=== PATIENT | female | born 1960 | race Caucasian/White ===

== ENCOUNTER → 2017-07-15 08:49 | Outpatient (CLI) | payer OTHER, SELFPAY ==
--- NOTE | 2017-07-15 09:04 | CA_ITS ---
PROCEDURE: 2-D M-mode and color Doppler study INDICATIONS FOR THE TEST: Chest pain COPD Heart Murmur Tobacco Smoking Palpitations Fatigue Syncope Edema Hypertension Diabetes Mellitus Rheumatic Fever SOB SEARS ObesityXHyperlipidemiaX Family History HD Additional History AF RECENT CARDIOVERSION,LIFEVEST,CM PATIENT INFORMATION HEIGHT: 63 WEIGHT:260 GENDER: Female B/P:120/80 2-D/M-MODE INTERPRETATION: 2-D MEASUREMENTS OBSERVED VALUES IN CMS Right Ventricular Dimension (RVDd) 2.6 Interventricular Septum (Thickness)(IVsd) 1.0 Left Ventricular Internal Dimensions(LVIDd 5.0 Left Ventricular Posterior Wall (Thickness)(LVPWd) 1.2 Aortic Root 2.6 Aortic Cusp Separation 1.7 Left Atrial Dimensions (LAD) 3.7 2D 1. Left atrium is qualitatively mildly enlarged, left ventricle is normal size, left ventricle wall thickness is upper limit of normal, there is preserved left ventricular systolic function, visually estimated ejection fraction 55% with no obvious regional wall motion abnormality. 2. The right atrium and right ventricle are mildly enlarged with normal contractility. 3. The aortic valve is minimally thickened and fibrosed. 4. The mitral and tricuspid valve leaflets are minimally thickened. 5. The pulmonic valve is poorly visualized. 6. No significant pericardial effusion noted. DOPPLER INTERROGATION: Doppler interrogation of the aortic, mitral and tricuspid valvular presence of mild mitral and tricuspid regurgitation, calculated right ventricular systolic pressure is 47 mmHg consistent with moderate pulmonary hypertension, diastolic parameters are inconclusive. CONCLUSION: 1. Left atrium is mildly enlarged, left ventricle is normal size, left ventricle wall thickness is upper limit of normal, there is preserved left ventricular systolic function, visually estimated ejection fraction 55% with no obvious regional wall motion abnormality. Diastolic parameters are inconclusive. 2. Mildly enlarged right ventricle with normal contractility. 3. Mild mitral and tricuspid regurgitation, calculated right ventricular systolic pressure is 47 mmHg consistent with moderate pulmonary hypertension. 4. No significant pericardial effusion noted.
== END ==
PROVIDERS: PCP Internal Medicine Adolescent Medicine; Visit Provider Internal Medicine
DX: I48.91 Unspecified atrial fibrillation (principal)
CPT/HCPCS: 93306

== ENCOUNTER → 2018-04-22 15:24 | Outpatient (CLI) | payer OTHER, SELFPAY ==
[2018-04-22 19:22] LABS: Alanine Aminotransferase 43 U/L (12-78); Albumin Level 3.8 gm/dL (3.4-5.0); Alkaline Phosphatase 104 U/L (46-116); Aspartate Amino Transferase 26 U/L (15-37); Bilirubin,Direct 0.1 mg/dL (0.0-0.2); Bilirubin,Indirect 0.4 mg/dL (0.0-0.9); Bilirubin,Total 0.5 mg/dL (0.2-1.0); T4 (Thyroxine) 6.2 ug/dl (4.7-13.3); Thyroid Stimulating Hormone 4.54 uIU/ml (0.358-3.740); Total Protein,Serum 7.3 gm/dL (6.4-8.2); Triiodothryronine (T3) Uptake 33 % (31-39)
== END ==
PROVIDERS: Visit Provider Internal Medicine Cardiovascular Disease
DX: E11.9 Type 2 diabetes mellitus without complications (principal); E66.9 Obesity, unspecified; G47.33 Obstructive sleep apnea (adult) (pediatric); I10 Essential (primary) hypertension; I25.10 Atherosclerotic heart disease of native coronary artery without angina pectoris; I42.0 Dilated cardiomyopathy; I48.91 Unspecified atrial fibrillation; I50.9 Heart failure, unspecified; R94.31 Abnormal electrocardiogram [ECG] [EKG]; Z79.01 Long term (current) use of anticoagulants
CPT/HCPCS: 36415; 80076; 84436; 84443; 84479

== ENCOUNTER → 2018-09-01 14:19 | Outpatient (CLI) | payer OTHER, SELFPAY ==
[2018-09-01 14:40] LABS: Basophils % 0.4 % (0.1-2.0); Eosinophils # 0.1 K/mm3 (0.0-0.4); Eosinophils % 1.5 % (0.1-12.0); Hematocrit 42.7 % (37.0-47.0); Hemoglobin 14.3 g/dL (12.2-16.2); Lymphocytes # 1.8 K/mm3 (0.7-4.5); Lymphocytes % 18.7 % (10-50); Mean Corpuscular HGB Conc 33.6 g/dL (31.8-35.4); Mean Corpuscular Hemoglobin 31.6 pg (27.0-31.2); Mean Platelet Volume 7.9 fl (7.4-10.4); Monocytes # 0.5 K/mm3 (0.1-1.0); Monocytes % 5.7 % (1.7-9.3); Neutrophils # 6.9 K/mm3 (1.8-7.8); Neutrophils % 73.8 % (37.0-80.0); Platelet Count 260 K/mm3 (142-424); Red Blood Count 4.54 M/mm3 (4.20-5.40); Red Cell Distribution Width 13.7 % (11.5-17.5); White Blood Count 9.3 K/mm3 (4.8-10.8)
[2018-09-01 15:58] LABS: Alanine Aminotransferase 70 U/L (12-78); Albumin Level 3.7 gm/dL (3.4-5.0); Alkaline Phosphatase 121 U/L (46-116); Anion Gap 15.6 mEq/L (5-15); Aspartate Amino Transferase 48 U/L (15-37); Bilirubin,Total 0.6 mg/dL (0.2-1.0); Blood Urea Nitrogen 18 mg/dL (7-18); Calcium 9.4 mg/dL (8.5-10.1); Carbon Dioxide 25 mmol/L (21.0-32.0); Chloride 100 mmol/L (98-107); Estimated Glomerular Filt Rate 42 ml/min (>60); GFR (African American) 51 ML/MIN (>60); Globulin 3.7 gm/dl (1.3-3.2); Glucose 351 mg/dL (74-106); Potassium 4.6 mmoL/L (3.5-5.1); Sodium 136 mmol/L (136-145); Total Protein,Serum 7.4 gm/dL (6.4-8.2)
== END ==
PROVIDERS: Visit Provider Nurse Practitioner Family
DX: Z79.899 Other long term (current) drug therapy (principal)
CPT/HCPCS: 36415; 80053; 85025

== ENCOUNTER → 2018-10-22 15:13 | Outpatient (CLI) | payer SELFPAY ==
--- NOTE | 2018-10-22 15:24 | XR_ITS ---
XR chest 2V HISTORY: ITS.REASON: a ORDERING PHYSICIAN: Indiana Schaffer APRN PATIENT AGE: 58 years COMPARISON: 04/22/2017 FINDINGS: The cardiomediastinal silhouette and pulmonary vascularity are within normal limits. The lungs are clear without infiltrates, suspicious nodules, or pleural effusions. There are mild degenerative changes in the thoracic spine. IMPRESSION: No acute finding
[2018-10-22 16:09] LABS: Basophils % 0.2 % (0.1-2.0); Eosinophils # 0.1 K/mm3 (0.0-0.4); Eosinophils % 0.8 % (0.1-12.0); Hemoglobin 14.8 g/dL (12.2-16.2); Lymphocytes # 1.4 K/mm3 (0.7-4.5); Lymphocytes % 16.6 % (10-50); Mean Corpuscular HGB Conc 33.7 g/dL (31.8-35.4); Mean Corpuscular Hemoglobin 30.8 pg (27.0-31.2); Mean Corpuscular Volume 91.4 fl (81-99); Mean Platelet Volume 8.2 fl (7.4-10.4); Monocytes # 0.5 K/mm3 (0.1-1.0); Monocytes % 6.4 % (1.7-9.3); Neutrophils # 6.2 K/mm3 (1.8-7.8); Neutrophils % 76.1 % (37.0-80.0); Platelet Count 244 K/mm3 (142-424); Red Blood Count 4.81 M/mm3 (4.20-5.40); Red Cell Distribution Width 14.1 % (11.5-17.5); White Blood Count 8.1 K/mm3 (4.8-10.8)
[2018-10-22 19:25] LABS: Alanine Aminotransferase 79 U/L (12-78); Albumin/Globulin Ratio 1.1 (1.1-1.8); Alkaline Phosphatase 114 U/L (46-116); Anion Gap 17.3 mEq/L (5-15); Aspartate Amino Transferase 57 U/L (15-37); Bilirubin,Total 0.9 mg/dL (0.2-1.0); Blood Urea Nitrogen 19 mg/dL (7-18); Calcium 9.8 mg/dL (8.5-10.1); Carbon Dioxide 25 mmol/L (21.0-32.0); Chloride 97 mmol/L (98-107); Creatinine,Serum 0.97 mg/dL (0.55-1.02); Estimated Glomerular Filt Rate 59 ml/min (>60); GFR (African American) 71 ML/MIN (>60); Globulin 3.7 gm/dl (1.3-3.2); Potassium 4.3 mmoL/L (3.5-5.1); Sodium 135 mmol/L (136-145); Total Protein,Serum 7.7 gm/dL (6.4-8.2)
[2018-10-22 19:29] LABS: Bilirubin,Direct 0.1 mg/dL (0.0-0.2)
[2018-10-22 19:34] LABS: Free T4 (Free Thyroxine) 0.95 ng/dl (0.76-1.46); Thyroid Stimulating Hormone 3.91 uIU/ml (0.358-3.740)
[2018-10-22 19:55] LABS: Glucose 437 mg/dL (74-106)
[2018-10-24 15:18] LABS: Hemoglobin A1C 10.8 % (0.0-7.0)
== END ==
PROVIDERS: Nurse Practitioner Family; Visit Provider Nurse Practitioner Family
DX: I48.91 Unspecified atrial fibrillation (principal); I25.10 Atherosclerotic heart disease of native coronary artery without angina pectoris; Z79.899 Other long term (current) drug therapy; R73.9 Hyperglycemia, unspecified
CPT/HCPCS: 36415; 71046; 80053; 82248; 83036; 84439; 84443; 85025

== ENCOUNTER 2020-03-18 21:23 | Inpatient (IN) | payer MEDICAID, SELFPAY ==
[2020-03-18] VITALS (7 sets, daily range): BP systolic 120–157; BP diastolic 74–116; PULSE 101–174; RESP 16–26; TEMP 36.6–36.7; O2SAT 93–98; BMI 42.1; BMI 50.8
--- NOTE | 2020-03-18 21:38 | XR_ITS ---
PROCEDURE: XR CHEST 2V CLINICAL HISTORY: SOA COMPARISON: CR CXR1 CHEST-PORTABLE from 10/09/2015 CR CXR1 CHEST-PORTABLE from 11/15/2016 CR CXR CHEST(2 VIEWS-NOT PORTABLE) from 04/22/2017 FINDINGS: There is cardiomegaly with mild pulmonary venous congestion and suggestion of trace bilateral effusions. No pulmonary edema The lungs are clear without infiltrates, suspicious nodules, or pleural effusions. Osteophytosis of the thoracic spine IMPRESSION: Mild CHF with trace effusions Dictated by: Ajit Carballo MD 03/19/2020 04:13 Ajit Carballo MD in [place] 03/19/2020 04:13
--- NOTE | 2020-03-18 21:41 | ECG_ITS ---
APPROVED REPORT Exam: Resting ECG HR:0 bpm ECG Measurements Heart Rate 0 AXES QRSd QRS 0 QT T 0 <Conclusion> No QRS complexes found, no ECG analysis possible Electronically signed by : Km Hollis, 03/20/2020 15:39:25
--- NOTE | 2020-03-18 21:43 | HMH.EDSOB ---
ED Disposition Clinical Impression: Atrial flutter with rapid ventricular response Obesity Qualifiers: Obesity type: due to excess calories Obesity classification: adult class 3 (BMI >= 40) Serious obesity comorbidity presence: with serious comorbidity Body mass index: BMI 40.0-44.9 Qualified Code(s): E66.01 - Morbid (severe) obesity due to excess calories; Z68.41 - Body mass index (BMI) 40.0-44.9, adult Congestive heart failure Qualifiers: Heart failure type: unspecified Heart failure chronicity: acute on chronic Qualified Code(s): I50.9 - Heart failure, unspecified Disposition: Admitted as Observation Condition on Discharge: Good Referrals: Km Hollis MD [Primary Care Provider] - - Critical Care Critical Care Time: No Attestation: On 03/18/20, the high probability of a clinically significant, sudden or life threatening deterioration of the following system(s) required my full and direct attention, intervention and personal management. The time I documented below is in addition to time spent performing reported procedures but includes the following listed in this critical care notation. Medical Decision Making - Medical Records Medical records reviewed: Yes: I reviewed the patient's medical records. - [place] Inquiry Pt receiving controlled substance: No Vital Signs: 03/18/20 21:31 03/18/20 21:48 03/18/20 22:50 Temperature 97.8 F Temperature Source Oral Pulse Rate [Right Brachial] 101 H 174 H 152 H Respiratory Rate 26 H 22 23 Blood Pressure [Right Arm] 157/99 H 131/116 H 154/91 H Blood Pressure Mean [Right Arm] 118 121 112 Blood Pressure Source [Right Arm] Automatic Cuff Blood Pressure Position [Right Arm] Sitting 02 Sat by Pulse Oximetry 96 94 L 93 L Oxygen Delivery Method Room Air Room Air Room Air - Lab Data Lab results reviewed: Yes: I reviewed the patient's lab results. Lab Results 03/18/20 21:55: WBC 10.7, RBC 4.39, Hgb 13.5, Hct 39.6, MCV 90.2, MCH 30.7, MCHC 34.0, RDW 15.1, Plt Count 258, MPV 8.6, Neut % (Auto) 75.2, Lymph % (Auto) 15.8, Drew % (Auto) 7.5, Eos % (Auto) 1.1, Baso % (Auto) 0.4, Neut # (Auto) 8.1 H, Lymph # (Auto) 1.7, Drew # (Auto) 0.8, Eos # (Auto) 0.1, Baso # (Auto) 0.0 03/18/20 21:55: Sodium 140, Potassium 4.5, Chloride 108 H, Carbon Dioxide 20 L, Anion Gap 16.5 H, BUN 30 H, Creatinine 1.00, Estimated Creat Clear 49, Estimated GFR 57 L, Est GFR ( Amer) 68, Glucose 171 H, Calcium 9.5, Total Bilirubin 1.2, Direct Bilirubin 0.3, Conjugated Bilirubin 0.0, Indirect Bilirubin 0.9, Unconjugated Bilirubin 0.8, AST 54 H, ALT 55, Alkaline Phosphatase 104, Troponin I 0.02, NT-Pro-B Natriuret Pep 7330 H, Total Protein 7.5, Albumin 4.3 03/18/20 21:55: SARS-CoV-2 IgG Ab (Rapid) Negative, SARS-CoV-2 IgM Ab (Rapid) Negative Result diagrams: 03/18/20 21:55 03/18/20 21:55 Orders (Tests/Meds): ORDERS Category Date Time Status XR chest 2V Stat Exams 03/18/20 21:38 Taken Thyroid Panel Stat Lab 03/18/20 21:55 Received Troponin I Q3H Lab 03/19/20 00:45 Ordered Troponin I Q3H Lab 03/19/20 03:45 Ordered - Radiology Data #1 Image(s): Chest Image Reviewed: Yes I reviewed the patient's radiology image Preliminary Findings: Abnormal (chf ) - ECG Data Tracing #1 Arrhythmias present: aflutter Ischemic changes: non-specific ST-T wave changes - Physician Consults Physician Consulted: santos Reason -: Admission - JOSÉ MIGUEL Score for Non-Stemi Age of Patient: 60-69 years old Heart Rate: 150-199 bpm Systolic Blood Pressure: 140-159 mmHg Serum Creatinine: 0.80-1.19 mg/dl CHF [place] Class: II-Pulmonary Rales or Jug Other Risk Factors: None Non-Stemi Risk Score: 147 Resp/SOB HPI - General Chief Complaint: Shortness of Breath/Dyspnea Stated Complaint: retaining fluid Time Seen by Provider: 03/18/20 21:40 Mode of Arrival: Family Vehicle Source of Information: Patient, Medical Record Limitations: No Limitations Description of Symptoms (Recalled from
--- NOTE | 2020-03-18 21:45 | PC.NURSE ---
QUESTIONED MD WHETHER HE WANTED ANY MEDS GIVEN FOR THE IRREG HR AND SOA, AND HE DEFERRED AT THIS TIME.
[2020-03-18 22:10] LABS: Basophils % 0.4 % (0.1-2.0); Eosinophils # 0.1 K/mm3 (0.0-0.4); Eosinophils % 1.1 % (0.1-12.0); Hematocrit 39.6 % (37.0-47.0); Hemoglobin 13.5 g/dL (12.2-16.2); Lymphocytes # 1.7 K/mm3 (0.7-4.5); Lymphocytes % 15.8 % (10-50); Mean Corpuscular Hemoglobin 30.7 pg (27.0-31.2); Mean Corpuscular Volume 90.2 fl (81-99); Mean Platelet Volume 8.6 fl (7.4-10.4); Monocytes # 0.8 K/mm3 (0.1-1.0); Monocytes % 7.5 % (1.7-9.3); Neutrophils # 8.1 K/mm3 (1.8-7.8); Neutrophils % 75.2 % (37.0-80.0); Platelet Count 258 K/mm3 (142-424); Red Blood Count 4.39 M/mm3 (4.20-5.40); Red Cell Distribution Width 15.1 % (11.5-17.5); White Blood Count 10.7 K/mm3 (4.8-10.8)
[2020-03-18 22:19] LABS: Alanine Aminotransferase 55 U/L (12-78); Albumin Level 4.3 g/dl (3.5-5.0); Alkaline Phosphatase 104 U/L (38-126); Anion Gap 16.5 mEq/L (5-15); Aspartate Amino Transferase 54 U/L (14-36); Bilirubin,Direct 0.3 mg/dl (0.0-0.4); Bilirubin,Indirect 0.9 mg/dL (0.0-0.9); Bilirubin,Total 1.2 mg/dl (0.2-1.3); Bilirubin,Unconjugated 0.8 mg/dL (0.0-1.1); Blood Urea Nitrogen 30 mg/dl (7-17); Calcium 9.5 mg/dl (8.4-10.2); Carbon Dioxide 20 mmol/L (22.0-30.0); Chloride 108 mmol/L (98-107); Creatinine Clearance Estimated 49 mL/min (50-200); Estimated Glomerular Filt Rate 57 ml/min (>60); GFR (African American) 68 ML/MIN (>60); Glucose 171 mg/dl (74-100); Potassium 4.5 mmoL/L (3.5-5.1); Sodium 140 mmol/L (136-145); Total Protein,Serum 7.5 g/dl (6.3-8.2)
[2020-03-18 22:31] LABS: Coronavirus 19 IgG Antibody Negative (Negative); Coronavirus 19 IgM Antibody Negative (Negative); NT Pro Brain Natriuretic Pep. 7330 pg/mL (0-125); Troponin I 0.02 ng/ml (0.00-0.034)
[2020-03-18 22:37] LABS: Free Thyroxine Index 3.2 ug/dL (5.93-13.13); Triiodothryronine (T3) Uptake 36 % (23.5-40.5)
[2020-03-18 22:51] LABS: Thyroid Stimulating Hormone 4.15 uIU/mL (0.465-4.68)
--- NOTE | 2020-03-18 22:51 | PC.NURSE ---
speaking with Dr. Hollis
--- NOTE | 2020-03-18 22:52 | PC.NURSE ---
Notified House of Admission
--- NOTE | 2020-03-18 23:25 | PC.NURSE ---
PT ARRIVED TO THE FLOOR VIA STRETCHER W/STAFF FROM ED AT [id number]
--- NOTE | 2020-03-18 23:26 | PC.NURSE ---
THIS RN INCREASED CARDIZEM GTT TO 15ML/HR ON ADMISSION R/T HR IN 150'S ON ADMISSION, WILL CONTINUE TO MONITOR PT'S TOLERANCE.
[2020-03-19] VITALS (27 sets, daily range): BP systolic 101–162; BP diastolic 56–101; PULSE 80–150; RESP 16–20; TEMP 36.7; O2SAT 90–97; BMI 50.1
[2020-03-19 01:00] LABS: Troponin I 0.02 ng/ml (0.00-0.034)
--- NOTE | 2020-03-19 03:00 | PC.NURSE ---
TITRATED CARDIZEM GTT TO 10 MG AT THIS TIME.
--- NOTE | 2020-03-19 03:30 | PC.NURSE ---
TITRATE CARDIZEM GTT TO 5 MG AT THIS TIME.
--- NOTE | 2020-03-19 03:34 | PC.NURSE ---
A&OX3. PROPOSAL ANALYST EQUAL BILAT. LUNGS CLEAR T/O AUSCULTATION. TOELRATED RA WELL. NO COMPLAINTS STATED THIS SHIFT. PULSES +2, +1 PITTING EDEMA NOTED PER BLE. AFIB NOTED PER PLANT SUPERVISOR. ON ADMISSION REDNESS, FLUSHING NOTED TO FACE. ON REASSESSMENT FREE FROM FLUSHING. INDEPENDENT WITH ADL'S, USES CANE FROM HOME TO ASSIST WITH AMBULATION TO AND FROM BATHROOM, PT TOLERATES THIS WELL. TOLERATED CARDIZEM GTT WELL THIS SHIFT. CARDIZEM CURRENTLY INFUSING AT 5 ML/HR. VSS. WILL CONTINUE TO MONITOR.
--- NOTE | 2020-03-19 04:30 | PC.NURSE ---
TITRATED CARDIZEM GTT TO 10 ML/HR AT THIS TIME.
[2020-03-19 04:32] LABS: Basophils % 0.4 % (0.1-2.0); Eosinophils # 0.1 K/mm3 (0.0-0.4); Eosinophils % 1.2 % (0.1-12.0); Hematocrit 36.1 % (37.0-47.0); Hemoglobin 12.4 g/dL (12.2-16.2); Lymphocytes # 1.7 K/mm3 (0.7-4.5); Lymphocytes % 19.6 % (10-50); Mean Corpuscular HGB Conc 34.4 g/dL (31.8-35.4); Mean Corpuscular Hemoglobin 31.4 pg (27.0-31.2); Mean Corpuscular Volume 91.3 fl (81-99); Mean Platelet Volume 8.2 fl (7.4-10.4); Monocytes # 0.7 K/mm3 (0.1-1.0); Monocytes % 8.1 % (1.7-9.3); Neutrophils % 70.7 % (37.0-80.0); Platelet Count 213 K/mm3 (142-424); Red Blood Count 3.95 M/mm3 (4.20-5.40); Red Cell Distribution Width 15.2 % (11.5-17.5); White Blood Count 8.5 K/mm3 (4.8-10.8)
[2020-03-19 04:48] LABS: Anion Gap 13.4 mEq/L (5-15); Blood Urea Nitrogen 25 mg/dl (7-17); Calcium 8.9 mg/dl (8.4-10.2); Carbon Dioxide 24 mmol/L (22.0-30.0); Chloride 106 mmol/L (98-107); Chol/HDL Ratio 4.5 (1-3.5); Cholesterol 153 mg/dl (140-200); Creatinine Clearance Estimated 59 mL/min (50-200); Estimated Glomerular Filt Rate 73 ml/min (>60); GFR (African American) 89 ML/MIN (>60); HDL Cholesterol 34 mg/dl (40-60); Magnesium 1.9 mg/dl (1.6-2.3); Potassium 3.4 mmoL/L (3.5-5.1); Sodium 140 mmol/L (136-145); Triglycerides 118 mg/dl (30-150); VLDL Cholesterol 24 mg/dL (0-40)
[2020-03-19 04:59] LABS: Direct LDL Cholesterol 106.25 mg/dL (100-129); Troponin I 0.02 ng/ml (0.00-0.034)
[2020-03-19 05:09] LABS: Glucose 116 mg/dl (74-100)
--- NOTE | 2020-03-19 07:30 | PC.NURSE ---
TITRATED CARDIZEM GTT TO 15 ML/HR.
--- NOTE | 2020-03-19 07:55 | PC.NURSE ---
per dr. graham the goal is to keep pt HR lower than 100bpm rather than converting to NSR. will cont. to monitor.
--- NOTE | 2020-03-19 07:58 | HMH.HP ---
*Admission Date: 03/19/20 *Chief complaint: Shortness of air/swelling *History of present illness: 59-year-old white female with long history of recurrent and difficult to control atrial fibrillation who has been seen by a variety of cardiology services over the past several years. Unfortunately, about a year ago she was unable to procure medical insurance and as a result stopped taking all of her medications and stopped attending doctors appointments. She is been doing fairly well but over the past couple of weeks has noted increasing shortness of air, swelling, irregular heart rate with palpitations and came to the emergency department last night with atrial fibrillation with rapid response and evidence of CHF. Admitted to hospital for IV Lasix, Cardizem drip and further diagnostic testing. [facility] History Medical History: Reports:: Atrial Fibrillation (History of evaluation for ablation, longstanding disease with recurrence), Congestive Heart Failure, Coronary Artery Disease, Diabetes Mellitus Type 2, Hyperlipidemia, Hypertension *Have you ever received a pneumonia vaccine?: No *Have you received a flu vaccine this season?: No Other Medical History: Reports: Hypothyroidism Other Surgeries: Yes: Cardiac Catheterization, Other - *Social History Last grade of school completed: Some college Smoking Status: Never smoker Alcohol Intake: former Alcohol Intake Frequency:: other Substance Use Type: former substance user *Occupational Status:: employed Household Members: spouse *Travel in the last 8 weeks: None Family Hx:: Anemia, Cancer, Coronary Artery Disease, Diabetes, Hyperlipidemia, Hypertension, Mental illness Review of Systems - Review of Systems Review of systems:: pertinent systems reviewed and negative unless documented below Patient reports dyspnea and palpitations which have improved nicely. Denies chest pain. Denies GI complaints or rash. Reports a minimal cough this morning without sputum production - *Neurologic Denies localized weakness, Denies seizure-like activity Meds Home Medications Medication Instructions Recorded Confirmed Type aspirin 81 mg tablet,delayed 81 mg PO QDAY 07/09/17 03/19/20 History release sacubitril 24 mg-valsartan 26 mg 1 tab PO QDAY tab 07/17/17 03/18/20 History tablet folic acid 1 mg tablet 1 mg PO DAILY 04/23/18 03/18/20 History methotrexate sodium 2.5 mg tablet 15 mg PO QWEEK tab 04/23/18 03/18/20 History Amiodarone HCl [Amiodarone 200mg 200 mg PO QDAY 03/18/20 03/18/20 History Tab] Apixaban [Eliquis] 5 mg PO BID 03/18/20 03/18/20 History Atorvastatin Calcium [Lipitor 40mg 40 mg PO QDAY 03/18/20 03/18/20 History Tablet*] Digoxin 125 mcg PO QDAY 03/18/20 03/18/20 History Furosemide [Furosemide 40MG tAB*] 40 mg PO QDAY 03/18/20 03/18/20 History Spironolactone [Spironolactone 25 mg PO DAILY 03/18/20 03/18/20 History 25mg Tab] bisoproloL fumarate [Zebeta 5mg 5 mg PO QDAY 03/18/20 03/18/20 History tablet] Allergies Allergy/AdvReac Type Severity Reaction Status Date / Time No Known Allergies Allergy Verified 10/22/18 14:20 Exam Vital signs and Labs for Last 24 Hours: Temp Pulse Resp BP Pulse Ox 98.1 F 131 H 17 162/94 H 91 L 03/19/20 07:40 03/19/20 07:30 03/19/20 04:00 03/19/20 06:45 03/19/20 06:45 Laboratory Results - last 24 hr 03/18/20 21:55: WBC 10.7, RBC 4.39, Hgb 13.5, Hct 39.6, MCV 90.2, MCH 30.7, MCHC 34.0, RDW 15.1, Plt Count 258, MPV 8.6, Neut % (Auto) 75.2, Lymph % (Auto) 15.8, Wayne % (Auto) 7.5, Eos % (Auto) 1.1, Baso % (Auto) 0.4, Neut # (Auto) 8.1 H, Lymph # (Auto) 1.7, Wayne # (Auto) 0.8, Eos # (Auto) 0.1, Baso # (Auto) 0.0 03/18/20 21:55: Sodium 140, Potassium 4.5, Chloride 108 H, Carbon Dioxide 20 L, Anion Gap 16.5 H, BUN 30 H, Creatinine 1.00, Estimated Creat Clear 49, Estimated GFR 57 L, Est GFR ( Amer) 68, Glucose 171 H, Calcium 9.5, Total Bilirubin 1.2, Direct Bilirubin 0.3, Conjugated Bilirubin 0.0, Indirec
--- NOTE | 2020-03-19 09:39 | PC.NURSE ---
Paged Dr. Chang for consult on this pt at this time.
--- NOTE | 2020-03-19 11:18 | PC.NURSE ---
CARDIZEM GTT INCREASED TO 15ML/HR FOR HR MAININTING IN 120'S.
--- NOTE | 2020-03-19 11:41 | P.CONPHA_ITS ---
[facility] Pharmacy VTE Monitoring - Patient Demographics Admission date: 03/18/20 Report Date: 03/19/20 Time: 11:41 Allergies/Adverse Reactions: Patient Allergies No Known Allergies Allergy (Verified 10/22/18 14:20) Height: 1.6 m Weight: 128.168 kg Patient Problems: Current Active Problems Atrial flutter with rapid ventricular response (Acute) Obesity (Chronic) Congestive heart failure (Acute) - VTE Risk Labs: VTE Related Lab Results Hgb 12.4 g/dL (12.2-16.2) 03/19/20 04:00 Hct 36.1 % (37.0-47.0) L 03/19/20 04:00 Plt Count 213 K/mm3 (142-424) 03/19/20 04:00 BUN 25 mg/dl (7-17) H 03/19/20 04:00 Creatinine 0.80 mg/dl (0.52-1.04) 03/19/20 04:00 Estimated Creat Clear 59 mL/min (50-200) 03/19/20 04:00 Was VTE Risk Assessment Performed: Yes VTE Score: 6 VTE Risk Level: Moderate Risk - Prophylaxis VTE Prophylaxis Ordered?: Yes Types of VTE Prophylaxis: TEDS Knee High Location of Applied Device: Bilateral Lower Extremeties
--- NOTE | 2020-03-19 13:38 | PC.NURSE ---
AT 1328 CARDIZEM DRIP DECREASED TO 10ML/HR. HEART RATE BETWEEN HIGH 90'S-110
--- NOTE | 2020-03-19 15:53 | PC.NURSE ---
PT HAS BEEN UP TO CHAIR FOR MOST OF SHIFT, A0*4, ANSWERS QUESTIONS AND FOLLOW COMMANDS, PT HAS NOT C/O N/V/D OR PAIN THIS SHIFT, PT STILL IRREGULAR ON TELE WITH UNCONTROLLED AFIB WITH HR >100 BPM, CARDIZEM DRIP HAS BEEN TITRATED TO MAINTAIN PARAMETERS OF HR<100 BPM, PT HAS NO C/O CHEST PAIN, NO INDICATIONS OF COMPLICATIONS R/T AFIB NOTED, NO NEEDS AT THIS TIME, WILL CONTINUE TO MONITOR,
--- NOTE | 2020-03-19 16:43 | PC.NURSE ---
when pt ambulates hr increases to 135-140bpm then quickly decreases when pt sits back in chair. pt states no soa. drip titrated per protocol by this RN.
[2020-03-19 17:08] LABS: POC Glucose,Bedside 108 (70-110)
[2020-03-19 17:08] LABS: POC Glucose,Bedside 119 (70-110)
[2020-03-20] VITALS (25 sets, daily range): BP systolic 90–166; BP diastolic 53–91; PULSE 71–130; RESP 15–22; TEMP 36.5–36.9; O2SAT 90–97; BMI 49.6
[2020-03-20 01:08] LABS: POC Glucose,Bedside 139 (70-110)
--- NOTE | 2020-03-20 01:55 | PC.NURSE ---
A&OX3. ADJUNCT INSTRUCTOR IN ECONOMICS EQUAL BILAT. LUNGS NOTED CLEAR T/O AUSCULTATION. TOLERATED RA WELL. PULSES +2. CAP REFILL < 3 SEC. AFIB NOTED PER NUT ROASTER. CARDIZEM GTT HAS REMAINED AT A RATE OF 10 ML/HR, TOLERATED WELL. ABDOMEN NOTED WITH ACTIVE BOWEL SOUNDS, SOFT AND NONTENDER PER PALPATION. INDPENDENT WITH ADL'S. NO COMPLAINTS STATED. VSS. WILL CONTINUE TO MONITOR.
[2020-03-20 05:17] LABS: POC Glucose,Bedside 119 (70-110)
--- NOTE | 2020-03-20 06:13 | PC.NURSE ---
TITRATED CARDIZEM GTT TO 15 ML/HR R/T HR 120'S-130'S, WILL CONTINUE TO MONITOR AND TITRATE PRN.
[2020-03-20 06:16] LABS: Chloride 103 mmol/L (98-107)
[2020-03-20 06:17] LABS: Potassium 3.7 mmoL/L (3.5-5.1); Sodium 140 mmol/L (136-145)
[2020-03-20 06:18] LABS: Basophils % 0.4 % (0.1-2.0); Eosinophils # 0.1 K/mm3 (0.0-0.4); Eosinophils % 1.2 % (0.1-12.0); Hematocrit 40.1 % (37.0-47.0); Lymphocytes % 9.5 % (10-50); Mean Corpuscular HGB Conc 32.3 g/dL (31.8-35.4); Mean Corpuscular Hemoglobin 29.9 pg (27.0-31.2); Mean Corpuscular Volume 92.5 fl (81-99); Mean Platelet Volume 8.9 fl (7.4-10.4); Monocytes # 0.8 K/mm3 (0.1-1.0); Monocytes % 7.4 % (1.7-9.3); Neutrophils # 8.4 K/mm3 (1.8-7.8); Neutrophils % 81.6 % (37.0-80.0); Platelet Count 236 K/mm3 (142-424); Red Blood Count 4.34 M/mm3 (4.20-5.40); Red Cell Distribution Width 15.2 % (11.5-17.5); White Blood Count 10.3 K/mm3 (4.8-10.8)
[2020-03-20 06:19] LABS: Blood Urea Nitrogen 19 mg/dl (7-17); Creatinine Clearance Estimated 59 mL/min (50-200); Estimated Glomerular Filt Rate 73 ml/min (>60); GFR (African American) 89 ML/MIN (>60)
[2020-03-20 06:20] LABS: Anion Gap 13.7 mEq/L (5-15); Calcium 8.8 mg/dl (8.4-10.2); Carbon Dioxide 27 mmol/L (22.0-30.0); Glucose 138 mg/dl (74-100)
--- NOTE | 2020-03-20 07:44 | HMH.PHAINT ---
HOME MEDICATIONS RECONCILED FROM PATIENT INTERVIEW. MEDICATIONS LISTED ARE THE MEDS SHE SHOULD BE TAKING, HOWEVER, SHE IS ONLY CURRENTLY TAKING ASPIRIN. MD AWARE.
--- NOTE | 2020-03-20 07:57 | CA_ITS ---
APPROVED REPORT EXAM: Comprehensive 2D, Doppler, and color-flow Echocardiogram Purchasing Buyer: Krystina Stack RDCS Ht: 5 ft 2 in Wt: 282lbs BSA: 2.21 BP: 160/94 mmHg Indications: AF,CHF 2D Dimensions LVOT 1.62 cm (M/F) 1.5-2.5 M-Mode Dimensions RVDd 4.10 cm (0.9-2.6) LVDd 5.31 cm (3.5-5.7) LVDs 3.30 cm (3.5-5.7) IVSd 1.29 cm (0.6-1.1) PWd 0.94 cm (0.6-1.1) EF (Teich) 67.50% FS 37.90% EDV (Teich) 135.90 mL ESV (Teich) 44.10 mL Aortic Valve LVOT Max 102.00 (70-110 cm/s) LVOT VTI 16.28 cm Left Ventricle Left atrium is mildly enlarged, left ventricle is normal size, mild concentric left ventricular hypertrophy, reduced ventricular systolic function, visually estimated ejection fraction 30%, endocardial sounds are poorly visualized, there appears to be marked hypokinesis involving mid to distal septum, anterior apical wall. A repeat study with Definity contrast is recommended. Diastolic parameters are inconclusive. Right Ventricle Right atrium and right ventricle are mildly enlarged with normal contractility. Aortic Valve Aortic valve is thickened and calcified however Doppler is not indicated above aortic stenosis or aortic insufficiency. Mitral Valve Mitral valve leaflets are minimally thickened, there is mild mitral regurgitation. Tricuspid Valve Tricuspid valve is grossly normal, there is mild tricuspid regurgitation, calculated right ventricular systolic pressure is 43 mmHg. Pulmonic Valve Pulmonic valve is poorly visualized. Great Vessels Aortic root is normal size. Pericardium Small pericardial effusion noted. Conclusion 1. Biatrial enlargement, normal left ventricular size, mild concentric left ventricular hypertrophy, visually estimated ejection fraction 30% with multiple segmental wall motion abnormality described above, diastolic parameters are inconclusive, a repeat study with Definity contrast is recommended. Endocardial surfaces are poorly visualized. 2. Thickened and calcified aortic valve without Doppler evidence of aortic stenosis or aortic insufficiency. 3. Mild mitral and tricuspid regurgitation, calculated right ventricular systolic pressure is 43 mmHg. 4. Small pericardial effusion noted. Inferior vena cava is dilated without significant inspiratory collapse. Electronically signed by : Satish Mancini, 03/20/2020 18:08:17
--- NOTE | 2020-03-20 08:20 | HMH.ACPN2 ---
Internal Medicine - PN: Subj *Date: 03/20/20 *Time: 08:20 Interval history: Overnight patient seems much better. Has diuresed about 6 L. Heart rate still remains in the low 100s on a Cardizem drip. Exam Vital signs and Labs for Last 24 Hours: Temp Pulse Resp BP Pulse Ox 97.7 F 110 H 21 130/72 93 L 03/20/20 03:56 03/20/20 08:00 03/20/20 08:00 03/20/20 08:00 03/20/20 08:00 Laboratory Results - last 24 hr 03/19/20 11:47: POC Glucose 108 03/19/20 16:18: POC Glucose 119 H 03/19/20 20:48: POC Glucose 139 H 03/20/20 04:52: POC Glucose 119 H 03/20/20 05:37: WBC 10.3, RBC 4.34, Hgb 13.0, Hct 40.1, MCV 92.5, MCH 29.9, MCHC 32.3, RDW 15.2, Plt Count 236, MPV 8.9, Neut % (Auto) 81.6 H, Lymph % (Auto) 9.5 L, [place] % (Auto) 7.4, Eos % (Auto) 1.2, Baso % (Auto) 0.4, Neut # (Auto) 8.4 H, Lymph # (Auto) 1.0, [place]on # (Auto) 0.8, Eos # (Auto) 0.1, Baso # (Auto) 0.0 03/20/20 05:37: Sodium 140, Potassium 3.7, Chloride 103, Carbon Dioxide 27, Anion Gap 13.7, BUN 19 H, Creatinine 0.80, Estimated Creat Clear 59, Estimated GFR 73, Est GFR ( Amer) 89, Glucose 138 H, Calcium 8.8 I & O for Last 24 hours: Intake & Output 03/17/20 03/18/20 03/19/20 03/20/20 11:59 11:59 11:59 11:59 Intake Total 646 / 646 2160 / 2160 Output Total 2600 / 3500 3350 / 3350 Balance -1954 / -2854 -1190 / -1190 Weight 282 lb 9 oz 280 lb 3 oz Narrative: Overall patient is alert, pleasant, talkative. Lungs have good air movement. Minimal bibasilar rhonchi. Abdomen soft, nontender. Heart rate irregular, rate in the 100s No peripheral edema noted. Neurologically intact. Assessment and Plan (1) Atrial flutter with rapid ventricular response Current visit: Yes Status: Acute Category: Medical Code(s): I48.92 - Unspecified atrial flutter (2) Congestive heart failure Current visit: Yes Status: Acute Qualifiers: Heart failure type: unspecified Heart failure chronicity: acute on chronic Qualified Code(s): I50.9 - Heart failure, unspecified Category: Medical Code(s): I50.9 - Heart failure, unspecified (3) Obesity Current visit: Yes Status: Chronic Qualifiers: Obesity type: due to excess calories Obesity classification: adult class 3 (BMI >= 40) Serious obesity comorbidity presence: with serious comorbidity Body mass index: BMI 40.0-44.9 Qualified Code(s): E66.01 - Morbid (severe) obesity due to excess calories; Z68.41 - Body mass index (BMI) 40.0-44.9, adult Category: Medical Code(s): E66.9 - Obesity, unspecified (4) Diabetes mellitus Current visit: No Status: Acute Qualifiers: Diabetes mellitus type: type 2 Diabetes mellitus middle or intermediate school principal insulin use: without middle or intermediate school principal use Diabetes mellitus complication status: without complication Qualified Code(s): E11.9 - Type 2 diabetes mellitus without complications Category: Medical Code(s): E11.9 - Type 2 diabetes mellitus without complications - Assessment and plan all Dx Assessment and Plan for all problems:: Overall improving. Bump up digoxin dose. Start low-dose beta-guillermo given her improvement in CHF symptoms. Cardiology evaluation today. Echocardiogram report pending
--- NOTE | 2020-03-20 09:04 | HMH.CNCARD ---
History of Present Illness Consult date: 03/20/20 Requesting physician: Km Hollis Consult reason: atrial fibrillation Chief complaint: racing of the heart Additional Medical History:: 1. CAD, mild, non-occlusive dz in 2017 2. HX of CM with EF 30% in 2017. Most recent EF was 55% in 2018. 3. HTN 4. HLD 5. DM 6. 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 atrial fibrillation with cardioversion x 2. History of present illness: This is a 5-year-old white female who was admitted to the hospital with atrial fibrillation with RVR as well as an acute exacerbation of systolic congestive heart failure. The patient does have a history of dilated cardiomyopathy with an ejection fraction of 30% back in 2017 which did improve to 55% in 2018. She did undergo left cardiac catheterization in 2017 as well which showed mild nonocclusive coronary artery disease. The patient reports that she was having racing of the heart and at home she noticed her heart rate was elevated and that is why she came into the emergency department. She was also having shortness of breath that was progressively worsening. She states that this did get severe. It was associated with bilateral lower extremity edema. She had some orthopnea associated with the shortness of breath as well. She denies any chest pain or pressure. She denies any fever, chills, nausea, vomiting, diarrhea. The patient states that she feels much better now. She has diuresed 6 L and states her shortness of breath is almost completely resolved. She states the racing of her heart has also stopped. However her heart rate remains a little bit elevated today with a heart rate between 106 and 110 while I was in the room. She remains in atrial fibrillation. Of note the patient does report that she stopped taking all of her medications because of insurance issues. She states that she has not been on any medications for quite some time and she notes that this is the reason why she is symptomatic like this. We have had long discussions with the patient about being compliant with her medications. She has verbalized understanding. [facility] History I have reviewed the patient's past medical history: Yes Medical History: Reports:: Atrial Fibrillation (History of evaluation for ablation, longstanding disease with recurrence), Congestive Heart Failure, Coronary Artery Disease, Diabetes Mellitus Type 2, Hyperlipidemia, Hypertension *Have you ever received a pneumonia vaccine?: No *Have you received a flu vaccine this season?: No Other Medical History: Reports: Hypothyroidism Other Surgeries: Yes: Cardiac Catheterization, Other - *Social History Last grade of school completed: Some college Smoking Status: Never smoker Alcohol Intake: former Alcohol Intake Frequency:: other Substance Use Type: former substance user *Occupational Status:: employed Household Members: spouse *Travel in the last 8 weeks: None Family Hx:: Anemia, Cancer, Coronary Artery Disease, Diabetes, Hyperlipidemia, Hypertension, Mental illness Meds Home Medications Medication Instructions Recorded Confirmed Type aspirin 81 mg tablet,delayed 81 mg PO DAILY 07/09/17 03/19/20 History release sacubitril 24 mg-valsartan 26 mg 1 tab PO DAILY tab 07/17/17 03/19/20 History tablet folic acid 1 mg tablet 1 mg PO DAILY 04/23/18 03/18/20 History methotrexate sodium 2.5 mg tablet 15 mg PO TU tab 04/23/18 03/19/20 History Apixaban [Eliquis] 5 mg PO BID 03/18/20 03/18/20 History Atorvastatin Calcium [Lipitor 40mg 40 mg PO DAILY 03/18/20 03/19/20 History Tablet*] Digoxin 125 mcg PO DAILY 03/18/20 03/19/20 History Furosemide [Furosemide 40MG tAB*] 40 mg PO DAILY 03/18/20 03/19/20 History bisoproloL fumarate [Zebeta 5mg 5 mg PO DAILY 03/18/20 03/19/20 History tablet] Amiodarone HCl [Cordarone 200mg 200 mg PO DAILY 03/19/20 03/19/20 History tablet] Spironolactone [Aldactone 25mg 25 mg PO DAILY 03/19/20 03/19/20 History Tab] Allergies Allergy/Ad
--- NOTE | 2020-03-20 10:02 | PC.NURSE ---
Addendum entered by Norma Rutherford RN 03/20/20 10:36: 1035 - CARDIZEM GTT DECREASED TO 5 MLS/HR Original Note: 1000 - CARDIZEM GTT DECREASED TO 10 MLS/HR
[2020-03-20 17:53] LABS: POC Glucose,Bedside 134 (70-110)
[2020-03-20 17:53] LABS: POC Glucose,Bedside 112 (70-110)
--- NOTE | 2020-03-20 19:14 | PC.NURSE ---
report given to mary lou
--- NOTE | 2020-03-20 20:13 | PC.NURSE ---
Pt up to chair entire shift. Tolerating activity well. Remains on cardizem gtt. Gtt was increased to 10 mls/hr @ 1730. Pt has diuresed well this shift. No complaints voiced. Remains on room air. Report given to Sarika Craig RN.
--- NOTE | 2020-03-20 23:30 | PC.NURSE ---
TITRATED CARDIZEM GTT TO 5ML/HR AT THIS TIME.
[2020-03-21] VITALS (30 sets, daily range): BP systolic 97–140; BP diastolic 50–94; PULSE 57–128; RESP 16–20; TEMP 36.4–37.4; O2SAT 92–97; BMI 48.9
--- NOTE | 2020-03-21 | IR_ITS ---
APPROVED REPORT Patient Location: Inpatient PROCEDURES Left heart catheterization Left ventriculogram Selective coronary angiogram INDICATION New onset systolic congestive heart failure ejection fraction 30% Informed consent was obtained prior to the procedure. COMPLICATIONS none Estimated Blood Loss: less than 10mls TECHNIQUE One percent lidocaine was used to anesthetize the right anterior aspect of the right wrist. The right radial artery was accessed via the Seldinger technique and a 6 [place] hydrophilic sheath was placed in the right radial artery. Following this one percent lidocaine was used to anesthetize the right anterior aspect of the right neck. The right internal jugular vein was accessed via the Seldinger technique and a 7 [place] sheath was placed in the right internal jugular vein. Following this an arterial cocktail was administered using 5000U heparin, 2.5 mg verapamil, 1mg Lidocaine and 800mcg nitroglycerin into the right radial sheath. A trap catheter was used to perform left heart catheterization left ventriculogram and selective coronary angiography while a Craig-Brandi catheter was used to perform right heart catheterization. Saturations were obtained in the pulmonary artery and right atrium. At the end of the procedure the arterial sheath was removed good hemostasis was achieved using Traclet band. Patient was transferred to the postop holding area in stable condition for venous sheath removal. ANGIOGRAPHIC RESULTS The left main artery Normal The left anterior descending artery Mild atheromatous plaque nothing greater than 20% The circumflex artery Mild atheromatous plaque nothing greater than 20% The right coronary artery Dominant with mild diffuse 20% stenoses The NUNEZ ventriculogram reveals Dilated ventricle ejection fraction 30-35% The left ventricular end-diastolic pressure 30 mmHg IMPRESSION [id number] coronary artery disease Severely reduced ejection fraction with elevated LVEDP PLAN 1. Standard therapy for systolic heart failure 2. Consideration of LifeVest prior to discharge home Electronically signed by : Ashkan Chang, 03/21/2020 12:19:26
--- NOTE | 2020-03-21 01:05 | PC.NURSE ---
CARDIZEM TITRATED TO TO 1ML/HR
[2020-03-21 01:22] LABS: POC Glucose,Bedside 125 (70-110)
--- NOTE | 2020-03-21 03:09 | PC.NURSE ---
A&OX3. CONTAINER FINISHER EQUAL BILAT. LUNGS NOTED CLEAR T/O AUSCULTATION. TOLERATED RA WELL THIS SHIFT. PULSES +2, CAP REFILL < 3 SEC. +2 PITTING EDEMA NOTED TO BLE. AFIB WITH PVC'S NOTED PER FORENSIC ARTIST. HR NOTED IN 50'S AT TIMES WITH THE CARDIZEM GTT AT 5MG, MD PRINT COLOR OPERATOR MADE AWARE. NO NEW ORDERS GIVEN. CARDIZEM GTT TITRATED TO 1MG, 1ML/HR. HR NOTED 60'S-80'S. NO COMPLAINTS STATED. PT REPORTS I FEEL GOOD. INDEPENDENT WITH ADL'S. CANE FROM HOME IS USED AT TIMES WITH AMBULATION. VSS. WILL CONTINUE TO MONITOR.
--- NOTE | 2020-03-21 06:15 | PC.NURSE ---
CARDIZEM GTT TITRATED TO 5 MG AT THIS TIME.
[2020-03-21 06:21] LABS: Basophils % 0.3 % (0.1-2.0); Eosinophils # 0.1 K/mm3 (0.0-0.4); Hematocrit 39.4 % (37.0-47.0); Hemoglobin 12.3 g/dL (12.2-16.2); Lymphocytes # 1.3 K/mm3 (0.7-4.5); Lymphocytes % 15.2 % (10-50); Mean Corpuscular HGB Conc 31.3 g/dL (31.8-35.4); Mean Corpuscular Hemoglobin 28.7 pg (27.0-31.2); Mean Corpuscular Volume 91.9 fl (81-99); Mean Platelet Volume 7.9 fl (7.4-10.4); Monocytes # 0.8 K/mm3 (0.1-1.0); Monocytes % 9.3 % (1.7-9.3); Neutrophils # 6.2 K/mm3 (1.8-7.8); Neutrophils % 74.1 % (37.0-80.0); Platelet Count 193 K/mm3 (142-424); Red Blood Count 4.29 M/mm3 (4.20-5.40); Red Cell Distribution Width 14.6 % (11.5-17.5); White Blood Count 8.3 K/mm3 (4.8-10.8)
[2020-03-21 06:29] LABS: Chloride 104 mmol/L (98-107)
[2020-03-21 06:30] LABS: Potassium 3.6 mmoL/L (3.5-5.1); Sodium 139 mmol/L (136-145)
[2020-03-21 06:32] LABS: Blood Urea Nitrogen 16 mg/dl (7-17); Creatinine Clearance Estimated 68 mL/min (50-200); Estimated Glomerular Filt Rate 85 ml/min (>60); GFR (African American) 103 ML/MIN (>60)
[2020-03-21 06:33] LABS: Anion Gap 11.6 mEq/L (5-15); Calcium 8.4 mg/dl (8.4-10.2); Carbon Dioxide 27 mmol/L (22.0-30.0); Glucose 111 mg/dl (74-100)
--- NOTE | 2020-03-21 06:56 | PC.NURSE ---
24 BEAT RUN OF VTACH NOTED PER TANK CAR REPAIRER AT THIS TIME. ON ASSESSMENT PT WAS ASYMPTOMATIC. WILL NOTIFY ONCOMING RN AND MD ON AM ROUNDS.
--- NOTE | 2020-03-21 07:22 | HMH.ACPN2 ---
Internal Medicine - PN: Subj *Date: 03/21/20 *Time: 08:37 Interval history: Rate overnight improved temporarily however remained in abnormal rhythm. Continuing on drip this morning. Volume status is neutral, diuresed well but unfortunately is only negative approximately 200 cc in 24 hours. Denies any shortness of breath, chest pain, palpitations. In bedside chair on interview this morning. Exam Vital signs and Labs for Last 24 Hours: Temp Pulse Resp BP Pulse Ox 98.1 F 124 H 16 140/94 H 94 L 03/21/20 04:16 03/21/20 06:00 03/21/20 06:00 03/21/20 06:00 03/21/20 06:00 Laboratory Results - last 24 hr 03/20/20 12:18: POC Glucose 134 H 03/20/20 16:52: POC Glucose 112 H 03/20/20 20:53: POC Glucose 125 H 03/21/20 05:43: WBC 8.3, RBC 4.29, Hgb 12.3, Hct 39.4, MCV 91.9, MCH 28.7, MCHC 31.3 L, RDW 14.6, Plt Count 193, MPV 7.9, Neut % (Auto) 74.1, Lymph % (Auto) 15.2, [place] % (Auto) 9.3, Eos % (Auto) 1.0, Baso % (Auto) 0.3, Neut # (Auto) 6.2, Lymph # (Auto) 1.3, [place] # (Auto) 0.8, Eos # (Auto) 0.1, Baso # (Auto) 0.0 03/21/20 05:43: Sodium 139, Potassium 3.6, Chloride 104, Carbon Dioxide 27, Anion Gap 11.6, BUN 16, Creatinine 0.70, Estimated Creat Clear 68, Estimated GFR 85, Est GFR ( Amer) 103, Glucose 111 H, Calcium 8.4 I & O for Last 24 hours: Intake & Output 03/18/20 03/19/20 03/20/20 03/21/20 23:59 23:59 23:59 23:59 Intake Total 2075 / 2075 2633 / 2633 636 / 636 Output Total 5950 / 5950 2800 / 2800 700 / 700 Balance -3875 / -3875 -167 / -167 -64 / -64 Weight 130.238 kg 128.168 kg 127 kg 125.39 kg Narrative: In bed such on exam, no acute distress on room air. Alert and oriented x3, pleasant, talkative. Lungs have good air movement. Minimal bibasilar rhonchi. Abdomen soft, nontender. Heart rate irregular, rate in the 100s 1+ peripheral edema noted. Neurologically intact. Assessment and Plan (1) Atrial flutter with rapid ventricular response Current visit: Yes Status: Acute Category: Medical Code(s): I48.92 - Unspecified atrial flutter (2) Congestive heart failure Current visit: Yes Status: Acute Qualifiers: Heart failure type: unspecified Heart failure chronicity: acute on chronic Qualified Code(s): I50.9 - Heart failure, unspecified Category: Medical Code(s): I50.9 - Heart failure, unspecified (3) Obesity Current visit: Yes Status: Chronic Qualifiers: Obesity type: due to excess calories Obesity classification: adult class 3 (BMI >= 40) Serious obesity comorbidity presence: with serious comorbidity Body mass index: BMI 40.0-44.9 Qualified Code(s): E66.01 - Morbid (severe) obesity due to excess calories; Z68.41 - Body mass index (BMI) 40.0-44.9, adult Category: Medical Code(s): E66.9 - Obesity, unspecified (4) Diabetes mellitus Current visit: No Status: Acute Qualifiers: Diabetes mellitus type: type 2 Diabetes mellitus intermediate card tender insulin use: without intermediate card tender use Diabetes mellitus complication status: without complication Qualified Code(s): E11.9 - Type 2 diabetes mellitus without complications Category: Medical Code(s): E11.9 - Type 2 diabetes mellitus without complications (5) Coronary arteriosclerosis Current visit: No Status: Chronic Category: Medical Code(s): I25.10 - Atherosclerotic heart disease of [place] coronary artery without angina pectoris (6) Current use of fpc anticoagulation Current visit: No Status: Chronic Category: Medical Code(s): Z79.01 - rodent exterminator (current) use of anticoagulants (7) Dilated cardiomyopathy Current visit: No Status: Chronic Category: Medical Code(s): I42.0 - Dilated cardiomyopathy (8) HLD (hyperlipidemia) Current visit: No Status: Chronic Qualifiers: Hyperlipidemia type: mixed hyperlipidemia Qualified Code(s): E78.2 - Mixed hyperlipidemia Category: Medical Code(s): E78.5 - Hyperlipidemia, unspecified (9) Hypertensiv
[2020-03-21 08:00] LABS: POC Glucose,Bedside 101 (70-110)
--- NOTE | 2020-03-21 09:33 | HMH.PNCARD ---
Subjective Date: 03/21/20 Time: 09:25 Principal diagnosis: chf, afib Interval history: This is a 59-year-old white female who was admitted to the hospital with atrial fibrillation with RVR. She also had an acute exacerbation of her congestive heart failure. The patient did have a history of dilated cardiomyopathy with an ejection fraction of 30% back in 2017 which did improve to 55% in 2018. Her echocardiogram from this visit does show an ejection fraction of 30% with multiple segmental wall motion abnormalities. The patient presented initially with shortness of breath that has been progressively worsening over the last few weeks. She states that this did get severe and was associated with lower extremity edema orthopnea. She states that since being in the hospital and getting diuresed her shortness of breath and lower extremity edema have improved. She has denied any chest pain or pressure. She denies any fever, chills, nausea, vomiting or diarrhea. She has diuresed well since being in the hospital. She remains in atrial fibrillation this morning with RVR. Her heart rate is in the 120s. She denies palpitations or racing of the heart. Exam Vital signs and Labs for Last 24 Hours: Temp Pulse Resp BP Pulse Ox 98.1 F 110 H 20 132/88 97 03/21/20 04:16 03/21/20 08:42 03/21/20 07:43 03/21/20 07:43 03/21/20 07:43 Laboratory Results - last 24 hr 03/20/20 12:18: POC Glucose 134 H 03/20/20 16:52: POC Glucose 112 H 03/20/20 20:53: POC Glucose 125 H 03/21/20 05:41: POC Glucose 101 03/21/20 05:43: WBC 8.3, RBC 4.29, Hgb 12.3, Hct 39.4, MCV 91.9, MCH 28.7, MCHC 31.3 L, RDW 14.6, Plt Count 193, MPV 7.9, Neut % (Auto) 74.1, Lymph % (Auto) 15.2, [place] % (Auto) 9.3, Eos % (Auto) 1.0, Baso % (Auto) 0.3, Neut # (Auto) 6.2, Lymph # (Auto) 1.3, [place] # (Auto) 0.8, Eos # (Auto) 0.1, Baso # (Auto) 0.0 03/21/20 05:43: Sodium 139, Potassium 3.6, Chloride 104, Carbon Dioxide 27, Anion Gap 11.6, BUN 16, Creatinine 0.70, Estimated Creat Clear 68, Estimated GFR 85, Est GFR ( Amer) 103, Glucose 111 H, Calcium 8.4 I & O for Last 24 hours: Intake & Output 03/18/20 03/19/20 03/20/20 03/21/20 23:59 23:59 23:59 23:59 Intake Total 2075 / 2075 2633 / 2633 1116 / 1116 Output Total 5950 / 5950 2800 / 2800 700 / 700 Balance -3875 / -3875 -167 / -167 416 / 416 Weight 287 lb 2 oz 282 lb 9 oz 279 lb 15.793 oz 276 lb 7 oz Narrative: Telemetry strip shows atrial fibrillation with a rate of 121. Her echocardiogram shows: 1. Biatrial enlargement, normal left ventricular size, mild concentric left ventricular hypertrophy, visually estimated ejection fraction 30% with multiple segmental wall motion abnormality described above, diastolic parameters are inconclusive, a repeat study with Definity contrast is recommended. Endocardial surfaces are poorly visualized. 2. Thickened and calcified aortic valve without Doppler evidence of aortic stenosis or aortic insufficiency. 3. Mild mitral and tricuspid regurgitation, calculated right ventricular systolic pressure is 43 mmHg. 4. Small pericardial effusion noted. Inferior vena cava is dilated without significant inspiratory collapse. - Constitutional no acute distress, morbidly obese - *Routine HEENT Exam Head: Present: normocephalic, atraumatic Eye: Present: EOMI, PERRL ENT: Present: mucous membranes moist - *Routine Neck Exam Present: supple, full ROM, normal carotid upstroke. Absent: JVD, carotid bruit, lymphadenopathy - *Routine Respiratory Exam Present: CTA bilaterally - *Routine Cardiovascular Exam Present: Normal S1, Normal S2, tachycardia, irregularly irregular. Absent: murmur - *Routine Abdominal Exam Present: soft, normoactive bowel sounds. Absent: tenderness, distended - *Routine Extremities Exam Present: edema, full ROM, pulses intact, normal capillary refill. Absent: cyanosis, clubbing - *Routine Skin Exam Present: intact, warm. Absent: erythema, rash
--- NOTE | 2020-03-21 10:57 | PC.NURSE ---
Received order to D/C Diltiazem drip per Indiana Schaffer APRN. Diltiazem was titrated from 10 MG/HR to 5 MG/HR at 0930. Then 5 MG/HR to 0 at 1000, after administration of PO Digoxin and Metoprolol.
--- NOTE | 2020-03-21 12:41 | PC.NURSE ---
Pt back on the floor at this time.
[2020-03-21 13:03] LABS: POC Glucose,Bedside 112 (70-110)
--- NOTE | 2020-03-21 14:35 | PC.NURSE ---
Spoke with atiya in admissions, she is changing status of pt from stepdown to acute
[2020-03-21 17:45] LABS: POC Glucose,Bedside 154 (70-110)
[2020-03-21 21:44] LABS: POC Glucose,Bedside 152 (70-110)
[2020-03-22] VITALS (9 sets, daily range): BP systolic 103–126; BP diastolic 43–79; PULSE 48–135; RESP 16–22; TEMP 36–36.9; O2SAT 92–96; BMI 48.4
--- NOTE | 2020-03-22 04:52 | PC.NURSE ---
Pt is A&Ox4 and has ambulated to the BR several times this shift and tolerated well independently. Lungs CTA, room air sat 92-94%. Pt denies any SOB or dyspnea. HR continues to be irregular and afib with freq PVC noted on tele with rate 77-124 thus far. Rate has been up to 140's with ambulation and it quickly returns to < 120 at rest. Pt remains asymptomatic. ABD is soft, non-tender with active BS. Pt reports BM on prev shift. Pt denies any N/V/D. Peripheral pulses 2+, no pitting edema present. Call light within reach, will continue to monitor.
[2020-03-22 05:29] LABS: POC Glucose,Bedside 121 (70-110)
--- NOTE | 2020-03-22 06:47 | PC.NURSE ---
Pt is minus(-) 2.5 lbs from yesterday AM and minus(-) 14lbs from admission.
[2020-03-22 06:55] LABS: Chloride 102 mmol/L (98-107)
[2020-03-22 06:56] LABS: Potassium 3.5 mmoL/L (3.5-5.1); Sodium 138 mmol/L (136-145)
[2020-03-22 06:59] LABS: Anion Gap 11.5 mEq/L (5-15); Blood Urea Nitrogen 17 mg/dl (7-17); Calcium 8.7 mg/dl (8.4-10.2); Carbon Dioxide 28 mmol/L (22.0-30.0); Creatinine Clearance Estimated 59 mL/min (50-200); Estimated Glomerular Filt Rate 73 ml/min (>60); GFR (African American) 89 ML/MIN (>60); Glucose 134 mg/dl (74-100)
--- NOTE | 2020-03-22 08:17 | PC.NURSE ---
redness and heat noted distal outer forearm IV. Peripheral IV removed @ 0640
--- NOTE | 2020-03-22 08:45 | HMH.ACPN2 ---
Internal Medicine - PN: Subj *Date: 03/22/20 *Time: 08:45 Interval history: Patient is pleasant, comfortable, up in a chair, breathing much better. Exam Vital signs and Labs for Last 24 Hours: Temp Pulse Resp BP Pulse Ox 96.8 F L 114 H 22 114/79 92 L 03/22/20 04:00 03/22/20 04:00 03/22/20 04:00 03/22/20 04:00 03/22/20 04:00 Laboratory Results - last 24 hr 03/21/20 12:47: POC Glucose 112 H 03/21/20 17:27: POC Glucose 154 H 03/21/20 21:33: POC Glucose 152 H 03/22/20 05:20: POC Glucose 121 H 03/22/20 05:52: Sodium 138, Potassium 3.5, Chloride 102, Carbon Dioxide 28, Anion Gap 11.5, BUN 17, Creatinine 0.80, Estimated Creat Clear 59, Estimated GFR 73, Est GFR ( Amer) 89, Glucose 134 H, Calcium 8.7 I & O for Last 24 hours: Intake & Output 03/19/20 03/20/20 03/21/20 03/22/20 11:59 11:59 11:59 11:59 Intake Total 646 / 646 2520 / 2520 2658 / 2658 120 / 120 Output Total 2600 / 3500 3350 / 3350 4500 / 4500 3650 / 3650 Balance -1954 / -2854 -830 / -830 -1842 / -1842 -3530 / -3530 Weight 282 lb 9 oz 280 lb 3 oz 276 lb 7 oz 273 lb 1.004 oz - Constitutional no acute distress - *Routine HEENT Exam Head: Present: normocephalic Eye: Present: EOMI, PERRL ENT: Present: mucous membranes moist - *Routine Neck Exam Present: supple. Absent: lymphadenopathy - *Routine Respiratory Exam Present: CTA bilaterally - *Routine Cardiovascular Exam Present: RRR, tachycardia - *Routine Abdominal Exam Present: soft, normoactive bowel sounds. Absent: tenderness - *Routine Extremities Exam Absent: cyanosis, clubbing, edema - *Routine Skin Exam Present: warm. Absent: rash - *Routine Neurological Exam Present: alert, oriented X3 Assessment and Plan (1) Acute systolic (congestive) heart failure Current visit: Yes Status: Acute Category: Medical Code(s): I50.21 - Acute systolic (congestive) heart failure (2) Shortness of breath Current visit: Yes Status: Acute Category: Medical Code(s): R06.02 - Shortness of breath (3) Ventricular hypokinesis Current visit: Yes Status: Acute Category: Medical Code(s): I51.89 - Other ill-defined heart diseases (4) Atrial flutter with rapid ventricular response Current visit: Yes Status: Acute Category: Medical Code(s): I48.92 - Unspecified atrial flutter (5) Obesity Current visit: Yes Status: Chronic Qualifiers: Obesity type: due to excess calories Obesity classification: adult class 3 (BMI >= 40) Serious obesity comorbidity presence: with serious comorbidity Body mass index: BMI 40.0-44.9 Qualified Code(s): E66.01 - Morbid (severe) obesity due to excess calories; Z68.41 - Body mass index (BMI) 40.0-44.9, adult Category: Medical Code(s): E66.9 - Obesity, unspecified (6) Diabetes mellitus Current visit: No Status: Acute Qualifiers: Diabetes mellitus type: type 2 Diabetes mellitus terminal block assembler insulin use: without terminal block assembler use Diabetes mellitus complication status: without complication Qualified Code(s): E11.9 - Type 2 diabetes mellitus without complications Category: Medical Code(s): E11.9 - Type 2 diabetes mellitus without complications (7) Coronary arteriosclerosis Current visit: No Status: Chronic Category: Medical Code(s): I25.10 - Atherosclerotic heart disease of [place] coronary artery without angina pectoris (8) Current use of terminal block assembler anticoagulation Current visit: No Status: Chronic Category: Medical Code(s): Z79.01 - prison (current) use of anticoagulants (9) Dilated cardiomyopathy Current visit: No Status: Chronic Category: Medical Code(s): I42.0 - Dilated cardiomyopathy (10) HLD (hyperlipidemia) Current visit: No Status: Chronic Qualifiers: Hyperlipidemia type: mixed hyperlipidemia Qualified Code(s): E78.2 - Mixed hyperlipidemia Category: Medical Code(s): E78.5 - Hyperlipidemia, unspecified (11) Hypertensive disorder Current
--- NOTE | 2020-03-22 09:41 | HMH.PNCARD ---
Subjective Date: 03/22/20 Time: :30 Principal diagnosis: chf, afib Interval history: This is a 5-year-old white female who was admitted to the hospital with atrial fibrillation with RVR. She was also found to have an acute exacerbation of systolic congestive heart failure. The patient underwent left cardiac catheterization yesterday and was found to have mild ixx-efxm-eakskgsd coronary artery disease with an ejection fraction of 30 to 35% and an LVEDP of 30 mmHg. The right cardiac catheterization was not completed because her LVEDP was so high and it already answered the question about her intracardial pressures. The patient needs standard therapy for systolic congestive heart failure. She was started on Entresto yesterday in addition to metoprolol and Lasix. We will get her started today on Spironolactone which is also standard therapy for systolic congestive heart failure. The patient will need to have a LifeVest placed prior to discharge home. Given her severe LV dysfunction the patient is at increased risk for sudden cardiac . She will wear the LifeVest for 90 days and then have her ejection fraction reevaluated at that time. The patient should be fitted for her LifeVest today as approval has been granted. The patient states her shortness of breath has improved significantly. She denies any chest pain or pressure. She denies any edema, fever, chills, nausea, vomiting or diarrhea. She states that she is feeling really good at this time. She remains in atrial fibrillation with RVR. Her heart rate is still in the 120s today. Exam Vital signs and Labs for Last 24 Hours: Temp Pulse Resp BP Pulse Ox 98.3 F 123 H 20 118/58 L 94 L 03/22/20 08:00 03/22/20 08:50 03/22/20 08:00 03/22/20 08:00 03/22/20 08:00 Laboratory Results - last 24 hr 03/21/20 12:47: POC Glucose 112 H 03/21/20 17:27: POC Glucose 154 H 03/21/20 21:33: POC Glucose 152 H 03/22/20 05:20: POC Glucose 121 H 03/22/20 05:52: Sodium 138, Potassium 3.5, Chloride 102, Carbon Dioxide 28, Anion Gap 11.5, BUN 17, Creatinine 0.80, Estimated Creat Clear 59, Estimated GFR 73, Est GFR ( Amer) 89, Glucose 134 H, Calcium 8.7 I & O for Last 24 hours: Intake & Output 03/19/20 03/20/20 03/21/20 03/22/20 23:59 23:59 23:59 23:59 Intake Total 2075 / 2075 2633 / 2633 1236 / 1236 360 / 360 Output Total 5950 / 5950 2800 / 2800 5350 / 5350 Balance -3875 / -3875 -167 / -167 -4114 / -4114 360 / 360 Weight 282 lb 9 oz 279 lb 15.793 oz 276 lb 7 oz 273 lb 1.004 oz Narrative: Telemetry strip shows atrial fibrillation with a rate of 122. - Constitutional no acute distress, morbidly obese - *Routine HEENT Exam Head: Present: normocephalic, atraumatic Eye: Present: EOMI, PERRL ENT: Present: mucous membranes moist - *Routine Neck Exam Present: supple, full ROM, normal carotid upstroke. Absent: JVD, carotid bruit, lymphadenopathy - *Routine Respiratory Exam Present: CTA bilaterally - *Routine Cardiovascular Exam Present: Normal S1, Normal S2, irregularly irregular. Absent: murmur - *Routine Abdominal Exam Present: soft, normoactive bowel sounds. Absent: tenderness - *Routine Extremities Exam Present: full ROM, pulses intact, normal capillary refill. Absent: cyanosis, clubbing, edema - *Routine Skin Exam Present: intact, warm. Absent: erythema, rash - *Routine Neurological Exam Present: alert, oriented X3, CN II-XII intact. 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
[2020-03-22 11:27] LABS: POC Glucose,Bedside 105 (70-110)
--- NOTE | 2020-03-22 16:13 | PC.NURSE ---
per md graham pt does not need tele anymore d/t being on life vest now.
--- NOTE | 2020-03-22 16:52 | PC.NURSE ---
Addendum entered by Varsha Altamirano RN 03/22/20 17:01: dressing to right wrist, post heart cath, is cdi. Original Note: pt has done well today. 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 pt reports a bm today. no complaints voiced. ambulates to bathroom independently. still is in uncontrolled afibmd aware of rate. other vss. will cont. to monitor.
[2020-03-22 16:57] LABS: POC Glucose,Bedside 145 (70-110)
--- NOTE | 2020-03-22 17:52 | PC.NURSE ---
NO GTT DECREASED 52.5ML/HR; 70MCG/MIN. CURRENT BP IS 114/87
--- NOTE | 2020-03-22 17:52 | PC.NURSE ---
NO GTT DECREASED 52.5ML/HR; 70MCG/MIN. CURRENT BP IS 114/87
--- NOTE | 2020-03-22 19:11 | PC.NURSE ---
report given to ellyn
[2020-03-22 21:13] LABS: POC Glucose,Bedside 153 (70-110)
[2020-03-23] VITALS: BP 127/72; PULSE 58; RESP 20; TEMP 36.6; O2SAT 97
--- NOTE | 2020-03-23 02:59 | PC.NURSE ---
Pt is A&Ox4 and has ambulated to the BR independently several times this shift and tolerates well. Pt denies any pain, N/V/D, SOB, dizziness, or headache. Lungs CTA, room air sats >96%. ABD is soft, non-tender and pt reports BM on prev shift. Peripheral pulse WNL and no edema present. Right radial cath site covered with telfa/tegaderm and is CDI. Pt continues with life-vest. VSS, call light within reach, will continue to monitor.
[2020-03-23 03:31] VITALS: BP 101/54; PULSE 64; RESP 18; TEMP 36.9; O2SAT 97
[2020-03-23 05:00] VITALS: BMI 47.6
[2020-03-23 08:00] VITALS: BP 115/64; PULSE 61; RESP 18; TEMP 37; O2SAT 94; O2SAT 96
[2020-03-23 08:08] LABS: Anion Gap 12.8 mEq/L (5-15); Blood Urea Nitrogen 21 mg/dl (7-17); Calcium 8.8 mg/dl (8.4-10.2); Carbon Dioxide 26 mmol/L (22.0-30.0); Chloride 103 mmol/L (98-107); Creatinine Clearance Estimated 53 mL/min (50-200); Estimated Glomerular Filt Rate 64 ml/min (>60); GFR (African American) 77 ML/MIN (>60); Glucose 155 mg/dl (74-100); Potassium 3.8 mmoL/L (3.5-5.1); Sodium 138 mmol/L (136-145)
--- NOTE | 2020-03-23 08:33 | HMH.DCSUM ---
General - General Admission date:: 03/18/20 Discharge date: 03/23/20 HPI HPI: 59-year-old white female with long history of recurrent and difficult to control atrial fibrillation who has been seen by a variety of cardiology services over the past several years. Unfortunately, about a year ago she was unable to procure medical insurance and as a result stopped taking all of her medications and stopped attending doctors appointments. She is been doing fairly well but over the past couple of weeks has noted increasing shortness of air, swelling, irregular heart rate with palpitations and came to the emergency department last night with atrial fibrillation with rapid response and evidence of CHF. Admitted to hospital for IV Lasix, Cardizem drip and further diagnostic testing. Hospital Course Hospital Course: Patient was admitted, elevated troponins, elevated BNP and CHF findings were noted in the setting of atrial fibrillation with RVR. Cardizem drip was started but was somewhat unhelpful, she responded more appropriately to beta-blockers and diuresis. Cardiology was consulted, took her to the [facility] which revealed small vessel disease but EF of less than 30%. As noted LifeVest was recommended along with aggressive CHF therapy. Patient was started on anticoagulation, diuresis, Entresto and appropriate diuretics along with beta-blockers and she responded very nicely. Pulse rate improved over the next 2 days and this morning she is in the mid 80s in chronic atrial fibrillation. She feels much better with less shortness of breath. She will be discharged home with LifeVest, medications as noted and close follow-up with cardiology and in my office as scheduled. Objective Vital signs: Temp Pulse Resp BP Pulse Ox 98.6 F 61 18 115/64 94 L 03/23/20 08:00 03/23/20 08:00 03/23/20 08:00 03/23/20 08:00 03/23/20 08:00 no acute distress - *Routine HEENT Exam Head: Present: normocephalic Eye: Present: EOMI, PERRL ENT: Present: mucous membranes moist - *Routine Neck Exam Present: supple - *Routine Respiratory Exam Present: CTA bilaterally - *Routine Cardiovascular Exam Present: irregular rhythm - *Routine Abdominal Exam Present: soft, normoactive bowel sounds. Absent: tenderness - *Routine Extremities Exam Absent: cyanosis, clubbing, edema - *Routine Skin Exam Present: warm. Absent: rash - Detailed Eye Exam Eyelids: Bilateral normal inspection Results Labs on day of discharge: Labs from last 24 hours 03/23/20 03/22/20 03/22/20 06:08 20:14 16:45 Sodium 138 Potassium 3.8 Chloride 103 Carbon Dioxide 26 Anion Gap 12.8 BUN 21 H Creatinine 0.90 Estimated Creat Clear 53 Estimated GFR 64 Est GFR ( Amer) 77 Glucose 155 H POC Glucose 153 H 145 H Calcium 8.8 03/22/20 11:19 Sodium Potassium Chloride Carbon Dioxide Anion Gap BUN Creatinine Estimated Creat Clear Estimated GFR Est GFR ( Amer) Glucose POC Glucose 105 Calcium DS: Diagnosis - Discharge Diagnosis (1) Acute systolic (congestive) heart failure Status: Acute (2) Shortness of breath Status: Acute (3) Ventricular hypokinesis Status: Acute (4) Obesity Status: Chronic (5) Diabetes mellitus Status: Acute (6) Coronary arteriosclerosis Status: Chronic (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
[2020-03-23 08:53] VITALS: PULSE 62
--- NOTE | 2020-03-23 09:29 | HMH.PNCARD ---
Subjective Date: 03/23/20 Time: 09:00 Principal diagnosis: chf, afib Interval history: This is a 59-year-old white female who was admitted to the hospital with atrial fibrillation with RVR. She was also found to be in acute exacerbation of systolic congestive heart failure. The patient underwent left cardiac catheterization was found to have mild gas-qxnu-pevkarie disease with an ejection fraction of 30 to 35% and an LVEDP of 30 mmHg. The patient is being treated for her systolic congestive heart failure with Entresto, metoprolol, Lasix and spironolactone as well as digoxin. This morning she states that she is feeling very well. She denies any chest pain or pressure. She states her shortness of breath has resolved. She denies any edema. She denies any fever, chills, nausea, vomiting or diarrhea. The patient remains in atrial fibrillation and her heart rate is now controlled. She does have a LifeVest in place for 90-day secondary to her severe LV dysfunction and her increased risk of sudden cardiac . The patient has been educated on her LifeVest and she knows that she is supposed to wear this for 24 hours a day. Exam Vital signs and Labs for Last 24 Hours: Temp Pulse Resp BP Pulse Ox 98.6 F 62 18 115/64 96 03/23/20 08:00 03/23/20 08:53 03/23/20 08:00 03/23/20 08:00 03/23/20 08:00 Laboratory Results - last 24 hr 03/22/20 11:19: POC Glucose 105 03/22/20 16:45: POC Glucose 145 H 03/22/20 20:14: POC Glucose 153 H 03/23/20 06:08: Sodium 138, Potassium 3.8, Chloride 103, Carbon Dioxide 26, Anion Gap 12.8, BUN 21 H, Creatinine 0.90, Estimated Creat Clear 53, Estimated GFR 64, Est GFR ( Amer) 77, Glucose 155 H, Calcium 8.8 I & O for Last 24 hours: Intake & Output 03/20/20 03/21/20 03/22/20 03/23/20 23:59 23:59 23:59 23:59 Intake Total 2633 / 2633 1236 / 1236 1440 / 1440 360 / 360 Output Total 2800 / 2800 5350 / 5350 1825 / 2225 400 / 400 Balance -167 / -167 -4114 / -4114 -385 / -785 -40 / -40 Weight 279 lb 15.793 oz 276 lb 7 oz 273 lb 1.004 oz 268 lb 14.4 oz Narrative: Telemetry strip shows atrial fibrillation with a rate in the 70s. - Constitutional no acute distress, morbidly obese - *Routine HEENT Exam Head: Present: normocephalic, atraumatic Eye: Present: EOMI, PERRL ENT: Present: mucous membranes moist - *Routine Neck Exam Present: supple, full ROM, normal carotid upstroke. Absent: JVD, carotid bruit, lymphadenopathy - *Routine Respiratory Exam Present: CTA bilaterally - *Routine Cardiovascular Exam Present: Normal S1, Normal S2, irregularly irregular. Absent: murmur - *Routine Abdominal Exam Present: soft, normoactive bowel sounds. Absent: tenderness, distended - *Routine Extremities Exam Present: full ROM, pulses intact, normal capillary refill. Absent: cyanosis, clubbing, edema - *Routine Skin Exam Present: intact, warm. Absent: erythema, rash - *Routine Neurological Exam Present: alert, oriented X3, CN II-XII intact. 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 The patient was admitted to the hospital with atrial fibrillation with RVR. The patient is now rate controlled on metoprolol and digoxin. We do recommend that she go home on metopro
[2020-03-23 11:25] LABS: POC Glucose,Bedside 134 (70-110)
== END 2020-03-23 11:04 | disposition home or self-care (01) | DRG 286 ==
LOC: ER 22:58 → 2ND 23:25
PROVIDERS: Internal Medicine; Nurse Practitioner Family; Admitting Provider Internal Medicine Adolescent Medicine; Emergency Provider Emergency Medicine; PCP Internal Medicine Adolescent Medicine; Visit Provider Internal Medicine Adolescent Medicine
PROC: 4A023N7 Measurement of Cardiac Sampling and Pressure, Left Heart, Percutaneous Approach (ICD-10-PCS; principal; 2020-03-21 10:45)
DX: I50.21 Acute systolic (congestive) heart failure (principal); I48.20 Chronic atrial fibrillation, unspecified; I11.0 Hypertensive heart disease with heart failure; Z68.42 Body mass index [BMI] 45.0-49.9, adult; E11.9 Type 2 diabetes mellitus without complications; I25.10 Atherosclerotic heart disease of native coronary artery without angina pectoris; I42.0 Dilated cardiomyopathy; E66.01 Morbid (severe) obesity due to excess calories; E03.9 Hypothyroidism, unspecified; Z91.120 Patient's intentional underdosing of medication regimen due to financial hardship; I25.83 Coronary atherosclerosis due to lipid rich plaque
CPT/HCPCS: 36415; 71046; 80048; 80061; 80076; 82962; 83735; 83880; 84436; 84443; 84479; 84484; 85025; 86328; 93005; 93306; 93458; 96365; 96372; 96375; 99152; 99284; C1725; C1769; J1644; Q9967

== ENCOUNTER → 2020-03-27 12:37 | Outpatient (CLI) | payer MEDICAID, SELFPAY ==
[2020-03-27 14:41] LABS: Anion Gap 15.6 mEq/L (5-15); Blood Urea Nitrogen 22 mg/dl (7-17); Calcium 9.9 mg/dl (8.4-10.2); Carbon Dioxide 29 mmol/L (22.0-30.0); Chloride 102 mmol/L (98-107); Estimated Glomerular Filt Rate 57 ml/min (>60); GFR (African American) 68 ML/MIN (>60); Glucose 116 mg/dl (74-100); Potassium 4.6 mmoL/L (3.5-5.1); Sodium 142 mmol/L (136-145)
== END ==
PROVIDERS: Visit Provider Nurse Practitioner Family
DX: I48.0 Paroxysmal atrial fibrillation (principal); I50.22 Chronic systolic (congestive) heart failure
CPT/HCPCS: 36415; 80048; 80162

== ENCOUNTER → 2020-03-30 15:00 | Outpatient (CLI) | payer MEDICAID, SELFPAY ==
[2020-03-30 17:40] LABS: Alanine Aminotransferase 30 U/L (12-78); Albumin Level 4.5 g/dl (3.5-5.0); Alkaline Phosphatase 88 U/L (38-126); Aspartate Amino Transferase 31 U/L (14-36); Bilirubin,Direct 0.1 mg/dl (0.0-0.4); Bilirubin,Indirect 0.6 mg/dL (0.0-0.9); Bilirubin,Total 0.7 mg/dl (0.2-1.3); Bilirubin,Unconjugated 0.7 mg/dL (0.0-1.1); Total Protein,Serum 7.6 g/dl (6.3-8.2)
[2020-03-30 17:55] LABS: Free T4 (Free Thyroxine) 1.05 ng/dl (0.78-2.19)
[2020-03-30 18:09] LABS: Thyroid Stimulating Hormone 5.44 uIU/mL (0.465-4.68)
== END ==
PROVIDERS: Visit Provider Internal Medicine Cardiovascular Disease
DX: I48.91 Unspecified atrial fibrillation (principal); I48.92 Unspecified atrial flutter; I25.10 Atherosclerotic heart disease of native coronary artery without angina pectoris; I42.0 Dilated cardiomyopathy; I50.22 Chronic systolic (congestive) heart failure; I11.0 Hypertensive heart disease with heart failure; E11.9 Type 2 diabetes mellitus without complications; E78.5 Hyperlipidemia, unspecified; Z79.01 Long term (current) use of anticoagulants; Z95.810 Presence of automatic (implantable) cardiac defibrillator
CPT/HCPCS: 36415; 80076; 84439; 84443

== ENCOUNTER → 2020-04-05 16:53 | Outpatient (CLI) | payer MEDICAID, SELFPAY ==
[2020-04-05 19:04] LABS: Hemoglobin A1C 6.4 % (4.0-6.0)
[2020-04-05 19:50] LABS: Coronavirus 19 IgG Antibody Negative (Negative); Coronavirus 19 IgM Antibody Negative (Negative)
== END ==
PROVIDERS: PCP Nurse Practitioner Family; Visit Provider Internal Medicine
DX: Z01.818 Encounter for other preprocedural examination (principal); I48.91 Unspecified atrial fibrillation; R73.9 Hyperglycemia, unspecified
CPT/HCPCS: 36415; 83036; 86328

== ENCOUNTER → 2020-04-06 11:29 | Day surgery (SDC) | payer MEDICAID, SELFPAY ==
[2020-04-06 11:37] VITALS: BMI 46.9
[2020-04-06 11:39] VITALS: PULSE 80
--- NOTE | 2020-04-06 11:51 | CA_ITS ---
APPROVED REPORT EXAM: Comprehensive 2D, Doppler, and color-flow Echocardiogram Filter Operator: Krystina Stack RDCS Ht: 5 ft 2 in Wt: 282lbs BSA: 2.21 BP: 160/94 mmHg Indications: AF LOBITO Procedure After obtaining informed consent, patient underwent transesophageal echo in the [facility]. Type of Sedation : Conscious Sedation Sedation was administered by Km WashburnNYue Transesophageal probe was inserted and advanced into esophagus without difficulty by Dr. Bright Marroquin. The LOBITO was performed without complications. Synchronized Cardioversion attempted: Successful Synchronized Cardioversion acheived with 200 Joules after 1 attempt(s). Rhythm following Synchronized Cardioversion: Normal Sinus Rhythm Throughout the procedure, the blood pressure, pulse oximetry, cardiac rhythm, and rate were monitored. The patient tolerated the procedure without adverse effects. Recovery from conscious sedation was uneventful and vital signs were stable. Left Ventricle Left ventricle is normal size, visually estimated ejection fraction 45% in the obtained views with no regional wall motion abnormality, mild concentric left ventricular hypertrophy seen. Right Ventricle Right ventricle is normal size and contractility. Atria Left atrium is mildly enlarged, left atrial appendage is free of thrombus. There is adequate range of flow by spectral Doppler. Right atrium is normal size. Interatrial septum is intact, there is no flow across the interatrial septum, agitated saline contrast reveals 25 intracardiac shunt. Aortic Valve Aortic valve minimally thickened and fibrosed, there is no aortic stenosis or aortic insufficiency. Mitral Valve Mitral valve is grossly normal, there is mild mitral regurgitation. Tricuspid Valve Tricuspid valve is grossly normal, there is mild tricuspid regurgitation. Pulmonic Valve Pulmonic valve is grossly normal. Great Vessels Aortic root is normal size. Ascending, arch and descending thoracic aorta is grossly normal. Pericardium No significant pericardial effusion noted. Conclusion 1. Mild enlarged left atrium, normal left ventricular size, visually estimated ejection fraction 45%, there is no thrombus seen in left atrium or left atrial appendage. 2. Mild mitral and tricuspid regurgitation. 3. Agitated saline contrast reveals 25 intracardiac shunting 4. Successful electrical cardioversion to sinus rhythm. Electronically signed by : Satish Mancini, 04/06/2020 13:17:00
[2020-04-06 12:00] VITALS: BP 110/49; PULSE 69; RESP 16; TEMP 36.8; O2SAT 99
[2020-04-06 12:41] VITALS: BP 114/46; PULSE 46; RESP 17; O2SAT 97
--- NOTE | 2020-04-06 12:41 | HMH.ANESCL ---
[facility] Anesthesia Checklist - Patient Identification Patient Identification: Arm Band, Verbal (Name & ) - Structural Data Admitted From: Home Planned Operative Procedure/s: mikel Consent for Planned Operative Procedure(s) Verified: Yes Verified Documents: History and Physical - NPO Status Verified Time NPO: 00:00 - Chart Verification Results Verified: CBC, BMP - Additional verifications Patient : No Anesthesia Reactions: No Hx Blood Transfusions: No Blood Transfusion Reaction: No - Cardiovascular Assessment Heart Sounds: S3 Pulse Strength: Baseline Pulse Rhythm: Irregular Peripheral Edema: No - Airway Assessment C-Spine Mobility Assessed: Yes TMJ Mobility Assessed: Yes Dentition: Good Dentition - Neurological Assessment Level of Consciousness: Awake, Alert, Appropriate Hx Seizures: No Numbness or tingling in extremities: No - Anesthesia Plan Anesthesia Risk discussed: Yes Anesthesia Plan: Verified ASA Class: III Anesthesia Type: MAC [facility] History I have reviewed the patient's past medical history: Yes Medical History: Reports:: Atrial Fibrillation, Congestive Heart Failure, Coronary Artery Disease, Hyperlipidemia, Hypertension Denies:: Diabetes Mellitus Type 2, Seizures *Have you ever received a pneumonia vaccine?: No *Have you received a flu vaccine this season?: No Other Medical History: Reports: Hypothyroidism Anesthesia experience/problems:: none Other Surgeries: Yes: Cardiac Catheterization, Other - *Social History Last grade of school completed: Some college Smoking Status: Never smoker Alcohol Intake: never Alcohol Intake Frequency:: other Substance Use Type: former substance user *Occupational Status:: employed Housing: house Household Members: none *Travel in the last 8 weeks: None Family Hx:: Anemia, Cancer, Coronary Artery Disease, Diabetes, Hyperlipidemia, Hypertension, Mental illness
[2020-04-06 13:11] VITALS: BP 111/72; PULSE 50; RESP 16; O2SAT 96
== END ==
PROVIDERS: PCP Internal Medicine Adolescent Medicine; Visit Provider Internal Medicine Cardiovascular Disease
DX: I48.91 Unspecified atrial fibrillation (principal); E11.9 Type 2 diabetes mellitus without complications; E78.5 Hyperlipidemia, unspecified; I25.10 Atherosclerotic heart disease of native coronary artery without angina pectoris; I42.0 Dilated cardiomyopathy; I48.92 Unspecified atrial flutter; I50.22 Chronic systolic (congestive) heart failure; Z79.01 Long term (current) use of anticoagulants; Z95.810 Presence of automatic (implantable) cardiac defibrillator
CPT/HCPCS: 92960; 93312

== ENCOUNTER → 2020-05-11 13:58 | Outpatient (CLI) | payer MEDICAID, SELFPAY ==
[2020-05-11 16:04] LABS: Anion Gap 15.3 mEq/L (5-15); Blood Urea Nitrogen 21 mg/dl (7-17); Calcium 9.6 mg/dl (8.4-10.2); Carbon Dioxide 27 mmol/L (22.0-30.0); Chloride 97 mmol/L (98-107); Estimated Glomerular Filt Rate 56 ml/min (>60); GFR (African American) 68 ML/MIN (>60); Glucose 261 mg/dl (74-100); Potassium 4.3 mmoL/L (3.5-5.1); Sodium 135 mmol/L (136-145)
== END ==
PROVIDERS: Visit Provider Internal Medicine Cardiovascular Disease
DX: E11.9 Type 2 diabetes mellitus without complications (principal); E66.9 Obesity, unspecified; I10 Essential (primary) hypertension; I25.10 Atherosclerotic heart disease of native coronary artery without angina pectoris; I42.0 Dilated cardiomyopathy; I48.91 Unspecified atrial fibrillation; I50.22 Chronic systolic (congestive) heart failure; I50.9 Heart failure, unspecified; R94.31 Abnormal electrocardiogram [ECG] [EKG]; Z79.01 Long term (current) use of anticoagulants; Z95.810 Presence of automatic (implantable) cardiac defibrillator; G47.33 Obstructive sleep apnea (adult) (pediatric)
CPT/HCPCS: 36415; 80048

== ENCOUNTER 2021-10-09 10:26 | Inpatient (IN) | payer MEDICAID, SELFPAY ==
[2021-10-09] VITALS (15 sets, daily range): BP systolic 85–155; BP diastolic 63–110; PULSE 65–150; RESP 15–32; TEMP 36.7–37; O2SAT 91–95; BMI 44.2; BMI 49.6
--- NOTE | 2021-10-09 10:30 | XR_ITS ---
FINAL REPORT CLINICAL HISTORY: SOA COMPARISON: 03/18/2020 FINDINGS: Two views of the chest were obtained. The heart is enlarged. The mediastinum is normal. There is new right base atelectasis or pneumonia. There is no pneumothorax. The bony thorax is intact. IMPRESSION: Base atelectasis or pneumonia. Reviewed, Interpreted and Dictated by Bharat Jones III, MD Transcribed by Karmen Jorge Authenticated by Bharat Jones III, MD on 10/09/2021 11:41:44 AM [facility]
--- NOTE | 2021-10-09 11:33 | HMH.EDUTC ---
[facility] [place] Clinical Impression: Tachycardia CHF (congestive heart failure) Qualifiers: Heart failure type: unspecified Heart failure chronicity: acute Qualified Code(s): I50.9 - Heart failure, unspecified Disposition: Still a Patient Condition on Discharge: Fair Referrals: Km Hollis MD [Primary Care Provider] - Time of Disposition: 11:35 Medical Decision Making - Medical Records Medical records reviewed: No: I reviewed the patient's medical records. - [place] Inquiry Pt receiving controlled substance: No Vital Signs: 10/09/21 11:19 Temperature 98.6 F Temperature Source Oral Pulse Rate [Left] 146 H Respiratory Rate 16 Blood Pressure [Right Arm] 129/100 H Blood Pressure Mean [Right Arm] 109 02 Sat by Pulse Oximetry 93 L Orders (Tests/Meds): ORDERS Category Date Time Status Chest XR 2 view (NOT portable) [XR chest 2V] Stat Exams 10/09/21 10:30 Taken - Radiology Data #1 Image(s): Chest Image Reviewed: Yes I reviewed the patient's radiology image Preliminary Findings: Abnormal chf Medical Decision Narrative: She was transferred to the ER due to her shortness of breath, chest x-ray showing chf, and her history atrial fib. [facility] [place] - General Stated complaint: soa Time Seen by Provider: 10/09/21 11:30 Mode of Arrival: Ambulatory Source of Information: Patient Description of Symptoms (Recalled from Triage Doc. by RN): pt states that she is not able to breathe. pt states that she feels it may be atrial fibrillation. pt states she is unable to swallow. she has been coughing alot. symptoms started on 09/24/21. last couple of months smells make her not able to eat alot. feels like something is blocking her inside from the check down to belly button. unable to walk far without getting out of breath. HEENT Symptoms (Recalled from RN notes): Yes Resp Symptoms (Recalled from RN notes): No Skin Symptoms (Recalled from RN notes): No MS Symptoms (Recalled from RN notes): No Functional Status (Recalled from RN notes): wnl - History of Present Illness Provider Complaint: She states that for the past 2 weeks she has progressively worsening shortness of breath. She has a history of chf. She is also having a nonproductive cough. She denies any chest pain. She denies fever and chills. - Related Data Home Medications Medication Instructions Recorded Confirmed aspirin 81 mg tablet,delayed 81 mg PO DAILY 07/09/17 05/11/20 release folic acid 1 mg tablet 1 mg PO DAILY 04/23/18 05/11/20 metoprolol succinate 100 mg 50 mg PO DAILY tab 04/13/20 05/11/20 tablet,extended release 24 hr amiodarone 400 mg tablet 200 mg PO DAILY tab 05/11/20 05/11/20 Previous Rx's Medication Instructions Recorded Apixaban [Eliquis 5mg Tablet] 5 mg PO BID #60 tab 03/23/20 Atorvastatin Calcium [Lipitor 40mg 40 mg PO HS #30 tab 03/23/20 Tablet*] Furosemide [Furosemide 40MG tAB*] 40 mg PO BID #60 tab 03/23/20 Spironolactone [Aldactone 25mg 25 mg PO DAILY #30 tab 03/23/20 Tab] sacubitril 24 mg-valsartan 26 mg 1 tab PO BID #60 tab 03/27/20 tablet Allergies Allergy/AdvReac Type Severity Reaction Status Date / Time No Known Allergies Allergy Verified 10/09/21 11:26 - Worker's Comp Is this a Worker's Comp case?: No Is this an [facility] Worker's Comp?: No Is this a [place] Worker's Comp?: No [facility] History - Hepatitis A Screen Drug use history?: No High risk sexual behaviors?: No History of sexually transmitted infection?: No Currently employed?: No Childcare worker?: No Do you have indoor plumbing?: No Do you have electricity?: No Attestation statement:: This patient has been screened for Hepatitis A risk factors. I have reviewed the patient's past medical history: Yes Medical History: Reports:: Atrial Fibrillation, Congestive Heart Failure, Coronary Artery Disease, Hyperlipidemia, Hypertension Denies:: Diabetes Mellitus Type 2, Seizures Other Medical History: Reports: Hypothyroidi
--- NOTE | 2021-10-09 11:41 | PC.NURSE ---
MD at bedside upon pt arrival to ED.
--- NOTE | 2021-10-09 11:46 | ECG_ITS ---
APPROVED REPORT Exam: Resting ECG HR:145 bpm ECG Measurements Heart Rate 145 AXES QRSd 92 QRS 208 QT 292 T 85 QTc 376 Conclusion ATRIAL FIBRILLATION WITH RAPID VENTRICULAR RESPONSE PATTERN CONSISTENT WITH PULMONARY DISEASE RIGHT VENTRICULAR HYPERTROPHY [SOME/ALL OF: PROMINENT R IN V1, LATE TRANSITION, RAD, YULIA, SSS] SEPTAL MYOCARDIAL INFARCTION , PROBABLY OLD [40+ ms Q WAVE IN V1/V2] ABNORMAL ECG UNCONFIRMED REPORT Electronically signed by : Km Hollis MD 10/10/2021 10:11:30
--- NOTE | 2021-10-09 11:57 | HMH.EDGENADL ---
ED Disposition Clinical Impression: Atrial fibrillation with RVR CHF (congestive heart failure) Qualifiers: Heart failure type: unspecified Heart failure chronicity: acute Qualified Code(s): I50.9 - Heart failure, unspecified Disposition: Admitted As Inpatient Condition on Discharge: Fair Referrals: Km Hollis MD [Primary Care Provider] - Time of Disposition: 14:22 - Critical Care Critical Care Time: No Attestation: On 10/09/21, the high probability of a clinically significant, sudden or life threatening deterioration of the following system(s) required my full and direct attention, intervention and personal management. The time I documented below is in addition to time spent performing reported procedures but includes the following listed in this critical care notation. Medical Decision Making - Medical Records Medical records reviewed: Yes: I reviewed the patient's medical records. - [place] Inquiry Pt receiving controlled substance: No Vital Signs: 10/09/21 11:19 10/09/21 11:44 10/09/21 11:48 Temperature 98.6 F 98.4 F Temperature Source Oral Oral Pulse Rate 139 H Pulse Rate [Left] 146 H 148 H Respiratory Rate 16 18 15 Blood Pressure 109/84 L Blood Pressure [Right Arm] 129/100 H 109/84 L Blood Pressure Mean Blood Pressure Mean [Right Arm] 109 92 Blood Pressure Source [Right Arm] Automatic Cuff Blood Pressure Position [Right Arm] Sitting 02 Sat by Pulse Oximetry 93 L 95 Oxygen Delivery Method Room Air 10/09/21 12:02 10/09/21 12:25 10/09/21 12:31 Temperature Temperature Source Pulse Rate 139 H 83 65 Pulse Rate [Left] Respiratory Rate 22 16 21 Blood Pressure 91/68 L 95/63 L 106/64 L Blood Pressure [Right Arm] Blood Pressure Mean Blood Pressure Mean [Right Arm] Blood Pressure Source [Right Arm] Blood Pressure Position [Right Arm] 02 Sat by Pulse Oximetry 93 L 91 L 93 L Oxygen Delivery Method 10/09/21 13:02 10/09/21 13:31 10/09/21 14:00 Temperature Temperature Source Pulse Rate 70 86 105 H Pulse Rate [Left] Respiratory Rate 16 22 18 Blood Pressure 96/71 L 85/63 L 100/67 L Blood Pressure [Right Arm] Blood Pressure Mean 74 Blood Pressure Mean [Right Arm] Blood Pressure Source [Right Arm] Blood Pressure Position [Right Arm] 02 Sat by Pulse Oximetry 92 L 92 L 93 L Oxygen Delivery Method Room Air - Lab Data Lab Results 10/09/21 12:00: WBC 9.0, RBC 4.74, Hgb 13.7, Hct 43.8, MCV 92.4, MCH 29.0, MCHC 31.4 L, RDW 15.2, Plt Count 163, MPV 9.9, Neut % (Auto) 81.0 H, Lymph % (Auto) 10.5, Keith % (Auto) 7.4, Eos % (Auto) 1.2, Baso % (Auto) 1.9, Neut # (Auto) 7.3, Lymph # (Auto) 0.9, Keith # (Auto) 0.7, Eos # (Auto) 0.1, Baso # (Auto) 0.2 10/09/21 12:00: Sodium 135 L, Potassium 4.6, Chloride 108 H, Carbon Dioxide 20 L, Anion Gap 11.6, BUN 19 H, Creatinine 1.00, Estimated Creat Clear 48, Estimated GFR 56 L, Est GFR ( Amer) 68, Glucose 181 H, Calcium 8.1 L, Total Bilirubin 1.6 H, AST 40 H, ALT 25, Alkaline Phosphatase 73, Troponin I < 0.01, Total Protein 6.6, Albumin 3.7, Globulin 2.9, Albumin/Globulin Ratio 1.3 10/09/21 12:00: NT-Pro-B Natriuret Pep 70074 H 10/09/21 12:00: Phosphorus 3.9, Magnesium 1.8, TSH 10.60 H Result diagrams: 10/09/21 12:00 10/09/21 12:00 Orders (Tests/Meds): ED MEDICATIONS Generic Name Dose Route Start Last Admin Trade Name Freq PRN Reason Stop Dose Admin Diltiazem HCl 100 mg/ Sodium 100 mls @ 5 mls/hr 10/09/21 12:00 10/09/21 12:15 Chloride IV 11/08/21 11:59 5 mls/hr .Q20H ELVIA Administration Protocol Discontinued Medications Generic Name Dose Route Start Last Admin Trade Name Freq PRN Reason Stop Dose Admin Diltiazem HCl 28 mg 10/09/21 11:54 10/09/21 12:15 Diltiazem 25mg/5ml Vial IV 10/09/21 11:55 28 mg ONCE ONE Administration Furosemide 40 mg 10/09/21 14:10 Furosemide 40mg/4ml Vial IV 10/09/21 14:11 ONCE ONE ORDERS Category Da
[2021-10-09 12:13] LABS: Basophils # 0.2 K/mm3 (0-0.2); Basophils % 1.9 % (0.1-2.0); Eosinophils # 0.1 K/mm3 (0.0-0.4); Eosinophils % 1.2 % (0.1-12.0); Hematocrit 43.8 % (37.0-47.0); Hemoglobin 13.7 g/dL (12.2-16.2); Lymphocytes # 0.9 K/mm3 (0.7-4.5); Lymphocytes % 10.5 % (10-50); Mean Corpuscular HGB Conc 31.4 g/dL (31.8-35.4); Mean Corpuscular Volume 92.4 fl (81-99); Mean Platelet Volume 9.9 fl (7.4-10.4); Monocytes # 0.7 K/mm3 (0.1-1.0); Monocytes % 7.4 % (1.7-9.3); Neutrophils # 7.3 K/mm3 (1.8-7.8); Platelet Count 163 K/mm3 (142-424); Red Blood Count 4.74 M/mm3 (4.20-5.40); Red Cell Distribution Width 15.2 % (11.5-17.5)
[2021-10-09 12:18] LABS: Chloride 108 mmol/L (98-107)
[2021-10-09 12:19] LABS: Potassium 4.6 mmoL/L (3.5-5.1); Sodium 135 mmol/L (136-145)
[2021-10-09 12:21] LABS: Alanine Aminotransferase 25 U/L (12-78); Aspartate Amino Transferase 40 U/L (14-36); Blood Urea Nitrogen 19 mg/dl (7-17); Creatinine Clearance Estimated 48 mL/min (50-200); Estimated Glomerular Filt Rate 56 ml/min (>60); GFR (African American) 68 ML/MIN (>60)
[2021-10-09 12:22] LABS: Albumin Level 3.7 g/dl (3.5-5.0); Albumin/Globulin Ratio 1.3 (1.1-1.8); Alkaline Phosphatase 73 U/L (38-126); Anion Gap 11.6 mEq/L (5-15); Bilirubin,Total 1.6 mg/dl (0.2-1.3); Calcium 8.1 mg/dl (8.4-10.2); Carbon Dioxide 20 mmol/L (22.0-30.0); Globulin 2.9 g/dL (1.3-3.2); Glucose 181 mg/dl (74-100); Total Protein,Serum 6.6 g/dl (6.3-8.2)
[2021-10-09 12:38] LABS: Troponin I < 0.01 ng/ml (0.00-0.034)
[2021-10-09 13:07] LABS: Magnesium 1.8 mg/dl (1.6-2.3); Phosphorous 3.9 mg/dl (2.5-4.5)
[2021-10-09 13:54] LABS: NT Pro Brain Natriuretic Pep. 10200 pg/mL (0-125)
--- NOTE | 2021-10-09 14:10 | PC.NURSE ---
pt up to restroom, ambulated independently with use of her cane, tolerated well.
--- NOTE | 2021-10-09 14:20 | PC.NURSE ---
notified cardiology office of consult on pt and that pt is going to be admitted, spoke with tessy
--- NOTE | 2021-10-09 14:24 | PC.NURSE ---
spoke with sherine singleton notifying her of consult
--- NOTE | 2021-10-09 14:25 | CA_ITS ---
APPROVED REPORT EXAM: Comprehensive 2D, Doppler, and color-flow Echocardiogram Construction Accountant: Luda Muhammad CRT Ht: 5 ft 3 in Wt: 250lbs BSA: 2.13 BP: 100/67 mmHg Indications: Shortness of Breath, Atrial Fibrillation, Hyperlipidemia, Cardiomyopathy, Hypertension/HDD 2D Dimensions LVOT 1.85 cm (M/F) 1.5-2.5 LA Volume 43.00 mL LA Volume Index 20.20 mL/m2 (M/F) 16-34 M-Mode Dimensions RVDd 3.36 cm (0.9-2.6) LA Diam 4.51 cm (1.9-4.0) LVDd 5.60 cm (3.5-5.7) Ao Diam 3.39 cm (2.0-3.7) LVDs 4.72 cm (3.5-5.7) IVSd 1.61 cm (0.6-1.1) PWd 0.65 cm (0.6-1.1) EF (Teich) 32.70% FS 15.70% EDV (Teich) 153.70 mL TAPSE 0.73 (<1.7) ESV (Teich) 103.40 mL Aortic Valve AO Peak GR. 3.70 mmHg Pulmonary Valve PV Peak Velocity 221.00 (50-150 cm/s) Tricuspid Valve TR P. Velocity 293.00 cm/s RAP Estimate 10.00 mmHg RVSP 44.30 mmHg Left Ventricle Left atrium is moderately enlarged, left ventricle is mildly dilated, severe reduced left ventricular systolic function, visually estimated ejection fraction 20% left ventricle is globally hypokinetic, Doppler evidence of raise left ventricular end-diastolic pressure. Right Ventricle Right atrium is moderately enlarged, right ventricle is mildly dilated with normal contractility. Aortic Valve Aortic valve is minimally thickened and fibrosed there is no aortic stenosis or aortic insufficiency. Mitral Valve Mitral valve has mitral annular calcification, leaflets are minimally thickened, there is mild mitral regurgitation. Tricuspid Valve Tricuspid valve is grossly normal, there is moderate tricuspid regurgitation, calculated right ventricular systolic pressure is 44 mmHg Pulmonic Valve Pulmonic valve is poorly visualized. Great Vessels Aortic root is normal size. Inferior vena cava is not well visualized. Pericardium No significant pericardial effusion noted. Conclusion 1. Moderate biatrial enlargement, dilated left ventricle, severely reduced left ventricular systolic function, estimated ejection fraction 20% left ventricle is globally hypokinetic, Doppler evidence of raise left ventricular end-diastolic pressure. 2. Mildly enlarged right ventricle with normal contractility. 3. Mild mitral and moderate tricuspid regurgitation, calculated right ventricular systolic pressure is 44 mmHg. 4. No significant pericardial effusion noted. 5. Inferior vena cava is poorly visualized. Electronically signed by : Satish Mancini MD 10/10/2021 05:39:10
[2021-10-09 14:31] LABS: Coronavirus 19, PCR Not Detected (NotDetected); Influenza A, PCR Not Detected (NotDetected); Influenza B, PCR Not Detected (NotDetected)
--- NOTE | 2021-10-09 14:39 | PC.NURSE ---
Indiana Schaffer at bedside
--- NOTE | 2021-10-09 14:40 | PC.NURSE ---
Indiana Schaffer at bedside
--- NOTE | 2021-10-09 14:57 | HMH.CNCARD ---
<Indiana Schaffer - Last Filed: 10/09/21 14:57> History of Present Illness Consult date: 10/09/21 Requesting physician: Piedad Churchill Consult reason: atrial fibrillation, congestive heart failure, shortness of breath Chief complaint: SOB History of present illness: This is a 61-year-old white female who presented to the emergency department complaints of shortness of breath. The patient states that her shortness of breath started approximately around September 24, 2021 and has been progressively worsening since that time. The patient states that she is now short of breath with very minimal exertion. She states that walking in the house causes her significant shortness of breath. It is associated with edema in her bilateral lower extremities. She states that she just does not feel like she is able to get enough air. It is associated with a dry cough. She denies any chest pain or pressure. She also has been having racing of the heart and fast heart rates. The patient states that she knew that she was in atrial fibrillation with RVR and congestive heart failure because these were symptoms that she felt in the past when she was in atrial fibrillation and congestive heart failure. The patient's BNP is elevated over 10,000. Upon arrival she was found to be in atrial fibrillation with RVR, heart rate was in the 140s. She was started on a diltiazem drip and her heart rate has improved to the 110s to 120s. However, the patient does have a history of cardiomyopathy and diltiazem is not indicated to use when the patient has cardiomyopathy so we will need to reevaluate her ejection fraction as soon as possible. She denies any fever, chills, nausea, vomiting, diarrhea, PND. The patient reports that she is taking her metoprolol, Entresto, amiodarone, Lasix and spironolactone. She states that she has been out of her Eliquis because she does not think her insurance is covering this any longer. [facility] History I have reviewed the patient's past medical history: Yes Medical History: Reports:: Atrial Fibrillation, Congestive Heart Failure, Coronary Artery Disease, Hyperlipidemia, Hypertension Denies:: Diabetes Mellitus Type 2, Seizures *Have you ever received a pneumonia vaccine?: No *Have you received a flu vaccine this season?: No Other Medical History: Reports: Hypothyroidism. Denies: Blood Transfusion Reaction Other Surgeries: Yes: Cardiac Catheterization, Cardiac Surgery, Other - *Social History Smoking Status: Never smoker Alcohol Intake: never Alcohol Intake Frequency:: other Substance Use Type: former substance user *Occupational Status:: employed Housing: house Household Members: none *Travel in the last 8 weeks: None Family Hx:: Anemia, Cancer, Coronary Artery Disease, Diabetes, Hyperlipidemia, Hypertension, Mental illness Meds Home Medications Medication Instructions Recorded Confirmed Type aspirin 81 mg tablet,delayed 81 mg PO DAILY 07/09/17 10/09/21 History release Spironolactone [Aldactone 25mg 25 mg PO DAILY #30 tab 03/23/20 10/09/21 Rx Tab] metoprolol succinate 100 mg 50 mg PO DAILY tab 04/13/20 10/09/21 History tablet,extended release 24 hr Apixaban [Eliquis 5mg Tablet] 5 mg PO BID 10/09/21 10/09/21 History Allergies Allergy/AdvReac Type Severity Reaction Status Date / Time No Known Allergies Allergy Verified 10/09/21 11:26 Exam Vital signs and Labs for Last 24 Hours: Temp Pulse Resp BP Pulse Ox 98.4 F 105 H 18 100/67 L 93 L 10/09/21 11:44 10/09/21 14:00 10/09/21 14:00 10/09/21 14:00 10/09/21 14:00 Laboratory Results - last 24 hr 10/09/21 12:00: WBC 9.0, RBC 4.74, Hgb 13.7, Hct 43.8, MCV 92.4, MCH 29.0, MCHC 31.4 L, RDW 15.2, Plt Count 163, MPV 9.9, Neut % (Auto) 81.0 H, Lymph % (Auto) 10.5, [place] % (Auto) 7.4, Eos % (Auto) 1.2, Baso % (Auto) 1.9, Neut # (Auto) 7.3, Lymph # (Auto) 0.9, [place] # (Auto) 0.7, Eos # (Auto) 0.1, Baso # (Auto) 0.2 10/09/21 12:00: Sodium 135 L, Potassium 4.6, Chloride 108 H
--- NOTE | 2021-10-09 15:15 | PC.NURSE ---
Pt urinated 500ml
--- NOTE | 2021-10-09 15:25 | PC.NURSE ---
Called report to Taryn
[2021-10-09 15:32] LABS: Troponin I < 0.01 ng/ml (0.00-0.034)
--- NOTE | 2021-10-09 15:52 | PC.NURSE ---
pt up to restroom at this time.
--- NOTE | 2021-10-09 15:53 | PC.NURSE ---
melodie singletonn at BS again, stated to stop pt diltiazem drip r/t pt EF of 20% drip stopped at this time will continue to monitor.
--- NOTE | 2021-10-09 15:57 | PC.NURSE ---
notified house superintendent pt diltiazem drip was stopped per cardiology, ER states pt will only need telemetry now not stepdown
--- NOTE | 2021-10-09 16:10 | PC.NURSE ---
PT ARRIVED TO THE FLOOR AT THIS TIME
--- NOTE | 2021-10-09 17:01 | HMH.HP ---
*Admission Date: 10/09/21 *Chief complaint: tachycardia, SOA, edema, fast heart rate. *History of present illness: Ms. Pham is a pleasant 61-year-old female who presented to the emergency room with worsening shortness of breath. Shortness of breath has been progressive over the past several weeks. Having difficulty walking around the house, taking breaks frequently due to shortness of air with minimal exertion. Has noted significant swelling in her legs. From a cough when she came into the ER that she reports is somewhat better now that she has been urinating after diuresis. Interestingly, she denies any chest pain or pressure. Does complain of feeling like her heart is racing, though she knows she has a history of A. fib. Has not been seen by primary care or cardiology since April 2020. Still had refills of some of her medications and was taking per her report some Entresto, metoprolol fairly regularly for the past 18+ months. Ran out of anticoagulant in May. Has not been on amiodarone in some time per her report. Had been on it previously however. On arrival to the ER, found to be in florid heart failure, A. fib with RVR, and had concern for significant volume overload. Cardiology consulted. Admitted to medicine for further management and observation Visited with patient after arrival to the floor. Very pleasant, sitting at bedside eating dinner. In A. fib with RVR on telemetry. States she is feeling somewhat better since responding to diuretic. Has been urinated numerous times. Denies significant shortness of breath, stable on room air. Afebrile. No vomiting or diarrhea. States she has had significant loss and social/emotional stress over the past year and a half. This is led to her neglecting herself which she admits. Of note, has not been seen in our office since March 2020 [facility] History I have reviewed the patient's past medical history: Yes Medical History: Reports:: Atrial Fibrillation, Congestive Heart Failure, Coronary Artery Disease, Hyperlipidemia, Hypertension Denies:: Diabetes Mellitus Type 2, Seizures *Have you ever received a pneumonia vaccine?: No *Have you received a flu vaccine this season?: No Other Medical History: Reports: Hypothyroidism. Denies: Blood Transfusion Reaction Other Surgeries: Yes: Cardiac Catheterization, Cardiac Surgery, Other - *Social History Smoking Status: Never smoker Alcohol Intake: never Alcohol Intake Frequency:: other Substance Use Type: former substance user *Occupational Status:: employed Housing: house Household Members: none *Travel in the last 8 weeks: None Family Hx:: Anemia, Cancer, Coronary Artery Disease, Diabetes, Hyperlipidemia, Hypertension, Mental illness Review of Systems - Review of Systems Review of systems:: pertinent systems reviewed and negative unless documented below (14 point review of systems performed, pertinent positives and negatives as per HPI) - *Neurologic Denies dizziness, Denies headache(s) Meds Home Medications Medication Instructions Recorded Confirmed Type aspirin 81 mg tablet,delayed 81 mg PO DAILY 07/09/17 10/09/21 History release Spironolactone [Aldactone 25mg 25 mg PO DAILY #30 tab 03/23/20 10/09/21 Rx Tab] metoprolol succinate 100 mg 50 mg PO DAILY tab 04/13/20 10/09/21 History tablet,extended release 24 hr Apixaban [Eliquis 5mg Tablet] 5 mg PO BID 10/09/21 10/09/21 History Allergies Allergy/AdvReac Type Severity Reaction Status Date / Time No Known Allergies Allergy Verified 10/09/21 11:26 Exam Vital signs and Labs for Last 24 Hours: Temp Pulse Resp BP Pulse Ox 98.1 F 68 18 135/106 H 93 L 10/09/21 16:13 10/09/21 16:13 10/09/21 16:13 10/09/21 16:13 10/09/21 16:13 Laboratory Results - last 24 hr 10/09/21 12:00: WBC 9.0, RBC 4.74, Hgb 13.7, Hct 43.8, MCV 92.4, MCH 29.0, MCHC 31.4 L, RDW 15.2, Plt Count 163, MPV 9.9, Neut % (Auto) 81.0 H, Lymph % (Auto) 10.5, [place] % (A
[2021-10-09 18:35] LABS: Troponin I < 0.01 ng/ml (0.00-0.034)
[2021-10-09 19:07] LABS: Hemoglobin A1C 7.3 % (4.0-6.0)
[2021-10-09 20:09] LABS: Microscopic, Urine URINE MICROSCOPIC (MICROSCOPIC)
[2021-10-09 20:23] LABS: Appearance,Urine CLEAR (Clear); Bilirubin,Urine Negative (Negative); Blood, Urine TRACE-I (Negative); Color,Urine YELLOW (Yellow); Glucose,Urine (UA) Negative (Negative); Ketones,Urine Negative (Negative); Leukocyte Esterase,Urine Negative (Negative); Nitrate,Urine Negative (Negative); Protein,Urine Negative (Negative); Urobilinogen,Urine 0.2 EU/dl (0.2)
[2021-10-09 20:39] LABS: Bacteria,Urine Trace /lpf; Squamous Epithelial Cell,Urine Occasional #/hpf (0-5); WBC,Urine Occasional #/hpf (0-3)
[2021-10-10] VITALS (15 sets, daily range): BP systolic 89–167; BP diastolic 35–97; PULSE 73–160; RESP 18–30; TEMP 36.5–37.1; O2SAT 92–96; BMI 49.3
--- NOTE | 2021-10-10 | IR_ITS ---
APPROVED REPORT Patient Location: Inpatient Sanitation Manager: TIMA Solano RT (R) PROCEDURES 1. Pocket formation for biventricular pacemaker generator with cardiac resynchronization therapy with defibrillator 2. Placement of atrial sensing and pacing lead into the right atrial appendage. 3. Placement of a right ventricular sensing, pacing and shocking lead in the right ventricular apex. 4. Placement of left ventricular sensing pacing lead via the coronary sinus. 5. Permanent cardiac resynchronization therapy with ICD implantation/biventricular pacemaker. Additional procedures Right radial arterial line placement Cardiopulmonary resuscitation Critical care management for 30 minutes INDICATION Systolic Congestive Heart Failure, ejection <35%, [place] Heart Assoication Class 3 Congestive Heart Failure, Recalcitrant tachycardia with anticipated AV bravo ablation pending, Anticipated RV pacing greater than 40%, Cardiogenic shock, Atrial fibrillation rapid ventricular response accompanied by cardiogenic shock Informed consent was obtained prior to the procedure. COMPLICATIONS NONE Estimated Blood Loss: LESS THAN 10 ML TECHNIQUE 1% Lidocaine with epinephrine used to anesthetized the left anterior aspect of the chest. Scalpel was used to make the initial cutaneous incision while electrocautery was used to dissect down tinto the fascia. The fascia was lifted off the pectoralis muscle and digitally manipulated creating a pocket for the defibrillator. The patient was then placed in Trendelenburg position and the subclavian vein was accessed 3 times via the Selinger technique. A 8 Dominican sheath was placed under fluoroscopic guidance into the subclavian vein. The dilator was removed from the sheath. Using fluoroscopic guidance, the ventricular lead was placed into the right ventricular apex, screwed and secured into place. Electronic interrogation proved acceptable thresholds and voltage within the lead. Using 3-0 silk, the ventricular lead was then secured into place and sheath peeled away. Following this, a 9.5 Dominican sheath and dilator was then placed over one of the wires while keeping the other wire in place within the subclavian vein. The dilator was removed from the sheath. Using fluoroscopic guidance, contrast was used to visualize the coronary sinus, the left ventricular lead was placed into the coronary sinus. Electronic interrogation proved acceptable thresholds and voltage within the lead. Using 3-0 silk, the left ventricular lead was then secured into place and sheath peeled away.An additional 6 Dominican fresh sheath and dilator was placed over the existing wire. Using fluoroscopic guidance, the atrial lead was then placed into the right atrial appendage and screwed and secured in place. Electrical interrogation demonstrated acceptable thresholds and voltage number. The atrial lead was then secured into place using 3-0 silk and sheath peeled away. 1 gram of Ancef was used to flush the pocket. All 3 leads were connected to generator and tested via computer. The defibrillator then secured to the fascia. Monocryl was used to close the subcutaneous layers while tess were used to close the cutaneous layer. During the procedure patient experienced recalcitrant tachycardia. She is on metoprolol tartrate 100 mg every 6 orally and was also started on an esmolol drip to help control the ventricular rate. She remained tachycardic in atrial fibrillation. Amiodarone bolus and drip were also started to help ventricular control. It was anticipated patient would be referred for AV bravo ablation therefore there was anticipation of placing biventricular pacemaker placement at the beginning of the procedure. In the event pa
[2021-10-10 07:22] LABS: Basophils # 0.1 K/mm3 (0-0.2); Basophils % 1.2 % (0.1-2.0); Eosinophils % 0.4 % (0.1-12.0); Hematocrit 48.1 % (37.0-47.0); Hemoglobin 14.9 g/dL (12.2-16.2); Lymphocytes # 1.5 K/mm3 (0.7-4.5); Lymphocytes % 14.9 % (10-50); Mean Corpuscular Hemoglobin 28.4 pg (27.0-31.2); Mean Corpuscular Volume 91.8 fl (81-99); Mean Platelet Volume 10.3 fl (7.4-10.4); Monocytes # 0.9 K/mm3 (0.1-1.0); Monocytes % 9.2 % (1.7-9.3); Neutrophils # 7.4 K/mm3 (1.8-7.8); Neutrophils % 74.4 % (37.0-80.0); Platelet Count 269 K/mm3 (142-424); Red Blood Count 5.24 M/mm3 (4.20-5.40); Red Cell Distribution Width 15.2 % (11.5-17.5); White Blood Count 9.9 K/mm3 (4.8-10.8)
--- NOTE | 2021-10-10 07:23 | HMH.PHAVTE ---
[facility] VTE Monitoring - Patient Demographics Admission date: 10/09/21 Report Date: 10/10/21 Time: 07:23 Allergies/Adverse Reactions: Patient Allergies No Known Allergies Allergy (Verified 10/09/21 11:26) Height: 1.57 m Weight: 121.608 kg Patient Problems: Current Active Problems Shortness of breath (Acute) Atrial fibrillation with RVR (Acute) Acute on chronic congestive heart failure (Acute) Hypothyroidism (Acute) Hyperglycemia (Acute) Class 3 obesity (Chronic) CAD (coronary atherosclerotic disease) (Chronic) Presence of external cardiac defibrillator (Chronic) HLD (hyperlipidemia) (Chronic) Hypertensive disorder (Chronic) Diabetes mellitus (Chronic) Dilated cardiomyopathy (Chronic) Congestive heart failure (Acute) - VTE Risk Labs: VTE Related Lab Results Hgb 13.7 g/dL (12.2-16.2) 10/09/21 12:00 Hct 43.8 % (37.0-47.0) 10/09/21 12:00 Plt Count 163 K/mm3 (142-424) 10/09/21 12:00 BUN 19 mg/dl (7-17) H 10/09/21 12:00 Creatinine 1.00 mg/dl (0.52-1.04) 10/09/21 12:00 Estimated Creat Clear 48 mL/min (50-200) 10/09/21 12:00 VTE Score: 5 VTE Risk Level: Low Risk - Prophylaxis VTE Prophylaxis Ordered?: Yes Types of VTE Prophylaxis: TEDS Knee High Location of Applied Device: Bilateral Lower Extremeties
[2021-10-10 07:45] LABS: Chloride 103 mmol/L (98-107); Potassium 3.8 mmoL/L (3.5-5.1); Sodium 136 mmol/L (136-145)
[2021-10-10 07:48] LABS: Alanine Aminotransferase 22 U/L (12-78); Albumin Level 3.4 g/dl (3.5-5.0); Albumin/Globulin Ratio 1.3 (1.1-1.8); Alkaline Phosphatase 86 U/L (38-126); Anion Gap 13.8 mEq/L (5-15); Aspartate Amino Transferase 33 U/L (14-36); Bilirubin,Total 1.9 mg/dl (0.2-1.3); Blood Urea Nitrogen 17 mg/dl (7-17); Calcium 8.1 mg/dl (8.4-10.2); Carbon Dioxide 23 mmol/L (22.0-30.0); Creatinine Clearance Estimated 44 mL/min (50-200); Estimated Glomerular Filt Rate 63 ml/min (>60); GFR (African American) 77 ML/MIN (>60); Globulin 2.7 g/dL (1.3-3.2); Glucose 135 mg/dl (74-100); Total Protein,Serum 6.1 g/dl (6.3-8.2)
[2021-10-10 07:49] LABS: Magnesium 1.5 mg/dl (1.6-2.3)
--- NOTE | 2021-10-10 08:38 | HMH.ACPN2 ---
Internal Medicine - PN: Subj *Date: 10/10/21 *Time: 08:38 Interval history: Patient is feeling a little better, has diuresed quite a bit of fluid. Is able to sit up in a chair. He is not breathless at rest. Resting heart rate still in the 140s. Exam Vital signs and Labs for Last 24 Hours: Temp Pulse Resp BP Pulse Ox 98.7 F 153 H 25 H 167/67 H 92 L 10/10/21 04:00 10/10/21 06:00 10/10/21 06:00 10/10/21 06:00 10/10/21 06:00 Laboratory Results - last 24 hr 10/09/21 12:00: WBC 9.0, RBC 4.74, Hgb 13.7, Hct 43.8, MCV 92.4, MCH 29.0, MCHC 31.4 L, RDW 15.2, Plt Count 163, MPV 9.9, Neut % (Auto) 81.0 H, Lymph % (Auto) 10.5, [place] % (Auto) 7.4, Eos % (Auto) 1.2, Baso % (Auto) 1.9, Neut # (Auto) 7.3, Lymph # (Auto) 0.9, [place] # (Auto) 0.7, Eos # (Auto) 0.1, Baso # (Auto) 0.2 10/09/21 12:00: Sodium 135 L, Potassium 4.6, Chloride 108 H, Carbon Dioxide 20 L, Anion Gap 11.6, BUN 19 H, Creatinine 1.00, Estimated Creat Clear 48, Estimated GFR 56 L, Est GFR ( Amer) 68, Glucose 181 H, Calcium 8.1 L, Total Bilirubin 1.6 H, AST 40 H, ALT 25, Alkaline Phosphatase 73, Troponin I < 0.01, Total Protein 6.6, Albumin 3.7, Globulin 2.9, Albumin/Globulin Ratio 1.3 10/09/21 12:00: NT-Pro-B Natriuret Pep 57262 H 10/09/21 12:00: Phosphorus 3.9, Magnesium 1.8, TSH 10.60 H 10/09/21 12:00: Hemoglobin A1c 7.3 H 10/09/21 14:22: SARS-CoV-2 (PCR) Not detected, Influenza A Untype (PCR) Not detected, Influenza Type B (PCR) Not detected 10/09/21 14:51: Troponin I < 0.01 10/09/21 17:58: Troponin I < 0.01 10/09/21 20:01: Urine Color Yellow, Urine Appearance Clear, Urine pH 6.0, Ur Specific [place] 1.010, Urine Protein Negative, Urine Glucose (UA) Negative, Urine Ketones Negative, Urine Blood Trace-i, Urine Nitrate Negative, Urine Bilirubin Negative, Urine Urobilinogen 0.2, Ur Leukocyte Esterase Negative, Urine RBC None, Urine WBC Occasional, Ur Squamous Epith Cells Occasional, Urine Bacteria Trace 10/10/21 06:11: WBC 9.9, RBC 5.24, Hgb 14.9, Hct 48.1 H, MCV 91.8, MCH 28.4, MCHC 31.0 L, RDW 15.2, Plt Count 269 D, MPV 10.3, Neut % (Auto) 74.4, Lymph % (Auto) 14.9, [place] % (Auto) 9.2, Eos % (Auto) 0.4, Baso % (Auto) 1.2, Neut # (Auto) 7.4, Lymph # (Auto) 1.5, [place] # (Auto) 0.9, Eos # (Auto) 0.0, Baso # (Auto) 0.1 10/10/21 06:11: Sodium 136, Potassium 3.8, Chloride 103, Carbon Dioxide 23, Anion Gap 13.8, BUN 17, Creatinine 0.90, Estimated Creat Clear 44, Estimated GFR 63, Est GFR ( Amer) 77, Glucose 135 H D, Calcium 8.1 L, Magnesium 1.5 L D, Total Bilirubin 1.9 H, AST 33, ALT 22, Alkaline Phosphatase 86, Total Protein 6.1 L, Albumin 3.4 L, Globulin 2.7, Albumin/Globulin Ratio 1.3 I & O for Last 24 hours: Intake & Output 10/07/21 10/08/21 10/09/21 10/10/21 11:59 11:59 11:59 11:59 Intake Total 360 / 360 Output Total 3400 / 3400 Balance -3040 / -3040 Weight 250 lb 268 lb 1.6 oz Narrative: Alert, pleasant. Tachycardic. Good air movement. Clear in both bases. Much improved over yesterday's exam. No ankle edema. Earful, very stressed Assessment and Plan (1) Shortness of breath Status: Acute Category: Medical Code(s): R06.02 - Shortness of breath (2) Acute on chronic congestive heart failure Status: Acute Qualifiers: Heart failure type: systolic Qualified Code(s): I50.23 - Acute on chronic systolic (congestive) heart failure Category: Medical Code(s): I50.9 - Heart failure, unspecified (3) Atrial fibrillation with RVR Status: Acute Category: Medical Code(s): I48.91 - Unspecified atrial fibrillation (4) CAD (coronary atherosclerotic disease) Status: Chronic Qualifiers: Coronary Disease-Associated Artery/Lesion type: [place] artery [place] vs. transplanted heart: [place] heart Associated angina: without angina Qualified Code(s): I25.10 - Atherosclerotic heart disease of [place] coronary artery without angina pectoris Category: Medical Code(s): I25.10 - Atherosclerotic heart disease of [place] co
--- NOTE | 2021-10-10 09:26 | HMH.PHAINT ---
Home medication list was verified using the [facility] claim history and information provided by the patient. Patient has only been taking metoprolol consistently.
--- NOTE | 2021-10-10 10:37 | HMH.PNCARD ---
Subjective Date: 10/10/21 Time: 08:30 Principal diagnosis: CHF, afib with rvr Interval history: This is a 61-year-old white female who presented to the emergency department complaints of shortness of breath. The patient was found to be in acute exacerbation of her chronic systolic congestive heart failure and atrial fibrillation with RVR. The patient was initially placed on a diltiazem drip but her preliminary echocardiogram came back with an ejection fraction of 20% so the diltiazem drip was stopped and she was placed on oral amiodarone and oral metoprolol. The patient remains tachycardic this morning with a heart rate in the 150s. She states that her shortness of breath has significantly improved with diuresis overnight. She does have a fluid balance of -1840. She still short of breath with exertion but she states that this is much better. Her edema has improved as well. She denies any chest pain or pressure. She denies any fever, chills, nausea, vomiting, diarrhea or PND. Exam Vital signs and Labs for Last 24 Hours: Temp Pulse Resp BP Pulse Ox 98.5 F 153 H 25 H 167/67 H 92 L 10/10/21 08:00 10/10/21 06:00 10/10/21 06:00 10/10/21 06:00 10/10/21 06:00 Laboratory Results - last 24 hr 10/09/21 12:00: WBC 9.0, RBC 4.74, Hgb 13.7, Hct 43.8, MCV 92.4, MCH 29.0, MCHC 31.4 L, RDW 15.2, Plt Count 163, MPV 9.9, Neut % (Auto) 81.0 H, Lymph % (Auto) 10.5, [place] % (Auto) 7.4, Eos % (Auto) 1.2, Baso % (Auto) 1.9, Neut # (Auto) 7.3, Lymph # (Auto) 0.9, [place] # (Auto) 0.7, Eos # (Auto) 0.1, Baso # (Auto) 0.2 10/09/21 12:00: Sodium 135 L, Potassium 4.6, Chloride 108 H, Carbon Dioxide 20 L, Anion Gap 11.6, BUN 19 H, Creatinine 1.00, Estimated Creat Clear 48, Estimated GFR 56 L, Est GFR ( Amer) 68, Glucose 181 H, Calcium 8.1 L, Total Bilirubin 1.6 H, AST 40 H, ALT 25, Alkaline Phosphatase 73, Troponin I < 0.01, Total Protein 6.6, Albumin 3.7, Globulin 2.9, Albumin/Globulin Ratio 1.3 10/09/21 12:00: NT-Pro-B Natriuret Pep 43985 H 10/09/21 12:00: Phosphorus 3.9, Magnesium 1.8, TSH 10.60 H 10/09/21 12:00: Hemoglobin A1c 7.3 H 10/09/21 14:22: SARS-CoV-2 (PCR) Not detected, Influenza A Untype (PCR) Not detected, Influenza Type B (PCR) Not detected 10/09/21 14:51: Troponin I < 0.01 10/09/21 17:58: Troponin I < 0.01 10/09/21 20:01: Urine Color Yellow, Urine Appearance Clear, Urine pH 6.0, Ur Specific [place] 1.010, Urine Protein Negative, Urine Glucose (UA) Negative, Urine Ketones Negative, Urine Blood Trace-i, Urine Nitrate Negative, Urine Bilirubin Negative, Urine Urobilinogen 0.2, Ur Leukocyte Esterase Negative, Urine RBC None, Urine WBC Occasional, Ur Squamous Epith Cells Occasional, Urine Bacteria Trace 10/10/21 06:11: WBC 9.9, RBC 5.24, Hgb 14.9, Hct 48.1 H, MCV 91.8, MCH 28.4, MCHC 31.0 L, RDW 15.2, Plt Count 269 D, MPV 10.3, Neut % (Auto) 74.4, Lymph % (Auto) 14.9, [place] % (Auto) 9.2, Eos % (Auto) 0.4, Baso % (Auto) 1.2, Neut # (Auto) 7.4, Lymph # (Auto) 1.5, [place] # (Auto) 0.9, Eos # (Auto) 0.0, Baso # (Auto) 0.1 10/10/21 06:11: Sodium 136, Potassium 3.8, Chloride 103, Carbon Dioxide 23, Anion Gap 13.8, BUN 17, Creatinine 0.90, Estimated Creat Clear 44, Estimated GFR 63, Est GFR ( Amer) 77, Glucose 135 H D, Calcium 8.1 L, Magnesium 1.5 L D, Total Bilirubin 1.9 H, AST 33, ALT 22, Alkaline Phosphatase 86, Total Protein 6.1 L, Albumin 3.4 L, Globulin 2.7, Albumin/Globulin Ratio 1.3 I & O for Last 24 hours: Intake & Output 10/07/21 10/08/21 10/09/21 10/10/21 23:59 23:59 23:59 23:59 Intake Total 360 / 360 Output Total 2200 / 2200 1200 / 1200 Balance -1840 / -1840 -1200 / -1200 Weight 271 lb 1 oz 268 lb 1.6 oz Narrative: Telemetry strip shows atrial fibrillation with a rate of 153 bpm. Echo shows: 1. Moderate biatrial enlargement, dilated left ventricle, severely reduced left ventricular systolic function, estimated ejection fraction 20% left ventricle is globally hypokinetic, Doppler evidence of raise left ventricular e
--- NOTE | 2021-10-10 11:49 | HMH.ANESCL ---
[facility] Anesthesia Checklist - Patient Identification Patient Identification: Arm Band - Structural Data Admitted From: Inpatient Planned Operative Procedure/s: AICD Placement Consent for Planned Operative Procedure(s) Verified: Yes Verified Documents: Surgical Consent, History and Physical - NPO Status Verified Time NPO: 00:00 - Additional verifications Anesthesia Reactions: No Hx Blood Transfusions: No Blood Transfusion Reaction: No - Airway Assessment C-Spine Mobility Assessed: Yes (mp2) TMJ Mobility Assessed: Yes Dentition: Good Dentition - Neurological Assessment Level of Consciousness: Awake, Alert - Anesthesia Plan Anesthesia Risk discussed: Yes Anesthesia Plan: Verified ASA Class: IV Anesthesia Type: MAC [facility] History I have reviewed the patient's past medical history: Yes Medical History: Reports:: Arrhythmia, Atrial Fibrillation, Congestive Heart Failure, Coronary Artery Disease, Hyperlipidemia, Hypertension Denies:: Diabetes Mellitus Type 2, Seizures *Have you ever received a pneumonia vaccine?: No *Have you received a flu vaccine this season?: No Other Medical History: Reports: Hypothyroidism. Denies: Blood Transfusion Reaction Anesthesia experience/problems:: nac Other Surgeries: Yes: Cardiac Catheterization, Cardiac Surgery, Other - *Social History Last grade of school completed: Some college Smoking Status: Never smoker Alcohol Intake: never Alcohol Intake Frequency:: other Substance Use Type: former substance user *Occupational Status:: employed Housing: apartment Household Members: none *Travel in the last 8 weeks: None Family Hx:: Anemia, Cancer, Coronary Artery Disease, Diabetes, Hyperlipidemia, Hypertension, Mental illness
--- NOTE | 2021-10-10 16:10 | PC.NURSE ---
pt arrived back to room [facility]. Primary RN received report @ BS from Akosua Parks and Tonja Perez. Pt is on the vent and now has a right radial arterial line. Per Dr. Chang, MAP is to stay @ 65. Levo gtt started secondary hypotension. Propofol gtt started @ 50mcg/kg/min. Katz catheter inserted. OG tubed inserted. Pt is V paced on tele. Dr. Hollis updated. All orders per Dr. Hollis and Dr. Reyna entered.
--- NOTE | 2021-10-10 18:48 | SUR.OPER ---
patient lost bp at 1725, compressions started, intuated size 7 et tube per anesthesia, esmolol gtt stopped, 2 amp epi given, 1732 patient regained pressure and hr, respiratory and echo at bedside see merge report for further details
--- NOTE | 2021-10-10 18:51 | SUR.PHASEII ---
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
[2021-10-10 19:13] LABS: ABG Base Excess -9.6 mmol/L (-2.4-2.3); ABG HCO3 16.7 mmhg (22.0-26.0); ABG Oxygen Saturation 97 % (90-100); ABG PCO2 33.8 mmhg (35.0-45.0); ABG PH 7.31 mmol/L (7.35-7.45); ABG PO2 98.1 mmhg (80-100); ABG TCO2 17.7 mmhg (23-27); Oxygen 60 %; PEEP 5; Tidal Volume 440; Vent Rate 18
[2021-10-10 19:15] LABS: Basophils # 0.1 K/mm3 (0-0.2); Eosinophils % 0.3 % (0.1-12.0); Hematocrit 47.4 % (37.0-47.0); Hemoglobin 14.7 g/dL (12.2-16.2); Lymphocytes # 0.9 K/mm3 (0.7-4.5); Lymphocytes % 8.5 % (10-50); Mean Corpuscular HGB Conc 30.9 g/dL (31.8-35.4); Mean Corpuscular Hemoglobin 28.9 pg (27.0-31.2); Mean Corpuscular Volume 93.6 fl (81-99); Mean Platelet Volume 9.1 fl (7.4-10.4); Monocytes # 0.5 K/mm3 (0.1-1.0); Monocytes % 4.7 % (1.7-9.3); Neutrophils # 9.1 K/mm3 (1.8-7.8); Neutrophils % 85.5 % (37.0-80.0); Platelet Count 248 K/mm3 (142-424); Red Blood Count 5.07 M/mm3 (4.20-5.40); Red Cell Distribution Width 15.4 % (11.5-17.5); White Blood Count 10.6 K/mm3 (4.8-10.8)
[2021-10-10 19:25] LABS: Alanine Aminotransferase 297 U/L (12-78); Albumin Level 3.3 g/dl (3.5-5.0); Albumin/Globulin Ratio 1.2 (1.1-1.8); Alkaline Phosphatase 54 U/L (38-126); Anion Gap 16.2 mEq/L (5-15); Aspartate Amino Transferase 595 U/L (14-36); Bilirubin,Total 2.4 mg/dl (0.2-1.3); Blood Urea Nitrogen 21 mg/dl (7-17); Calcium 7.6 mg/dl (8.4-10.2); Carbon Dioxide 20 mmol/L (22.0-30.0); Chloride 103 mmol/L (98-107); Creatinine Clearance Estimated 31 mL/min (50-200); Estimated Glomerular Filt Rate 38 ml/min (>60); GFR (African American) 46 ML/MIN (>60); Globulin 2.8 g/dL (1.3-3.2); Glucose 161 mg/dl (74-100); Phosphorous 7.2 mg/dl (2.5-4.5); Potassium 3.2 mmoL/L (3.5-5.1); Sodium 136 mmol/L (136-145); Total Protein,Serum 6.1 g/dl (6.3-8.2)
[2021-10-10 19:33] LABS: MANUAL DIFFERENTIAL MANUAL DIFFERENTIAL (MANUAL DIFF)
[2021-10-10 19:33] LABS: ABG Base Excess -17.5 mmol/L (-2.4-2.3); ABG HCO3 10.6 mmhg (22.0-26.0); ABG Oxygen Saturation 98 % (90-100); ABG PCO2 27.7 mmhg (35.0-45.0); ABG TCO2 11.4 mmhg (23-27); Oxygen 100 %; PEEP 8; Source A LINE; Tidal Volume 440; Vent Rate 24
[2021-10-10 20:00] LABS: Burr Cells 1+; Lymphocytes % 6 % (10-50); Monocytes % 9 % (2-9); Neutrophils % 85 % (42-76); Nucleated Red Blood Cells 2; Platelet Estimate Normal; Tear Drop Cells 1+; Total Cells Counted 100
--- NOTE | 2021-10-10 20:07 | PC.NURSE ---
family updated and will be @ BS soon.
[2021-10-11] VITALS (41 sets, daily range): BP systolic 81–135; BP diastolic 54–89; PULSE 70–877; RESP 16–29; TEMP 36.2–38.4; O2SAT 90–96; BMI 49.3
[2021-10-11 03:17] LABS: Basophils # 0.2 K/mm3 (0-0.2); Basophils % 1.2 % (0.1-2.0); Eosinophils # 0.1 K/mm3 (0.0-0.4); Eosinophils % 1.1 % (0.1-12.0); Hematocrit 47.2 % (37.0-47.0); Hemoglobin 14.8 g/dL (12.2-16.2); Lymphocytes # 0.9 K/mm3 (0.7-4.5); Lymphocytes % 6.6 % (10-50); Mean Corpuscular HGB Conc 31.4 g/dL (31.8-35.4); Mean Corpuscular Hemoglobin 28.7 pg (27.0-31.2); Mean Corpuscular Volume 91.4 fl (81-99); Mean Platelet Volume 9.2 fl (7.4-10.4); Monocytes # 0.6 K/mm3 (0.1-1.0); Monocytes % 4.6 % (1.7-9.3); Neutrophils # 11.2 K/mm3 (1.8-7.8); Neutrophils % 86.5 % (37.0-80.0); Platelet Count 188 K/mm3 (142-424); Red Blood Count 5.17 M/mm3 (4.20-5.40); Red Cell Distribution Width 15.5 % (11.5-17.5); White Blood Count 12.9 K/mm3 (4.8-10.8)
[2021-10-11 03:26] LABS: Alanine Aminotransferase 676 U/L (12-78); Albumin Level 3.3 g/dl (3.5-5.0); Albumin/Globulin Ratio 1.2 (1.1-1.8); Alkaline Phosphatase 71 U/L (38-126); Anion Gap 10.1 mEq/L (5-15); Bilirubin,Total 2.3 mg/dl (0.2-1.3); Blood Urea Nitrogen 23 mg/dl (7-17); Calcium 7.7 mg/dl (8.4-10.2); Carbon Dioxide 26 mmol/L (22.0-30.0); Chloride 102 mmol/L (98-107); Chol/HDL Ratio 4.6 (1-3.5); Cholesterol 130 mg/dl (140-200); Creatinine Clearance Estimated 37 mL/min (50-200); Estimated Glomerular Filt Rate 46 ml/min (>60); GFR (African American) 55 ML/MIN (>60); Globulin 2.8 g/dL (1.3-3.2); Glucose 180 mg/dl (74-100); HDL Cholesterol 28 mg/dl (40-60); Potassium 3.1 mmoL/L (3.5-5.1); Sodium 135 mmol/L (136-145); Total Protein,Serum 6.1 g/dl (6.3-8.2); Triglycerides 199 mg/dl (30-150); VLDL Cholesterol 40 mg/dL (0-40)
[2021-10-11 03:37] LABS: Direct LDL Cholesterol 71.08 mg/dL (100-129)
[2021-10-11 04:23] LABS: Aspartate Amino Transferase 1630 U/L (14-36)
[2021-10-11 05:05] LABS: POC Glucose,Bedside 158 (70-110)
--- NOTE | 2021-10-11 05:50 | PC.NURSE ---
Pt remains intubated and sedated. Propofol is @ 60 mcg/kg/min. Fentanyl @ 25 mcg/hr. Amiodarone @ 33.3 ml/hr. Levophed @ 2 mcg/min. 1/2 NS @ 75 ml/hr. Vent settings are as follows: AC, FiO2 50, TV 440, R 20, PEEP 8. Pt has 3 IVs #20 (R) wrist, #20 LFA, #22 LFA. Arterial line to (R) radial.Noted weeping t/o shift. Waveform poor. Incision to (L) chest with AICD. DSG in place. Drainage unchanged from prior assessment. Swelling remains, but has improved. Sand bag in place. VS currently stable. Will continue to monitor.
--- NOTE | 2021-10-11 06:00 | XR_ITS ---
PROCEDURE INFORMATION: Exam: XR Chest Exam date and time: 10/11/2021 5:23 AM Age: 61 years old Clinical indication: Device placement; Ett placement (vent status); Additional info: Daily while intubated TECHNIQUE: Imaging protocol: XR of the chest. Views: 1 view. COMPARISON: CR XR CHEST 2V 10/09/2021 10:33 AM FINDINGS: Tubes, catheters and devices: Endotracheal tube terminates approximately 2.6 cm above the candace. The tip of the enteric tube is difficult to visualize but appears to pass into the stomach. Cardiac rhythm maintenance device is in place. Lungs: Bibasilar airspace opacities. Pleural spaces: Small bilateral pleural effusions. No pneumothorax. Heart/Mediastinum: Cardiomegaly. Bones/joints: Unremarkable. IMPRESSION: 1. Endotracheal tube terminates approximately 2.6 cm above the candace. 2. Small bilateral pleural effusions with patchy bibasilar airspace opacities, which may reflect atelectasis versus pneumonia.
--- NOTE | 2021-10-11 07:40 | CA_ITS ---
APPROVED REPORT EXAM: Comprehensive 2D, Doppler, and color-flow Echocardiogram [employer]: Luda Muhammad CRT Ht: 5 ft 1 in Wt: 268lbs BSA: 2.14 BP: 81/57 mmHg Indications: Post-code 10/10/21, AICD placement 10/10/21, ef on echo 20% 10/09/21, HTN, HLD, CM, intubated 2D Dimensions LVOT 1.79 cm (M/F) 1.5-2.5 M-Mode Dimensions RVDd 3.02 cm (0.9-2.6) LA Diam 3.51 cm (1.9-4.0) LVDd 4.12 cm (3.5-5.7) Ao Diam 3.24 cm (2.0-3.7) LVDs 4.29 cm (3.5-5.7) IVSd 1.61 cm (0.6-1.1) PWd 0.84 cm (0.6-1.1) EF (Teich) 10.00% FS 4.10% EDV (Teich) 75.10 mL ESV (Teich) 82.60 mL Left Ventricle Limited echocardiogram was performed. There is no color or spectral Doppler done. Left atrium is mildly enlarged, left ventricle is mildly dilated, severely reduced left ventricular systolic function, visually estimated ejection fraction 20% left ventricle is globally hypokinetic. Right Ventricle Right atrium is mildly enlarged, right ventricle is mildly enlarged with normal contractility, there is an AICD lead seen in the right ventricle. Aortic Valve Aortic valve is minimally thickened and calcified without aortic stenosis. Mitral Valve Mitral valve has mitral annular calcification, leaflets are minimally thickened. There is no mitral stenosis. Tricuspid Valve Tricuspid valve appears to be grossly normal. Pulmonic Valve Pulmonic valve is poorly visualized. Great Vessels Aortic root is normal size. Inferior vena cava is mildly dilated without significant inspiratory collapse. Pericardium Small pericardial effusion noted. Conclusion 1. Limited study was performed as described above. 2. Biatrial enlargement, dilated left ventricle severe left ventricular systolic dysfunction ejection fraction 20% left ventricle is globally hypokinetic. 3. Mildly enlarged right ventricle with normal contractility, AICD lead seen in right ventricle. 4. Small pericardial effusion noted. 5. Inferior vena cava is dilated without significant inspiratory collapse. Electronically signed by : Satish Mancini MD 10/12/2021 10:54:43
[2021-10-11 07:55] LABS: Lactate Arterial 2.2 mmol/L (0.4-2.0)
[2021-10-11 07:56] LABS: Allen's Test ACCEPTABLE; Oxygen 50 %; PEEP 8; Source Left Radial; Tidal Volume 440; Vent Rate 20
[2021-10-11 07:57] LABS: ABG Base Excess -1.9 mmol/L (-2.4-2.3); ABG HCO3 21.7 mmhg (22.0-26.0); ABG Oxygen Saturation 97 % (90-100); ABG PCO2 30.2 mmhg (35.0-45.0); ABG PH 7.47 mmol/L (7.35-7.45); ABG PO2 83.2 mmhg (80-100); ABG TCO2 22.6 mmhg (23-27)
--- NOTE | 2021-10-11 08:37 | PC.NURSE ---
0748 pt bp noted to be 81/57: levophed drip increased to 4mcg 0800 pt bp 95/71 0815 pt bp 102/79: propofol drip decreased to 50mcg 0830 pt bp 102/77
--- NOTE | 2021-10-11 08:37 | HMH.ACPN2 ---
Internal Medicine - PN: Subj *Date: 10/11/21 *Time: 08:37 Interval history: Events of yesterday noted. Discussed case with floor nurse yesterday when patient arrived back to floor from pacemaker placement complicated by code 500, intubation, etc. Discussed case with nurses this morning and with patient's sister who is in the room with her. Exam Vital signs and Labs for Last 24 Hours: Temp Pulse Resp BP Pulse Ox 97.2 F L 83 20 93/62 L 96 10/11/21 04:00 10/11/21 06:45 10/11/21 08:28 10/11/21 06:45 10/11/21 08:28 Laboratory Results - last 24 hr 10/10/21 18:07: Specimen Source A line, O2 % 100, ABG pH 7.20 L*, ABG pCO2 27.7 L, ABG HCO3 10.6 L, ABG Total CO2 11.4 L, ABG O2 Saturation 98, ABG Base Excess -17.5 L, Vent Rate 24, Tidal Volume 440, PEEP 8 10/10/21 18:37: ABG Lactate 6.0 H 10/10/21 18:37: Specimen Source a line, O2 % 60, ABG pH 7.31 L, ABG pCO2 33.8 L, ABG pO2 98.1, ABG HCO3 16.7 L, ABG Total CO2 17.7 L, ABG O2 Saturation 97, ABG Base Excess -9.6 L, Vent Rate 18, Tidal Volume 440, PEEP 5 10/10/21 19:06: WBC 10.6, RBC 5.07, Hgb 14.7, Hct 47.4 H, MCV 93.6, MCH 28.9, MCHC 30.9 L, RDW 15.4, Plt Count 248, MPV 9.1, Neut % (Auto) 85.5 H, Lymph % (Auto) 8.5 L, [place] % (Auto) 4.7, Eos % (Auto) 0.3, Baso % (Auto) 1.0, Neut # (Auto) 9.1 H, Lymph # (Auto) 0.9, [place] # (Auto) 0.5, Eos # (Auto) 0.0, Baso # (Auto) 0.1, Total Counted 100, Neutrophils % (Manual) 85 H, Lymphocytes % (Manual) 6 L, Monocytes % (Manual) 9, Nucleated RBCs 2, Platelet Estimate Normal, Tear Drop Cells 1+, [place] Cells 1+ 10/10/21 19:06: Sodium 136, Potassium 3.2 L, Chloride 103, Carbon Dioxide 20 L, Anion Gap 16.2 H, BUN 21 H, Creatinine 1.40 H D, Estimated Creat Clear 31, Estimated GFR 38 L, Est GFR ( Amer) 46 L D, Glucose 161 H, Calcium 7.6 L, Phosphorus 7.2 H D, Magnesium 2.0 D, Total Bilirubin 2.4 H, AST 595 H* D, ALT 297 H D, Alkaline Phosphatase 54, Total Protein 6.1 L, Albumin 3.3 L, Globulin 2.8, Albumin/Globulin Ratio 1.2 10/11/21 03:00: WBC 12.9 H, RBC 5.17, Hgb 14.8, Hct 47.2 H, MCV 91.4, MCH 28.7, MCHC 31.4 L, RDW 15.5, Plt Count 188, MPV 9.2, Neut % (Auto) 86.5 H, Lymph % (Auto) 6.6 L, [place] % (Auto) 4.6, Eos % (Auto) 1.1, Baso % (Auto) 1.2, Neut # (Auto) 11.2 H, Lymph # (Auto) 0.9, [place] # (Auto) 0.6, Eos # (Auto) 0.1, Baso # (Auto) 0.2 10/11/21 03:00: Sodium 135 L, Potassium 3.1 L, Chloride 102, Carbon Dioxide 26, Anion Gap 10.1, BUN 23 H, Creatinine 1.20 H, Estimated Creat Clear 37, Estimated GFR 46 L, Est GFR ( Amer) 55 L, Glucose 180 H, Calcium 7.7 L, Total Bilirubin 2.3 H, AST 1630 H* D, ALT 676 H*, Alkaline Phosphatase 71, Total Protein 6.1 L, Albumin 3.3 L, Globulin 2.8, Albumin/Globulin Ratio 1.2, Triglycerides 199 H, Cholesterol 130 L, LDL Cholesterol Direct 71.08 L, VLDL Cholesterol 40, HDL Cholesterol 28 L, Cholesterol/HDL Ratio 4.6 H 10/11/21 04:58: POC Glucose 158 H 10/11/21 06:00: ABG Lactate 2.2 H 10/11/21 06:00: Specimen Source Left radial, O2 % 50, ABG pH 7.47 H, ABG pCO2 30.2 L, ABG pO2 83.2, ABG HCO3 21.7 L, ABG Total CO2 22.6 L, ABG O2 Saturation 97, ABG Base Excess -1.9, Ajit Test Acceptable, Vent Rate 20, Tidal Volume 440, PEEP 8 I & O for Last 24 hours: Intake & Output 10/08/21 10/09/21 10/10/21 10/11/21 11:59 11:59 11:59 11:59 Intake Total 360 / 360 1881.176 / 1881.176 Output Total 3400 / 3900 3350 / 3350 Balance -3040 / -3540 -1468.824 / -1468.824 Weight 250 lb 268 lb 1.6 oz 267 lb 13.786 oz Microbiology Reports for the Last 24 Hours: Microbiology 10/10/21 18:35 Sputum - Endotracheal Tube Aspirate Gram Stain - Final Narrative: Patient is intubated, sedated on propofol and fentanyl. Currently on Levophed drip with 4 mics rate. Pressures currently in the 105 systolic rate. Patient is paced with a rate of 80-90 on monitor. Ventilator settings reviewed. Patient is not overbreathing the vent at the rate of 20. Anterior lung cervantes have good air movement with ventilator sounds.
--- NOTE | 2021-10-11 09:00 | PC.NURSE ---
received order from Dr Hollis to remove pt art line, notified him that line was no reading and was oozing. art line dc at 0850, traclet applied r/t bleeding at this time
--- NOTE | 2021-10-11 09:03 | PC.NURSE ---
pt sedated with fentanyl and propofol
--- NOTE | 2021-10-11 09:39 | PC.NURSE ---
RESP CARE NOTE: PEEP decreased to 6 cmH2O from 8 cmH2O. Will continue to monitor patient.
--- NOTE | 2021-10-11 09:59 | PC.NURSE ---
Addendum entered by Nasrin Walters RN 10/11/21 11:16: fentanyl drip stopped at 1040. Original Note: per Dr Reyna, turn off sedation to prepare for SBT. Propofol stopped at this time (0950) and fentanyl decreased to 10mcg.
--- NOTE | 2021-10-11 11:15 | DIET.NUTRFU ---
Addendum entered by Tiffany Pelaez RD, LD 10/11/21 14:48: Spoke to nursing and propofol is being held to help and trial extubating. If propofol is on hold, glucerna rate would be 70ml to provide 1610, 67gm protein and 1373ml free water with 100nl TID to provide 1673ml total fluids. Using her adjusted BW for needs, her BMI is 49 and not currently mobile Original Note: RD consulted, patient is intubated. If unable to extubate will start TF in 24 hours. Patient was given Propofol 43min/hr, currently on hold. If continues on propofol it is providing 1135kcal. Will only need minimal TF until propofol slowed down or discontinued. Will start Glucerna 20ml/hr ATC providing 460ml/460kcal and 19gm protein. Unable to meet need if propofol continues. If extubated and oral diet ios appropriate start cardiac, diabetic 1999.
--- NOTE | 2021-10-11 11:34 | HMH.PNCARD ---
Subjective Date: 10/11/21 Time: 10:30 Principal diagnosis: CHF, afib with rvr Interval history: This is a 61-year-old white female who presented to the emergency department with complaints of shortness of breath. The patient was found to have an acute exacerbation of her chronic systolic congestive heart failure and she was also in atrial fibrillation with RVR. The patient was initially placed on a diltiazem drip but had to be stopped due to recurrence of her cardiomyopathy with an ejection fraction of 20%. The patient was on oral amiodarone and metoprolol with a heart rate still in the 150s so she was started on esmolol drip yesterday. The patient was taken down to undergo AICD placement due to her recurrence of her acute on chronic systolic congestive heart failure despite being on goal-directed medical therapy. The patient was not cardioverted for her atrial fibrillation with RVR because she had been off of her Eliquis for an unknown amount of time. The patient states that she had had trouble getting the medication due to her insurance and she never called our office. The patient was down to have her AICD placed and Dr. Chang implanted a biventricular AICD due to to the fact that she would most likely end up RV pacing and requiring a biventricular upgrade or she would have to go get her AV node ablated due to her atrial fibrillation and require biventricular pacing. During her procedure at the end while she was being closed up the patient got hypotensive which was most likely secondary to all the medications that she was getting for rate control and she went into respiratory failure. The patient had cardiogenic shock with low cardiac output secondary to her rapid atrial fibrillation. She was given epinephrine and compressions. The patient's blood pressure responded to the epinephrine and compressions but she had to be shocked to avoid her going back into atrial fibrillation with RVR. The patient was successfully converted to sinus rhythm and maintains an amiodarone drip at this time for atrial fibrillation suppression. She was intubated and put on the ventilator. She is on a spontaneous breathing trial with her sedation turned off this morning. She is doing well and we do anticipate her being extubated today. She appears to be in no distress. We will continue with IV diuresis. Exam Vital signs and Labs for Last 24 Hours: Temp Pulse Resp BP Pulse Ox 98.0 F 87 20 83/58 L 95 10/11/21 08:00 10/11/21 10:00 10/11/21 10:00 10/11/21 10:00 10/11/21 10:00 Laboratory Results - last 24 hr 10/10/21 18:07: Specimen Source A line, O2 % 100, ABG pH 7.20 L*, ABG pCO2 27.7 L, ABG HCO3 10.6 L, ABG Total CO2 11.4 L, ABG O2 Saturation 98, ABG Base Excess -17.5 L, Vent Rate 24, Tidal Volume 440, PEEP 8 10/10/21 18:37: ABG Lactate 6.0 H 10/10/21 18:37: Specimen Source a line, O2 % 60, ABG pH 7.31 L, ABG pCO2 33.8 L, ABG pO2 98.1, ABG HCO3 16.7 L, ABG Total CO2 17.7 L, ABG O2 Saturation 97, ABG Base Excess -9.6 L, Vent Rate 18, Tidal Volume 440, PEEP 5 10/10/21 19:06: WBC 10.6, RBC 5.07, Hgb 14.7, Hct 47.4 H, MCV 93.6, MCH 28.9, MCHC 30.9 L, RDW 15.4, Plt Count 248, MPV 9.1, Neut % (Auto) 85.5 H, Lymph % (Auto) 8.5 L, [place] % (Auto) 4.7, Eos % (Auto) 0.3, Baso % (Auto) 1.0, Neut # (Auto) 9.1 H, Lymph # (Auto) 0.9, [place] # (Auto) 0.5, Eos # (Auto) 0.0, Baso # (Auto) 0.1, Total Counted 100, Neutrophils % (Manual) 85 H, Lymphocytes % (Manual) 6 L, Monocytes % (Manual) 9, Nucleated RBCs 2, Platelet Estimate Normal, Tear Drop Cells 1+, Buhl Cells 1+ 10/10/21 19:06: Sodium 136, Potassium 3.2 L, Chloride 103, Carbon Dioxide 20 L, Anion Gap 16.2 H, BUN 21 H, Creatinine 1.40 H D, Estimated Creat Clear 31, Estimated GFR 38 L, Est GFR ( Amer) 46 L D, Glucose 161 H, Calcium 7.6 L, Phosphorus 7.2 H D, Magnesium 2.0 D, Total Bilirubin 2.4 H, AST 595 H* D, ALT 297 H D, Alkaline Phosphatase 54, Total Protein 6.1 L, Albumin 3.3 L, Globulin 2.8, Albumin/Globulin Ratio 1
--- NOTE | 2021-10-11 11:52 | XR_ITS ---
FINAL REPORT CLINICAL HISTORY: post ng tube placement COMPARISON: 10/11/2021 FINDINGS: A single view of the chest was obtained. The heart is enlarged. An NG tube is present with the tip in the region of the fundus of the stomach. A left subclavian pacemaker is present. The mediastinum is unremarkable. There is partially improved aeration of the lung bases. There is no pleural effusion. There is no pneumothorax. There is no acute osseous abnormality. IMPRESSION: NG tube tip in the region of the fundus of the stomach. Partially improved aeration of the lung bases. Reviewed, Interpreted and Dictated by Bharat Jones III, MD Transcribed by Karmen Jorge Authenticated by Bharat Jones III, MD on 10/11/2021 01:01:01 PM [facility]
--- NOTE | 2021-10-11 12:10 | PC.NURSE ---
Addendum entered by Nasrin Walters RN 10/11/21 18:40: 1730 bp 126/68: levophed decreased to 2mcg 1800 bp 92/33 1815 bp 83/67: levophed increased to 3mcg 1830 bp 94/67 Addendum entered by Nasrin Walters RN 10/11/21 12:32: 1200 bp 83/55 1215 bp 81/54: levophed drip restarted at 2mcg 1230 bp 84/59: levophed increased to 4mcg Original Note: levophed drip dc at 1135
--- NOTE | 2021-10-11 12:30 | PC.NURSE ---
pt OG tube was dislodged during oral care, new tube inserted at 1100. clear contents aspirated via tumey syringe. chest xray pending at this time to verify placement before admin of meds.
--- NOTE | 2021-10-11 12:56 | HMH.PULMCON ---
*Admission Date: 10/09/21 *Reason for consult:: Acute hypoxic respiratory failure, hospital-acquired pneumonia *History of present illness: Patient intubated sedated, history is obtained from chart review Ms. Pham is a 61-year-old female history of CHF, presents with AP A. fib RVR experienced cardiopulmonary arrest yesterday s/p intubation mechanical ventilator support and pulmonary was called for ventilator management [facility] History Medical History: Reports:: Arrhythmia, Atrial Fibrillation, Congestive Heart Failure, Coronary Artery Disease, Hyperlipidemia, Hypertension Denies:: Diabetes Mellitus Type 2, Seizures *Have you ever received a pneumonia vaccine?: No *Have you received a flu vaccine this season?: No Other Medical History: Reports: Hypothyroidism. Denies: Blood Transfusion Reaction Anesthesia experience/problems:: nac Other Surgeries: Yes: Cardiac Catheterization, Cardiac Surgery, Other - *Social History Last grade of school completed: Some college Smoking Status: Never smoker Alcohol Intake: never Alcohol Intake Frequency:: other Substance Use Type: former substance user *Occupational Status:: employed Housing: apartment Household Members: none *Travel in the last 8 weeks: None Family Hx:: Anemia, Cancer, Coronary Artery Disease, Diabetes, Hyperlipidemia, Hypertension, Mental illness ROS - Review of Systems Review of systems:: unable to obtain Intubated and sedated Meds Home Medications Medication Instructions Recorded Confirmed Type Metoprolol Tartrate 50 mg PO TID 10/10/21 10/10/21 History Allergies Allergy/AdvReac Type Severity Reaction Status Date / Time No Known Allergies Allergy Verified 10/09/21 11:26 Exam - Constitutional Constitutional:: Present: no acute distress, comfortable - HENMT Exam HENMT: Present: normocephalic - Eye Exam Eyes:: Present: normal appearance both eyes and related structures - Neck Exam Neck:: Present: normal visual inspection - Respiratory Exam Respiratory:: Present: no respiratory distress, crackles. Absent: wheezing - Cardiovascular Exam Cardiac:: Present: S1, S2 - GI Exam GI:: Present: soft - Skin Exam Skin: Present: warm - Neurological Exam Neurological: Absent: alert, awake, normal cognition - Extremities Exam Extremities: Present: no cyanosis, no clubbing, edema Internal Medicine - CN: Reslt - Labs CBC & Chem 7: 10/11/21 03:00 10/11/21 03:00 Labs: Short CBC 10/10/21 10/11/21 Range/Units 19:06 03:00 WBC 10.6 12.9 H (4.8-10.8) K/mm3 Hgb 14.7 14.8 (12.2-16.2) g/dL Hct 47.4 H 47.2 H (37.0-47.0) % Plt Count 248 188 (142-424) K/mm3 BMP 10/10/21 10/11/21 19:06 03:00 Sodium 136 135 L Potassium 3.2 L 3.1 L Chloride 103 102 Carbon Dioxide 20 L 26 BUN 21 H 23 H Creatinine 1.40 H D 1.20 H Glucose 161 H 180 H Calcium 7.6 L 7.7 L Liver Function 10/10/21 10/11/21 Range/Units 19:06 03:00 Total Bilirubin 2.4 H 2.3 H (0.2-1.3) mg/dl AST 595 H* D 1630 H* D (14-36) U/L ALT 297 H D 676 H* (12-78) U/L Alkaline Phosphatase 54 71 (38-126) U/L Albumin 3.3 L 3.3 L (3.5-5.0) g/dl - ABG Interpretation ABG results: 10/10/21 10/10/21 10/11/21 18:07 18:37 06:00 ABG pH 7.20 L* 7.31 L 7.47 H ABG pCO2 27.7 L 33.8 L 30.2 L ABG pO2 98.1 83.2 ABG HCO3 10.6 L 16.7 L 21.7 L ABG Total CO2 11.4 L 17.7 L 22.6 L ABG O2 Saturation 98 97 97 ABG Base Excess -17.5 L -9.6 L -1.9 Assessment and Plan (1) Cardiac arrest Status: Acute Category: Medical Code(s): I46.9 - Cardiac arrest, cause unspecified (2) Shortness of breath Status: Acute Category: Medical Code(s): R06.02 - Shortness of breath (3) Acute on chronic congestive heart failure Status: Acute Qualifiers: Heart failure type: systolic Qualified Code(s): I50.23 - Acute on chronic systolic (congestive) heart failure Category: Medical Code(s): I50.9 - Hea
--- NOTE | 2021-10-11 14:04 | PC.WOUNDNOTE ---
posterior skin assessment from am
--- NOTE | 2021-10-11 14:06 | PC.WOUNDNOTE ---
skin assessment of pacemaker site from am.
--- NOTE | 2021-10-11 15:11 | PC.NURSE ---
1420 Traclet removed from r radial site following removal of art line. no further oozing/bleeding noted. cleaned with chlorhexadine swab, dressing with t/t.
--- NOTE | 2021-10-11 16:13 | PC.NURSE ---
pt turned to left side with help from sandra walker rn
--- NOTE | 2021-10-11 17:28 | PC.NURSE ---
pt has remained intubated this shift, sedation d/c at approx 1000. pt eyes are noted to open spontaneously. pt does not follow commands, does not have meaningful movements noted so far this shift. when patient was placed supine to turn, eyes were noted to open spontaneously, when elevated to sitting position eyes remained looking at same position/point of reference. when fully at 30-45 degrees eyes were noted to be in downcast position. lungs are clear, bowels active. nad noted. pt rr has been 20 while on the vent, no additional/spontaneous breaths noted.
[2021-10-12] VITALS (42 sets, daily range): BP systolic 64–224; BP diastolic 31–93; PULSE 96–170; RESP 16–32; TEMP 36.6–37.8; O2SAT 90–97; BMI 49.3
[2021-10-12 01:44] LABS: POC Glucose,Bedside 188 (70-110)
--- NOTE | 2021-10-12 03:05 | ECG_ITS ---
APPROVED REPORT Exam: Resting ECG HR:158 bpm ECG Measurements Heart Rate 158 AXES QRSd 147 QRS 207 QT 323 T 60 QTc 411 Conclusion ATRIAL FIBRILLATION WITH RAPID VENTRICULAR RESPONSE Intermittent pacer spikes noted. IV conduction delay. CRITICAL TEST RESULT UNCONFIRMED REPORT Electronically signed by : Km Hollis MD 10/13/2021 12:14:41
--- NOTE | 2021-10-12 04:19 | HMH.RR ---
Acute Rapid Response Note - Subjective Date Responded: 10/12/21 Time Responded: 03:25 Provider Note: Patient was in atrial fibrillation with rapid ventricular response on the monitor profoundly hypertensive, tachypneic, appeared to be posturing, warm to touch and reportedly febrile. Patient was not currently on sedation feel that given her history of cardiac arrest and possible anoxic brain injury that the patient could be neuro storming with a catecholamine surge. Started her on propofol drip with a bolus of 50 mg. Pupillary response is absent. Free T4 ordered to evaluate for thyroid storm given the on going treatment with amiodarone. Prophylactically treated for seizure with Keppra 2 g load. Spastic activity level decreased with onset of propofol heart rate demonstrated decrease although still tachycardic. - Objective Findings: Vital Signs - Last 4 Hours Temperature 99.2 F 10/12/21 00:00 Temperature Source Axillary 10/12/21 00:00 Pulse Rate 99 H 10/12/21 01:00 Respiratory Rate 21 10/12/21 01:21 Blood Pressure 103/67 L 10/12/21 01:00 Blood Pressure Mean 79 10/12/21 01:00 Blood Pressure Source Automatic Cuff 10/12/21 01:00 Blood Pressure Position Supine 10/11/21 18:30 02 Sat by Pulse Oximetry 93 L 10/12/21 01:21 Oxygen Delivery Method 10/12/21 01:00 Lab Results for Past 12 Hours 10/11/21 20:19: POC Glucose 188 H My Orders Category Date Time Status Free T4 (Free Thyroxine) Stat Lab 10/12/21 04:00 Received levETIRAcetam [Keppra 500mg/5mL vial] 2,000 mg Med 10/12/21 04:16 Discontinued 0.9 % Sodium Chloride [Sod Chlor 0.9% 100mL Bag] 100 ml IV ONCE Rapid Response Exam - General General appearance: other (Patient intubated and unresponsive) - Head Head exam: normocephalic - Eye Eye exam: Absent: PERRL - Neck Neck exam: Present: other (ET tube in place) - Chest Chest inspection: Present: symmetric chest wall rise - Cardiovascular Cardiovascular exam: Present: tachycardia, irregular rhythm - Extremities Exam Extremities exam: Present: normal inspection. Absent: pedal edema - Neurological Exam Neurological exam: Present: other (Patient posturing movements with upper extremies, no response to pain) - Skin Skin exam: Present: warm, diaphoresis RR Procedures/Assess/Plan (1) Atrial flutter with rapid ventricular response Status: Acute - Assessment and plan all Dx Assessment and Plan for all problems:: Patient given ibuprofen as she is febrile 800 mg to OG tube. 2 g Keppra load ordered. Started on propofol drip.
[2021-10-12 04:21] LABS: Basophils # 0.2 K/mm3 (0-0.2); Basophils % 1.1 % (0.1-2.0); Eosinophils # 0.1 K/mm3 (0.0-0.4); Eosinophils % 0.5 % (0.1-12.0); Hematocrit 51.1 % (37.0-47.0); Hemoglobin 16.2 g/dL (12.2-16.2); Lymphocytes # 0.9 K/mm3 (0.7-4.5); Lymphocytes % 5.5 % (10-50); Mean Corpuscular HGB Conc 31.8 g/dL (31.8-35.4); Mean Corpuscular Hemoglobin 28.5 pg (27.0-31.2); Mean Corpuscular Volume 89.6 fl (81-99); Mean Platelet Volume 9.2 fl (7.4-10.4); Monocytes # 1.1 K/mm3 (0.1-1.0); Neutrophils # 13.3 K/mm3 (1.8-7.8); Neutrophils % 85.9 % (37.0-80.0); Platelet Count 198 K/mm3 (142-424); Red Cell Distribution Width 15.5 % (11.5-17.5); White Blood Count 15.5 K/mm3 (4.8-10.8)
[2021-10-12 04:26] LABS: MANUAL DIFFERENTIAL MANUAL DIFFERENTIAL (MANUAL DIFF)
[2021-10-12 04:30] LABS: Chloride 103 mmol/L (98-107); Potassium 3.1 mmoL/L (3.5-5.1); Sodium 137 mmol/L (136-145)
[2021-10-12 04:33] LABS: Alanine Aminotransferase 468 U/L (12-78); Albumin Level 3.1 g/dl (3.5-5.0); Albumin/Globulin Ratio 1.2 (1.1-1.8); Alkaline Phosphatase 106 U/L (38-126); Anion Gap 15.1 mEq/L (5-15); Aspartate Amino Transferase 552 U/L (14-36); Bilirubin,Total 1.9 mg/dl (0.2-1.3); Blood Urea Nitrogen 20 mg/dl (7-17); Carbon Dioxide 22 mmol/L (22.0-30.0); Creatinine Clearance Estimated 37 mL/min (50-200); Estimated Glomerular Filt Rate 46 ml/min (>60); GFR (African American) 55 ML/MIN (>60); Globulin 2.6 g/dL (1.3-3.2); Total Protein,Serum 5.7 g/dl (6.3-8.2)
[2021-10-12 04:34] LABS: Calcium 7.4 mg/dl (8.4-10.2); Glucose 204 mg/dl (74-100)
[2021-10-12 04:50] LABS: Free T4 (Free Thyroxine) 1.93 ng/dl (0.78-2.19)
[2021-10-12 05:12] LABS: Lymphocytes % 6 % (10-50); Monocytes % 3 % (2-9); Neutrophils % 91 % (42-76); Total Cells Counted 100
[2021-10-12 05:13] LABS: Acanthocytes 1+; Platelet Estimate Normal
--- NOTE | 2021-10-12 06:00 | XR_ITS ---
PROCEDURE INFORMATION: Exam: XR Chest Exam date and time: 10/11/2021 12:01 PM Age: 61 years old Clinical indication: Device placement; Ett placement (vent status); Additional info: Daily while intubated TECHNIQUE: Imaging protocol: XR of the chest. Views: 1 view. COMPARISON: CR XR CHEST PORTABLE 10/11/2021 5:23 AM FINDINGS: Tubes, catheters and devices: Endotracheal tube in good position above the candace. NG tube is seen with its tip in the mid stomach. Dual lead left-sided cardiac pacemaker. Lungs: Improved aeration in the lungs likely reflecting improved edema. Pleural spaces: Small bilateral pleural effusions. Heart/Mediastinum: Cardiomegaly. Bones/joints: Unremarkable. IMPRESSION: Endotracheal tube in good positioning above the candace
--- NOTE | 2021-10-12 06:58 | PC.NURSE ---
031 MD Chang notified of pt status. HR 160s-170s and maintaining. EKG was obtained resulting afib w/ RVR. Pt noted to be posturing. Pupils sluggish. Gaze diverted in opposite direction. 318 Pt HR increasing. BP elevated. MD Chang notified. RRR called at 0321. MD Paris responded to bedside. New orders received to place pt back on sedation. Propofol. Ibuprofen ordered for temp. Labs oredered and obtained. Keppra 2000 mg ordered and administered. Pt BP fluctuating this am and is unstable. She is currently on Levophed. HR 120-130s. Will continue to monitor.
[2021-10-12 07:33] LABS: ABG Base Excess -1.1 mmol/L (-2.4-2.3); ABG HCO3 22.6 mmhg (22.0-26.0); ABG Oxygen Saturation 95 % (90-100); ABG PH 7.47 mmol/L (7.35-7.45); ABG PO2 68.4 mmhg (80-100); ABG TCO2 23.6 mmhg (23-27)
[2021-10-12 07:34] LABS: Allen's Test Acceptable; Oxygen 40 %; PEEP 5; Tidal Volume 440; Vent Rate 20
[2021-10-12 07:35] LABS: Source Left Radial
[2021-10-12 07:37] LABS: Lactate Arterial 2.9 mmol/L (0.4-2.0)
--- NOTE | 2021-10-12 08:24 | HMH.PULMPN ---
Internal Medicine - PN: Subj *Date: 10/12/21 *Time: 09:34 Interval history: No acute respiratory events overnight. Patient continues to remain on minimal vent settings. Exam - Constitutional Constitutional:: Present: no acute distress, comfortable - HENMT Exam HENMT: Present: normocephalic - Eye Exam Eyes:: Present: normal appearance both eyes and related structures - Neck Exam Neck:: Present: normal visual inspection - Respiratory Exam Respiratory:: Present: no respiratory distress. Absent: wheezing - Cardiovascular Exam Cardiac:: Present: S1, S2 - GI Exam GI:: Present: soft - Skin Exam Skin: Present: warm, no rash - Neurological Exam Neurological: Absent: alert, awake, normal cognition - Extremities Exam Extremities: Present: no cyanosis, no clubbing, edema Assessment and Plan (1) Atrial flutter with rapid ventricular response Status: Acute Category: Medical Code(s): I48.92 - Unspecified atrial flutter - Assessment and plan all Dx Assessment and Plan for all problems:: #Acute hypoxic respiratory failure needing mechanical ventilatory support: #Hospital-acquired pneumonia: 61-year-old female present with A. fib RVR, experienced cardiopulmonary arrest with return of spontaneous circulation after less than 1 minute of CPR and epinephrine. Patient during the procedure was intubated for airway support and pulmonary was called for further management. Bed: No acute respiratory events overnight. Patient was called rapid response was secondary to tachycardia and hypotensive episodes. There is also questionable seizure episode patient was initiated on Keppra and restart her propofol drip. Patient sedation was off for 12 hours yesterday with no improvement in her mentation Plan: -Wean sedation to facilitate SBT. CT head without contrast. Continue Keppra. Will consider EEG based on CT head. -Continue mechanical ventilatory support, currently on PEEP of 8 FiO2 50% tidal volume 440 and e rate to 18. F/U Chest x-ray. ABG reviewed. Improved respiratory alkalosis with pH 7.46 PCO2 of 32 and PO2 of 68.4. -Continue cefepime for HAP, follow with tracheal aspirate cultures -DuoNebs every 6 hours on a scheduled basis -Cardiology following currently paced, on Lasix, follow with cardiology recommendations. EF around 15 to 25% on echocardiogram. Plan cardiovert as per cardiology. -Hemodynamically unstable on pressors. We will continue to monitor. Continue cefepime awaiting tracheal aspirate cultures. Prelim tracheal aspirate growing moderate gram-positive diplococci. No fevers, T-max of 100.8 in the last 24 hours. Check 14 leukocytosis. We will follow blood cultures -Transaminitis improving. We will continue to monitor. Continue pressor support with a map goal of greater than 65. - Adequate urine output. Closely monitor. Hypokalemia noted. Replete with 40mEq oral KCl creatinine stable. - Continue mechanical ventilatory support - Continue AnalgoSedation with Propofol and Fentanyl with CPOT gal less than or euqal to 2 and RASS goal of to 2 (No need for deep sedation) - VAP bundle Recommend elevate head of the bed at 30 to 45 degrees Recommend oral care with chlorhexidne Recommend GI ulcer prophylaxis - Famotidine 20mg IV BID Recommend chemical DVT prophylaxis- Continue mechanical ventilatory support Total critical care time spent on this patient is 35 minutes managing acute hypoxic respiratory failure needing mechanical ventilation. This time spent include reviewing test results including interpreting chest x-rays, labs and arterial blood gas, optimizing the ventilator settings,formulating plan of care, discussing the plan of care with the team and the nursing staff.
--- NOTE | 2021-10-12 09:27 | DIET.NUTRFU ---
Addendum entered by Tiffany Pelaez RD, LD 10/12/21 15:55: checked in with Nasrin after lunch, patient remains intubated. Provider to review POC with family later today. Continue to recommend TF if unable to extubate. Propofol is currently on hold. Please consult RD will feasible to start TF Original Note: RD rounded with Dr. Abraham this AM, patient is back on propofol for sedation. Respiratory hopes to extubate today. If unable to extubate, TF is recommend determine rate based on propofol dose, glucerna start at 20ml/hr. She is currently on lasix and aldactone, for diuresis. No bolus fluids in place at this time, NaCl discontinued 10/11- cardio recommendations. Labs reviewed, liver enzymes are improving and renal fxn is 21H/1.2H. One dose of dextrose was provided on 10/11 for caloric replacement. Glucose elevated at 204, no insulin ordered at this time. If extubated and oral diet medically feasible per nursing, cardiac diabetic is appropriate.
--- NOTE | 2021-10-12 09:32 | CT_ITS ---
FINAL REPORT CLINICAL HISTORY: AMS, PT INTUBATED FINDINGS: Axial images of the head were obtained without contrast. Coronal reformatted images were also obtained.This study was performed with techniques to keep radiation doses as low as reasonably achievable (ALARA). Individualized dose reduction techniques using automated exposure control or adjustment of mA and/or kV according to the patient's size were employed. The patient is intubated. There is no evidence of intracranial hemorrhage or mass. The ventricular size is within normal limits. There is no evidence of shift of the midline structures. No abnormal extra axial fluid collection is identified. No skull abnormality is seen on the bone window images. There is near total opacification of the right sphenoid sinus. IMPRESSION: No acute intracranial abnormality. Reviewed, Interpreted and Dictated by Bharat Jones III, MD Transcribed by Nic Boyd Authenticated by Bharat Jones III, MD on 10/12/2021 11:14:05 AM [facility]
--- NOTE | 2021-10-12 09:37 | HMH.ITSTN ---
SPOKE WITH NURSE MENDEZ AT THIS TIME, SHE STATED SHE WOULD CALL BACK WHEN SHE GOT EVERYTHING TOGETHER TO BRING PT DOWN.
--- NOTE | 2021-10-12 09:40 | HMH.ACPN2 ---
Internal Medicine - PN: Subj *Date: 10/12/21 *Time: 23:33 Interval history: Overnight Ms. Pham had a rapid response event. Rapid Red was called at approximately 3:20 AM due to patient going into A. fib with RVR, having severe hypertension, tachypnea, and concern for posturing. ER doc responded. Patient was evaluated and put back on sedation. Started on propofol drip, loaded with Keppra, and thyroid levels ordered. Clinically responded with calming of her vitals. Blood pressure improved significantly. Remains tachycardic and in A. fib with RVR overnight. No further concern for posturing or seizure-like activity. Labs obtained were stable for her. No further events overnight. Tolerating minimal ventilator things. Afebrile this morning. Pupils sluggish on exam. Minimal spontaneous movement. Tolerating spontaneous breathing trial. Remains in A. fib with RVR this morning. Family bedside. -Had discussion this afternoon and this morning in regard to clinical status, goals of care, and patient's CODE STATUS. Patient elected when she came in to be DNR completing appropriate paperwork. Discussed as well the patient had been telling family for the past year and a half that she was going regularly to doctors appointments. They were under the impression she was continuing to care for self. Review of charts show that she has not seen primary care nor cardiology in almost 18 months. This appeared hard for family to understand. Exam Vital signs and Labs for Last 24 Hours: Temp Pulse Resp BP Pulse Ox 97.8 F 152 H 28 H 96/65 L 93 L 10/12/21 14:00 10/12/21 19:00 10/12/21 19:00 10/12/21 19:00 10/12/21 19:00 Laboratory Results - last 24 hr 10/11/21 20:19: POC Glucose 188 H 10/12/21 04:00: Sodium 137, Potassium 3.1 L, Chloride 103, Carbon Dioxide 22, Anion Gap 15.1 H, BUN 20 H, Creatinine 1.20 H, Estimated Creat Clear 37, Estimated GFR 46 L, Est GFR ( Amer) 55 L, Glucose 204 H, Calcium 7.4 L, Total Bilirubin 1.9 H, AST 552 H* D, ALT 468 H*, Alkaline Phosphatase 106, Total Protein 5.7 L, Albumin 3.1 L, Globulin 2.6, Albumin/Globulin Ratio 1.2 10/12/21 04:00: WBC 15.5 H, RBC 5.70 H, Hgb 16.2, Hct 51.1 H, MCV 89.6, MCH 28.5, MCHC 31.8, RDW 15.5, Plt Count 198, MPV 9.2, Neut % (Auto) 85.9 H, Lymph % (Auto) 5.5 L, [place] % (Auto) 7.0, Eos % (Auto) 0.5, Baso % (Auto) 1.1, Neut # (Auto) 13.3 H, Lymph # (Auto) 0.9, [place] # (Auto) 1.1 H, Eos # (Auto) 0.1, Baso # (Auto) 0.2, Total Counted 100, Neutrophils % (Manual) 91 H, Lymphocytes % (Manual) 6 L, Monocytes % (Manual) 3, Platelet Estimate Normal, Acanthocytes (Spur) 1+ 10/12/21 04:00: Free T4 1.93 10/12/21 06:00: ABG Lactate 2.9 H 10/12/21 06:00: Specimen Source Left radial, O2 % 40, ABG pH 7.47 H, ABG pCO2 32.0 L, ABG pO2 68.4 L, ABG HCO3 22.6, ABG Total CO2 23.6, ABG O2 Saturation 95, ABG Base Excess -1.1, Ajit Test Acceptable, Vent Rate 20, Tidal Volume 440, PEEP 5 I & O for Last 24 hours: Intake & Output 10/09/21 10/10/21 10/11/21 10/12/21 23:59 23:59 23:59 23:59 Intake Total 360 / 360 796.176 / 469.325 2526 / 2291 740 / 740 Output Total 2200 / 2200 1700 / 2700 6205 / 6330 1920 / 1920 Balance -1840 / -1840 -903.824 / -1789.824 -3934 / -4039 -1180 / -1180 Weight 122.952 kg 121.608 kg 121.5 kg 121.608 kg Microbiology Reports for the Last 24 Hours: Microbiology 10/10/21 18:35 Sputum - Endotracheal Tube Aspirate Gram Stain - Final 10/10/21 18:35 Sputum - Endotracheal Tube Aspirate Sputum Culture - Preliminary - Constitutional mild distress, morbidly obese Comments: sedated - *Routine HEENT Exam Head: Present: normocephalic Eye: Present: PERRL (sluggish) ENT: Present: mucous membranes moist - *Routine Neck Exam Present: supple. Absent: lymphadenopathy - Routine Chest/Breast/Axilla Exam Chest wall: Present: pacemaker (incision with mild bruising, dressing CDI.) - *Routine Respiratory Exam Present: patient mechanically ventilated, CTA bilateral
--- NOTE | 2021-10-12 11:17 | HMH.PNCARD ---
Subjective Date: 10/12/21 Time: 10:00 Principal diagnosis: CHF, afib with rvr Interval history: This is a 61-year-old white female presented to the emergency department complaints of shortness of breath. She has been to be in acute exacerbation of chronic systolic congestive heart failure and she was also in atrial fibrillation with RVR. The patient underwent biventricular AICD placement and had a successful implant but at the end of the procedure the patient got hypotensive which is likely secondary to all the medicine she was getting for rate control of her atrial fibrillation and went into respiratory failure as well as cardiogenic shock with low cardiac output secondary to rapid atrial fibrillation. The patient was given epinephrine and compressions. She did have to be shocked during the code and wanted to avoid her going back into atrial fibrillation with RVR. She did convert to sinus rhythm. She was maintained on an amiodarone drip yesterday for her atrial fibrillation. She was also on a Levophed drip yesterday intermittently for hypotension. The patient tolerated the spontaneous breathing trial yesterday but did not wake up when she was off of sedation. Through the night last night the patient had a rapid response due to atrial fibrillation with RVR, profound hypertension, tachypnea and posturing. The emergency room doctor responded and the patient's propofol was returned started and she was also treated with Keppra for spastic activity. The patient did respond well to the propofol and her blood pressure and posturing improved. Today the patient remains in atrial fibrillation with RVR on an amiodarone drip. Her sedation has been stopped this morning. She is on a spontaneous breathing trial and breathing on her own. She is moving her leg spontaneously at times. She has no purposeful movements and she is not withdrawing to pain. Her pupils are reactive this morning but sluggish. Exam Vital signs and Labs for Last 24 Hours: Temp Pulse Resp BP Pulse Ox 100.0 F H 131 H 20 121/68 97 10/12/21 08:00 10/12/21 07:20 10/12/21 08:00 10/12/21 07:20 10/12/21 08:00 Laboratory Results - last 24 hr 10/11/21 20:19: POC Glucose 188 H 10/12/21 04:00: Sodium 137, Potassium 3.1 L, Chloride 103, Carbon Dioxide 22, Anion Gap 15.1 H, BUN 20 H, Creatinine 1.20 H, Estimated Creat Clear 37, Estimated GFR 46 L, Est GFR ( Amer) 55 L, Glucose 204 H, Calcium 7.4 L, Total Bilirubin 1.9 H, AST 552 H* D, ALT 468 H*, Alkaline Phosphatase 106, Total Protein 5.7 L, Albumin 3.1 L, Globulin 2.6, Albumin/Globulin Ratio 1.2 10/12/21 04:00: WBC 15.5 H, RBC 5.70 H, Hgb 16.2, Hct 51.1 H, MCV 89.6, MCH 28.5, MCHC 31.8, RDW 15.5, Plt Count 198, MPV 9.2, Neut % (Auto) 85.9 H, Lymph % (Auto) 5.5 L, [place] % (Auto) 7.0, Eos % (Auto) 0.5, Baso % (Auto) 1.1, Neut # (Auto) 13.3 H, Lymph # (Auto) 0.9, [place] # (Auto) 1.1 H, Eos # (Auto) 0.1, Baso # (Auto) 0.2, Total Counted 100, Neutrophils % (Manual) 91 H, Lymphocytes % (Manual) 6 L, Monocytes % (Manual) 3, Platelet Estimate Normal, Acanthocytes (Spur) 1+ 10/12/21 04:00: Free T4 1.93 10/12/21 06:00: ABG Lactate 2.9 H 10/12/21 06:00: Specimen Source Left radial, O2 % 40, ABG pH 7.47 H, ABG pCO2 32.0 L, ABG pO2 68.4 L, ABG HCO3 22.6, ABG Total CO2 23.6, ABG O2 Saturation 95, ABG Base Excess -1.1, Ajit Test Acceptable, Vent Rate 20, Tidal Volume 440, PEEP 5 I & O for Last 24 hours: Intake & Output 10/09/21 10/10/21 10/11/21 10/12/21 23:59 23:59 23:59 23:59 Intake Total 360 / 360 796.176 / 089.831 4124 / 2291 222 / 222 Output Total 2200 / 2200 1700 / 2700 6205 / 6330 1300 / 1300 Balance -1840 / -1840 -903.824 / -1789.824 -3934 / -4039 -1078 / -1078 Weight 271 lb 1 oz 268 lb 1.6 oz 267 lb 13.786 oz 268 lb 1.6 oz Narrative: Telemetry strip shows atrial fibrillation with a rate of 132 and intermittent ventricular pacing. - Constitutional no acute distress, morbidly obese - *Routine HEENT Exam Head: Present: normo
--- NOTE | 2021-10-12 16:07 | PC.NURSE ---
shift summary: - 0730 notified [facility] that Dr coleman wants pt to be cardioverted (pt has been in rapid afib since approx 0300) - pt sedation was stopped at 0830 r/t Dr Reyna wanting SBT on pt. (order CT angio of head was also ordered per elmer. pt to be transported with RT.) -pt to CT 1016 with Tio ball RN, kenya Dinh RT, Isac Moss RT. returned 1045. pt remained stable during CT NAD noted.) -1050 pt noted to be diaphoretic prior to and during CT transport. pt iv dressing/skin wet, iv dislodged in r hand. -1125 iv in r wrist infiltrated, levophed infusing at this site. contacted isac hugo for order for regitine (needs to be injected into site where extravasation occurred. order entered by pharmacy. -1130 bp: 92/56 - 1135 levophed and amiodarone not infusing at this itme r/t lack of working iv. US guided iv stated by Aruna martin RN. - pt noted to become more hypotensive and more tachycardic at this time. - notified [facility] Hugo and SHERITA Mancini MD face to face that pt has been more tachy and hypo. -levo (6mcg) and amio (16.7ml) were able to be restarted at approx 1150 r/t new iv sites. - 1138 bp: 75/37 - 1145 bp: 70/31 levo increased to 10mcg - 1154 bp: 80/38 - 1212 bp: 102/64 - 1214 bp: 92/64 levo increased to 12mcg - 1238 bp: 88/53 - 1240 bp: 88/61 - 1244 bp: 89/63 levo increased to 14mcg - 1246 bp: 108/82 - 1300 bp: 134/69 levo decreased to 13mcg - 1320 bp: 130/81 - 1330 bp: 134/75 levo decreased to 11mcg - 1400 bp: 92/64 - 1410 bp:103/34 - 1430 bp: 101/79 - 1500 bp: 130/81 - 1530 bp: 112/76
--- NOTE | 2021-10-12 17:45 | PC.NURSE ---
Addendum entered by Nasrin Walters RN 10/12/21 20:30: notified Dr Abraham face to face of pt continued afib with rvr at 1840. no new orders at this time Original Note: notified a black via phone at 1336 that pt HR remains in the 140-160 range, new orders entered into comp by a black. notified a black via phone at 1731 that pt HR is back in the 140-160 range. HR did stay in the 120-130 range for approx an hour after the 250mcg dose of dig. No new orders from a Black at this time, states it may take a while for dig to take action.
--- NOTE | 2021-10-12 20:02 | PC.WOUNDNOTE ---
photo from am assessment
--- NOTE | 2021-10-12 20:16 | PC.NURSE ---
pt's fsbs 518, increased insulin drip from 10.5units/hr to 15units/hr, will recheck another fsbs in one hour and notify MD of glucose greater than 500
--- NOTE | 2021-10-12 21:06 | PC.NURSE ---
1999-bp 108/62, decreased levo drip to 8mcg/min 2009-bp 113/79, decreased levo drip to 7mcg/min 2019-bp 135/73, decreased levo drip to 5mcg/min 2029-bp 120/72, decreased levo drip to 3mcg/min 2039-bp 116/65, decreased levo drip to 2mcg/min 2049-bp 94/58, maintained levo drip at 2mcg/min
--- NOTE | 2021-10-12 21:10 | PC.NURSE ---
2109-bp 130/82, held levo drip
--- NOTE | 2021-10-12 22:00 | PC.NURSE ---
2200-bp 86/31, restarted levo drip at 4mcg/min
--- NOTE | 2021-10-12 22:45 | PC.NURSE ---
gave pt bath and when completed, pt had nausea with vomiting, gave 4mg zofran IV; cleaned pt up a second time and changed sheets again; after turning pt and having pt up on side for extended period of time, pt's blood pressure severely decreased, started going up on levophed drip per protocol and starting new iv's for drips; after having levophed drip maxed bp still sustained very low and labile, paging oncsebastian
--- NOTE | 2021-10-12 22:55 | PC.NURSE ---
notified MD Abraham of pt's hypotension with levo maxed at 30mcg/min, instructed to start vasopressin as second pressor, will fax to night watch and start drip
--- NOTE | 2021-10-12 23:20 | PC.NURSE ---
spoke with MD Leigh MD ordered 1 liter LR bolus over an hour and labs to be drawn, will do so and continue to monitor
[2021-10-13] VITALS (33 sets, daily range): BP systolic 87–149; BP diastolic 38–88; PULSE 108–172; RESP 20–29; TEMP 36.8–37.5; O2SAT 91–98; BMI 47.5
[2021-10-13 00:06] LABS: Lactic Acid 2.8 mmol/L (0.7-2.1)
[2021-10-13 00:17] LABS: Alanine Aminotransferase 286 U/L (12-78); Albumin Level 3.2 g/dl (3.5-5.0); Albumin/Globulin Ratio 1.1 (1.1-1.8); Alkaline Phosphatase 101 U/L (38-126); Anion Gap 10.1 mEq/L (5-15); Aspartate Amino Transferase 146 U/L (14-36); Bilirubin,Total 1.8 mg/dl (0.2-1.3); Blood Urea Nitrogen 21 mg/dl (7-17); Calcium 8.1 mg/dl (8.4-10.2); Carbon Dioxide 28 mmol/L (22.0-30.0); Chloride 101 mmol/L (98-107); Creatinine Clearance Estimated 40 mL/min (50-200); Estimated Glomerular Filt Rate 50 ml/min (>60); GFR (African American) 61 ML/MIN (>60); Glucose 188 mg/dl (74-100); Potassium 3.1 mmoL/L (3.5-5.1); Sodium 136 mmol/L (136-145); Total Protein,Serum 6.2 g/dl (6.3-8.2)
[2021-10-13 00:25] LABS: NT Pro Brain Natriuretic Pep. 15300 pg/mL (0-125)
--- NOTE | 2021-10-13 00:25 | PC.NURSE ---
1 liter LR bolus complete
--- NOTE | 2021-10-13 02:39 | PC.NURSE ---
2200-bp 86/31, restarted levo drip at 4mcg/min
--- NOTE | 2021-10-13 03:00 | PC.NURSE ---
0215-bp 133/85, decreased vasopressin drip to 0.02 0225-bp 142/99, decreased vasopressin drip to 0.01 0235-bp 140/96, held vasopressin drip 0250-bp 156/94, decreased levophed drip to 25mcg/min
[2021-10-13 03:50] LABS: Reflex Lactic Add Lactic Reflex
[2021-10-13 04:11] LABS: Basophils # 0.2 K/mm3 (0-0.2); Basophils % 0.9 % (0.1-2.0); Eosinophils # 0.2 K/mm3 (0.0-0.4); Hematocrit 51.3 % (37.0-47.0); Lymphocytes # 1.1 K/mm3 (0.7-4.5); Lymphocytes % 6.2 % (10-50); Mean Corpuscular HGB Conc 31.2 g/dL (31.8-35.4); Mean Corpuscular Hemoglobin 28.4 pg (27.0-31.2); Mean Corpuscular Volume 90.8 fl (81-99); Mean Platelet Volume 9.1 fl (7.4-10.4); Monocytes # 1.3 K/mm3 (0.1-1.0); Monocytes % 7.6 % (1.7-9.3); Neutrophils # 14.7 K/mm3 (1.8-7.8); Neutrophils % 84.4 % (37.0-80.0); Platelet Count 178 K/mm3 (142-424); Red Blood Count 5.65 M/mm3 (4.20-5.40); Red Cell Distribution Width 15.5 % (11.5-17.5); White Blood Count 17.5 K/mm3 (4.8-10.8)
[2021-10-13 04:15] LABS: Lactic Acid Follow Up (RFLX 1) 1.9 mmol/L (0.7-2.1); MANUAL DIFFERENTIAL MANUAL DIFFERENTIAL (MANUAL DIFF)
[2021-10-13 04:16] LABS: Alanine Aminotransferase 268 U/L (12-78); Albumin Level 3.3 g/dl (3.5-5.0); Albumin/Globulin Ratio 1.1 (1.1-1.8); Alkaline Phosphatase 98 U/L (38-126); Aspartate Amino Transferase 127 U/L (14-36); Blood Urea Nitrogen 22 mg/dl (7-17); Calcium 8.1 mg/dl (8.4-10.2); Carbon Dioxide 28 mmol/L (22.0-30.0); Chloride 100 mmol/L (98-107); Creatinine Clearance Estimated 40 mL/min (50-200); Estimated Glomerular Filt Rate 50 ml/min (>60); GFR (African American) 61 ML/MIN (>60); Globulin 2.9 g/dL (1.3-3.2); Glucose 214 mg/dl (74-100); Sodium 137 mmol/L (136-145); Total Protein,Serum 6.2 g/dl (6.3-8.2)
[2021-10-13 04:18] LABS: Magnesium 1.4 mg/dl (1.6-2.3)
--- NOTE | 2021-10-13 04:25 | PC.NURSE ---
0425-bp 129/107, decreased levo drip to 20mcg/min
--- NOTE | 2021-10-13 04:29 | PC.NURSE ---
0335-bp 83/60, increased levo drip to 30mcg/min 0400-bp 125/78, decreased levo drip to 25mcg/min
[2021-10-13 05:10] LABS: Eosinophils % 1 % (0-3); Hypochromasia 1+; Lymphocytes % 11 % (10-50); Monocytes % 2 % (2-9); Neutrophils % 78 % (42-76); Platelet Estimate Normal; Total Cells Counted 100
--- NOTE | 2021-10-13 05:11 | PC.NURSE ---
notified MD Abraham oncsebastian for MD Hollis, that pt's potassium critical at 3.0
--- NOTE | 2021-10-13 05:58 | PC.NURSE ---
0545-bp 134/83, decreased levo drip to 18mcg/min 0550-bp 120/65, decreased levo drip to 16mcg/min 0555-bp 81/52, increased levo drip to 18mcg/min
--- NOTE | 2021-10-13 06:00 | XR_ITS ---
PROCEDURE INFORMATION: Exam: XR Chest Exam date and time: 10/13/2021 6:21 AM Age: 61 years old Clinical indication: Device placement; Ett placement (vent status); Additional info: Daily while intubated TECHNIQUE: Imaging protocol: XR of the chest. Views: 1 view. COMPARISON: CR XR CHEST PORTABLE 10/11/2021 12:01 PM FINDINGS: Tubes, catheters and devices: Again noted is the AICD/pacemaker. Again noted is the endotracheal tube. Again noted is a gastric tube. The support tubes/lines are stable in the interval. Lungs: Unremarkable. No consolidation. Pleural spaces: Unremarkable. No pleural effusion. No pneumothorax. Heart/Mediastinum: Moderate diffuse enlargement of the cardiac silhouette again noted. Bones/joints: Unremarkable. IMPRESSION: Cardiomegaly with no pulmonary changes.
--- NOTE | 2021-10-13 06:02 | PC.NURSE ---
0600-bp 87/53, increased levo drip to 20mcg/min
--- NOTE | 2021-10-13 06:30 | PC.NURSE ---
0625-bp 80/58, increased levo drip to 22mcg/min 0630-bp 81/58, increased levo drip to 24mcg/min
--- NOTE | 2021-10-13 06:31 | PC.NURSE ---
pt unstable this shift; HR 140-170's, got slightly better with bolus and then went back to higher side after few hours; at beginning of shift pt had to have second vasopressor started but was able to wean off relatively quickly, still titrating levophed drip per protocol (see notes for specifics); pt had one episode of vomiting after bath earlier in shift; respiratory status unchanged, vent settings still 40%FIO2, tidal volume 440, respiration rate 20, and peep of 5, lungs clear and diminished with intermittent cough with minimal secretions; emv 2-3, 4, 1=7-8T, pupils unequal and sluggish, pt withdraws to pain; UOP at least 30mL/hr; will continue to monitor
--- NOTE | 2021-10-13 06:40 | PC.NURSE ---
0635-bp 83/61, increased levo drip to 26mcg/min
--- NOTE | 2021-10-13 07:35 | HMH.ACPN2 ---
Internal Medicine - PN: Subj *Date: 10/13/21 *Time: 11:57 Interval history: Overnight Ms. Pham had some hypotension necessitating adjustment in her regimen. Blood pressure dropped to systolic in 80s. She was initiated on vasopressin. Diuretics were stopped, and she was given 1 L bolus. Responded well with improvement in her blood pressure. Vasopressin was able to be discontinued after about an hour. Had no other hypotensive episodes overnight. On evaluation, urine output is less over the past 6 hours than it had been however still making urine. Labs reviewed this morning showing stable creatinine. Has some mild electrolyte disturbances needing replacement. Patient remains obtunded, some spontaneous eye opening and movement but no meaningful response to verbal or physical stimuli. Family at bedside. Sedation has been off since yesterday morning. Stable minimal vent settings. Heart rate remains irregular rhythm and tachycardic. Heart rate on exam this morning in the 1 40-1 60 range. Blood pressure with MAP in the 70-80 range. On rounds this morning, begin wean of Levophed. Patient was given single 5 mg dose of metoprolol IV. She had some response with variable heart rate dropping as low as 100s, but fluctuating between 110's - 150. Remains afebrile. Exam Vital signs and Labs for Last 24 Hours: Temp Pulse Resp BP Pulse Ox 98.7 F 167 H 20 117/78 92 L 10/13/21 03:10 10/13/21 07:00 10/13/21 07:00 10/13/21 07:00 10/13/21 07:00 Laboratory Results - last 24 hr 10/12/21 06:00: ABG Lactate 2.9 H 10/12/21 06:00: Specimen Source Left radial, O2 % 40, ABG pH 7.47 H, ABG pCO2 32.0 L, ABG pO2 68.4 L, ABG HCO3 22.6, ABG Total CO2 23.6, ABG O2 Saturation 95, ABG Base Excess -1.1, Ajit Test Acceptable, Vent Rate 20, Tidal Volume 440, PEEP 5 10/12/21 23:43: Lactate 2.8 H 10/12/21 23:58: NT-Pro-B Natriuret Pep 09786 H 10/12/21 23:58: Sodium 136, Potassium 3.1 L, Chloride 101, Carbon Dioxide 28, Anion Gap 10.1, BUN 21 H, Creatinine 1.10 H, Estimated Creat Clear 40, Estimated GFR 50 L, Est GFR ( Amer) 61, Glucose 188 H, Calcium 8.1 L, Total Bilirubin 1.8 H, AST 146 H D, ALT 286 H D, Alkaline Phosphatase 101, Total Protein 6.2 L, Albumin 3.2 L, Globulin 3.0, Albumin/Globulin Ratio 1.1 10/13/21 04:00: Sodium 137, Potassium 3.0 L, Chloride 100, Carbon Dioxide 28, Anion Gap 12.0, BUN 22 H, Creatinine 1.10 H, Estimated Creat Clear 40, Estimated GFR 50 L, Est GFR ( Amer) 61, Glucose 214 H, Calcium 8.1 L, Magnesium 1.4 L D, Total Bilirubin 2.0 H, AST 127 H, ALT 268 H, Alkaline Phosphatase 98, Total Protein 6.2 L, Albumin 3.3 L, Globulin 2.9, Albumin/Globulin Ratio 1.1 10/13/21 04:00: WBC 17.5 H, RBC 5.65 H, Hgb 16.0, Hct 51.3 H, MCV 90.8, MCH 28.4, MCHC 31.2 L, RDW 15.5, Plt Count 178, MPV 9.1, Neut % (Auto) 84.4 H, Lymph % (Auto) 6.2 L, [place] % (Auto) 7.6, Eos % (Auto) 1.0, Baso % (Auto) 0.9, Neut # (Auto) 14.7 H, Lymph # (Auto) 1.1, [place] # (Auto) 1.3 H, Eos # (Auto) 0.2, Baso # (Auto) 0.2, Total Counted 100, Neutrophils % (Manual) 78 H, Band Neutrophils % 8.0, Lymphocytes % (Manual) 11, Monocytes % (Manual) 2, Eosinophils % (Manual) 1, Platelet Estimate Normal, Hypochromasia 1+ 10/13/21 04:00: Lactate 1.9 I & O for Last 24 hours: Intake & Output 10/10/21 10/11/21 10/12/21 10/13/21 23:59 23:59 23:59 23:59 Intake Total 796.176 / 675.627 5081 / 2291 884.545 / 219.946 2918 / 1716 Output Total 1700 / 2700 6205 / 6330 2520 / 2620 615 / 615 Balance -903.824 / -1789.824 -3934 / -4039 -1635.455 / -3489.985 3147 / 1101 Weight 121.608 kg 121.5 kg 121.608 kg 117.027 kg Microbiology Reports for the Last 24 Hours: Microbiology 10/10/21 18:35 Sputum - Endotracheal Tube Aspirate Gram Stain - Final 10/10/21 18:35 Sputum - Endotracheal Tube Aspirate Sputum Culture - Preliminary Narrative: - Constitutional mild distress, morbidly obese; sedated - *Routine HEENT Exam Head: Present: normocephalic Eye: Present: PERR
[2021-10-13 07:40] LABS: ABG Base Excess 1.1 mmol/L (-2.4-2.3); ABG HCO3 25.2 mmhg (22.0-26.0); ABG Oxygen Saturation 94 % (90-100); ABG PCO2 37.5 mmhg (35.0-45.0); ABG PH 7.45 mmol/L (7.35-7.45); ABG PO2 67.6 mmhg (80-100); ABG TCO2 26.3 mmhg (23-27)
[2021-10-13 07:42] LABS: Allen's Test Acceptable; Oxygen 40% %; PEEP 5; Source Left Radial; Tidal Volume 440; Vent Rate 20
--- NOTE | 2021-10-13 10:18 | PC.NURSE ---
SBP 140x. Levo gtt turned OFF at this time. Dr. Abraham made aware.
--- NOTE | 2021-10-13 11:30 | PC.NURSE ---
Esmolol gtt started @ 50mcg/kg/min per Dr. Abraham. HR continues 140-150s.
[2021-10-14] VITALS (40 sets, daily range): BP systolic 73–129; BP diastolic 39–80; PULSE 84–125; RESP 20; TEMP 36.4–36.9; O2SAT 91–97; BMI 49.2
--- NOTE | 2021-10-14 03:44 | PC.NURSE ---
pt VSS throughout shift, occasionally pt's bp would dip down but as soon as checked another came back up for map greater than 65, pt intermittently coughing with minimal thin secretions, lungs sounds clear and diminished, vent settings unchanged throughout shift (FIO2 40%, tidal volume 440, peep 5, and RR 20), emv 3-4, 4, 1=8-9T with no sedation going, pupils sluggish but equal, HR 100-120's throughout shift with amio and esmolol drips running, irregular HR on monitor (see tele strips for specifics), OGT in place clamped, positive pedal pulses, adequate UOP but dedrick and with sediment; will continue to monitor
--- NOTE | 2021-10-14 07:20 | XR_ITS ---
PROCEDURE INFORMATION: Exam: XR Chest Exam date and time: 10/14/2021 8:02 AM Age: 61 years old Clinical indication: Other: Intubated follow up; Additional info: Daily while intubated TECHNIQUE: Imaging protocol: XR of the chest. Views: 1 view. COMPARISON: CR XR CHEST PORTABLE 10/13/2021 6:21 AM FINDINGS: Tubes, catheters and devices: Cardiac rhythm maintenance device is in place. Endotracheal tube terminates approximately 3.8 cm above the candace. Enteric tube passes into the stomach. Lungs: Unremarkable. No consolidation. Pleural spaces: Query small bilateral pleural effusions. No pneumothorax. Heart/Mediastinum: Cardiomegaly. Bones/joints: Unremarkable. IMPRESSION: 1. Endotracheal tube terminates approximately 3.8 cm above the candace. 2. Query small bilateral pleural effusions.
--- NOTE | 2021-10-14 08:15 | PC.NURSE ---
RT (Guerline) switched pt to SBT. Pt only pulling TV 100 at best. Pt put back on previous settings. Will attempt SBT again later today.
[2021-10-14 08:22] LABS: Basophils % 0.1 % (0.1-2.0); Eosinophils # 0.1 K/mm3 (0.0-0.4); Eosinophils % 0.8 % (0.1-12.0); Hematocrit 47.1 % (37.0-47.0); Lymphocytes # 1.1 K/mm3 (0.7-4.5); Lymphocytes % 7.5 % (10-50); Mean Corpuscular HGB Conc 31.8 g/dL (31.8-35.4); Mean Corpuscular Hemoglobin 28.2 pg (27.0-31.2); Mean Corpuscular Volume 88.5 fl (81-99); Mean Platelet Volume 9.5 fl (7.4-10.4); Monocytes # 1.2 K/mm3 (0.1-1.0); Monocytes % 8.1 % (1.7-9.3); Neutrophils # 12.4 K/mm3 (1.8-7.8); Neutrophils % 83.7 % (37.0-80.0); Platelet Count 126 K/mm3 (142-424); Red Blood Count 5.31 M/mm3 (4.20-5.40); White Blood Count 14.8 K/mm3 (4.8-10.8)
--- NOTE | 2021-10-14 08:26 | HMH.ACPN2 ---
Internal Medicine - PN: Subj *Date: 10/14/21 *Time: 20:49 Interval history: Ms. Pham has had no acute events overnight. Remains afebrile. Has been off sedation since yesterday morning. Urine output between 15 and 30 cc/h. Flexion to sternal rub/pain. Opens eyes to voice but no focusing on speaker. Is not following directions at this time. Does have some spontaneous movements. Hemodynamics have improved. Tolerating amiodarone drip and esmolol drip with heart rate doing better in the 90-110 range. Labs reviewed. Kidney function back to baseline. Liver function continues to improve. White cell count improving. Family at bedside, updated of plan. Of note, does not have central access at this time. Is still able to use her peripheral IVs however has lost a few over the course of the weekend and is developing edema in arms. Discussed need for central line with family, they are okay with trying for PICC line tomorrow. Exam Vital signs and Labs for Last 24 Hours: Temp Pulse Resp BP Pulse Ox 97.5 F L 88 20 93/54 L 96 10/14/21 07:57 10/14/21 08:00 10/14/21 08:00 10/14/21 08:00 10/14/21 08:00 I & O for Last 24 hours: Intake & Output 10/11/21 10/12/21 10/13/21 10/14/21 23:59 23:59 23:59 23:59 Intake Total 2271 / 2291 884.545 / 263.051 8476.259 / 3864.259 1375.133 / 1375.133 Output Total 6205 / 6330 2520 / 2620 1010 / 1040 260 / 260 Balance -3934 / -4039 -1635.455 / -2393.647 8671.259 / 2824.259 1115.133 / 1115.133 Weight 121.5 kg 121.608 kg 117.027 kg 121.336 kg Microbiology Reports for the Last 24 Hours: Microbiology 10/10/21 18:35 Sputum - Endotracheal Tube Aspirate Gram Stain - Final 10/10/21 18:35 Sputum - Endotracheal Tube Aspirate Sputum Culture - Final Normal Respiratory Shelbie Narrative: - Constitutional mild distress, morbidly obese; somnolent - *Routine HEENT Exam Head: Present: normocephalic Eye: Present: PERRL (sluggish) ENT: Present: mucous membranes moist - *Routine Neck Exam Present: supple. Absent: lymphadenopathy - Routine Chest/Breast/Axilla Exam Chest wall: Present: pacemaker (incision with mild bruising, dressing CDI.) - *Routine Respiratory Exam Present: patient mechanically ventilated, CTA bilaterally - *Routine Cardiovascular Exam Present: tachycardia, irregularly irregular - *Routine Abdominal Exam Present: soft, normoactive bowel sounds. Absent: tenderness - *Routine Extremities Exam Present: edema (trace). Absent: cyanosis, clubbing - *Routine Skin Exam Present: warm. Absent: rash - *Routine Neurological Exam Present:Flexion to pain, not following directions, normal babinski/withdrawal; E 2, V not testable, M 3 Assessment and Plan (1) Acute on chronic congestive heart failure Status: Acute Qualifiers: Heart failure type: systolic Qualified Code(s): I50.23 - Acute on chronic systolic (congestive) heart failure Category: Medical Code(s): I50.9 - Heart failure, unspecified (2) Atrial flutter with rapid ventricular response Status: Acute Category: Medical Code(s): I48.92 - Unspecified atrial flutter (3) AICD (automatic cardioverter/defibrillator) present Status: Acute Category: Surgical Code(s): Z95.810 - Presence of automatic (implantable) cardiac defibrillator (4) Cardiac arrest Status: Acute Category: Medical Code(s): I46.9 - Cardiac arrest, cause unspecified (5) Cardiogenic shock Status: Acute Category: Medical Code(s): R57.0 - Cardiogenic shock (6) CAD (coronary atherosclerotic disease) Status: Chronic Qualifiers: Coronary Disease-Associated Artery/Lesion type: [place] artery [place] vs. transplanted heart: [place] heart Associated angina: without angina Qualified Code(s): I25.10 - Atherosclerotic heart disease of [place] coronary artery without angina pectoris Category: Medical Code(s): I25.10 - Atherosclerotic heart disease of [place]
[2021-10-14 08:38] LABS: Chloride 102 mmol/L (98-107); Potassium 3.8 mmoL/L (3.5-5.1); Sodium 133 mmol/L (136-145)
[2021-10-14 08:41] LABS: Alanine Aminotransferase 153 U/L (12-78); Albumin Level 2.8 g/dl (3.5-5.0); Alkaline Phosphatase 77 U/L (38-126); Anion Gap 5.8 mEq/L (5-15); Aspartate Amino Transferase 65 U/L (14-36); Bilirubin,Total 2.1 mg/dl (0.2-1.3); Blood Urea Nitrogen 31 mg/dl (7-17); Carbon Dioxide 29 mmol/L (22.0-30.0); Creatinine Clearance Estimated 44 mL/min (50-200); Estimated Glomerular Filt Rate 63 ml/min (>60); GFR (African American) 77 ML/MIN (>60); Globulin 2.9 g/dL (1.3-3.2); Total Protein,Serum 5.7 g/dl (6.3-8.2)
[2021-10-14 08:42] LABS: Calcium 7.7 mg/dl (8.4-10.2); Glucose 215 mg/dl (74-100)
--- NOTE | 2021-10-14 12:44 | PC.NURSE ---
SBT attempted x 2 . Pt. had low tidal volumes in the 200 range as well as various periods of apnea. Pt. was returned to AC ventilation mode.
--- NOTE | 2021-10-14 13:00 | PC.NURSE ---
Glucerna started @ 10mL/hr with 50mL flush Q4hrs. Will run @ 10mL/hr until dietary makes recommendations.
--- NOTE | 2021-10-14 14:00 | PC.NURSE ---
Amio gtt stopped @ 1400. 200mg po dose given @ 1200 via OG tube. Metoprolol Tar 25mg po given via OG tube @ 1430.
--- NOTE | 2021-10-14 14:45 | DIET.NUTRFU ---
RD consulted to initiate tubefeeding. Patient failed SBT, propofol on hold. No bolus IVF, only mixed in with medications. TF goal is to meet 100% of nutritional needs until able to extubate and start oral diet. Continues on lasix, digoxin, insulin and pepcid. Reviewed labs, liver enzymes elevated. Start Glucerna 1.0 at 20ml/hr and increase to goal rate of 90ml/hr to provide 2070kcal/87gm protein and 1765ml free water. Current flush at 130ml [id number]. Will adjust flush as goal rate of TF is reached.
--- NOTE | 2021-10-14 15:00 | PC.NURSE ---
Esmolol gtt decreased to 50mcg/kg/min
--- NOTE | 2021-10-14 15:30 | PC.NURSE ---
Esmolol gtt turned OFF.
[2021-10-14 16:30] LABS: POC Glucose,Bedside 186 (70-110)
[2021-10-14 16:30] LABS: POC Glucose,Bedside 227 (70-110)
--- NOTE | 2021-10-14 17:15 | PC.NURSE ---
HR trending up and is sustaining 100-130s. Afib/Aflutter continues and is paced @ times. Pt now hypotensive with BP 78/46 (56). Pt is currently saline locked. Contacted Dr. Abraham, who ordered 250mL NS bolus over 20 min. Order faxed to [email or web address].
--- NOTE | 2021-10-14 18:00 | PC.NURSE ---
Addendum entered by Norma Hickman RN 10/14/21 18:14: NS on backorder. LR 500mL given instead. Order reflects the change. Original Note: BP improved @ 1745 to 89/39 (55) but then dropped again @ 1800 to 73/45 (54). Dr. Abraham ordered an additional 500mL NS bolus. Order faxed to [email or web address].
--- NOTE | 2021-10-14 19:23 | PC.NURSE ---
spoke with MD Abraham about pt's plan of care and current status; MD instructed to give night dose of amio as ordered, to stop metoprolol and if pt's HR consistently stays above 110 restart esmolol drip, increase tubefeed rate to 20mL/hr, order prn zofran 4mg IV q6 for possible nausea; will do so and continue to monitor
[2021-10-15] VITALS (37 sets, daily range): BP systolic 80–174; BP diastolic 52–92; PULSE 80–133; RESP 20; TEMP 36.1–36.9; O2SAT 92–97; BMI 49.6
[2021-10-15 01:25] LABS: POC Glucose,Bedside 132 (70-110)
--- NOTE | 2021-10-15 06:00 | XR_ITS ---
PROCEDURE INFORMATION: Exam: XR Chest Exam date and time: 10/15/2021 5:49 AM Age: 61 years old Clinical indication: Device placement; Ett placement (vent status); Prior surgery; Surgery date: 6+ months; Surgery type: Pacemaker; Additional info: Daily while intubated TECHNIQUE: Imaging protocol: XR of the chest. Views: 1 view. COMPARISON: CR XR CHEST PORTABLE 10/14/2021 8:02 AM FINDINGS: Tubes, catheters and devices: Endotracheal tube and nasogastric tube in appropriate position. There is a left-sided AICD in appropriate position. Lungs: Stable left sided retrocardiac consolidation. The lungs are otherwise clear. Pleural spaces: Unremarkable. No pleural effusion. No pneumothorax. Heart/Mediastinum: The heart is markedly enlarged. Bones/joints: Unremarkable. There is no acute fracture present. IMPRESSION: 1. Endotracheal tube and nasogastric tube in appropriate position. 2. Severe cardiomegaly. 3. Stable left sided retrocardiac consolidation.
[2021-10-15 06:04] LABS: POC Glucose,Bedside 167 (70-110)
--- NOTE | 2021-10-15 06:10 | PC.NURSE ---
Attempted a Spontaneous breathing trial placed ventilator on Spontaneous mode with pressure support Pt apenic. Placed ventilator back on AC mode. Will continue to monitor.
[2021-10-15 06:52] LABS: Basophils % 0.2 % (0.1-2.0); Eosinophils # 0.1 K/mm3 (0.0-0.4); Eosinophils % 0.6 % (0.1-12.0); Hematocrit 43.7 % (37.0-47.0); Hemoglobin 14.1 g/dL (12.2-16.2); Lymphocytes % 9.1 % (10-50); Mean Corpuscular HGB Conc 32.3 g/dL (31.8-35.4); Mean Corpuscular Hemoglobin 28.6 pg (27.0-31.2); Mean Corpuscular Volume 88.6 fl (81-99); Mean Platelet Volume 8.9 fl (7.4-10.4); Monocytes # 0.9 K/mm3 (0.1-1.0); Monocytes % 8.4 % (1.7-9.3); Neutrophils # 8.9 K/mm3 (1.8-7.8); Neutrophils % 81.8 % (37.0-80.0); Platelet Count 145 K/mm3 (142-424); Red Blood Count 4.94 M/mm3 (4.20-5.40); Red Cell Distribution Width 15.2 % (11.5-17.5); White Blood Count 10.9 K/mm3 (4.8-10.8)
[2021-10-15 07:01] LABS: Chloride 101 mmol/L (98-107); Sodium 133 mmol/L (136-145)
[2021-10-15 07:02] LABS: Potassium 3.1 mmoL/L (3.5-5.1)
[2021-10-15 07:04] LABS: Alanine Aminotransferase 105 U/L (12-78); Albumin Level 2.8 g/dl (3.5-5.0); Alkaline Phosphatase 99 U/L (38-126); Anion Gap 8.1 mEq/L (5-15); Aspartate Amino Transferase 63 U/L (14-36); Bilirubin,Total 1.9 mg/dl (0.2-1.3); Blood Urea Nitrogen 29 mg/dl (7-17); Calcium 8.3 mg/dl (8.4-10.2); Carbon Dioxide 27 mmol/L (22.0-30.0); Creatinine Clearance Estimated 44 mL/min (50-200); Estimated Glomerular Filt Rate 73 ml/min (>60); GFR (African American) 88 ML/MIN (>60); Globulin 2.8 g/dL (1.3-3.2); Glucose 179 mg/dl (74-100); Magnesium 2.1 mg/dl (1.6-2.3); Total Protein,Serum 5.6 g/dl (6.3-8.2)
--- NOTE | 2021-10-15 08:39 | HMH.ACPN2 ---
Internal Medicine - PN: Alexandru *Date: 10/15/21 *Time: 08:39 Interval history: Overnight patient has remained intubated, has been off sedation for over 48 hours. Nurses report that she is moving spontaneously but does not follow commands. No significant cardiac events overnight with tachycardia or hypotension. Urine output remains reasonable at 15 to 30 mL/h. Exam Vital signs and Labs for Last 24 Hours: Temp Pulse Resp BP Pulse Ox 97.7 F 100 H 20 109/68 L 93 L 10/15/21 03:49 10/15/21 06:00 10/15/21 06:00 10/15/21 06:00 10/15/21 06:00 Laboratory Results - last 24 hr 10/14/21 07:45: Potassium 3.8 D, Carbon Dioxide 29, Anion Gap 5.8, BUN 31 H D, Creatinine 0.90, Estimated Creat Clear 44, Estimated GFR 63, Est GFR ( Amer) 77 D, Glucose 215 H, Calcium 7.7 L, Total Bilirubin 2.1 H, AST 65 H D, ALT 153 H D, Alkaline Phosphatase 77, Total Protein 5.7 L, Albumin 2.8 L D, Globulin 2.9, Albumin/Globulin Ratio 1.0 L 10/14/21 11:39: POC Glucose 227 H 10/14/21 16:22: POC Glucose 186 H 10/14/21 20:10: POC Glucose 132 H 10/15/21 05:42: POC Glucose 167 H 10/15/21 06:10: WBC 10.9 H D, RBC 4.94, Hgb 14.1, Hct 43.7, MCV 88.6, MCH 28.6, MCHC 32.3, RDW 15.2, Plt Count 145, MPV 8.9, Neut % (Auto) 81.8 H, Lymph % (Auto) 9.1 L, [place] % (Auto) 8.4, Eos % (Auto) 0.6, Baso % (Auto) 0.2, Neut # (Auto) 8.9 H, Lymph # (Auto) 1.0, [place] # (Auto) 0.9, Eos # (Auto) 0.1, Baso # (Auto) 0.0 10/15/21 06:10: Sodium 133 L, Potassium 3.1 L, Chloride 101, Carbon Dioxide 27, Anion Gap 8.1, BUN 29 H, Creatinine 0.80, Estimated Creat Clear 44, Estimated GFR 73, Est GFR ( Amer) 88, Glucose 179 H, Calcium 8.3 L, Magnesium 2.1 D, Total Bilirubin 1.9 H, AST 63 H, ALT 105 H D, Alkaline Phosphatase 99, Total Protein 5.6 L, Albumin 2.8 L, Globulin 2.8, Albumin/Globulin Ratio 1.0 L I & O for Last 24 hours: Intake & Output 10/12/21 10/13/21 10/14/21 10/15/21 11:59 11:59 11:59 11:59 Intake Total 871 / 871 2525.545 / 2525.545 3376.392 / 3376.392 2042.847 / 2042.847 Output Total 4230 / 4230 1910 / 1920 1080 / 1335 970 / 970 Balance -3359 / -3359 615.545 / 958.930 1067.392 / 2041.392 1072.847 / 1072.847 Weight 268 lb 1.6 oz 258 lb 267 lb 8 oz 270 lb - Constitutional obese Comments: Intubated. - *Routine HEENT Exam Head: Present: normocephalic Eye: Present: EOMI, PERRL ENT: Present: mucous membranes moist - *Routine Neck Exam Present: supple. Absent: lymphadenopathy - Routine Chest/Breast/Axilla Exam Chest wall: Present: pacemaker Comments: Pacemaker site well apposition and with tess. No significant bleeding or drainage - *Routine Respiratory Exam Present: CTA bilaterally - *Routine Cardiovascular Exam Present: murmur, irregular rhythm - *Routine Abdominal Exam Present: soft, normoactive bowel sounds. Absent: tenderness - *Routine Extremities Exam Absent: cyanosis, clubbing, edema - *Routine Skin Exam Present: warm. Absent: rash - *Routine Neurological Exam Patient moves her arms very minimally spontaneously. Her legs withdraw to painful stimuli. With chest mid sternal rub she does open her eyes. Pupils are equally reactive to light. However when her head is moved she seems to posture away from the examiner and her eyes rolled up into her head. No response to commands. Patient does have a gag reflex. Assessment and Plan (1) Acute on chronic congestive heart failure Status: Acute Qualifiers: Heart failure type: systolic Qualified Code(s): I50.23 - Acute on chronic systolic (congestive) heart failure Category: Medical Code(s): I50.9 - Heart failure, unspecified (2) Atrial flutter with rapid ventricular response Status: Acute Category: Medical Code(s): I48.92 - Unspecified atrial flutter (3) AICD (automatic cardioverter/defibrillator) present Status: Acute Category: Surgical Code(s): Z95.810 - Presence of automatic (implantable) cardiac defibrillator (4) Cardiac arrest
--- NOTE | 2021-10-15 09:28 | DIET.NUTRFU ---
Addendum entered by Tiffany Pelaez RD, LD 10/15/21 12:51: Pateint had vomitting episode today, TF on hold. Pepcid is in place. will continue to to follow TF tolerance. Original Note: Patient tolerating tubefeeding at 20ml/hr, nursing will determine if feasible to increase. She was started on zofran for nausea, possible nausea with TF. Urine output good yesterday at 1600, continues on lasix. Propofol continue on hold, no sedatives in place. Labs reviewed: Na 133L, K 3.1L, BUN 29H, Cr 0.8 and glucose 179H, continues on insulin tx. She also is on potassium and received IV bolus fluids over weekend. Will continue to monitor TF tolerance and rate, increase when feasible
--- NOTE | 2021-10-15 10:16 | PC.WOUNDNOTE ---
R upper arm bottom Photos from AM assessment
--- NOTE | 2021-10-15 10:36 | PC.NURSE ---
During am rounds, notified Dr Hollis face to face at 0830 that pt is unable to have MRI r/t pacemaker placement, and it was also noted that on pt am chest xray that retrocardiac consolidation was present. NNO at this time. 1015 Dr Reyna notified that pt is unable to have MRI r/t pacemaker
--- NOTE | 2021-10-15 10:41 | PC.NURSE ---
Patient failed SBT at 1000
--- NOTE | 2021-10-15 11:53 | PC.NURSE ---
0907 tube feed residual checked, noted to be 30ml. meds admin tube feeds held at this time r/t pt getting eeg and pump possibly interfering with EEG 1140 pt projectile vomited a large amount of tube feed colored emesis. pt placed on wall suction via ng tube. notified. no new orders.
--- NOTE | 2021-10-15 12:01 | XR_ITS ---
PROCEDURE INFORMATION: Exam: XR Chest Exam date and time: 10/15/2021 5:30 PM Age: 61 years old Clinical indication: Screening exam; Other screening; Additional info: Confirm picc line placement TECHNIQUE: Imaging protocol: XR of the chest. Views: 1 view. COMPARISON: CR XR CHEST PORTABLE 10/15/2021 5:49 AM FINDINGS: Tubes, catheters and devices: Again noted is the AICD. Again noted is the endotracheal tube. Again noted is a gastric tube. A central venous catheter in the right subclavian distribution is new since the previous study. The tip of the line is in the superior vena cava. Lungs: Unremarkable. No consolidation. Pleural spaces: Unremarkable. No pleural effusion. No pneumothorax. Heart/Mediastinum: Mild enlargement of the heart again noted. Bones/joints: Unremarkable. IMPRESSION: No acute cardiopulmonary disease.
--- NOTE | 2021-10-15 12:02 | PC.NURSE ---
received in report that pt was to have PICC placed, no order at this time. concated Dr Hollis at 1158, clarified if picc was needed. gave telephone order for PICC line placement to be entered at this time.
[2021-10-15 12:20] LABS: POC Glucose,Bedside 159 (70-110)
--- NOTE | 2021-10-15 12:27 | HMH.PNCARD ---
Subjective Date: 10/15/21 Time: 12:30 Principal diagnosis: CHF, afib with rvr Interval history: This is a 61-year-old white female who presented to the emergency department initially with shortness of breath. She was found to have an acute exacerbation of her chronic systolic congestive heart failure and was also in atrial fibrillation with RVR. The patient underwent biventricular AICD placement and had a successful implant but at the end of the procedure she went into acute respiratory failure and cardiogenic shock with low cardiac output secondary to rapid atrial fibrillation. The patient was given epinephrine and compressions and had to be shocked during the code. The patient remains in atrial fibrillation at this time but has never rate control with amiodarone and digoxin. The patient remains intubated and on the ventilator. She has been off of sedation since Friday and she has been off of the Levophed drip since Friday. The patient has still not awakened. She does have some spontaneous movements at times but no real purposeful movement. She does withdrawal to pain her pupils are reactive. She had an EEG this morning and the results of this are still currently pending. She appears to be in no distress. Exam Vital signs and Labs for Last 24 Hours: Temp Pulse Resp BP Pulse Ox 98.5 F 110 H 20 135/86 95 10/15/21 08:00 10/15/21 12:00 10/15/21 12:00 10/15/21 12:00 10/15/21 12:00 Laboratory Results - last 24 hr 10/14/21 11:39: POC Glucose 227 H 10/14/21 16:22: POC Glucose 186 H 10/14/21 20:10: POC Glucose 132 H 10/15/21 05:42: POC Glucose 167 H 10/15/21 06:10: WBC 10.9 H D, RBC 4.94, Hgb 14.1, Hct 43.7, MCV 88.6, MCH 28.6, MCHC 32.3, RDW 15.2, Plt Count 145, MPV 8.9, Neut % (Auto) 81.8 H, Lymph % (Auto) 9.1 L, [place] % (Auto) 8.4, Eos % (Auto) 0.6, Baso % (Auto) 0.2, Neut # (Auto) 8.9 H, Lymph # (Auto) 1.0, [place] # (Auto) 0.9, Eos # (Auto) 0.1, Baso # (Auto) 0.0 10/15/21 06:10: Sodium 133 L, Potassium 3.1 L, Chloride 101, Carbon Dioxide 27, Anion Gap 8.1, BUN 29 H, Creatinine 0.80, Estimated Creat Clear 44, Estimated GFR 73, Est GFR ( Amer) 88, Glucose 179 H, Calcium 8.3 L, Magnesium 2.1 D, Total Bilirubin 1.9 H, AST 63 H, ALT 105 H D, Alkaline Phosphatase 99, Total Protein 5.6 L, Albumin 2.8 L, Globulin 2.8, Albumin/Globulin Ratio 1.0 L 10/15/21 12:10: POC Glucose 159 H I & O for Last 24 hours: Intake & Output 10/12/21 10/13/21 10/14/21 10/15/21 23:59 23:59 23:59 23:59 Intake Total 884.545 / 819.921 1603.259 / 3864.259 3092.980 / 3092.980 729 / 729 Output Total 2520 / 2620 1010 / 1040 1600 / 1620 1700 / 1700 Balance -1635.455 / -1979.950 5976.259 / 2824.259 1492.980 / 1472.980 -971 / -971 Weight 268 lb 1.6 oz 258 lb 267 lb 8 oz 270 lb Microbiology Reports for the Last 24 Hours: Microbiology 10/11/21 10:20 Nose - Nasal MRSA Culture - Final Negative Narrative: Telemetry strip shows atrial fibrillation with a rate between the 90s and 106. - Constitutional no acute distress, average body habitus - *Routine HEENT Exam Head: Present: normocephalic, atraumatic Eye: Present: PERRL ENT: Present: mucous membranes moist - *Routine Neck Exam Present: normal carotid upstroke. Absent: JVD, carotid bruit, lymphadenopathy - *Routine Respiratory Exam Present: CTA bilaterally - *Routine Cardiovascular Exam Present: Normal S1, Normal S2, tachycardia, irregularly irregular - *Routine Abdominal Exam Present: soft, normoactive bowel sounds. Absent: tenderness, distended - *Routine Extremities Exam Present: pulses intact, normal capillary refill. Absent: cyanosis, clubbing, edema - *Routine Skin Exam Present: intact, warm. Absent: rash - *Routine Neurological Exam Present: altered mental status Progress Note: A&P (1) Acute on chronic congestive heart failure Status: Acute (2) Atrial flutter with rapid ventricular response Status: Acute (3) AICD (autom
--- NOTE | 2021-10-15 12:47 | PC.NURSE ---
upon reassessment of pt it was noted that OG tube was no longer at 55cm but at 75. unable to readvance tube. og tube replaced with ng tube in r nare at 60cm. gastric contents able to be aspirated.
--- NOTE | 2021-10-15 13:07 | HMH.PULMPN ---
Internal Medicine - PN: Subj *Date: 10/15/21 *Time: 13:07 Interval history: No acute respiratory vents over the weekend. Patient failing SBT secondary to apnea Exam - Constitutional Constitutional:: Present: no acute distress, comfortable - HENMT Exam HENMT: Present: normocephalic - Eye Exam Eyes:: Present: normal appearance both eyes and related structures - Neck Exam Neck:: Present: normal visual inspection - Respiratory Exam Respiratory:: Present: crackles. Absent: no respiratory distress, wheezing - Cardiovascular Exam Cardiac:: Present: S1, S2 - GI Exam GI:: Present: soft - Skin Exam Skin: Present: warm, no rash - Neurological Exam Neurological: Absent: alert, awake, normal cognition - Extremities Exam Extremities: Present: no cyanosis, no clubbing, edema Assessment and Plan (1) Acute on chronic congestive heart failure Status: Acute Qualifiers: Heart failure type: systolic Qualified Code(s): I50.23 - Acute on chronic systolic (congestive) heart failure Category: Medical Code(s): I50.9 - Heart failure, unspecified (2) Atrial flutter with rapid ventricular response Status: Acute Category: Medical Code(s): I48.92 - Unspecified atrial flutter (3) AICD (automatic cardioverter/defibrillator) present Status: Acute Category: Surgical Code(s): Z95.810 - Presence of automatic (implantable) cardiac defibrillator (4) Cardiac arrest Status: Acute Category: Medical Code(s): I46.9 - Cardiac arrest, cause unspecified (5) Cardiogenic shock Status: Acute Category: Medical Code(s): R57.0 - Cardiogenic shock (6) CAD (coronary atherosclerotic disease) Status: Chronic Qualifiers: Coronary Disease-Associated Artery/Lesion type: [place] artery [place] vs. transplanted heart: [place] heart Associated angina: without angina Qualified Code(s): I25.10 - Atherosclerotic heart disease of [place] coronary artery without angina pectoris Category: Medical Code(s): I25.10 - Atherosclerotic heart disease of [place] coronary artery without angina pectoris (7) Diabetes mellitus Status: Chronic Qualifiers: Diabetes mellitus type: type 2 Diabetes mellitus chcf insulin use: without extermination inspector use Diabetes mellitus complication status: without complication Qualified Code(s): E11.9 - Type 2 diabetes mellitus without complications Category: Medical Code(s): E11.9 - Type 2 diabetes mellitus without complications (8) Dilated cardiomyopathy Status: Chronic Category: Medical Code(s): I42.0 - Dilated cardiomyopathy (9) HLD (hyperlipidemia) Status: Chronic Qualifiers: Hyperlipidemia type: mixed hyperlipidemia Qualified Code(s): E78.2 - Mixed hyperlipidemia Category: Medical Code(s): E78.5 - Hyperlipidemia, unspecified (10) Hypertensive disorder Status: Chronic Qualifiers: Hypertension type: primary hypertension Qualified Code(s): I10 - Essential (primary) hypertension Category: Medical Code(s): I10 - Essential (primary) hypertension (11) Obstructive sleep apnea syndrome Status: Chronic Category: Medical Code(s): G47.33 - Obstructive sleep apnea (adult) (pediatric) (12) Encephalopathy acute Status: Acute Category: Medical Code(s): G93.40 - Encephalopathy, unspecified - Assessment and plan all Dx Assessment and Plan for all problems:: #Acute hypoxic respiratory failure needing mechanical ventilatory support: #Hospital-acquired pneumonia: 61-year-old female present with Gustavo jarrett RVR, experienced cardiopulmonary arrest with return of spontaneous circulation after less than 1 minute of CPR and epinephrine. Patient during the procedure was intubated for airway support and pulmonary was called for further management. Patient has been altered since the day of intubation with no significant improvement in her mentation despite off sedation for greater than [address] head performed the day after card
[2021-10-15 14:03] LABS: Ammonia < 9 umol/L (9-30)
--- NOTE | 2021-10-15 14:32 | PC.NURSE ---
multiple attempts at PICC unsuccessful. notified Dr Hollis and asked for a General Surgery consult at this time.
--- NOTE | 2021-10-15 14:44 | PC.NURSE ---
PICC line insertion was unsuccessful at this time. Pt. has a right upper arm wound that made it difficult to find vein on the right side and a newly placed pacemaker on the left side.
--- NOTE | 2021-10-15 16:04 | PC.NURSE ---
Contacted Dr Almaguer at 1536 and informed him of consult of pt r/t poor venous access and failed PICC placement.
--- NOTE | 2021-10-15 16:36 | HMH.GSCON ---
*Admission Date: 10/09/21 *Reason for consult:: Central Line Placement *History of present illness: Asked to see patient for central line placement. Patient is a 61-year-old female with history of atrial fibrillation, congestive heart failure, coronary artery disease, hyperlipidemia, hypertension, BMI 50 who presented to the emergency department on 10/09/2021 with shortness of breath. Evaluation in the emergency department revealed the patient to be in florid heart failure and atrial fibrillation with rapid ventricular response. She was admitted for inpatient management and cardiology involvement. Echocardiogram revealed estimated ejection fraction of 20%. She was taken to [facility] on 10/10/2021 and had biventricular AICD placement. She did develop respiratory arrest and cardiogenic shock requiring CPR with chest compressions and ACLS resuscitation. Pulmonology involvement was initiated. She did have another rapid response event. She required pressors. Her sedation has been discontinued. She has remained on the ventilator. She has shown spontaneous movements but lack of significant neurologic response without following commands or purposeful movements. Attempt was made at PICC line placement this afternoon. This was unsuccessful. Surgery was consulted this evening for deep line placement. Review of Systems - Review of Systems Review of systems:: unable to obtain - *Neurologic Denies dizziness, Denies headache(s) [facility] History I have reviewed the patient's past medical history: Yes Medical History: Reports:: Arrhythmia, Atrial Fibrillation, Congestive Heart Failure, Coronary Artery Disease, Hyperlipidemia, Hypertension Denies:: Diabetes Mellitus Type 2, Seizures *Have you ever received a pneumonia vaccine?: No *Have you received a flu vaccine this season?: No Other Medical History: Reports: Hypothyroidism. Denies: Blood Transfusion Reaction Anesthesia experience/problems:: nac Other Surgeries: Yes: Cardiac Catheterization, Cardiac Surgery, Other - *Social History Last grade of school completed: Some college Smoking Status: Never smoker Alcohol Intake: never Alcohol Intake Frequency:: other Substance Use Type: former substance user *Occupational Status:: employed Housing: apartment Household Members: none *Travel in the last 8 weeks: None Family Hx:: Anemia, Cancer, Coronary Artery Disease, Diabetes, Hyperlipidemia, Hypertension, Mental illness Meds Home Medications Medication Instructions Recorded Confirmed Type Metoprolol Tartrate 50 mg PO TID 10/10/21 10/10/21 History Allergies Allergy/AdvReac Type Severity Reaction Status Date / Time No Known Allergies Allergy Verified 10/09/21 11:26 Exam Vital signs and Labs for Last 24 Hours: Temp Pulse Resp BP Pulse Ox 98.3 F 110 H 20 119/61 96 10/15/21 16:00 10/15/21 15:00 10/15/21 15:00 10/15/21 15:00 10/15/21 15:00 Laboratory Results - last 24 hr 10/14/21 20:10: POC Glucose 132 H 10/15/21 05:42: POC Glucose 167 H 10/15/21 06:10: WBC 10.9 H D, RBC 4.94, Hgb 14.1, Hct 43.7, MCV 88.6, MCH 28.6, MCHC 32.3, RDW 15.2, Plt Count 145, MPV 8.9, Neut % (Auto) 81.8 H, Lymph % (Auto) 9.1 L, [place] % (Auto) 8.4, Eos % (Auto) 0.6, Baso % (Auto) 0.2, Neut # (Auto) 8.9 H, Lymph # (Auto) 1.0, [place] # (Auto) 0.9, Eos # (Auto) 0.1, Baso # (Auto) 0.0 10/15/21 06:10: Sodium 133 L, Potassium 3.1 L, Chloride 101, Carbon Dioxide 27, Anion Gap 8.1, BUN 29 H, Creatinine 0.80, Estimated Creat Clear 44, Estimated GFR 73, Est GFR ( Amer) 88, Glucose 179 H, Calcium 8.3 L, Magnesium 2.1 D, Total Bilirubin 1.9 H, AST 63 H, ALT 105 H D, Alkaline Phosphatase 99, Total Protein 5.6 L, Albumin 2.8 L, Globulin 2.8, Albumin/Globulin Ratio 1.0 L 10/15/21 12:10: POC Glucose 159 H 10/15/21 13:35: Ammonia < 9 L I & O for Last 24 hours: Intake & Output 10/13/21 10/14/21 10/15/21 10/16/21 11:59 11:59 11:59 11:59 Intake Total 2525.545 / 2525.545 3376.392 / 3376.392 2361.847 / 24
--- NOTE | 2021-10-15 17:33 | HMH.OPNOTE ---
Date of procedure: 10/15/21 Pre-op Diagnosis:: Need for venous access Post-op Diagnosis:: Same Procedure performed:: Placement of 7 [place] nontunneled triple-lumen catheter right subclavian vein Surgeon:: Bharat Almaguer MD Anesthesia: local Estimated blood loss (mL): 10 Clinical Note:: Asked to see patient for central line placement. Patient is a 61-year-old female with history of atrial fibrillation, congestive heart failure, coronary artery disease, hyperlipidemia, hypertension, BMI 50 who presented to the emergency department on 10/09/2021 with shortness of breath. Evaluation in the emergency department revealed the patient to be in florid heart failure and atrial fibrillation with rapid ventricular response. She was admitted for inpatient management and cardiology involvement. Echocardiogram revealed estimated ejection fraction of 20%. She was taken to [facility] on 10/10/2021 and had biventricular AICD placement. She did develop respiratory arrest and cardiogenic shock requiring CPR with chest compressions and ACLS resuscitation at the completion of her AICD placement. Pulmonology involvement was initiated. She did have another rapid response event. She required pressors. Her sedation has been discontinued. She has remained on the ventilator. She has shown spontaneous movements but lack of significant neurologic response without following commands or purposeful movements. Attempt was made at PICC line placement this afternoon. This was unsuccessful. Surgery was consulted this evening for deep line placement. Operative findings:: Seemingly normal anatomy Operative note:: Consent had been obtained. Patient was positioned in Trendelenburg position. Right neck and chest were prepped and draped in the standard surgical fashion. Landmarks were difficult to identify for the internal jugular vein due to her body habitus. Local anesthetic was infiltrated inferior to the right clavicle with deeper local anesthetic placed around the clavicular periosteum. 18-gauge needle was then inserted manipulating it posterior to the clavicle. There was return of dark venous blood. Guidewire was inserted. Small incision was made at the insertion site. Subcutaneous tissues were dilated. 7 [place] triple-lumen catheter was inserted over the guidewire using Seldinger technique. It was secured to the skin at approximately the 16 cm jose l. All ports aspirated and flushed without difficulty. Clean dry sterile dressing was applied. Chest x-ray completed at the end of the procedure. Condition: stable Disposition: no change Complications:: None immediately apparent
[2021-10-15 17:35] LABS: POC Glucose,Bedside 158 (70-110)
[2021-10-15 19:10] LABS: Chloride 100 mmol/L (98-107); Sodium 134 mmol/L (136-145)
[2021-10-15 19:11] LABS: Potassium 3.2 mmoL/L (3.5-5.1)
[2021-10-15 19:13] LABS: Blood Urea Nitrogen 27 mg/dl (7-17); Creatinine Clearance Estimated 44 mL/min (50-200); Estimated Glomerular Filt Rate 85 ml/min (>60); GFR (African American) 103 ML/MIN (>60)
[2021-10-15 19:14] LABS: Anion Gap 6.2 mEq/L (5-15); Calcium 8.5 mg/dl (8.4-10.2); Carbon Dioxide 31 mmol/L (22.0-30.0); Glucose 183 mg/dl (74-100)
[2021-10-15 20:48] LABS: POC Glucose,Bedside 170 (70-110)
--- NOTE | 2021-10-15 23:10 | PC.NURSE ---
MD Mathur consulted for clarification of orders. New orders received to hold CT orders until AM after PCP rounds. Propofol gtt. Titrate per protocol. ACHS Medium intensity SS. Pt's sister at bedside.
[2021-10-16] VITALS (57 sets, daily range): BP systolic 75–175; BP diastolic 46–91; PULSE 69–135; RESP 15–24; TEMP 36.4–36.9; O2SAT 70–100; BMI 47.2
--- NOTE | 2021-10-16 05:00 | PC.WOUNDNOTE ---
Left upper arm
--- NOTE | 2021-10-16 05:33 | HMH.ITSTN ---
Patient getting a bath at this time, RN to call when ready for xray.
--- NOTE | 2021-10-16 05:51 | PC.NURSE ---
MD Chang notified this AM of change to area around AICD. Area is swollen. Orders received to monitor area. Pt remains off sedation. She opens eyes but does not make eye contact. Pt moves legs and will raise (R) arm after assisted to. Area to CRISTI continues to have open areas and blisters that have ruptured. Unchanged from beginning of shift. Picture placed on chart. Gag reflex intact. 20 residual noted this AM. Tube feedings started @ 10 ml/hr. No BM. F/C draining to bedside with decreased urine output this AM. Pt Vent settings are as follows: FiO2 40%, TV 440, R 20, PEEP 5. VSS at this time. Will continue to monitor.
--- NOTE | 2021-10-16 06:00 | XR_ITS ---
FINAL REPORT CLINICAL HISTORY: daily while intubated COMPARISON: October 15, 2021 FINDINGS: The ET tube tip is 3.5 cm superior to the candace. There is a left subclavian pacemaker. A right subclavian central venous catheter terminates in the SVC. The heart moderately enlarged. The mediastinum is within normal limits. There are chronic changes in the lung bases. There is no pleural effusion. There is no pneumothorax. The bony thorax is intact. IMPRESSION: No acute cardiopulmonary process. Reviewed, Interpreted and Dictated by Hernandez Griffin MD Transcribed by Nic Boyd Authenticated by Hernandez Griffin MD on 10/16/2021 10:19:06 AM [facility]
[2021-10-16 06:42] LABS: Basophils # 0.1 K/mm3 (0-0.2); Basophils % 0.7 % (0.1-2.0); Eosinophils % 0.5 % (0.1-12.0); Hematocrit 44.4 % (37.0-47.0); Hemoglobin 14.3 g/dL (12.2-16.2); Lymphocytes # 0.7 K/mm3 (0.7-4.5); Lymphocytes % 8.6 % (10-50); Mean Corpuscular HGB Conc 32.2 g/dL (31.8-35.4); Mean Corpuscular Hemoglobin 29.2 pg (27.0-31.2); Mean Corpuscular Volume 90.7 fl (81-99); Mean Platelet Volume 9.5 fl (7.4-10.4); Monocytes # 0.7 K/mm3 (0.1-1.0); Monocytes % 9.1 % (1.7-9.3); Neutrophils # 6.4 K/mm3 (1.8-7.8); Neutrophils % 81.1 % (37.0-80.0); Platelet Count 133 K/mm3 (142-424); Red Cell Distribution Width 15.7 % (11.5-17.5); White Blood Count 7.9 K/mm3 (4.8-10.8)
[2021-10-16 06:45] LABS: Chloride 102 mmol/L (98-107); Sodium 136 mmol/L (136-145)
[2021-10-16 06:47] LABS: Alanine Aminotransferase 85 U/L (12-78); Aspartate Amino Transferase 61 U/L (14-36); Blood Urea Nitrogen 26 mg/dl (7-17); Creatinine Clearance Estimated 44 mL/min (50-200); Estimated Glomerular Filt Rate 85 ml/min (>60); GFR (African American) 103 ML/MIN (>60)
[2021-10-16 06:48] LABS: Alkaline Phosphatase 96 U/L (38-126); Bilirubin,Total 1.9 mg/dl (0.2-1.3); Carbon Dioxide 28 mmol/L (22.0-30.0); Globulin 3.1 g/dL (1.3-3.2); Glucose 169 mg/dl (74-100); Total Protein,Serum 6.1 g/dl (6.3-8.2)
[2021-10-16 06:49] LABS: Magnesium 2.3 mg/dl (1.6-2.3)
--- NOTE | 2021-10-16 06:55 | PC.NURSE ---
notified of potassium level of 3.0.
[2021-10-16 07:01] LABS: POC Glucose,Bedside 143 (70-110)
--- NOTE | 2021-10-16 07:19 | HMH.ACPN2 ---
Internal Medicine - PN: Subj *Date: 10/16/21 *Time: 09:00 Interval history: Ms. Pham had no acute events overnight. Has tolerated transition off of esmolol drip to oral metoprolol. Heart rate well controlled on exam this morning in the 80-90 range, still and A. fib. Unfortunately has developed large hematoma in the pocket surrounding her defibrillator. Sandbag kept on defibrillator overnight to decrease risk of progression of fluid collection. Continues to have sensitive gag reflex and has had to have tube feeds stopped periodically due to emesis. No bowel movement in the past several days. Reviewed labs and imaging this morning. No family at bedside on rounds. Exam Vital signs and Labs for Last 24 Hours: Temp Pulse Resp BP Pulse Ox 97.6 F 80 20 113/68 93 L 10/16/21 04:00 10/16/21 04:00 10/16/21 05:55 10/16/21 04:00 10/16/21 05:55 Laboratory Results - last 24 hr 10/15/21 12:10: POC Glucose 159 H 10/15/21 13:35: Ammonia < 9 L 10/15/21 16:41: POC Glucose 158 H 10/15/21 17:35: Sodium 134 L, Potassium 3.2 L, Chloride 100, Carbon Dioxide 31 H, Anion Gap 6.2, BUN 27 H, Creatinine 0.70, Estimated Creat Clear 44, Estimated GFR 85, Est GFR ( Amer) 103, Glucose 183 H, Calcium 8.5 10/15/21 20:08: POC Glucose 170 H 10/16/21 05:04: POC Glucose 143 H 10/16/21 06:11: WBC 7.9 D, RBC 4.90, Hgb 14.3, Hct 44.4, MCV 90.7, MCH 29.2, MCHC 32.2, RDW 15.7, Plt Count 133 L, MPV 9.5, Neut % (Auto) 81.1 H, Lymph % (Auto) 8.6 L, [place] % (Auto) 9.1, Eos % (Auto) 0.5, Baso % (Auto) 0.7, Neut # (Auto) 6.4, Lymph # (Auto) 0.7, [place] # (Auto) 0.7, Eos # (Auto) 0.0, Baso # (Auto) 0.1 10/16/21 06:11: Sodium 136, Potassium 3.0 L, Chloride 102, Carbon Dioxide 28, Anion Gap 9.0, BUN 26 H, Creatinine 0.70, Estimated Creat Clear 44, Estimated GFR 85, Est GFR ( Amer) 103, Glucose 169 H, Calcium 9.0, Total Bilirubin 1.9 H, AST 61 H, ALT 85 H, Alkaline Phosphatase 96, Total Protein 6.1 L, Albumin 3.0 L, Globulin 3.1, Albumin/Globulin Ratio 1.0 L 10/16/21 06:11: Magnesium 2.3 I & O for Last 24 hours: Intake & Output 10/13/21 10/14/21 10/15/21 10/16/21 23:59 23:59 23:59 23:59 Intake Total 3864.259 / 3864.259 3092.980 / 3092.980 863 / 863 100 / 100 Output Total 1010 / 1040 1600 / 1620 2300 / 2340 165 / 165 Balance 2854.259 / 2824.259 1492.980 / 1472.980 -1437 / -1477 -65 / -65 Weight 117.027 kg 121.336 kg 122.47 kg 116.346 kg Microbiology Reports for the Last 24 Hours: Microbiology 10/11/21 10:20 Nose - Nasal MRSA Culture - Final Negative Narrative: - Constitutional mild distress, morbidly obese; somnolent - *Routine HEENT Exam Head: Present: normocephalic Eye: Present: PERRLA ENT: Present: mucous membranes moist - *Routine Neck Exam Present: supple. Absent: lymphadenopathy - Routine Chest/Breast/Axilla Exam Chest wall: Present: pacemaker (incision with large hematoma, dressing CDI.) - *Routine Respiratory Exam Present: patient mechanically ventilated, CTA bilaterally - *Routine Cardiovascular Exam Present: tachycardia, irregularly irregular - *Routine Abdominal Exam Present: soft, normoactive bowel sounds. Absent: tenderness - *Routine Extremities Exam Present: edema (trace). Absent: cyanosis, clubbing - *Routine Skin Exam Present: warm. Absent: rash - *Routine Neurological Exam Present:Flexion to pain, squeezed fingers with her left hand on command. Padroni on commands. Stuck her tongue out on exam this morning to command. Able to cough. Did not squeeze fingers and right hand. No clonus in lower extremities. normal babinski/withdrawal; E 4, V not testable, M 6 Assessment and Plan (1) Acute on chronic congestive heart failure Status: Acute Qualifiers: Heart failure type: systolic Qualified Code(s): I50.23 - Acute on chronic systolic (congestive) heart failure Category: Medical Code(s): I50.9 - Heart failure, unspecified (2) Atrial f
--- NOTE | 2021-10-16 10:00 | DIET.NUTRFU ---
Rounded with Dr. Abraham today. he was able to get patient to follow commands with painful stimuli. Upon visit her TF was running at 10ml/hr, was held most of yesterday after vomiting. Started at 5am at 10ml/hr with anticipation of turning up. After examination with patient started coughing and throw up. TF is now on hold again. did discontinue celexa for now, it was new to patient recently and sometimes causes GI distress. Reglan was suggested if appropriate to help tolerate TF. No BM noted x5 days, Dr aware, meds started. Also has pepcid in place. Holding lasix for now. She has a fluid or blood full pouch on her left shoulder. Potassium was low, potassium supplement ordered via central line. No sure on wishes for PEG placement. Will continue to follow and encourage TF when medically feasible.
--- NOTE | 2021-10-16 10:54 | HMH.PNCARD ---
Subjective Date: 10/16/21 Time: 10:30 Principal diagnosis: CHF, afib with rvr Interval history: This is a 61-year-old white female who was admitted to the hospital for chronic systolic congestive heart failure and atrial fibrillation with RVR. The patient is status post biventricular AICD placement. She remains in atrial fibrillation this morning with a heart rate in the 90s to 100s. She remains intubated and on the ventilator. This morning she was following some simple commands and did blink her eyes and squeeze her left hand. She also stuck her tongue out this morning with Dr. Abraham. During my examination the patient is unable to follow any commands. Her pupils are reactive. She does withdraw to pain. Her AICD site does have a hematoma this morning which is new. She appears to be in no distress. Exam Vital signs and Labs for Last 24 Hours: Temp Pulse Resp BP Pulse Ox 97.6 F 117 H 20 138/86 93 L 10/16/21 04:00 10/16/21 09:35 10/16/21 07:00 10/16/21 07:00 10/16/21 07:00 Laboratory Results - last 24 hr 10/15/21 12:10: POC Glucose 159 H 10/15/21 13:35: Ammonia < 9 L 10/15/21 16:41: POC Glucose 158 H 10/15/21 17:35: Sodium 134 L, Potassium 3.2 L, Chloride 100, Carbon Dioxide 31 H, Anion Gap 6.2, BUN 27 H, Creatinine 0.70, Estimated Creat Clear 44, Estimated GFR 85, Est GFR ( Amer) 103, Glucose 183 H, Calcium 8.5 10/15/21 20:08: POC Glucose 170 H 10/16/21 05:04: POC Glucose 143 H 10/16/21 06:11: WBC 7.9 D, RBC 4.90, Hgb 14.3, Hct 44.4, MCV 90.7, MCH 29.2, MCHC 32.2, RDW 15.7, Plt Count 133 L, MPV 9.5, Neut % (Auto) 81.1 H, Lymph % (Auto) 8.6 L, [place] % (Auto) 9.1, Eos % (Auto) 0.5, Baso % (Auto) 0.7, Neut # (Auto) 6.4, Lymph # (Auto) 0.7, [place] # (Auto) 0.7, Eos # (Auto) 0.0, Baso # (Auto) 0.1 10/16/21 06:11: Sodium 136, Potassium 3.0 L, Chloride 102, Carbon Dioxide 28, Anion Gap 9.0, BUN 26 H, Creatinine 0.70, Estimated Creat Clear 44, Estimated GFR 85, Est GFR ( Amer) 103, Glucose 169 H, Calcium 9.0, Total Bilirubin 1.9 H, AST 61 H, ALT 85 H, Alkaline Phosphatase 96, Total Protein 6.1 L, Albumin 3.0 L, Globulin 3.1, Albumin/Globulin Ratio 1.0 L 10/16/21 06:11: Magnesium 2.3 I & O for Last 24 hours: Intake & Output 10/13/21 10/14/21 10/15/21 10/16/21 23:59 23:59 23:59 23:59 Intake Total 3864.259 / 3864.259 3092.980 / 3092.980 863 / 863 100 / 100 Output Total 1010 / 1040 1600 / 1620 2300 / 2340 215 / 215 Balance 2854.259 / 2824.259 1492.980 / 1472.980 -1437 / -1477 -115 / -115 Weight 258 lb 267 lb 8 oz 270 lb 256 lb 8 oz Microbiology Reports for the Last 24 Hours: Microbiology 10/11/21 10:20 Nose - Nasal MRSA Culture - Final Negative Narrative: Telemetry strip shows atrial fibrillation with a rate of 112 and intermittent V pacing. - Constitutional no acute distress, morbidly obese - *Routine HEENT Exam Head: Present: normocephalic Eye: Present: PERRL ENT: Present: mucous membranes moist - *Routine Neck Exam Present: normal carotid upstroke. Absent: JVD, carotid bruit, lymphadenopathy - *Routine Respiratory Exam Present: patient mechanically ventilated, CTA bilaterally - *Routine Cardiovascular Exam Present: Normal S1, Normal S2, tachycardia, irregularly irregular - *Routine Abdominal Exam Present: soft, normoactive bowel sounds. Absent: tenderness - *Routine Extremities Exam Present: pulses intact, normal capillary refill. Absent: cyanosis, clubbing, edema - *Routine Skin Exam Present: intact, warm. Absent: erythema, rash - *Routine Neurological Exam Present: altered mental status Progress Note: A&P (1) Acute on chronic congestive heart failure Status: Acute (2) Atrial flutter with rapid ventricular response Status: Acute (3) AICD (automatic cardioverter/defibrillator) present Status: Acute (4) Cardiac arrest Status: Acute (5) Cardiogenic shock Status: Acute (6) CAD (coronary atherosclerotic disease) Sta
[2021-10-16 11:39] LABS: POC Glucose,Bedside 161 (70-110)
[2021-10-16 11:48] LABS: ABG Base Excess 2.2 mmol/L (-2.4-2.3); ABG HCO3 26.6 mmhg (22.0-26.0); ABG Oxygen Saturation 97 % (90-100); ABG PCO2 41.4 mmhg (35.0-45.0); ABG PH 7.43 mmol/L (7.35-7.45); ABG TCO2 27.8 mmhg (23-27)
[2021-10-16 11:50] LABS: Allen's Test ACCEPTABLE; Oxygen 40 %; PEEP 5; Pressure Support 5; Source Left Radial
[2021-10-16 11:52] LABS: Lactate Arterial 1.5 mmol/L (0.4-2.0)
--- NOTE | 2021-10-16 12:39 | PC.WOUNDNOTE ---
Side view of pacemaker site during bedside report in am. Pacemaker site during am bedside report. (Sandbag placed in pillow case and applied to pacer site)
--- NOTE | 2021-10-16 12:41 | PC.WOUNDNOTE ---
Right upper arm clive
--- NOTE | 2021-10-16 12:42 | PC.WOUNDNOTE ---
Pt bottom during am assessment
--- NOTE | 2021-10-16 12:47 | PC.NURSE ---
All care for this patient that was provided Jenise CHERRY was provided under my direct supervision.
--- NOTE | 2021-10-16 13:40 | HMH.PULMPN ---
Internal Medicine - PN: Subj *Date: 10/16/21 *Time: 13:40 Interval history: No acute respiratory events overnight Exam - Constitutional Constitutional:: Present: no acute distress, comfortable - HENMT Exam HENMT: Present: normocephalic - Eye Exam Eyes:: Present: normal appearance both eyes and related structures - Neck Exam Neck:: Present: normal visual inspection - Respiratory Exam Respiratory:: Present: no respiratory distress. Absent: able to speak in complete sentences, wheezing - Cardiovascular Exam Cardiac:: Present: S1, S2 - GI Exam GI:: Present: soft - Skin Exam Skin: Present: warm - Neurological Exam Neurological: Absent: alert, awake, normal cognition - Extremities Exam Extremities: Present: no cyanosis, no clubbing, edema Assessment and Plan (1) Acute on chronic congestive heart failure Status: Acute Qualifiers: Heart failure type: systolic Qualified Code(s): I50.23 - Acute on chronic systolic (congestive) heart failure Category: Medical Code(s): I50.9 - Heart failure, unspecified (2) Atrial flutter with rapid ventricular response Status: Acute Category: Medical Code(s): I48.92 - Unspecified atrial flutter (3) AICD (automatic cardioverter/defibrillator) present Status: Acute Category: Surgical Code(s): Z95.810 - Presence of automatic (implantable) cardiac defibrillator (4) Cardiac arrest Status: Acute Category: Medical Code(s): I46.9 - Cardiac arrest, cause unspecified (5) Cardiogenic shock Status: Acute Category: Medical Code(s): R57.0 - Cardiogenic shock (6) CAD (coronary atherosclerotic disease) Status: Chronic Qualifiers: Coronary Disease-Associated Artery/Lesion type: [place] artery [place] vs. transplanted heart: [place] heart Associated angina: without angina Qualified Code(s): I25.10 - Atherosclerotic heart disease of [place] coronary artery without angina pectoris Category: Medical Code(s): I25.10 - Atherosclerotic heart disease of [place] coronary artery without angina pectoris (7) Diabetes mellitus Status: Chronic Qualifiers: Diabetes mellitus type: type 2 Diabetes mellitus senior living insulin use: without senior living use Diabetes mellitus complication status: without complication Qualified Code(s): E11.9 - Type 2 diabetes mellitus without complications Category: Medical Code(s): E11.9 - Type 2 diabetes mellitus without complications (8) Dilated cardiomyopathy Status: Chronic Category: Medical Code(s): I42.0 - Dilated cardiomyopathy (9) HLD (hyperlipidemia) Status: Chronic Qualifiers: Hyperlipidemia type: mixed hyperlipidemia Qualified Code(s): E78.2 - Mixed hyperlipidemia Category: Medical Code(s): E78.5 - Hyperlipidemia, unspecified (10) Hypertensive disorder Status: Chronic Qualifiers: Hypertension type: primary hypertension Qualified Code(s): I10 - Essential (primary) hypertension Category: Medical Code(s): I10 - Essential (primary) hypertension (11) Obstructive sleep apnea syndrome Status: Chronic Category: Medical Code(s): G47.33 - Obstructive sleep apnea (adult) (pediatric) (12) Encephalopathy acute Status: Acute Category: Medical Code(s): G93.40 - Encephalopathy, unspecified (13) Presence of biventricular AICD Status: Acute Category: Surgical Code(s): Z95.810 - Presence of automatic (implantable) cardiac defibrillator (14) Atrial fibrillation Status: Chronic Category: Medical Code(s): I48.91 - Unspecified atrial fibrillation (15) Hematoma of implantable cardioverter-defibrillator (ICD) pocket Status: Acute Category: Medical Code(s): T82.837A - Hemorrhage due to cardiac prosthetic devices, implants and grafts, initial encounter - Assessment and plan all Dx Assessment and Plan for all problems:: #Acute hypoxic respiratory failure needing mechanical ventilatory support: #Hospital-acquired pneumonia: 61-year-ol
--- NOTE | 2021-10-16 15:16 | P.PCN_ITS ---
[facility] Cardioversion Date: 10/16/21 Provider:: Indiana Schaffer APRN Procedure Performed:: Dr. Ashkan Chang MD, [facility], [facility] Diagnosis:: Atrial fibrillation with RVR Procedure Summary:: After informed consent was obtained, the patient was anesthetized with Versed 2 mg IV x1 dose and fentanyl 150 mcg IV x1 dose. The patient's existing internal AICD was used to deliver a single 41 J synchronized shock converting her from atrial fibrillation to AV pacing with underlying sinus rhythm. Patient tolerated the procedure well with no complications. Complications:: No apparent complications immediately noted Conculsion:: Successful electrical cardioversion from atrial fibrillation to sinus rhythm/paced. Cardioversion completed by Dr. Chang.
--- NOTE | 2021-10-16 16:15 | PC.NURSE ---
Addendum entered by Nasrin Walters RN 10/16/21 16:19: medication verified with Scar Smith RN prior to administration Original Note: [id number] Dr Chang, Sarika BRUNNER and Raul Lamas MA at bedside with this RN Sarika Moss RT and Dina Russo RT for patient cardioversion. pt remained on ventilator, cardioversion completed by Dr Chang via pacemaker implanted in patients chest. order for versed 2mg and fentanyl 150mcg received from MD for sedation. pt also received 1000ml LR bolus during and after procedure for hypotension. nad noted pt remains asleep at this time ([id number])
[2021-10-16 17:42] LABS: POC Glucose,Bedside 143 (70-110)
[2021-10-16 18:48] LABS: Anion Gap 7.3 mEq/L (5-15); Blood Urea Nitrogen 24 mg/dl (7-17); Calcium 8.4 mg/dl (8.4-10.2); Carbon Dioxide 30 mmol/L (22.0-30.0); Chloride 102 mmol/L (98-107); Creatinine Clearance Estimated 44 mL/min (50-200); Estimated Glomerular Filt Rate 101 ml/min (>60); GFR (African American) 123 ML/MIN (>60); Glucose 157 mg/dl (74-100); Potassium 3.3 mmoL/L (3.5-5.1); Sodium 136 mmol/L (136-145)
--- NOTE | 2021-10-16 19:58 | PC.NURSE ---
1825 reported face to face with Dr Abraham that pt hematoma over pacemaker site has increased in size since this am. also notified that pt has decreased urine output this shift.
--- NOTE | 2021-10-16 20:02 | PC.NURSE ---
LAte entry: central line dressing changed at approx 1300. sterile technique used, soiled bio patch removed and replaced with new. end caps removed and replaced with new. dressing changed and dated, pt tolerated well, nad noted.
[2021-10-16 21:44] LABS: POC Glucose,Bedside 140 (70-110)
[2021-10-17] VITALS (32 sets, daily range): BP systolic 116–157; BP diastolic 67–104; PULSE 70–72; RESP 15–27; TEMP 36–37.2; O2SAT 92–98; BMI 47.1
--- NOTE | 2021-10-17 06:00 | XR_ITS ---
PROCEDURE INFORMATION: Exam: XR Chest Exam date and time: 10/17/2021 5:31 AM Age: 61 years old Clinical indication: Device placement; Ett placement (vent status); Patient HX: Swelling over upper left side; Additional info: Daily while intubated TECHNIQUE: Imaging protocol: XR of the chest. Views: 1 view. COMPARISON: CR XR CHEST PORTABLE 10/16/2021 8:06 AM FINDINGS: Tubes, catheters and devices: The ET tube is in good position. Central venous catheter overlies the right atrium. Lungs: Retrocardiac atelectasis versus infiltrate is noted. Pleural spaces: Unremarkable. No pleural effusion. No pneumothorax. Heart/Mediastinum: The heart is enlarged. Bones/joints: Unremarkable. IMPRESSION: Lines and tubes in good position. Cardiomegaly. The left lung base airspace disease.
[2021-10-17 06:17] LABS: POC Glucose,Bedside 142 (70-110)
[2021-10-17 06:50] LABS: Basophils % 0.1 % (0.1-2.0); Eosinophils # 0.1 K/mm3 (0.0-0.4); Eosinophils % 0.6 % (0.1-12.0); Hematocrit 40.2 % (37.0-47.0); Hemoglobin 12.5 g/dL (12.2-16.2); Lymphocytes # 0.7 K/mm3 (0.7-4.5); Lymphocytes % 8.6 % (10-50); Mean Corpuscular HGB Conc 31.2 g/dL (31.8-35.4); Mean Corpuscular Hemoglobin 27.6 pg (27.0-31.2); Mean Corpuscular Volume 88.4 fl (81-99); Mean Platelet Volume 8.4 fl (7.4-10.4); Monocytes # 0.8 K/mm3 (0.1-1.0); Monocytes % 9.6 % (1.7-9.3); Neutrophils # 6.8 K/mm3 (1.8-7.8); Platelet Count 154 K/mm3 (142-424); Red Blood Count 4.54 M/mm3 (4.20-5.40); Red Cell Distribution Width 15.1 % (11.5-17.5); White Blood Count 8.4 K/mm3 (4.8-10.8)
[2021-10-17 06:53] LABS: Chloride 104 mmol/L (98-107)
[2021-10-17 06:54] LABS: Potassium 3.2 mmoL/L (3.5-5.1); Sodium 138 mmol/L (136-145)
[2021-10-17 06:56] LABS: Alanine Aminotransferase 63 U/L (12-78); Aspartate Amino Transferase 47 U/L (14-36); Bilirubin,Total 1.8 mg/dl (0.2-1.3); Blood Urea Nitrogen 21 mg/dl (7-17); Creatinine Clearance Estimated 44 mL/min (50-200); Estimated Glomerular Filt Rate 85 ml/min (>60); GFR (African American) 103 ML/MIN (>60)
[2021-10-17 06:57] LABS: Albumin Level 2.9 g/dl (3.5-5.0); Alkaline Phosphatase 85 U/L (38-126); Anion Gap 6.2 mEq/L (5-15); Calcium 8.8 mg/dl (8.4-10.2); Carbon Dioxide 31 mmol/L (22.0-30.0); Globulin 2.8 g/dL (1.3-3.2); Glucose 169 mg/dl (74-100); Total Protein,Serum 5.7 g/dl (6.3-8.2)
[2021-10-17 07:22] LABS: Magnesium 2.2 mg/dl (1.6-2.3)
--- NOTE | 2021-10-17 08:18 | US_ITS ---
FINAL REPORT CLINICAL HISTORY: Focus on pacemaker hematoma for size and character FINDINGS: ULTRASOUND CHEST SOFT TISSUE Limited sonographic images were obtained of the soft tissue of the left upper anterior chest wall. At the area of interest there is an isoechoic focus adjacent to the pacemaker site measuring 10.7 x 4.8 cm probably representing a chest wall hematoma. IMPRESSION: 10.7 cm probable chest wall hematoma at the site of the pacemaker. Recommend chest CT with contrast to document the full extent of the hematoma. Reviewed, Interpreted and Dictated by Hernandez Griffin MD Transcribed by Nic Boyd Authenticated by Hernandez Griffin MD on 10/17/2021 03:50:32 PM [facility]
--- NOTE | 2021-10-17 08:20 | CT_ITS ---
FINAL REPORT TECHNIQUE: Thin section axial images were performed through the head in a CTA protocol. MIP reconstruction sagittal and coronal images were submitted. This study was performed with techniques to keep radiation doses as low as reasonably achievable (ALARA). Individualized dose reduction techniques using automated exposure control or adjustment of mA and/or kV according to the patient's size were employed. CLINICAL HISTORY: MS change - post code event FINDINGS: CTA head: The distal vertebral, basilar and distal internal carotid arteries have an unremarkable appearance. No aneurysm is seen. Major intracranial vessels are patent without significant stenosis. The patient is intubated. There is opacification of the left sphenoid sinus. IMPRESSION: No aneurysm or significant stenosis. Reviewed, Interpreted and Dictated by Hernandez Griffin MD Transcribed by Nic Boyd Authenticated by Hernandez Griffin MD on 10/17/2021 01:06:17 PM [facility]
--- NOTE | 2021-10-17 08:20 | CT_ITS ---
FINAL REPORT TECHNIQUE: Thin section axial CT with IV contrast supplemented with multiplanar reconstruction under CT angiogram protocol. This study was performed with techniques to keep radiation doses as low as reasonably achievable (ALARA). Individualized dose reduction techniques using automated exposure control or adjustment of mA and/or kV according to the patient''s size were employed. NASCET criteria was utilized during interpretation. CLINICAL HISTORY: MS change - post code event FINDINGS: Aortic arch: Arch shows no significant narrowing. Great vessel origins are widely patent. Right carotid: No significant stenosis is seen of the cervical common or internal carotid artery. Left carotid: No significant stenosis is seen of the cervical common or internal carotid artery. Vertebral: Left vertebral artery is the dominant posterior circulating vessel. No significant stenosis is present. There is mild plaque at the left carotid bifurcation. There is airspace opacity in the medial left upper lobe. IMPRESSION: No significant stenosis or occlusion. Reviewed, Interpreted and Dictated by Hernandez Griffin MD Transcribed by Nic Boyd Authenticated by Hernandez Griffin MD on 10/17/2021 01:06:09 PM [facility]
--- NOTE | 2021-10-17 08:20 | CT_ITS ---
FINAL REPORT TECHNIQUE: Axial CT images were performed through the head. Coronal reformatted images were submitted. This study was performed with techniques to keep radiation doses as low as reasonably achievable (ALARA). Individualized dose reduction techniques using automated exposure control or adjustment of mA and/or kV according to the patient's size were employed. CLINICAL HISTORY: MS change - post code event COMPARISON: 10/12/2021 FINDINGS: The patient is intubated. There is mild atrophy. The brain parenchyma is homogeneous. The ventricles are normal in size. There is no evidence of hemorrhage. There is no mass or edema identified. There is no abnormal extra-axial fluid seen. There is opacification of the left cells of the sphenoid sinus consistent with chronic sinusitis. Findings have progressed since previous. IMPRESSION: No acute intracranial process. Progression of chronic left sphenoid sinusitis. Reviewed, Interpreted and Dictated by Hernandez Griffin MD Transcribed by Carolin Fried Authenticated by Hernandez Griffin MD on 10/17/2021 11:36:55 AM [facility]
--- NOTE | 2021-10-17 08:22 | HMH.ACPN2 ---
Internal Medicine - PN: Subj *Date: 10/17/21 *Time: 08:22 Interval history: No major change overnight. Cardioversion yesterday was successful and patient's telemetry monitoring shows sinus rhythm with appropriate pacer spikes. Blood pressures been acceptable off pressors. Please see assessment/plan for ongoing significant issues. Exam Vital signs and Labs for Last 24 Hours: Temp Pulse Resp BP Pulse Ox 98.0 F 70 20 142/80 H 92 L 10/17/21 05:00 10/17/21 06:00 10/17/21 06:11 10/17/21 06:00 10/17/21 06:11 Laboratory Results - last 24 hr 10/16/21 06:00: ABG Lactate 1.5 10/16/21 06:00: Specimen Source Left radial, O2 % 40, ABG pH 7.43, ABG pCO2 41.4, ABG pO2 94.0, ABG HCO3 26.6 H, ABG Total CO2 27.8 H, ABG O2 Saturation 97, ABG Base Excess 2.2, Ajit Test Acceptable, PEEP 5 10/16/21 11:31: POC Glucose 161 H 10/16/21 17:35: POC Glucose 143 H 10/16/21 18:23: Sodium 136, Potassium 3.3 L, Chloride 102, Carbon Dioxide 30, Anion Gap 7.3, BUN 24 H, Creatinine 0.60, Estimated Creat Clear 44, Estimated GFR 101, Est GFR ( Amer) 123, Glucose 157 H, Calcium 8.4 10/16/21 21:37: POC Glucose 140 H 10/17/21 06:09: POC Glucose 142 H 10/17/21 06:35: WBC 8.4, RBC 4.54, Hgb 12.5, Hct 40.2, MCV 88.4, MCH 27.6, MCHC 31.2 L, RDW 15.1, Plt Count 154, MPV 8.4, Neut % (Auto) 81.0 H, Lymph % (Auto) 8.6 L, [place] % (Auto) 9.6 H, Eos % (Auto) 0.6, Baso % (Auto) 0.1, Neut # (Auto) 6.8, Lymph # (Auto) 0.7, [place] # (Auto) 0.8, Eos # (Auto) 0.1, Baso # (Auto) 0.0 10/17/21 06:35: Sodium 138, Potassium 3.2 L, Chloride 104, Carbon Dioxide 31 H, Anion Gap 6.2, BUN 21 H, Creatinine 0.70, Estimated Creat Clear 44, Estimated GFR 85, Est GFR ( Amer) 103, Glucose 169 H, Calcium 8.8, Total Bilirubin 1.8 H, AST 47 H, ALT 63 D, Alkaline Phosphatase 85, Total Protein 5.7 L, Albumin 2.9 L, Globulin 2.8, Albumin/Globulin Ratio 1.0 L 10/17/21 06:35: Magnesium 2.2 I & O for Last 24 hours: Intake & Output 10/14/21 10/15/21 10/16/21 10/17/21 11:59 11:59 11:59 11:59 Intake Total 3376.392 / 3376.392 2361.847 / 2446.847 419 / 547 1500 / 1500 Output Total 1080 / 1335 2090 / 2480 1490 / 1540 765 / 765 Balance 2296.392 / 2041.392 271.847 / -33.153 -1071 / -993 735 / 735 Weight 267 lb 8 oz 270 lb 256 lb 8 oz 256 lb 3.2 oz Narrative: Patient intubated. On absolutely no sedation for the past 4 days. She will respond to painful stimuli. Corneal reflexes are intact, gag reflexes are intact, patient withdraws to pain. Today she will not respond to commands and does not squeeze my hand or close or open eyes on command. She reflexively rolls her eyes to the opposite side of the examiner when head is turned. Upgoing Babinski's bilaterally. New onset hematoma that appeared yesterday on top of her pacemaker site is still there. It shrunk slightly. No active bleeding from the suture line. No bruising around the subclavian insertion site or tracking across the rest of the chest. The hematoma is localized over the pacemaker site exclusively. No tracking down the left arm. She does have a superficial wound on the epitrochlear area of the right arm from previous IV site. Extremities are otherwise warm and well-perfused. Heart rate regular. Abdomen is soft. Assessment and Plan (1) Acute on chronic congestive heart failure Status: Acute Qualifiers: Heart failure type: systolic Qualified Code(s): I50.23 - Acute on chronic systolic (congestive) heart failure Category: Medical Code(s): I50.9 - Heart failure, unspecified (2) Atrial flutter with rapid ventricular response Status: Acute Category: Medical Code(s): I48.92 - Unspecified atrial flutter (3) AICD (automatic cardioverter/defibrillator) present Status: Acute Category: Surgical Code(s): Z95.810 - Presence of automatic (implantable) cardiac defibrillator (4) Cardiac arrest Status: Acute Category: Medical Code(s): I46.9 - Cardiac arrest, cause unspecified (5)
--- NOTE | 2021-10-17 09:31 | DIET.NUTRFU ---
RD rounded with Dr. Hollis this morning. Patient has not started back on TF d/t vomiting yesterday. Dr Hollis started erthromycin to help with gastric mobility, pharmacy reports normally shows improvement in 24-48 hours. Will review with provider and nursing about restarting TF tomorrow. Dr. Hollis checked for gag reflux and pain response. Not as good as yesterday. Her gag reflux seemed delayed. 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 She may need for discharge purposes. Respiratory plans to try SBT today, had some improvement with that yesterday. Ultrasound ordered for lump forming at pacemaker site.
--- NOTE | 2021-10-17 10:06 | HMH.PNCARD ---
Subjective Date: 10/17/21 Time: 10:00 Principal diagnosis: CHF, afib with rvr Interval history: This is a 61-year-old white female who was admitted to the hospital with an acute exacerbation of her chronic systolic congestive heart failure and atrial fibrillation with RVR. She remains intubated and on the ventilator. She is status post biventricular AICD placement. The patient was cardioverted back to sinus rhythm yesterday. She tolerated the procedure well. She did get a little hypotensive following the procedure and got a fluid bolus. The Levophed drip did not have to be restarted and her blood pressure is well controlled today. Yesterday morning the patient did follow some simple commands of blinking her eyes and squeezing her left hand. This morning the patient has not followed any commands for anyone. She did track when I first came in the room and started talking but then stopped and has had no purposeful movements since then. Her pupils are still reactive. She does slightly withdraw to pain. Her AICD site still has a hematoma this morning but no signs of bleeding or infection. She appears to be in no acute distress. Her vital signs are stable. Exam Vital signs and Labs for Last 24 Hours: Temp Pulse Resp BP Pulse Ox 98.0 F 70 15 143/79 H 95 10/17/21 08:57 10/17/21 09:54 10/17/21 09:43 10/17/21 08:00 10/17/21 09:43 Laboratory Results - last 24 hr 10/16/21 06:00: ABG Lactate 1.5 10/16/21 06:00: Specimen Source Left radial, O2 % 40, ABG pH 7.43, ABG pCO2 41.4, ABG pO2 94.0, ABG HCO3 26.6 H, ABG Total CO2 27.8 H, ABG O2 Saturation 97, ABG Base Excess 2.2, Ajit Test Acceptable, PEEP 5 10/16/21 11:31: POC Glucose 161 H 10/16/21 17:35: POC Glucose 143 H 10/16/21 18:23: Sodium 136, Potassium 3.3 L, Chloride 102, Carbon Dioxide 30, Anion Gap 7.3, BUN 24 H, Creatinine 0.60, Estimated Creat Clear 44, Estimated GFR 101, Est GFR ( Amer) 123, Glucose 157 H, Calcium 8.4 10/16/21 21:37: POC Glucose 140 H 10/17/21 06:09: POC Glucose 142 H 10/17/21 06:35: WBC 8.4, RBC 4.54, Hgb 12.5, Hct 40.2, MCV 88.4, MCH 27.6, MCHC 31.2 L, RDW 15.1, Plt Count 154, MPV 8.4, Neut % (Auto) 81.0 H, Lymph % (Auto) 8.6 L, [place] % (Auto) 9.6 H, Eos % (Auto) 0.6, Baso % (Auto) 0.1, Neut # (Auto) 6.8, Lymph # (Auto) 0.7, [place] # (Auto) 0.8, Eos # (Auto) 0.1, Baso # (Auto) 0.0 10/17/21 06:35: Sodium 138, Potassium 3.2 L, Chloride 104, Carbon Dioxide 31 H, Anion Gap 6.2, BUN 21 H, Creatinine 0.70, Estimated Creat Clear 44, Estimated GFR 85, Est GFR ( Amer) 103, Glucose 169 H, Calcium 8.8, Total Bilirubin 1.8 H, AST 47 H, ALT 63 D, Alkaline Phosphatase 85, Total Protein 5.7 L, Albumin 2.9 L, Globulin 2.8, Albumin/Globulin Ratio 1.0 L 10/17/21 06:35: Magnesium 2.2 I & O for Last 24 hours: Intake & Output 10/14/21 10/15/21 10/16/21 10/17/21 23:59 23:59 23:59 23:59 Intake Total 3092.980 / 3092.980 863 / 863 1620 / 1620 80 / 80 Output Total 1600 / 1620 2300 / 2340 945 / 985 320 / 320 Balance 1492.980 / 1472.980 -1437 / -1477 675 / 635 -240 / -240 Weight 267 lb 8 oz 270 lb 256 lb 8 oz 256 lb 3.2 oz Narrative: EKG is AV pacing with a rate of 70. - Constitutional no acute distress, morbidly obese - *Routine HEENT Exam Head: Present: normocephalic, atraumatic Eye: Present: PERRL ENT: Present: mucous membranes moist - *Routine Neck Exam Present: supple, full ROM. Absent: JVD, normal carotid upstroke, lymphadenopathy - *Routine Respiratory Exam Present: patient mechanically ventilated, CTA bilaterally - *Routine Cardiovascular Exam Present: RRR, Normal S1, Normal S2. Absent: murmur - *Routine Abdominal Exam Present: soft, normoactive bowel sounds. Absent: tenderness, distended - *Routine Extremities Exam Present: full ROM, pulses intact, normal capillary refill. Absent: cyanosis, clubbing, edema - *Routine Skin Exam Present: intact, warm. Absent: rash - *Routine Neurological Exam Present: altered mental status Prog
--- NOTE | 2021-10-17 10:20 | PC.NURSE ---
received call from Dr. Dudley ( neurosurgeon) reporting that CTA results reveal a right MCA. Dr. Hollis notified.
--- NOTE | 2021-10-17 10:59 | PC.NURSE ---
pt's hematoma over pacemaker site is getting larger. Area from this morning was circled with a marker. Hematoma is not aprox 2-3 larger and is extending down left arm and down towards left nipple. Dr. Hollis, Gustavo Schaffer APRN, and Dr. Poe updated.
--- NOTE | 2021-10-17 11:00 | HMH.PULMPN ---
Internal Medicine - PN: Subj *Date: 10/17/21 *Time: 11:00 Interval history: No acute respiratory vents overnight. Exam - Constitutional Constitutional:: Present: no acute distress, comfortable - HENMT Exam HENMT: Present: normocephalic - Eye Exam Eyes:: Present: normal appearance both eyes and related structures - Neck Exam Neck:: Present: normal visual inspection - Respiratory Exam Respiratory:: Present: crackles. Absent: able to speak in complete sentences, no respiratory distress - Cardiovascular Exam Cardiac:: Present: S1, S2 - GI Exam GI:: Present: soft - Skin Exam Skin: Present: warm - Neurological Exam Neurological: Absent: alert, awake, normal cognition - Extremities Exam Extremities: Present: no cyanosis, no clubbing, edema Assessment and Plan (1) Acute on chronic congestive heart failure Status: Acute Qualifiers: Heart failure type: systolic Qualified Code(s): I50.23 - Acute on chronic systolic (congestive) heart failure Category: Medical Code(s): I50.9 - Heart failure, unspecified (2) Atrial flutter with rapid ventricular response Status: Resolved Category: Medical Code(s): I48.92 - Unspecified atrial flutter (3) AICD (automatic cardioverter/defibrillator) present Status: Acute Category: Surgical Code(s): Z95.810 - Presence of automatic (implantable) cardiac defibrillator (4) Cardiac arrest Status: Acute Category: Medical Code(s): I46.9 - Cardiac arrest, cause unspecified (5) Cardiogenic shock Status: Acute Category: Medical Code(s): R57.0 - Cardiogenic shock (6) CAD (coronary atherosclerotic disease) Status: Chronic Qualifiers: Coronary Disease-Associated Artery/Lesion type: [place] artery [place] vs. transplanted heart: [place] heart Associated angina: without angina Qualified Code(s): I25.10 - Atherosclerotic heart disease of [place] coronary artery without angina pectoris Category: Medical Code(s): I25.10 - Atherosclerotic heart disease of [place] coronary artery without angina pectoris (7) Diabetes mellitus Status: Chronic Qualifiers: Diabetes mellitus type: type 2 Diabetes mellitus fpc insulin use: without salvage determiner use Diabetes mellitus complication status: without complication Qualified Code(s): E11.9 - Type 2 diabetes mellitus without complications Category: Medical Code(s): E11.9 - Type 2 diabetes mellitus without complications (8) Dilated cardiomyopathy Status: Chronic Category: Medical Code(s): I42.0 - Dilated cardiomyopathy (9) HLD (hyperlipidemia) Status: Chronic Qualifiers: Hyperlipidemia type: mixed hyperlipidemia Qualified Code(s): E78.2 - Mixed hyperlipidemia Category: Medical Code(s): E78.5 - Hyperlipidemia, unspecified (10) Hypertensive disorder Status: Chronic Qualifiers: Hypertension type: primary hypertension Qualified Code(s): I10 - Essential (primary) hypertension Category: Medical Code(s): I10 - Essential (primary) hypertension (11) Obstructive sleep apnea syndrome Status: Chronic Category: Medical Code(s): G47.33 - Obstructive sleep apnea (adult) (pediatric) (12) Encephalopathy acute Status: Acute Category: Medical Code(s): G93.40 - Encephalopathy, unspecified - Assessment and plan all Dx Assessment and Plan for all problems:: #Acute hypoxic respiratory failure needing mechanical ventilatory support: #Hospital-acquired pneumonia: 61-year-old female present with A. fib RVR, experienced cardiopulmonary arrest with return of spontaneous circulation after less than 1 minute of CPR and epinephrine. Patient during the procedure was intubated for airway support and pulmonary was called for further management. Patient has been altered since the day of intubation with no significant improvement in her mentation despite off sedation for greater than [address] head performed the day after cardiopulmonary arrest did not
[2021-10-17 11:46] LABS: POC Glucose,Bedside 171 (70-110)
[2021-10-17 16:44] LABS: POC Glucose,Bedside 143 (70-110)
[2021-10-18] VITALS (36 sets, daily range): BP systolic 103–153; BP diastolic 56–81; PULSE 70–80; RESP 20; TEMP 36.2–37.5; O2SAT 40–100; BMI 47.1; BMI 48.0
--- NOTE | 2021-10-18 06:00 | XR_ITS ---
PROCEDURE INFORMATION: Exam: XR Chest Exam date and time: 10/18/2021 5:25 AM Age: 61 years old Clinical indication: Device placement; Ett placement (vent status); Additional info: Daily while intubated TECHNIQUE: Imaging protocol: XR of the chest. Views: 1 view. COMPARISON: CR XR CHEST PORTABLE 10/17/2021 5:31 AM FINDINGS: Tubes, catheters and devices: Tip of ENDOTRACHEAL tube is cranial/superior to the candace by approximately 3.1 cm. LEFT chest wall pacemaker. Tip of nasogastric tube is not well visualized. RIGHT sided CENTRAL VENOUS line with its tip at RIGHT atrium SVC junction. Lungs: Decreased lung volumes, diffuse haziness/airspace opacity in the LEFT lung. Pleural spaces: Blunting of the LEFT costophrenic angle suggestive of small pleural effusion/thickening. Heart/Mediastinum: Marked cardiomegaly with central pulmonary vascular congestion. Bones/joints: IMPRESSION: 1. Predominately LEFT-sided consolidation/pneumonia. 2. Possibility of underlying dilated cardiomyopathy, CHF/pulmonary edema cannot be excluded. Recommend followup to complete resolution.
--- NOTE | 2021-10-18 06:30 | PC.NURSE ---
RESPIRATORY CARE NOTE: TURNED PT INTO PS 5/5, 40% FOR SBT. PT DID NOT SPONT BREATH AT THIS TIME. TURNED VENT BACK TO A/C 440, 20, 5, AND 40%.
[2021-10-18 06:47] LABS: Chloride 105 mmol/L (98-107); Potassium 3.2 mmoL/L (3.5-5.1); Sodium 139 mmol/L (136-145)
[2021-10-18 06:50] LABS: Alanine Aminotransferase 52 U/L (12-78); Albumin Level 2.8 g/dl (3.5-5.0); Albumin/Globulin Ratio 1.1 (1.1-1.8); Alkaline Phosphatase 111 U/L (38-126); Anion Gap 5.2 mEq/L (5-15); Aspartate Amino Transferase 53 U/L (14-36); Blood Urea Nitrogen 15 mg/dl (7-17); Carbon Dioxide 32 mmol/L (22.0-30.0); Creatinine Clearance Estimated 44 mL/min (50-200); Estimated Glomerular Filt Rate 101 ml/min (>60); GFR (African American) 123 ML/MIN (>60); Globulin 2.6 g/dL (1.3-3.2); Total Protein,Serum 5.4 g/dl (6.3-8.2)
[2021-10-18 06:51] LABS: Calcium 8.6 mg/dl (8.4-10.2); Glucose 157 mg/dl (74-100)
--- NOTE | 2021-10-18 07:24 | PC.NURSE ---
noted ng tube had moved to 40. previous nurse stated it should be at 50. advanced ng tube down and checked placement via auscultation
--- NOTE | 2021-10-18 07:52 | HMH.ACPN2 ---
Internal Medicine - PN: Subj *Date: 10/18/21 *Time: 13:30 Interval history: Remained afebrile overnight. Continues to be in sinus rhythm. Blood pressure remained stable. Tolerating current medications. Still no bowel movement. Tube feeds currently held. Failed SBT this morning, not initiating breathing. No family at bedside today. Nursing noted that left chest wall hematoma appears to be getting bigger. Reviewed imaging from yesterday, CTs of head showing small aneurysm at right MCA bifurcation but no apparent stroke. Chest x-ray this morning with left-sided consolidation per radiology report. Discussed case today with cardiology and pulmonology. Appreciate their assistance in care Exam Vital signs and Labs for Last 24 Hours: Temp Pulse Resp BP Pulse Ox 98.0 F 70 20 126/73 40 L 10/18/21 04:00 10/18/21 06:00 10/18/21 06:30 10/18/21 06:00 10/18/21 06:30 Laboratory Results - last 24 hr 10/17/21 11:40: POC Glucose 171 H 10/17/21 16:37: POC Glucose 143 H 10/18/21 05:30: Sodium 139, Potassium 3.2 L, Chloride 105, Carbon Dioxide 32 H, Anion Gap 5.2, BUN 15 D, Creatinine 0.60, Estimated Creat Clear 44, Estimated GFR 101, Est GFR ( Amer) 123, Glucose 157 H, Calcium 8.6, Total Bilirubin 2.0 H, AST 53 H, ALT 52, Alkaline Phosphatase 111, Total Protein 5.4 L, Albumin 2.8 L, Globulin 2.6, Albumin/Globulin Ratio 1.1 I & O for Last 24 hours: Intake & Output 10/15/21 10/16/21 10/17/21 10/18/21 23:59 23:59 23:59 23:59 Intake Total 863 / 863 1620 / 1620 500 / 500 150 / 150 Output Total 2300 / 2340 945 / 985 1999 / 2029 190 / 190 Balance -1437 / -1477 675 / 635 -1500 / -1530 -40 / -40 Weight 122.47 kg 116.346 kg 116.21 kg 116.205 kg Narrative: - Constitutional mild distress, morbidly obese; somnolent - *Routine HEENT Exam Head: Present: normocephalic Eye: Present: PERRLA ENT: Present: mucous membranes moist - *Routine Neck Exam Present: supple. Absent: lymphadenopathy - Routine Chest/Breast/Axilla Exam Chest wall: Present: pacemaker (incision with large intervally expanded hematoma, dressing CDI.) - *Routine Respiratory Exam Present: patient mechanically ventilated, CTA bilaterally - *Routine Cardiovascular Exam Present: RRR, no Murmur - *Routine Abdominal Exam Present: soft, normoactive bowel sounds. Absent: tenderness - *Routine Extremities Exam Present: edema (trace). Absent: cyanosis, clubbing - *Routine Skin Exam Present: warm. Absent: rash - *Routine Neurological Exam Present:Flexion to pain, not following commands on exam. Opens eyes to voice but does not focus on examiner. Able to cough. No clonus in lower extremities. normal babinski/withdrawal; E2, V not testable, M4 Assessment and Plan (1) Acute on chronic congestive heart failure Status: Acute Qualifiers: Heart failure type: systolic Qualified Code(s): I50.23 - Acute on chronic systolic (congestive) heart failure Category: Medical Code(s): I50.9 - Heart failure, unspecified (2) Atrial flutter with rapid ventricular response Status: Resolved Category: Medical Code(s): I48.92 - Unspecified atrial flutter (3) AICD (automatic cardioverter/defibrillator) present Status: Acute Category: Surgical Code(s): Z95.810 - Presence of automatic (implantable) cardiac defibrillator (4) Cardiac arrest Status: Acute Category: Medical Code(s): I46.9 - Cardiac arrest, cause unspecified (5) Cardiogenic shock Status: Acute Category: Medical Code(s): R57.0 - Cardiogenic shock (6) CAD (coronary atherosclerotic disease) Status: Chronic Qualifiers: Coronary Disease-Associated Artery/Lesion type: [place] artery [place] vs. transplanted heart: [place] heart Associated angina: without angina Qualified Code(s): I25.10 - Atherosclerotic heart disease of [place] coronary artery without angina pectoris Category: Medical Code(s): I25.10 - Atherosclerotic heart disease of [place]
--- NOTE | 2021-10-18 08:46 | XR_ITS ---
FINAL REPORT CLINICAL HISTORY: ng tube placement and asses bowels FINDINGS: ABDOMEN SINGLE VIEW NG tube tip terminates in the stomach. Side hole is at the level of the GE junction. Left subclavian pacer is identified. Right central venous catheter tip terminates in the SVC. Endotracheal tube tip is 4 cm superior to the candace. There is bibasilar atelectasis. Gas and stool are seen throughout the colon. No definite bowel obstruction is identified. IMPRESSION: Lines and tubes as above. Reviewed, Interpreted and Dictated by Hernandez Griffin MD Transcribed by Carolin Fried Authenticated by Hernandez Griffin MD on 10/18/2021 10:56:48 AM [facility]
[2021-10-18 09:41] LABS: Hematocrit 35.3 % (37.0-47.0); Mean Corpuscular HGB Conc 31.7 g/dL (31.8-35.4); Mean Corpuscular Hemoglobin 28.4 pg (27.0-31.2); Mean Corpuscular Volume 89.4 fl (81-99); Red Blood Count 3.95 M/mm3 (4.20-5.40)
[2021-10-18 09:42] LABS: Basophils % 0.1 % (0.1-2.0); Eosinophils # 0.1 K/mm3 (0.0-0.4); Lymphocytes # 0.7 K/mm3 (0.7-4.5); Lymphocytes % 6.9 % (10-50); Mean Platelet Volume 11.5 fl (7.4-10.4); Monocytes # 1.1 K/mm3 (0.1-1.0); Monocytes % 10.8 % (1.7-9.3); Neutrophils # 7.9 K/mm3 (1.8-7.8); Platelet Count 157 K/mm3 (142-424); Red Cell Distribution Width 15.5 % (11.5-17.5)
[2021-10-18 09:44] LABS: Eosinophils % 0.1 % (0.1-12.0)
[2021-10-18 09:48] LABS: Hemoglobin 11.2 g/dL (12.2-16.2); White Blood Count 9.7 K/mm3 (4.8-10.8)
--- NOTE | 2021-10-18 10:12 | CT_ITS ---
FINAL REPORT TECHNIQUE: After the administration of intravenous contrast, axial images through the chest were performed by computed tomography.This study was performed with techniques to keep radiation doses as low as reasonably achievable, (ALARA). Individualized dose reduction techniques using automated exposure control or adjustment of mA and/or kV according to the patient''s size were employed. CLINICAL HISTORY: pneumonia on left? and chest hematoma FINDINGS: An endotracheal tube is seen in proper position. A right IJ central venous catheter terminates in the SVC. There is a left upper anterior chest wall pacemaker. There is a large, ovoid soft tissue density collection surrounding the pacemaker. Collection measures 12.1 x 7.8 cm in AP and transverse dimensions consistent with a hematoma. The presumed hematoma completely surrounds the pacemaker generator. There is no axillary adenopathy. There is no hilar or mediastinal adenopathy. The heart size is normal. There are small bilateral pleural effusions. Limited images of the upper abdomen are unremarkable. There is bibasilar consolidation with overlying atelectasis. IMPRESSION: Large chest wall hematoma surrounding the pacemaker generator. Bibasilar consolidation and small pleural effusions. Reviewed, Interpreted and Dictated by Hernandez Griffin MD Transcribed by Nic Boyd Authenticated by Hernandez Griffin MD on 10/18/2021 01:27:29 PM [facility]
--- NOTE | 2021-10-18 10:18 | HMH.PNCARD ---
Subjective Date: 10/18/21 Time: 10:15 Principal diagnosis: CHF, afib with rvr Interval history: This is a 61-year-old white female who was admitted to the hospital with an acute exacerbation of chronic systolic congestive heart failure and atrial fibrillation with RVR. She remains intubated and on the ventilator today. She does still move her extremities sporadically especially her lower extremities. She does track with her head when you are talking to her at times. She has no purposeful movements. She does not follow any commands. Her pupils are reactive today. She appears to be in no distress. She remains in sinus rhythm and AV pacing on telemetry today following cardioversion. She is status post biventricular AICD placement. She does have a 10.7 cm hematoma noted to the AICD site which does not appear to have worsened since Dr. Chang and I evaluated the hematoma late yesterday afternoon. It does not feel as hard today. Her vital signs are stable. She appears to be in no acute distress. Exam Vital signs and Labs for Last 24 Hours: Temp Pulse Resp BP Pulse Ox 98.0 F 70 20 103/63 L 97 10/18/21 04:00 10/18/21 10:10 10/18/21 07:00 10/18/21 07:00 10/18/21 07:00 Laboratory Results - last 24 hr 10/17/21 11:40: POC Glucose 171 H 10/17/21 16:37: POC Glucose 143 H 10/18/21 05:30: WBC 9.7, RBC 3.95 L, Hgb 11.2 L D, Hct 35.3 L, MCV 89.4, MCH 28.4, MCHC 31.7 L, RDW 15.5, Plt Count 157, MPV 11.5 H, Neut % (Auto) 81.0 H, Lymph % (Auto) 6.9 L, [place] % (Auto) 10.8 H, Eos % (Auto) 0.1, Baso % (Auto) 0.1, Neut # (Auto) 7.9 H, Lymph # (Auto) 0.7, [place] # (Auto) 1.1 H, Eos # (Auto) 0.1, Baso # (Auto) 0.0 10/18/21 05:30: Sodium 139, Potassium 3.2 L, Chloride 105, Carbon Dioxide 32 H, Anion Gap 5.2, BUN 15 D, Creatinine 0.60, Estimated Creat Clear 44, Estimated GFR 101, Est GFR ( Amer) 123, Glucose 157 H, Calcium 8.6, Total Bilirubin 2.0 H, AST 53 H, ALT 52, Alkaline Phosphatase 111, Total Protein 5.4 L, Albumin 2.8 L, Globulin 2.6, Albumin/Globulin Ratio 1.1 I & O for Last 24 hours: Intake & Output 10/15/21 10/16/21 10/17/21 10/18/21 23:59 23:59 23:59 23:59 Intake Total 863 / 863 1620 / 1620 500 / 500 150 / 150 Output Total 2300 / 2340 945 / 985 1999 / 2029 217 / 217 Balance -1437 / -1477 675 / 635 -1500 / -1530 -67 / -67 Weight 270 lb 256 lb 8 oz 256 lb 3.2 oz 256 lb 3 oz Narrative: Telemetry strip is AV pacing with a rate of 70, underlying sinus rhythm. CT head shows: No acute intracranial process. Progression of chronic left sphenoid sinusitis. 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 Findings well seen on image 46 of series 602 and image 105 of series 3. Please note the findings were discussed with Dr. Dudley. Authenticated by Hernandez Griffin MD on Sophia CT neck shows: No significant stenosis or occlusion. - Constitutional no acute distress, morbidly obese - *Routine HEENT Exam Head: Present: normocephalic, atraumatic Eye: Present: PERRL ENT: Present: mucous membranes moist - *Routine Neck Exam Present: normal carotid upstroke. Absent: JVD, carotid bruit, lymphadenopathy - *Routine Respiratory Exam Present: patient mechanically ventilated, CTA bilaterally - *Routine Cardiovascular Exam Present: RRR, Normal S1, Normal S2. Absent: murmur - *Routine Abdominal Exam Present: soft, normoactive bowel sounds. Absent: tenderness - *Routine Extremities Exam Present: pulses intact, normal capillary refill. Absent: cyanosis, clubbing, edema - *Routine Skin Exam Present: intact, warm. Absent: rash - *Routine Neurological Exam Present: altered mental status Progress Note: A&P (1) Acute on chronic congestive heart failure Status: Acute (2) Atrial flutter with rapid ventricular response Status: Resolved (3) AICD (automatic cardioverter/defibrillator) present Status: Acute (4) Cardiac arrest Status: Acute
--- NOTE | 2021-10-18 10:32 | HMH.ITSTN ---
SPOKE WITH NURSE ALEJANDRA TO ARRANGE CT TO BE DONE, SHE SAID 12 NOON WOULD BE THE BEST TIME TO GET EVERYONE TOGETHER TO BRING PATIENT DOWN.
--- NOTE | 2021-10-18 11:19 | HMH.PULMPN ---
Internal Medicine - PN: Subj *Date: 10/18/21 *Time: 11:19 Exam - Constitutional Constitutional:: Absent: no acute distress, comfortable - HENMT Exam HENMT: Present: normocephalic - Eye Exam Eyes:: Present: normal appearance both eyes and related structures - Neck Exam Neck:: Present: normal visual inspection - Respiratory Exam Respiratory:: Present: no respiratory distress, decreased breath sounds. Absent: wheezing - Cardiovascular Exam Cardiac:: Present: S1, S2 - GI Exam GI:: Present: soft - Skin Exam Skin: Present: warm, no rash - Neurological Exam Neurological: Absent: alert, awake, normal cognition - Extremities Exam Extremities: Present: no cyanosis, no clubbing, edema Assessment and Plan (1) Acute on chronic congestive heart failure Status: Acute Qualifiers: Heart failure type: systolic Qualified Code(s): I50.23 - Acute on chronic systolic (congestive) heart failure Category: Medical Code(s): I50.9 - Heart failure, unspecified (2) Atrial flutter with rapid ventricular response Status: Resolved Category: Medical Code(s): I48.92 - Unspecified atrial flutter (3) AICD (automatic cardioverter/defibrillator) present Status: Acute Category: Surgical Code(s): Z95.810 - Presence of automatic (implantable) cardiac defibrillator (4) Cardiac arrest Status: Acute Category: Medical Code(s): I46.9 - Cardiac arrest, cause unspecified (5) Cardiogenic shock Status: Acute Category: Medical Code(s): R57.0 - Cardiogenic shock (6) CAD (coronary atherosclerotic disease) Status: Chronic Qualifiers: Coronary Disease-Associated Artery/Lesion type: [place] artery [place] vs. transplanted heart: [place] heart Associated angina: without angina Qualified Code(s): I25.10 - Atherosclerotic heart disease of [place] coronary artery without angina pectoris Category: Medical Code(s): I25.10 - Atherosclerotic heart disease of [place] coronary artery without angina pectoris (7) Diabetes mellitus Status: Chronic Qualifiers: Diabetes mellitus type: type 2 Diabetes mellitus residential insulin use: without termite inspector use Diabetes mellitus complication status: without complication Qualified Code(s): E11.9 - Type 2 diabetes mellitus without complications Category: Medical Code(s): E11.9 - Type 2 diabetes mellitus without complications (8) Dilated cardiomyopathy Status: Chronic Category: Medical Code(s): I42.0 - Dilated cardiomyopathy (9) HLD (hyperlipidemia) Status: Chronic Qualifiers: Hyperlipidemia type: mixed hyperlipidemia Qualified Code(s): E78.2 - Mixed hyperlipidemia Category: Medical Code(s): E78.5 - Hyperlipidemia, unspecified (10) Hypertensive disorder Status: Chronic Qualifiers: Hypertension type: primary hypertension Qualified Code(s): I10 - Essential (primary) hypertension Category: Medical Code(s): I10 - Essential (primary) hypertension (11) Obstructive sleep apnea syndrome Status: Chronic Category: Medical Code(s): G47.33 - Obstructive sleep apnea (adult) (pediatric) (12) Encephalopathy acute Status: Acute Category: Medical Code(s): G93.40 - Encephalopathy, unspecified (13) Hematoma Status: Acute Category: Medical Code(s): T14.8XXA - Other injury of unspecified body region, initial encounter - Assessment and plan all Dx Assessment and Plan for all problems:: #Acute hypoxic respiratory failure needing mechanical ventilatory support: #Hospital-acquired pneumonia: 61-year-old female present with Gustavo jarrett RVR, experienced cardiopulmonary arrest with return of spontaneous circulation after less than 1 minute of CPR and epinephrine. Patient during the procedure was intubated for airway support and pulmonary was called for further management. Patient has been altered since the day of intubation with no significant improvement in her mentation despite off sedation for greater than 72 hours
--- NOTE | 2021-10-18 11:38 | DIET.NUTRFU ---
Addendum entered by Tiffany Pelaez, RD, LD 10/18/21 13:14: Reviewed TF orders with nurse: start glucerna at 10/hr and advance slowly as tolerated to reach goal rate of 90ml/hr. Flush with 50ml B8S=422zl/day, also receiving flushes with meds administrated via PEG. Will increase both flush and formula as she tolerates it. Original Note: Rounded with provider this AM, Tubefeeding still on hold. Provider ordered to restart, felt like the erthromycin should be in system. Also ordered enema d/t still no BM. Labs- hypokalemia, potassium replacement in place. Meds reviewed: lasix, pepcid,. protonix, insulin, zofran, aldactone and digoxin. Ordered dextrose and NaCl as needed for flush but no bulk NS- Na 139. Possible trach placement on Friday, to help with possible placement. Will also need PEG placed for longterm feedings. Skin remains intact, at high risk d/t lack of mobility. Will follow tubefeeding tolerance
--- NOTE | 2021-10-18 13:21 | PC.NURSE ---
started tube feeds at this time after speaking with equine intern. starting glucerna at 10ml/hr. recommended 50ml flushes qid
--- NOTE | 2021-10-18 14:35 | PC.NURSE ---
patient has done okay. opens eyes to sound and pain but no purposeful movements. withdraws to pain. will not follow commands. does not look at or focus on the sounds. different family members have visited through out the day. did speak with mother and patient sister about coming to the hospital to talk with md. family stated tomorrow late morning or afternoon would be best notified md. patient went down for ct this shift tolerated okay, but upon return did have a lot of thick secretions that she did cough up. suction orall and via et tube. with enema noted small ball of stool immediately after, and has had some success, but not a large amount. oral care [id number]. does pull away. pupils perrla. q2 turns. some drainage from wound to r arm. swelling still noted to pacemaker site and surround tissue down to arm. restarted tube feeds at 1320 at 10ml/h. remains paced on monitor at 70. bp within normal limits. earlier in shift patient would not breath on own when switched over for a breathing trial. after ct was noted to breath some on own but would stop frequently, so switched back over to ac mode.
--- NOTE | 2021-10-18 15:39 | PC.WOUNDNOTE ---
slight redness noted
[2021-10-18 18:02] LABS: POC Glucose,Bedside 130 (70-110)
[2021-10-18 18:02] LABS: POC Glucose,Bedside 107 (70-110)
[2021-10-18 18:02] LABS: POC Glucose,Bedside 135 (70-110)
[2021-10-18 18:02] LABS: POC Glucose,Bedside 132 (70-110)
--- NOTE | 2021-10-18 18:53 | PC.NURSE ---
residual checked on pt NG tube at 1720. residual noted to be less than 10ml.
[2021-10-18 20:40] LABS: POC Glucose,Bedside 132 (70-110)
[2021-10-19] VITALS (32 sets, daily range): BP systolic 98–155; BP diastolic 55–78; PULSE 70–72; RESP 20; TEMP 36.7–37.2; O2SAT 93–100; BMI 46.6
[2021-10-19 05:41] LABS: Basophils % 0.4 % (0.1-2.0); Eosinophils # 0.1 K/mm3 (0.0-0.4); Eosinophils % 1.4 % (0.1-12.0); Hematocrit 34.2 % (37.0-47.0); Hemoglobin 10.9 g/dL (12.2-16.2); Lymphocytes # 0.7 K/mm3 (0.7-4.5); Lymphocytes % 8.4 % (10-50); Mean Corpuscular Hemoglobin 28.6 pg (27.0-31.2); Mean Corpuscular Volume 89.5 fl (81-99); Mean Platelet Volume 8.8 fl (7.4-10.4); Monocytes # 0.7 K/mm3 (0.1-1.0); Monocytes % 7.5 % (1.7-9.3); Neutrophils # 7.2 K/mm3 (1.8-7.8); Neutrophils % 82.3 % (37.0-80.0); Platelet Count 189 K/mm3 (142-424); Red Blood Count 3.82 M/mm3 (4.20-5.40); White Blood Count 8.7 K/mm3 (4.8-10.8)
[2021-10-19 05:45] LABS: Chloride 105 mmol/L (98-107); Potassium 3.2 mmoL/L (3.5-5.1); Sodium 138 mmol/L (136-145)
[2021-10-19 05:48] LABS: Alanine Aminotransferase 43 U/L (12-78); Albumin Level 2.6 g/dl (3.5-5.0); Alkaline Phosphatase 87 U/L (38-126); Anion Gap 6.2 mEq/L (5-15); Aspartate Amino Transferase 42 U/L (14-36); Bilirubin,Total 1.9 mg/dl (0.2-1.3); Blood Urea Nitrogen 14 mg/dl (7-17); Calcium 8.2 mg/dl (8.4-10.2); Carbon Dioxide 30 mmol/L (22.0-30.0); Creatinine Clearance Estimated 44 mL/min (50-200); Estimated Glomerular Filt Rate 125 ml/min (>60); GFR (African American) 151 ML/MIN (>60); Globulin 2.7 g/dL (1.3-3.2); Glucose 152 mg/dl (74-100); Total Protein,Serum 5.3 g/dl (6.3-8.2)
[2021-10-19 05:49] LABS: Magnesium 1.9 mg/dl (1.6-2.3)
--- NOTE | 2021-10-19 06:00 | XR_ITS ---
PROCEDURE INFORMATION: Exam: XR Chest Exam date and time: 10/19/2021 5:32 AM Age: 61 years old Clinical indication: Device placement; Ett placement (vent status); Additional info: Daily while intubated TECHNIQUE: Imaging protocol: XR of the chest. Views: 1 view. COMPARISON: CT CHEST W CON 10/18/2021 12:29 PM FINDINGS: Tubes, catheters and devices: Visualized tubes and lines as before. Left pacemaker/ICD. Lungs: Moderate pulmonary vascular congestion. Bibasilar atelectasis/consolidation seen on CT is not clearly seen radiographically. There is mild nonspecific opacity in the right infrahilar region. The cardiac silhouette obscures visualization of the left lung base. Pleural spaces: No pneumothorax. Heart/Mediastinum: Cardiomegaly. Bones/joints: Unremarkable. IMPRESSION: Satisfactory appearance of the visualized tubes and lines. Otherwise, as noted in the body of the report.
--- NOTE | 2021-10-19 07:02 | HMH.ACPN2 ---
Internal Medicine - PN: Subj *Date: 10/19/21 *Time: 20:19 Interval history: Events overnight. Continues to spontaneous movement. Failed SBT this morning. Tolerating tube feeds at 10 cc/h. Urine output adequate. Still no bowel movement this morning. At bedside this morning. Extensive discussion about neck steps in care and decisions regarding potential for PEG tube and feeding tube if patient continues to fail breathing trials through the weekend. Discussion at bedside with sister, niece, brother, patient's mother (her medical surrogate) Exam Vital signs and Labs for Last 24 Hours: Temp Pulse Resp BP Pulse Ox 98.8 F 70 20 118/71 98 10/18/21 21:00 10/19/21 05:00 10/19/21 06:23 10/19/21 05:00 10/19/21 06:23 Laboratory Results - last 24 hr 10/17/21 21:38: POC Glucose 130 H 10/18/21 05:15: POC Glucose 132 H 10/18/21 05:30: WBC 9.7, RBC 3.95 L, Hgb 11.2 L D, Hct 35.3 L, MCV 89.4, MCH 28.4, MCHC 31.7 L, RDW 15.5, Plt Count 157, MPV 11.5 H, Neut % (Auto) 81.0 H, Lymph % (Auto) 6.9 L, [place] % (Auto) 10.8 H, Eos % (Auto) 0.1, Baso % (Auto) 0.1, Neut # (Auto) 7.9 H, Lymph # (Auto) 0.7, [place] # (Auto) 1.1 H, Eos # (Auto) 0.1, Baso # (Auto) 0.0 10/18/21 05:30: Sodium 139, Potassium 3.2 L, Chloride 105, Carbon Dioxide 32 H, Anion Gap 5.2, BUN 15 D, Creatinine 0.60, Estimated Creat Clear 44, Estimated GFR 101, Est GFR ( Amer) 123, Glucose 157 H, Calcium 8.6, Total Bilirubin 2.0 H, AST 53 H, ALT 52, Alkaline Phosphatase 111, Total Protein 5.4 L, Albumin 2.8 L, Globulin 2.6, Albumin/Globulin Ratio 1.1 10/18/21 11:24: POC Glucose 135 H 10/18/21 17:03: POC Glucose 107 10/18/21 20:30: POC Glucose 132 H 10/19/21 05:30: WBC 8.7, RBC 3.82 L, Hgb 10.9 L, Hct 34.2 L, MCV 89.5, MCH 28.6, MCHC 32.0, RDW 16.0, Plt Count 189, MPV 8.8, Neut % (Auto) 82.3 H, Lymph % (Auto) 8.4 L, [place] % (Auto) 7.5, Eos % (Auto) 1.4, Baso % (Auto) 0.4, Neut # (Auto) 7.2, Lymph # (Auto) 0.7, [place] # (Auto) 0.7, Eos # (Auto) 0.1, Baso # (Auto) 0.0 10/19/21 05:30: Sodium 138, Potassium 3.2 L, Chloride 105, Carbon Dioxide 30, Anion Gap 6.2, BUN 14, Creatinine 0.50 L, Estimated Creat Clear 44, Estimated GFR 125, Est GFR ( Amer) 151 D, Glucose 152 H, Calcium 8.2 L, Total Bilirubin 1.9 H, AST 42 H, ALT 43, Alkaline Phosphatase 87, Total Protein 5.3 L, Albumin 2.6 L, Globulin 2.7, Albumin/Globulin Ratio 1.0 L 10/19/21 05:30: Magnesium 1.9 D I & O for Last 24 hours: Intake & Output 10/16/21 10/17/21 10/18/21 10/19/21 23:59 23:59 23:59 23:59 Intake Total 1620 / 1620 500 / 500 440 / 440 204 / 204 Output Total 945 / 985 1999 / 2029 1276 / 1296 150 / 150 Balance 675 / 635 -1500 / -1530 -836 / -856 54 / 54 Weight 116.346 kg 116.21 kg 116.205 kg 114.895 kg Narrative: - Constitutional mild distress, morbidly obese; somnolent - *Routine HEENT Exam Head: Present: normocephalic Eye: Present: PERRLA ENT: Present: mucous membranes moist - *Routine Neck Exam Present: supple. Absent: lymphadenopathy - Routine Chest/Breast/Axilla Exam Chest wall: Present: pacemaker (incision with large intervally expanded hematoma, dressing CDI.) - *Routine Respiratory Exam Present: patient mechanically ventilated, CTA bilaterally - *Routine Cardiovascular Exam Present: RRR, no Murmur - *Routine Abdominal Exam Present: soft, normoactive bowel sounds. Absent: tenderness - *Routine Extremities Exam Present: edema (trace). Absent: cyanosis, clubbing - *Routine Skin Exam Present: warm. Absent: rash - *Routine Neurological Exam Present:Flexion to pain, not following commands on exam. Opens eyes to voice but does not focus on examiner. Able to cough. No clonus in lower extremities. normal babinski/withdrawal; E2, V not testable, M4 Assessment and Plan (1) Acute on chronic congestive heart failure Status: Acute Qualifiers: Heart failure type: systolic Qualified Code(s): I50.23 - Acute on chronic systolic (congestive) heart failure Category
--- NOTE | 2021-10-19 09:24 | DIET.NUTRFU ---
Addendum entered by Tiffany Pelaez RD, LD 10/19/21 15:27: TF increased to 20ml/hr at noon today, will continue to increase by 10ml Q4H if tolerates Original Note: RD rounded with provider today. Patient is tolerating TF at 10ml/hr, agreed with plan to increase by 10ml Q4H to reach goal rate of 90ml/hr to best meet her needs. She continues on lasix and spiraldactone with a negative fluid balance. No bolus IVF running at this time. She is dependent on TF. As rate increasing so is free water in formula. Will continue to evaluate the flush. Labs from today: Na 138, K 3.2L (replacement ordered), BUN 14, Cr 0.5, glucose elevated at 152. Continues on erythromycin, seems to be held the gastric emptying- no vomiting at this time. provider was going to review family wishes on PEG and trach for salvage determiner tx. Will continue to follow TF tolerance
--- NOTE | 2021-10-19 10:42 | HMH.PNCARD ---
Subjective Date: 10/19/21 Time: 09:30 Principal diagnosis: CHF, afib with rvr Interval history: This is a 61-year-old white female who was admitted to the hospital with an acute exacerbation of her chronic systolic congestive heart failure and atrial fibrillation with RVR. She remains intubated and on the ventilator. She has failed her spontaneous breathing trials yesterday and today, she did not initiate any breaths on her own. She does move her extremities, especially the lower extremities, spontaneously but has no purposeful movements. Her pupils are reactive to light. She does not follow any commands. She is not moving her head today to my voice. She appears to be in no distress. She remains in sinus rhythm/AV pacing today following her cardioversion. She is status post BiV AICD placement. The hematoma to her insertion site is improving. It is much softer and has diminished in size. Her vital signs are stable. Exam Vital signs and Labs for Last 24 Hours: Temp Pulse Resp BP Pulse Ox 98.8 F 70 20 155/78 H 98 10/19/21 08:00 10/19/21 09:20 10/19/21 07:00 10/19/21 07:00 10/19/21 07:00 Laboratory Results - last 24 hr 10/17/21 21:38: POC Glucose 130 H 10/18/21 05:15: POC Glucose 132 H 10/18/21 11:24: POC Glucose 135 H 10/18/21 17:03: POC Glucose 107 10/18/21 20:30: POC Glucose 132 H 10/19/21 05:30: WBC 8.7, RBC 3.82 L, Hgb 10.9 L, Hct 34.2 L, MCV 89.5, MCH 28.6, MCHC 32.0, RDW 16.0, Plt Count 189, MPV 8.8, Neut % (Auto) 82.3 H, Lymph % (Auto) 8.4 L, [place] % (Auto) 7.5, Eos % (Auto) 1.4, Baso % (Auto) 0.4, Neut # (Auto) 7.2, Lymph # (Auto) 0.7, [place] # (Auto) 0.7, Eos # (Auto) 0.1, Baso # (Auto) 0.0 10/19/21 05:30: Sodium 138, Potassium 3.2 L, Chloride 105, Carbon Dioxide 30, Anion Gap 6.2, BUN 14, Creatinine 0.50 L, Estimated Creat Clear 44, Estimated GFR 125, Est GFR ( Amer) 151 D, Glucose 152 H, Calcium 8.2 L, Total Bilirubin 1.9 H, AST 42 H, ALT 43, Alkaline Phosphatase 87, Total Protein 5.3 L, Albumin 2.6 L, Globulin 2.7, Albumin/Globulin Ratio 1.0 L 10/19/21 05:30: Magnesium 1.9 D I & O for Last 24 hours: Intake & Output 10/16/21 10/17/21 10/18/21 10/19/21 23:59 23:59 23:59 23:59 Intake Total 1620 / 1620 500 / 500 440 / 440 204 / 204 Output Total 945 / 985 1999 1276 / 1296 233 / 233 Balance 675 / 635 -1500 / -1530 -836 / -856 -29 / -29 Weight 256 lb 8 oz 256 lb 3.2 oz 256 lb 3 oz 253 lb 4.8 oz Narrative: Telemetry strip is AV pacing with a rate of 70. - Constitutional no acute distress, morbidly obese - *Routine HEENT Exam Head: Present: normocephalic, atraumatic Eye: Present: PERRL ENT: Present: mucous membranes moist - *Routine Neck Exam Present: normal carotid upstroke. Absent: JVD, carotid bruit, lymphadenopathy - *Routine Respiratory Exam Present: CTA bilaterally - *Routine Cardiovascular Exam Present: RRR, Normal S1, Normal S2. Absent: murmur - *Routine Abdominal Exam Present: soft, normoactive bowel sounds. Absent: tenderness, distended - *Routine Extremities Exam Present: pulses intact, normal capillary refill. Absent: cyanosis, clubbing, edema - *Routine Skin Exam Present: intact, warm. Absent: rash - *Routine Neurological Exam Present: altered mental status Progress Note: A&P (1) Acute on chronic congestive heart failure Status: Acute (2) Atrial flutter with rapid ventricular response Status: Resolved (3) AICD (automatic cardioverter/defibrillator) present Status: Acute (4) Cardiac arrest Status: Acute (5) Cardiogenic shock Status: Acute (6) CAD (coronary atherosclerotic disease) Status: Chronic (7) Diabetes mellitus Status: Chronic (8) Dilated cardiomyopathy Status: Chronic (9) HLD (hyperlipidemia) Status: Chronic (10) Hypertensive disorder Status: Chronic (11) Obstructive sleep apnea syndrome Status: Chronic (12) Encephalopathy acute Status: Acute (13) Hematoma, chest wall S
--- NOTE | 2021-10-19 12:33 | HMH.PULMPN ---
Internal Medicine - PN: Subj *Date: 10/19/21 *Time: 12:33 Interval history: No acute respiratory vents overnight. Continues to remain on minimal vent settings. Failed SBT secondary to apnea today. Exam - Constitutional Constitutional:: Absent: no acute distress, comfortable - HENMT Exam HENMT: Present: normocephalic - Eye Exam Eyes:: Present: normal appearance both eyes and related structures - Neck Exam Neck:: Present: normal visual inspection - Respiratory Exam Respiratory:: Present: no respiratory distress. Absent: rhonchi, wheezing - Cardiovascular Exam Cardiac:: Present: S1, S2. Absent: regular rhythm - GI Exam GI:: Present: soft - Skin Exam Skin: Present: warm - Neurological Exam Neurological: Absent: alert, awake, normal cognition - Extremities Exam Extremities: Present: no cyanosis, no clubbing, edema Assessment and Plan (1) Acute on chronic congestive heart failure Status: Acute Qualifiers: Heart failure type: systolic Qualified Code(s): I50.23 - Acute on chronic systolic (congestive) heart failure Category: Medical Code(s): I50.9 - Heart failure, unspecified (2) Atrial flutter with rapid ventricular response Status: Resolved Category: Medical Code(s): I48.92 - Unspecified atrial flutter (3) AICD (automatic cardioverter/defibrillator) present Status: Acute Category: Surgical Code(s): Z95.810 - Presence of automatic (implantable) cardiac defibrillator (4) Cardiac arrest Status: Acute Category: Medical Code(s): I46.9 - Cardiac arrest, cause unspecified (5) Cardiogenic shock Status: Acute Category: Medical Code(s): R57.0 - Cardiogenic shock (6) CAD (coronary atherosclerotic disease) Status: Chronic Qualifiers: Coronary Disease-Associated Artery/Lesion type: [place] artery [place] vs. transplanted heart: [place] heart Associated angina: without angina Qualified Code(s): I25.10 - Atherosclerotic heart disease of [place] coronary artery without angina pectoris Category: Medical Code(s): I25.10 - Atherosclerotic heart disease of [place] coronary artery without angina pectoris (7) Diabetes mellitus Status: Chronic Qualifiers: Diabetes mellitus type: type 2 Diabetes mellitus fci insulin use: without laborer marine terminal use Diabetes mellitus complication status: without complication Qualified Code(s): E11.9 - Type 2 diabetes mellitus without complications Category: Medical Code(s): E11.9 - Type 2 diabetes mellitus without complications (8) Dilated cardiomyopathy Status: Chronic Category: Medical Code(s): I42.0 - Dilated cardiomyopathy (9) HLD (hyperlipidemia) Status: Chronic Qualifiers: Hyperlipidemia type: mixed hyperlipidemia Qualified Code(s): E78.2 - Mixed hyperlipidemia Category: Medical Code(s): E78.5 - Hyperlipidemia, unspecified (10) Hypertensive disorder Status: Chronic Qualifiers: Hypertension type: primary hypertension Qualified Code(s): I10 - Essential (primary) hypertension Category: Medical Code(s): I10 - Essential (primary) hypertension (11) Obstructive sleep apnea syndrome Status: Chronic Category: Medical Code(s): G47.33 - Obstructive sleep apnea (adult) (pediatric) (12) Encephalopathy acute Status: Acute Category: Medical Code(s): G93.40 - Encephalopathy, unspecified (13) Hematoma, chest wall Status: Acute Category: Medical Code(s): S20.219A - Contusion of unspecified front wall of thorax, initial encounter (14) Anemia Status: Acute Category: Medical Code(s): D64.9 - Anemia, unspecified - Assessment and plan all Dx Assessment and Plan for all problems:: #Acute hypoxic respiratory failure needing mechanical ventilatory support: #Hospital-acquired pneumonia: 61-year-old female present with A. fib RVR, experienced cardiopulmonary arrest with return of spontaneous circulation after less than 1 minute of CPR and epinephrine. Zohreh
--- NOTE | 2021-10-19 18:11 | PC.NURSE ---
shift summary: Pt not following commands. GCS (9T). PERRLA. Is moving all extremities. BUE with 2+ edema. Skin tear noted to inner RUE. Mupiricon cream applied as scheduled. AV paced at rate of 70 on tele. Normotensive. Failed SBT this AM. Has not initiated any breaths over the vent rate. ETT secretions are thick, blood tinged, and yellow. O2 sat high 90s on 40% FiO2. Left chest with hematoma that is getting softer and smaller. Pacemaker site with tess BERTHA. No s/s infection noted. Katz cath with minimal UOP, except for when Lasix given. Fleet enema and Senna produced 1 small soft brown BM. NGT anchored to nose and is @ 62cm. Glucerna running @ 30mL/hr with goal rate of 90mL/hr. No residuals today. Will increase rate by 10mL/hr Q4hrs if tolerated. 50mL Free water given via pump Q4hrs. Additional free water given via NGT with AM meds. Pt has been turned Q2 as well as oral care performed Q2.
[2021-10-19 22:46] LABS: POC Glucose,Bedside 135 (70-110)
[2021-10-19 22:46] LABS: POC Glucose,Bedside 145 (70-110)
[2021-10-19 22:46] LABS: POC Glucose,Bedside 146 (70-110)
[2021-10-20] VITALS (32 sets, daily range): BP systolic 98–167; BP diastolic 49–94; PULSE 70–86; RESP 20–23; TEMP 36.8–37.3; O2SAT 93–100; BMI 47.0
--- NOTE | 2021-10-20 05:25 | PC.NURSE ---
Pacemaker incision site CREDIT REPRESENTATIVE with tess. Hematoma remains. Pt given bed bath this shift. Turned Q2 hr. Ulcerations to RUE. F/C draining to bedside with dark dedrick urine. Glucerna infusing @ 40 ml/hr. Residual 30 ml this AM. Pt gag reflex intact. Pt vomited x1 this shift. Pt will open eyes and withdraw to pain. Does not follow commands. No purposeful movements. VS have remained stable. Vents settings are as follows: FiO2 40%, TV 440, R 20, PEEP 5. Will continue to monitor.
[2021-10-20 05:42] LABS: POC Glucose,Bedside 161 (70-110)
[2021-10-20 06:08] LABS: Basophils # 0.1 K/mm3 (0-0.2); Basophils % 0.7 % (0.1-2.0); Eosinophils # 0.2 K/mm3 (0.0-0.4); Eosinophils % 1.8 % (0.1-12.0); Hematocrit 34.7 % (37.0-47.0); Hemoglobin 10.9 g/dL (12.2-16.2); Lymphocytes # 0.8 K/mm3 (0.7-4.5); Lymphocytes % 9.4 % (10-50); Mean Corpuscular HGB Conc 31.5 g/dL (31.8-35.4); Mean Corpuscular Volume 88.8 fl (81-99); Mean Platelet Volume 8.8 fl (7.4-10.4); Monocytes # 0.6 K/mm3 (0.1-1.0); Monocytes % 7.2 % (1.7-9.3); Neutrophils # 6.6 K/mm3 (1.8-7.8); Neutrophils % 80.9 % (37.0-80.0); Platelet Count 231 K/mm3 (142-424); White Blood Count 8.1 K/mm3 (4.8-10.8)
[2021-10-20 06:17] LABS: Chloride 105 mmol/L (98-107); Sodium 138 mmol/L (136-145)
[2021-10-20 06:18] LABS: Potassium 3.3 mmoL/L (3.5-5.1)
[2021-10-20 06:20] LABS: Blood Urea Nitrogen 14 mg/dl (7-17)
[2021-10-20 06:21] LABS: Anion Gap 6.3 mEq/L (5-15); Calcium 8.4 mg/dl (8.4-10.2); Carbon Dioxide 30 mmol/L (22.0-30.0); Creatinine Clearance Estimated 44 mL/min (50-200); Estimated Glomerular Filt Rate 101 ml/min (>60); GFR (African American) 123 ML/MIN (>60); Glucose 178 mg/dl (74-100)
--- NOTE | 2021-10-20 08:34 | XR_ITS ---
PROCEDURE INFORMATION: Exam: XR Chest Exam date and time: 10/20/2021 8:44 AM Age: 61 years old Clinical indication: Shortness of breath; Additional info: Intubation- daily chest xray TECHNIQUE: Imaging protocol: XR of the chest. Views: 1 view. COMPARISON: CR XR CHEST PORTABLE 10/19/2021 5:32 AM FINDINGS: Tubes, catheters and devices: Right subclavian line terminates in the superior vena cava. Stable transvenous pacemaker leads. Endotracheal tube terminates 4 cm above the candace. Enteric tube is seen within the stomach. Lungs: Opacity in the medial right base may represent atelectasis or pneumonia.. Pleural spaces: Possible small left pleural effusion Heart/Mediastinum: Cardiomegaly Bones/joints: Unremarkable. IMPRESSION: 1. Endotracheal tube terminates 4 cm above the candace. 2. Enteric tube is seen within the stomach. 3. Opacity in the medial right base may represent atelectasis or pneumonia..
--- NOTE | 2021-10-20 09:06 | HMH.ACPN2 ---
Internal Medicine - PN: Subj *Date: 10/20/21 *Time: 14:38 Interval history: Has done well overnight. Stable vent settings. Afebrile. Urine output adequate. Hemodynamically stable. Remains in AV paced rhythm. Had an episode of emesis this morning on rounds but has otherwise been tolerating tube feeds at 30 to 40 cc an hour. Labs stable this morning. Continues to have spontaneous movement. On exam this morning, follow directions when asked to stick out her tongue, blank, squeeze with her right hand and stick over her thumb with her right hand. Did not follow directions on the left side but has spontaneous movement bilaterally. Exam Vital signs and Labs for Last 24 Hours: Temp Pulse Resp BP Pulse Ox 99.2 F 70 20 99/54 L 98 10/20/21 04:00 10/20/21 07:00 10/20/21 07:00 10/20/21 07:00 10/20/21 07:00 Laboratory Results - last 24 hr 10/19/21 05:26: POC Glucose 146 H 10/19/21 12:11: POC Glucose 145 H 10/19/21 20:07: POC Glucose 135 H 10/20/21 05:34: POC Glucose 161 H 10/20/21 05:50: WBC 8.1, RBC 3.90 L, Hgb 10.9 L, Hct 34.7 L, MCV 88.8, MCH 28.0, MCHC 31.5 L, RDW 16.0, Plt Count 231, MPV 8.8, Neut % (Auto) 80.9 H, Lymph % (Auto) 9.4 L, [place] % (Auto) 7.2, Eos % (Auto) 1.8, Baso % (Auto) 0.7, Neut # (Auto) 6.6, Lymph # (Auto) 0.8, [place] # (Auto) 0.6, Eos # (Auto) 0.2, Baso # (Auto) 0.1 10/20/21 05:50: Sodium 138, Potassium 3.3 L, Chloride 105, Carbon Dioxide 30, Anion Gap 6.3, BUN 14, Creatinine 0.60, Estimated Creat Clear 44, Estimated GFR 101, Est GFR ( Amer) 123, Glucose 178 H, Calcium 8.4 I & O for Last 24 hours: Intake & Output 04/10/18/21 10/19/21 10/20/21 23:59 23:59 23:59 23:59 Intake Total 500 / 500 440 / 440 996 / 1096 459 / 459 Output Total 1999 1276 / 1296 1013 / 1038 65 / 65 Balance -1500 / -1530 -836 / -856 - 394 / 394 Weight 116.21 kg 116.205 kg 114.895 kg 116.029 kg Narrative: - Constitutional mild distress, morbidly obese; somnolent - *Routine HEENT Exam Head: Present: normocephalic Eye: Present: PERRLA ENT: Present: mucous membranes moist - *Routine Neck Exam Present: supple. Absent: lymphadenopathy - Routine Chest/Breast/Axilla Exam Chest wall: Present: pacemaker (incision with large intervally expanded hematoma, dressing CDI.) - *Routine Respiratory Exam Present: patient mechanically ventilated, CTA bilaterally - *Routine Cardiovascular Exam Present: RRR, no Murmur - *Routine Abdominal Exam Present: soft, normoactive bowel sounds. Absent: tenderness - *Routine Extremities Exam Present: edema (trace). Absent: cyanosis, clubbing - *Routine Skin Exam Warm, breakdown on right upper extremity healing, no pressure wounds on back; No rash - *Routine Neurological Exam Present: Causation to pain with sternal rub. Followed commands to blink multiple times, squeeze right hand multiple times, and thumbs up on the right side multiple times. Stuck tongue out twice on exam. Witnessed by nursing and respiratory therapy staff. able to cough. No clonus in lower extremities. normal babinski/withdrawal; E4, V not testable, M6 Assessment and Plan (1) Acute on chronic congestive heart failure Status: Acute Qualifiers: Heart failure type: systolic Qualified Code(s): I50.23 - Acute on chronic systolic (congestive) heart failure Category: Medical Code(s): I50.9 - Heart failure, unspecified (2) Atrial flutter with rapid ventricular response Status: Resolved Category: Medical Code(s): I48.92 - Unspecified atrial flutter (3) AICD (automatic cardioverter/defibrillator) present Status: Acute Category: Surgical Code(s): Z95.810 - Presence of automatic (implantable) cardiac defibrillator (4) Cardiac arrest Status: Acute Category: Medical Code(s): I46.9 - Cardiac arrest, cause unspecified (5) Cardiogenic shock Status: Acute Category: Medical Code(s): R57.0 - Cardiogenic shock (6) CAD (coronary atherosclerotic d
--- NOTE | 2021-10-20 10:44 | PC.NURSE ---
Radiology clarified with Dr Axel MD does not want pt to have ABG this shift, but he does want pt to have SBT this shift.
--- NOTE | 2021-10-20 12:26 | PC.NURSE ---
dressing on central line changed at 1215 r/t soiled with emesis.
[2021-10-20 13:17] LABS: POC Glucose,Bedside 131 (70-110)
--- NOTE | 2021-10-20 15:49 | PC.NURSE ---
1049 pt had episode of emesis this am during MD rounds. dressing on central line was saturated. Dressing changed at approx 1150 following pt hair being washed. 1500 pt had another episode of emesis. dressing again saturated. dressing changed using sterile technique. 1550
[2021-10-20 17:23] LABS: POC Glucose,Bedside 106 (70-110)
--- NOTE | 2021-10-20 17:33 | PC.NURSE ---
tube feeds restarted at this time.
[2021-10-20 21:01] LABS: POC Glucose,Bedside 115 (70-110)
[2021-10-21] VITALS (32 sets, daily range): BP systolic 130–156; BP diastolic 56–82; PULSE 70; RESP 20; TEMP 36.8–37; O2SAT 93–96; BMI 46.9
--- NOTE | 2021-10-21 05:53 | PC.NURSE ---
Pt is following some commands. She blinks her eyes when asked questions at times. She also will turn head to the side at times when asked a question as to say no. She will stick her tongue out when asked. Pt turned her head to left side when she was asked during central line DSG change. Pt's gag reflex is very much intact. She has been nauseas and has vomited this shift with movement, oral care and suctioning. Glucerna was not able to be titrated up this shift due to residuals and pt vomiting. VS have remained stable. Pt has not made any breaths on her own. Vent settings are as follows: AC, FiO2 40%, R 20, TV 440, PEEP 5. F/C draining to bedside with dark dedrick to tea colored urine. Pt bathed this shift and linens changed. Will continue to monitor.
--- NOTE | 2021-10-21 06:00 | XR_ITS ---
PROCEDURE INFORMATION: Exam: XR Chest Exam date and time: 10/21/2021 5:50 AM Age: 61 years old Clinical indication: Device placement; Ett placement (vent status); Prior surgery; Surgery date: <1 month; Surgery type: Pacemaker; Additional info: Intubated TECHNIQUE: Imaging protocol: XR of the chest. Views: 1 view. COMPARISON: CR XR CHEST PORTABLE 10/20/2021 8:44 AM FINDINGS: Tubes, catheters and devices: ET tube is in good position. Lungs: [place] airspace disease is noted. Probable effusions are present. Pleural spaces: Unremarkable. No pleural effusion. No pneumothorax. Heart/Mediastinum: The heart is enlarged. Bones/joints: Unremarkable. IMPRESSION: ET tube in good position. Bibasilar airspace disease and likely effusions.
[2021-10-21 06:55] LABS: POC Glucose,Bedside 135 (70-110)
[2021-10-21 07:16] LABS: Basophils # 0.3 K/mm3 (0-0.2); Basophils % 3.5 % (0.1-2.0); Eosinophils # 0.1 K/mm3 (0.0-0.4); Eosinophils % 1.7 % (0.1-12.0); Hematocrit 33.4 % (37.0-47.0); Lymphocytes # 0.6 K/mm3 (0.7-4.5); Lymphocytes % 8.6 % (10-50); Mean Corpuscular Hemoglobin 29.1 pg (27.0-31.2); Mean Corpuscular Volume 88.4 fl (81-99); Mean Platelet Volume 8.8 fl (7.4-10.4); Monocytes # 0.6 K/mm3 (0.1-1.0); Monocytes % 7.5 % (1.7-9.3); Neutrophils # 5.8 K/mm3 (1.8-7.8); Neutrophils % 78.6 % (37.0-80.0); Platelet Count 257 K/mm3 (142-424); Red Blood Count 3.78 M/mm3 (4.20-5.40); Red Cell Distribution Width 15.9 % (11.5-17.5); White Blood Count 7.3 K/mm3 (4.8-10.8)
[2021-10-21 07:17] LABS: Anion Gap 7.3 mEq/L (5-15); Blood Urea Nitrogen 13 mg/dl (7-17); Calcium 8.4 mg/dl (8.4-10.2); Carbon Dioxide 29 mmol/L (22.0-30.0); Chloride 106 mmol/L (98-107); Creatinine Clearance Estimated 44 mL/min (50-200); Estimated Glomerular Filt Rate 101 ml/min (>60); GFR (African American) 123 ML/MIN (>60); Glucose 136 mg/dl (74-100); Potassium 3.3 mmoL/L (3.5-5.1); Sodium 139 mmol/L (136-145)
--- NOTE | 2021-10-21 08:21 | PC.NURSE ---
cuff pressure checked and noted to be low. air added to cuff. pressure now noted to be approx 22-23
--- NOTE | 2021-10-21 08:54 | PC.NURSE ---
pt was able to follow commands and requests from Dr Hollis. when pt was asked if she was in pain, pt moved her head to indicate no
--- NOTE | 2021-10-21 09:06 | HMH.ACPN2 ---
Internal Medicine - PN: Subj *Date: 10/21/21 *Time: 09:06 Interval history: Overnight patient has been stable from a cardiovascular and respiratory standpoint. Remains intubated, no sedation on board. Patient has been slightly more responsive to commands, family reports that she was able to respond to commands and shake her head no or yes to questions yesterday. Unfortunately failed a spontaneous breathing trial once again yesterday. Cardiac status has been unchanged. Exam Vital signs and Labs for Last 24 Hours: Temp Pulse Resp BP Pulse Ox 98.2 F 70 20 156/78 H 94 L 10/21/21 04:00 10/21/21 08:00 10/21/21 08:00 10/21/21 08:00 10/21/21 08:56 Laboratory Results - last 24 hr 10/20/21 13:01: POC Glucose 131 H 10/20/21 17:15: POC Glucose 106 10/20/21 20:40: POC Glucose 115 H 10/21/21 06:44: WBC 7.3, RBC 3.78 L, Hgb 11.0 L, Hct 33.4 L, MCV 88.4, MCH 29.1, MCHC 33.0, RDW 15.9, Plt Count 257, MPV 8.8, Neut % (Auto) 78.6, Lymph % (Auto) 8.6 L, [place] % (Auto) 7.5, Eos % (Auto) 1.7, Baso % (Auto) 3.5 H, Neut # (Auto) 5.8, Lymph # (Auto) 0.6 L, [place] # (Auto) 0.6, Eos # (Auto) 0.1, Baso # (Auto) 0.3 H 10/21/21 06:44: Sodium 139, Potassium 3.3 L, Chloride 106, Carbon Dioxide 29, Anion Gap 7.3, BUN 13, Creatinine 0.60, Estimated Creat Clear 44, Estimated GFR 101, Est GFR ( Amer) 123, Glucose 136 H, Calcium 8.4, Magnesium 2.0 10/21/21 06:45: POC Glucose 135 H I & O for Last 24 hours: Intake & Output 10/18/21 10/19/21 10/20/21 10/21/21 11:59 11:59 11:59 11:59 Intake Total 720 / 770 524 / 524 1387 / 1387 510 / 510 Output Total 1676 / 1703 1308 / 1443 815 / 815 525 / 525 Balance -956 / -933 -784 / -919 572 / 572 -15 / -15 Weight 256 lb 3 oz 253 lb 4.8 oz 255 lb 12.8 oz 255 lb 2 oz Narrative: Intubated, NG tube in place. Pacemaker hematoma site is improving with less swelling and redness. Lungs have good air movement. Heart rate regular. Abdomen is soft, extremities without edema. Katz catheter draining clear yellow urine. Neurologically patient is moving spontaneously all 4 extremities quite a bit. Her eyes tend to wander around the room and less someone is directly talking to her and then when she is able to focus with her eyes she does follow commands such as sticking her tongue out and blinking. She is not squeezing my hand this morning but otherwise does repetitively follow the commands as above. She shakes her head no when I ask if she is in pain. Assessment and Plan (1) Acute on chronic congestive heart failure Status: Acute Qualifiers: Heart failure type: systolic Qualified Code(s): I50.23 - Acute on chronic systolic (congestive) heart failure Category: Medical Code(s): I50.9 - Heart failure, unspecified (2) Atrial flutter with rapid ventricular response Status: Resolved Category: Medical Code(s): I48.92 - Unspecified atrial flutter (3) AICD (automatic cardioverter/defibrillator) present Status: Acute Category: Surgical Code(s): Z95.810 - Presence of automatic (implantable) cardiac defibrillator (4) Cardiac arrest Status: Acute Category: Medical Code(s): I46.9 - Cardiac arrest, cause unspecified (5) Cardiogenic shock Status: Acute Category: Medical Code(s): R57.0 - Cardiogenic shock (6) CAD (coronary atherosclerotic disease) Status: Chronic Qualifiers: Coronary Disease-Associated Artery/Lesion type: [place] artery [place] vs. transplanted heart: [place] heart Associated angina: without angina Qualified Code(s): I25.10 - Atherosclerotic heart disease of [place] coronary artery without angina pectoris Category: Medical Code(s): I25.10 - Atherosclerotic heart disease of [place] coronary artery without angina pectoris (7) Diabetes mellitus Status: Chronic Qualifiers: Diabetes mellitus type: type 2 Diabetes mellitus usp insulin use: without usp use Diabetes mellitus complication status: without complication
--- NOTE | 2021-10-21 09:24 | PC.WOUNDNOTE ---
Addendum entered by Nasrin Walters RN 10/21/21 09:28: bruising down LEFT arm Original Note: Pacemaker site with hematoma bruising down right arm from pacemaker site
--- NOTE | 2021-10-21 09:26 | PC.WOUNDNOTE ---
skin assessment from this am
--- NOTE | 2021-10-21 09:27 | PC.WOUNDNOTE ---
wound right upper arm
[2021-10-21 11:37] LABS: POC Glucose,Bedside 121 (70-110)
--- NOTE | 2021-10-21 11:48 | PC.NURSE ---
during am assessment ETT was noted to be at 19cm (previous shift was 22). at this time (1145) tube repositioned.
--- NOTE | 2021-10-21 12:05 | PC.NURSE ---
pt has continued to be able to follow commands of staff since this am. pt did not pass breathing trial following obeying commands. will continually reassess pt ability. pt able to nod head in no response, and blink eye once for yes
[2021-10-21 17:20] LABS: POC Glucose,Bedside 116 (70-110)
--- NOTE | 2021-10-21 17:40 | PC.NURSE ---
Addendum entered by Nasrin Walters RN 10/21/21 17:43: pt has not had tube feeds infusing this shift. pt has had no episodes of vomiting. will recommend that tube feeds be restarted on nights at a lower rate, when there is less stimulation from outside sources as well to decrease agitation Original Note: pt has had what appeared to be a good day. she seems to do better and be less agitated with fewer people in the room at a time. if several people are noted to be attempting to interact with her, she bites on the ett and flails her arms frequently. pt is able to interact with staff and appears to follow simple commands and answer simple single questions. compound questions/commands get no response. pt is able to indicate if she is comfortable and not in pain.
[2021-10-21 22:20] LABS: POC Glucose,Bedside 110 (70-110)
[2021-10-22] VITALS (34 sets, daily range): BP systolic 103–161; BP diastolic 60–97; PULSE 70–76; RESP 20–23; TEMP 36.4–37.1; O2SAT 95–100; BMI 45.6
--- NOTE | 2021-10-22 04:37 | PC.NURSE ---
Pt continues to follow commands as able. She blinks eyes to answer simple questions. Can squeeze (R) hand when asked. Will move extremities with difficulty. Pt not able to squeeze with (L) hand. She has had multiple episodes of N/V. Not tolerating tube feeds. Gag reflex is very well intact. Pt has difficulty with any kind of stimulation or movement and will become nauseated. No BM this shift. Hematoma remains to pacemaker area. Increased bruising and swelling noted to LUE. F/C draining to bedside with clear, dark yellow urine. Vent settings unchanged. Will continue to monitor.
[2021-10-22 05:42] LABS: POC Glucose,Bedside 113 (70-110)
--- NOTE | 2021-10-22 06:00 | XR_ITS ---
PROCEDURE INFORMATION: Exam: XR Chest Exam date and time: 10/22/2021 5:36 AM Age: 61 years old Clinical indication: Device placement; Ett placement (vent status); Additional info: Intubated TECHNIQUE: Imaging protocol: XR of the chest. Views: 1 view. COMPARISON: CR XR CHEST PORTABLE 10/21/2021 5:50 AM FINDINGS: Tubes, catheters and devices: Stable support tubes and catheter. Left pacemaker. Lungs: Streaky right lower lung atelectasis/airspace disease. Pleural spaces: Unremarkable. No pleural effusion. No pneumothorax. Heart/Mediastinum: Mild cardiomegaly and vascular congestion. Bones/joints: Unremarkable. IMPRESSION: Essentially stable appearance compared to the previous day, with findings above.
--- NOTE | 2021-10-22 07:56 | DIET.NUTRFU ---
Addendum entered by Tiffany Pelaez RD, LD 10/22/21 09:24: Provider decided to try one dose of Reglan to help with the TF tolerance. Patient does have a good gag reflux and making it hard to tolerate TF via NG tube. Family is moving forward with trach and PEG placement which will help getting everything out of mouth and nose. Planning for skilled nursing placement. She will need to be NPO for trach procedure tomorrow. Will continue to follow tolerance to TF Original Note: RD reviewed weekend with nursing she continues to have nausea with TF and vomiting. Erythromycin continues, in place to help gastric mobility. Will switch formula to osmolite 1.2, in see if tolerates better. Start at minimal rate 10ml/hr and increase as tolerated when checking residuals. She is on insulin, BS have been fairly well controlled not needing it. Flush with 50ml J2L=[id number]/day. She is also receiving flush with her potassium and other medications. Labs: Na 139, K 3.3, BUN 13, Cr 0.60 and glucose 113H. Family is to make discussions about PEG and trach placement today, on schedule for tomorrow. She did have some response over weekend and was able to shake her had no to answer questions. Increase risk for skin breakdown d/t no independent mobility, dependent on staff for turning.
--- NOTE | 2021-10-22 09:01 | HMH.ACPN2 ---
Internal Medicine - PN: Subj *Date: 10/22/21 *Time: 09:01 Interval history: Overnight patient was stable from a cardiovascular and hemodynamic standpoint. Unfortunately tube feeds have been stopped because of vomiting. She does not have residuals but when she moves around she triggers a gag reflex which causes vomiting. Sister and [id number] are in exam room today. Long discussion with them about ongoing issues, prognosis and multiple medical challenges today. Exam Vital signs and Labs for Last 24 Hours: Temp Pulse Resp BP Pulse Ox 98.3 F 70 20 147/73 H 96 10/22/21 08:18 10/22/21 08:00 10/22/21 08:00 10/22/21 08:00 10/22/21 08:00 Laboratory Results - last 24 hr 10/21/21 11:29: POC Glucose 121 H 10/21/21 17:09: POC Glucose 116 H 10/21/21 21:53: POC Glucose 110 10/22/21 05:27: POC Glucose 113 H I & O for Last 24 hours: Intake & Output 10/19/21 10/20/21 10/21/21 10/22/21 11:59 11:59 11:59 11:59 Intake Total 524 / 524 1387 / 1387 670 / 670 152 / 152 Output Total 1308 / 1443 815 / 815 625 / 625 1255 / 1255 Balance -784 / -919 572 / 572 45 / 45 -1103 / -1103 Weight 253 lb 4.8 oz 255 lb 12.8 oz 255 lb 2 oz 247 lb 14.4 oz Narrative: Patient is intubated. Is awake, alert, does respond to commands as noted in my note from yesterday. Lots of spontaneous movement of arms and legs. Appropriate pacemaker spikes on monitoring. Sinus rhythm. Blood pressure acceptable. Heart rate regular. No murmurs. Lungs have ventilator sounds and fairly good air entry.-Patient failed another spontaneous breathing trial today. Abdomen soft, no extremity edema or clubbing. Assessment and Plan (1) Acute on chronic congestive heart failure Status: Acute Qualifiers: Heart failure type: systolic Qualified Code(s): I50.23 - Acute on chronic systolic (congestive) heart failure Category: Medical Code(s): I50.9 - Heart failure, unspecified (2) Atrial flutter with rapid ventricular response Status: Resolved Category: Medical Code(s): I48.92 - Unspecified atrial flutter (3) AICD (automatic cardioverter/defibrillator) present Status: Acute Category: Surgical Code(s): Z95.810 - Presence of automatic (implantable) cardiac defibrillator (4) Cardiac arrest Status: Acute Category: Medical Code(s): I46.9 - Cardiac arrest, cause unspecified (5) Cardiogenic shock Status: Acute Category: Medical Code(s): R57.0 - Cardiogenic shock (6) CAD (coronary atherosclerotic disease) Status: Chronic Qualifiers: Coronary Disease-Associated Artery/Lesion type: [place] artery [place] vs. transplanted heart: [place] heart Associated angina: without angina Qualified Code(s): I25.10 - Atherosclerotic heart disease of [place] coronary artery without angina pectoris Category: Medical Code(s): I25.10 - Atherosclerotic heart disease of [place] coronary artery without angina pectoris (7) Diabetes mellitus Status: Chronic Qualifiers: Diabetes mellitus type: type 2 Diabetes mellitus terminal gauger supervisor insulin use: without terminal gauger supervisor use Diabetes mellitus complication status: without complication Qualified Code(s): E11.9 - Type 2 diabetes mellitus without complications Category: Medical Code(s): E11.9 - Type 2 diabetes mellitus without complications (8) Dilated cardiomyopathy Status: Chronic Category: Medical Code(s): I42.0 - Dilated cardiomyopathy (9) HLD (hyperlipidemia) Status: Chronic Qualifiers: Hyperlipidemia type: mixed hyperlipidemia Qualified Code(s): E78.2 - Mixed hyperlipidemia Category: Medical Code(s): E78.5 - Hyperlipidemia, unspecified (10) Hypertensive disorder Status: Chronic Qualifiers: Hypertension type: primary hypertension Qualified Code(s): I10 - Essential (primary) hypertension Category: Medical Code(s): I10 - Essential (primary) hypertension (11) Obstructive sleep apnea syndrome Status: Chronic Irene
--- NOTE | 2021-10-22 09:15 | PC.NURSE ---
Notified [facility] department of consult.. Hortensia gallegos in specialty clinic stated the wouldnt be in until 10/23/21 and would tell him of consult
--- NOTE | 2021-10-22 09:34 | PC.NURSE ---
notified Dr Hollis that pt has blisters in mouth, order received for nystatin 0670
--- NOTE | 2021-10-22 10:15 | SW/DCPLANNER ---
Addendum entered by Kiersten Montez 10/24/21 11:27: I have updated Gloria interiano/ [facility] that the patient is planned to transfer to [facility] for trach placement. Addendum entered by Shoshana Gonzalez RN 10/22/21 15:56: Spoke with Gloria earlier today. She states she will contact us tomorrow and verify patient is getting trach and then she will come to see patient after she receives that. CHARANJIT Sierra Original Note: Per family request patient information has been faxed to [facility] [place] at this time. I have attempted to contact Gloria Tran: no answer VM left at this time.
--- NOTE | 2021-10-22 10:55 | PC.NURSE ---
When taking photo of pt skin on bottom, it was noted that pt catheter is leaking. balloon deflated, catheter advanced. balloon re inflated and an additional 5ml of saline added. will continue to monitor.
--- NOTE | 2021-10-22 11:22 | PC.WOUNDNOTE ---
skin assessment from am rounds
--- NOTE | 2021-10-22 11:23 | PC.WOUNDNOTE ---
wound to r upper arm
--- NOTE | 2021-10-22 11:23 | PC.WOUNDNOTE ---
bruising to left upper chest and left upper arm (below and surrounding pacemaker site) pacemaker site
--- NOTE | 2021-10-22 11:27 | PC.NURSE ---
0928: called and spoke with Talha in specialty clinic, notified of ENT consult for tracheostomy on pt. 0924: Dr Almaguer aware of consult for PEG tube
--- NOTE | 2021-10-22 12:14 | PC.NURSE ---
tube feeds started at this time
[2021-10-22 12:19] LABS: POC Glucose,Bedside 123 (70-110)
--- NOTE | 2021-10-22 12:51 | HMH.PULMPN ---
Internal Medicine - PN: Subj *Date: 10/22/21 *Time: 12:51 Interval history: No acute respiratory events over the weekend Exam - Constitutional Constitutional:: Present: no acute distress. Absent: comfortable - HENMT Exam HENMT: Present: normocephalic - Eye Exam Eyes:: Present: normal appearance both eyes and related structures - Neck Exam Neck:: Present: normal visual inspection - Respiratory Exam Respiratory:: Present: no respiratory distress, crackles. Absent: wheezing - Cardiovascular Exam Cardiac:: Present: S1, S2 - GI Exam GI:: Present: soft - Skin Exam Skin: Present: warm, no rash - Neurological Exam Neurological: Present: awake. Absent: alert, normal cognition - Extremities Exam Extremities: Present: no cyanosis, no clubbing Assessment and Plan (1) Acute on chronic congestive heart failure Status: Acute Qualifiers: Heart failure type: systolic Qualified Code(s): I50.23 - Acute on chronic systolic (congestive) heart failure Category: Medical Code(s): I50.9 - Heart failure, unspecified (2) Atrial flutter with rapid ventricular response Status: Resolved Category: Medical Code(s): I48.92 - Unspecified atrial flutter (3) AICD (automatic cardioverter/defibrillator) present Status: Acute Category: Surgical Code(s): Z95.810 - Presence of automatic (implantable) cardiac defibrillator (4) Cardiac arrest Status: Acute Category: Medical Code(s): I46.9 - Cardiac arrest, cause unspecified (5) Cardiogenic shock Status: Acute Category: Medical Code(s): R57.0 - Cardiogenic shock (6) CAD (coronary atherosclerotic disease) Status: Chronic Qualifiers: Coronary Disease-Associated Artery/Lesion type: [place] artery [place] vs. transplanted heart: [place] heart Associated angina: without angina Qualified Code(s): I25.10 - Atherosclerotic heart disease of [place] coronary artery without angina pectoris Category: Medical Code(s): I25.10 - Atherosclerotic heart disease of [place] coronary artery without angina pectoris (7) Diabetes mellitus Status: Chronic Qualifiers: Diabetes mellitus type: type 2 Diabetes mellitus intermediate insulin use: without terminal operator use Diabetes mellitus complication status: without complication Qualified Code(s): E11.9 - Type 2 diabetes mellitus without complications Category: Medical Code(s): E11.9 - Type 2 diabetes mellitus without complications (8) Dilated cardiomyopathy Status: Chronic Category: Medical Code(s): I42.0 - Dilated cardiomyopathy (9) HLD (hyperlipidemia) Status: Chronic Qualifiers: Hyperlipidemia type: mixed hyperlipidemia Qualified Code(s): E78.2 - Mixed hyperlipidemia Category: Medical Code(s): E78.5 - Hyperlipidemia, unspecified (10) Hypertensive disorder Status: Chronic Qualifiers: Hypertension type: primary hypertension Qualified Code(s): I10 - Essential (primary) hypertension Category: Medical Code(s): I10 - Essential (primary) hypertension (11) Obstructive sleep apnea syndrome Status: Chronic Category: Medical Code(s): G47.33 - Obstructive sleep apnea (adult) (pediatric) (12) Encephalopathy acute Status: Acute Category: Medical Code(s): G93.40 - Encephalopathy, unspecified (13) Hematoma, chest wall Status: Acute Category: Medical Code(s): S20.219A - Contusion of unspecified front wall of thorax, initial encounter (14) Anemia Status: Acute Category: Medical Code(s): D64.9 - Anemia, unspecified - Assessment and plan all Dx Assessment and Plan for all problems:: #Acute hypoxic respiratory failure needing mechanical ventilatory support: #Hospital-acquired pneumonia: 61-year-old female present with A. kolby RVR, experienced cardiopulmonary arrest with return of spontaneous circulation after less than 1 minute of CPR and epinephrine. Patient during the procedure was intubated for airway support and pulmonary was call
--- NOTE | 2021-10-22 13:42 | HMH.GSCON ---
*Admission Date: 10/09/21 *Reason for consult:: PEG tube placement *History of present illness: Patient is a 61-year-old female with history of atrial fibrillation, congestive heart failure, coronary artery disease, hyperlipidemia, hypertension, BMI 50 who presented to the emergency department on 10/09/2021 with shortness of breath. Evaluation in the emergency department revealed the patient to be in florid heart failure and atrial fibrillation with rapid ventricular response. She was admitted for inpatient management and cardiology involvement. Echocardiogram revealed estimated ejection fraction of 20%. She was taken to the [facility] on 10/10/2021 and had biventricular AICD placement. She did develop respiratory arrest and cardiogenic shock requiring CPR with chest compressions and ACLS resuscitation. Pulmonology involvement was initiated. She did have another rapid response event. She required pressors. Her sedation was discontinued. She has remained on the ventilator. For some time patient had shown spontaneous movements but lack of significant neurologic response without following commands or purposeful movements. Due to poor venous access she did undergo surgical placement of right subclavian triple-lumen catheter on 10/16/2021. She had an EEG obtained which showed findings consistent with global encephalopathy with slowing. She did undergo cardioversion on 10/16/2021. She has been on therapeutic dosing of Lovenox. She had developed a large hematoma at her AICD site. Anticoagulation was then discontinued. She has been dependent on nasogastric tube feeds. For quite some time she has had sensitive gag reflex and her nasogastric tube feeds have had to be periodically stopped due to emesis. She has not had appreciable residuals however. She was started on erythromycin for possible gastroparesis. Consideration was being given for possible PEG placement. She has failed spontaneous breathing trials. Discussion was initiated with the family several days ago for possible PEG tube placement and tracheostomy placement for ultimate placement in LTAC facility. Additional discussion was apparently held with the family today and they would wish to proceed with possible PEG tube and tracheostomy placement. Surgical consultation was ordered. Review of Systems - Review of Systems Review of systems:: unable to obtain - *Neurologic Denies dizziness, Denies headache(s) [facility] History I have reviewed the patient's past medical history: Yes Medical History: Reports:: Arrhythmia, Atrial Fibrillation, Congestive Heart Failure, Coronary Artery Disease, Hyperlipidemia, Hypertension Denies:: Diabetes Mellitus Type 2, Seizures *Have you ever received a pneumonia vaccine?: No *Have you received a flu vaccine this season?: No Other Medical History: Reports: Hypothyroidism. Denies: Blood Transfusion Reaction Anesthesia experience/problems:: nac Other Surgeries: Yes: Cardiac Catheterization, Cardiac Surgery, Other - *Social History Last grade of school completed: Some college Smoking Status: Never smoker Alcohol Intake: never Alcohol Intake Frequency:: other Substance Use Type: former substance user *Occupational Status:: employed Housing: apartment Household Members: none *Travel in the last 8 weeks: None Family Hx:: Anemia, Cancer, Coronary Artery Disease, Diabetes, Hyperlipidemia, Hypertension, Mental illness Meds Home Medications Medication Instructions Recorded Confirmed Type Metoprolol Tartrate 50 mg PO TID 10/10/21 10/10/21 History Allergies Allergy/AdvReac Type Severity Reaction Status Date / Time No Known Allergies Allergy Verified 10/09/21 11:26 Exam Vital signs and Labs for Last 24 Hours: Temp Pulse Resp BP Pulse Ox 98.5 F 70 20 142/72 H 98 10/22/21 11:50 10/22/21 11:00 10/22/21 11:00 10/22/21 11:00 10/22/21 11:00 Laboratory Results - last 24 hr 10/21/21 17:09: POC Glucose 116 H 10/21/21 21:53: POC Glucose
[2021-10-22 16:44] LABS: POC Glucose,Bedside 132 (70-110)
[2021-10-22 21:37] LABS: POC Glucose,Bedside 110 (70-110)
--- NOTE | 2021-10-22 23:43 | PC.NURSE ---
stopped tubefeeds at this time for possible trach and peg tomorrow
[2021-10-23] VITALS (31 sets, daily range): BP systolic 110–175; BP diastolic 59–90; PULSE 70–75; RESP 20; TEMP 36.4–37.1; O2SAT 95–100; BMI 45.9
[2021-10-23 05:34] LABS: Basophils # 0.1 K/mm3 (0-0.2); Basophils % 1.8 % (0.1-2.0); Eosinophils # 0.2 K/mm3 (0.0-0.4); Eosinophils % 2.2 % (0.1-12.0); Hematocrit 34.2 % (37.0-47.0); Hemoglobin 11.6 g/dL (12.2-16.2); Lymphocytes # 0.9 K/mm3 (0.7-4.5); Lymphocytes % 11.1 % (10-50); Mean Corpuscular Hemoglobin 29.7 pg (27.0-31.2); Mean Corpuscular Volume 87.2 fl (81-99); Mean Platelet Volume 8.3 fl (7.4-10.4); Monocytes # 0.6 K/mm3 (0.1-1.0); Neutrophils # 6.1 K/mm3 (1.8-7.8); Platelet Count 307 K/mm3 (142-424); Red Blood Count 3.92 M/mm3 (4.20-5.40); Red Cell Distribution Width 15.9 % (11.5-17.5); White Blood Count 7.9 K/mm3 (4.8-10.8)
[2021-10-23 05:37] LABS: Chloride 107 mmol/L (98-107)
[2021-10-23 05:38] LABS: Sodium 135 mmol/L (136-145)
[2021-10-23 05:40] LABS: Blood Urea Nitrogen 14 mg/dl (7-17); Creatinine Clearance Estimated 44 mL/min (50-200); Estimated Glomerular Filt Rate 101 ml/min (>60); GFR (African American) 123 ML/MIN (>60)
[2021-10-23 05:41] LABS: Calcium 8.5 mg/dl (8.4-10.2); Carbon Dioxide 25 mmol/L (22.0-30.0); Glucose 130 mg/dl (74-100)
[2021-10-23 05:44] LABS: POC Glucose,Bedside 108 (70-110)
--- NOTE | 2021-10-23 06:00 | XR_ITS ---
PROCEDURE INFORMATION: Exam: XR Chest Exam date and time: 10/23/2021 5:23 AM Age: 61 years old Clinical indication: Device placement; Ett placement (vent status); Additional info: Intubated TECHNIQUE: Imaging protocol: XR of the chest. Views: 1 view. COMPARISON: CR XR CHEST PORTABLE 10/22/2021 5:36 AM FINDINGS: Tubes, catheters and devices: Endotracheal tube terminates approximately 4.1 cm above the candace. Enteric tube passes into the stomach. Right subclavian central venous catheter terminates in the region of the superior cavoatrial junction. Cardiac rhythm maintenance device is in place. Lungs: Improving right basilar atelectasis. Pleural spaces: Unremarkable. No pleural effusion. No pneumothorax. Heart/Mediastinum: Cardiomegaly. Bones/joints: Unremarkable. IMPRESSION: 1. Improving right basilar atelectasis. 2. Stable positioning of support apparatus.
--- NOTE | 2021-10-23 06:15 | PC.NURSE ---
Placed Pt in SBT for 1 minute Pt took 4 breaths only with much encouragement from the RN and this SILO WORKER at bedside. Pt placed back in AC mode.
--- NOTE | 2021-10-23 07:10 | HMH.ACPN2 ---
Internal Medicine - PN: Subj *Date: 10/23/21 *Time: 13:44 Interval history: No acute events overnight. Continues to fail breathing trials. Following commands on exam this morning. No fever. Blood pressure little higher. With some readings in hypertensive range with systolics 150-170. No family at bedside this morning on rounds. Continues to require minimal vent settings. Tube feeds held pending evaluation for tracheostomy. Exam Vital signs and Labs for Last 24 Hours: Temp Pulse Resp BP Pulse Ox 98.3 F 70 20 175/89 H 98 10/23/21 05:00 10/23/21 06:00 10/23/21 06:10 10/23/21 06:00 10/23/21 06:10 Laboratory Results - last 24 hr 10/22/21 12:10: POC Glucose 123 H 10/22/21 16:26: POC Glucose 132 H 10/22/21 21:28: POC Glucose 110 10/23/21 05:24: POC Glucose 108 10/23/21 05:30: WBC 7.9, RBC 3.92 L, Hgb 11.6 L, Hct 34.2 L, MCV 87.2, MCH 29.7, MCHC 34.0, RDW 15.9, Plt Count 307, MPV 8.3, Neut % (Auto) 78.0, Lymph % (Auto) 11.1, [place] % (Auto) 7.0, Eos % (Auto) 2.2, Baso % (Auto) 1.8, Neut # (Auto) 6.1, Lymph # (Auto) 0.9, [place] # (Auto) 0.6, Eos # (Auto) 0.2, Baso # (Auto) 0.1 10/23/21 05:30: Sodium 135 L, Potassium 4.0 D, Chloride 107, Carbon Dioxide 25, Anion Gap 7.0, BUN 14, Creatinine 0.60, Estimated Creat Clear 44, Estimated GFR 101, Est GFR ( Amer) 123, Glucose 130 H, Calcium 8.5 I & O for Last 24 hours: Intake & Output 10/20/21 10/21/21 10/22/21 10/23/21 23:59 23:59 23:59 23:59 Intake Total 1086 / 1182 439 / 439 569 / 569 Output Total 535 / 550 1355 / 1380 1055 / 1070 160 / 160 Balance 551 / 632 -916 / -941 -486 / -501 -160 / -160 Weight 116.029 kg 115.723 kg 112.446 kg 113.262 kg Narrative: - Constitutional mild distress, morbidly obese; somnolent - *Routine HEENT Exam Head: Present: normocephalic Eye: Present: PERRLA ENT: Present: mucous membranes moist - *Routine Neck Exam Present: supple. Absent: lymphadenopathy - Routine Chest/Breast/Axilla Exam Chest wall: Present: pacemaker (incision with large intervally expanded hematoma, dressing CDI.) - *Routine Respiratory Exam Present: patient mechanically ventilated, CTA bilaterally - *Routine Cardiovascular Exam Present: RRR, no Murmur - *Routine Abdominal Exam Present: soft, normoactive bowel sounds. Absent: tenderness - *Routine Extremities Exam Present: edema (trace). Absent: cyanosis, clubbing - *Routine Skin Exam Warm, breakdown on right upper extremity healing, no pressure wounds on back; No rash - *Routine Neurological Exam Following commands, responding with head nods to comments/questions. Squeezing hands bilaterally and giving thumbs up bilaterally. Able to stick tongue out and cough. Not spontaneously initiating breaths, no clonus in lower extremities. E4, V not testable, M6 Assessment and Plan (1) Acute on chronic congestive heart failure Status: Acute Qualifiers: Heart failure type: systolic Qualified Code(s): I50.23 - Acute on chronic systolic (congestive) heart failure Category: Medical Code(s): I50.9 - Heart failure, unspecified (2) Atrial flutter with rapid ventricular response Status: Resolved Category: Medical Code(s): I48.92 - Unspecified atrial flutter (3) AICD (automatic cardioverter/defibrillator) present Status: Acute Category: Surgical Code(s): Z95.810 - Presence of automatic (implantable) cardiac defibrillator (4) Cardiac arrest Status: Acute Category: Medical Code(s): I46.9 - Cardiac arrest, cause unspecified (5) Cardiogenic shock Status: Acute Category: Medical Code(s): R57.0 - Cardiogenic shock (6) CAD (coronary atherosclerotic disease) Status: Chronic Qualifiers: Coronary Disease-Associated Artery/Lesion type: [place] artery [place] vs. transplanted heart: [place] heart Associated angina: without angina Qualified Code(s): I25.10 - Atherosclerotic heart disease of [place] coronary artery without angina pectoris Categor
--- NOTE | 2021-10-23 10:20 | DIET.NUTRFU ---
Rounded with provider today, she is currently NPO with possible trach placement today. TF ran yesterday Osmolite 1.2, still only at 10ml/hr and had 130ml residual at 1999. Per Allran PEG placement later this week waiting ENT evaluation. Continues on diuretic tx, with wt down to 113kg. As mentioned above unable to provide much nutrition since on vent, not tolerating TF. Anticipate better tolerance when PEG in place. Today when provider talking to her she was pulling at her tubing and biting it. She seems agitated d/t the tubing hanging out of her mouth. Continues to be unsuccessful at SBT. LBM noted on 10/19. Urine output on 10/22-900ml and 10/23-1180ml. No bolus fluids ordered at this time, just fluids given with meds at this time. Labs: 135L, K 4.0, BUN 14, Cr 0.60 and glucose 130H. Will continue to follow
--- NOTE | 2021-10-23 18:41 | PC.NURSE ---
shift summary: Pt follows commands (sticks out tongue, nods yes/no, wiggles toes, and squeezes hands). GCS 46 (11T). AV paced on tele with rate 70. Normotensive. No BM. Adequate UOP, improved with Lasix. O2 sat high 90s on 40% FiO2. Failed SBT this morning. Will not initiate a breath. Tubefeeds on HOLD until after PEG tomorrow. Plan is for Dr. Poe to perform a bedside PEG tomorrow morning @ 0730. Consent has been signed and is on the chart. Left chest hematoma not any larger. Has been turned Q2hr and oral care performed Q2hrs as well.
[2021-10-23 22:23] LABS: POC Glucose,Bedside 105 (70-110)
[2021-10-24] VITALS (41 sets, daily range): BP systolic 109–180; BP diastolic 59–95; PULSE 70–75; RESP 20–22; TEMP 35.8–37.1; O2SAT 96–100; BMI 45.9
[2021-10-24 05:59] LABS: Basophils # 0.1 K/mm3 (0-0.2); Basophils % 0.9 % (0.1-2.0); Eosinophils # 0.3 K/mm3 (0.0-0.4); Eosinophils % 2.5 % (0.1-12.0); Hemoglobin 12.9 g/dL (12.2-16.2); Lymphocytes # 1.2 K/mm3 (0.7-4.5); Lymphocytes % 11.7 % (10-50); Mean Corpuscular HGB Conc 33.2 g/dL (31.8-35.4); Mean Corpuscular Hemoglobin 29.5 pg (27.0-31.2); Mean Corpuscular Volume 88.9 fl (81-99); Mean Platelet Volume 8.4 fl (7.4-10.4); Monocytes # 0.8 K/mm3 (0.1-1.0); Monocytes % 7.2 % (1.7-9.3); Neutrophils # 8.1 K/mm3 (1.8-7.8); Neutrophils % 77.7 % (37.0-80.0); Platelet Count 336 K/mm3 (142-424); Red Blood Count 4.38 M/mm3 (4.20-5.40); Red Cell Distribution Width 16.3 % (11.5-17.5); White Blood Count 10.4 K/mm3 (4.8-10.8)
--- NOTE | 2021-10-24 06:00 | XR_ITS ---
PROCEDURE INFORMATION: Exam: XR Chest Exam date and time: 10/24/2021 5:10 AM Age: 61 years old Clinical indication: Device placement; Ett placement (vent status); Additional info: Intubated TECHNIQUE: Imaging protocol: XR of the chest. Views: 1 view. COMPARISON: CR XR CHEST PORTABLE 10/23/2021 5:23 AM FINDINGS: Tubes, catheters and devices: Stable appearance of the visualized tubes and lines. Lungs: Similar appearance of mild left and moderate right basilar linear atelectasis/consolidation. Pneumonia is not excluded. Pleural spaces: Possible trace bilateral pleural effusions. No pneumothorax. Heart/Mediastinum: Cardiomegaly. Left pacemaker/ICD with skin tess. Bones/joints: No evidence of an acute fracture. IMPRESSION: 1. Similar appearance of mild left and moderate right basilar linear atelectasis/consolidation. Pneumonia is not excluded. 2. Possible trace bilateral pleural effusions. 3. Other findings as detailed in the body of the report.
[2021-10-24 06:07] LABS: Alanine Aminotransferase 41 U/L (12-78); Albumin Level 3.4 g/dl (3.5-5.0); Albumin/Globulin Ratio 1.1 (1.1-1.8); Anion Gap 10.1 mEq/L (5-15); Aspartate Amino Transferase 53 U/L (14-36); Bilirubin,Total 2.5 mg/dl (0.2-1.3); Blood Urea Nitrogen 13 mg/dl (7-17); Calcium 8.7 mg/dl (8.4-10.2); Carbon Dioxide 25 mmol/L (22.0-30.0); Chloride 101 mmol/L (98-107); Creatinine Clearance Estimated 44 mL/min (50-200); Estimated Glomerular Filt Rate 125 ml/min (>60); GFR (African American) 151 ML/MIN (>60); Globulin 3.2 g/dL (1.3-3.2); Glucose 120 mg/dl (74-100); Magnesium 1.7 mg/dl (1.6-2.3); Potassium 4.1 mmoL/L (3.5-5.1); Sodium 132 mmol/L (136-145); Total Protein,Serum 6.6 g/dl (6.3-8.2)
--- NOTE | 2021-10-24 07:21 | PC.NURSE ---
Time out completed for PEG tube procedure. The following staff @ BS: Anthony Zarate, Debbie Maguire, Ronnie, and myself.
--- NOTE | 2021-10-24 07:34 | PC.NURSE ---
PEG tube procedure completed. No complications noted. VSS.
--- NOTE | 2021-10-24 08:02 | HMH.SCOPE ---
- Procedure: Date: 10/24/21 Patient Date of :: 1960 Procedure Performed:: Percutaneous endoscopic gastrostomy tube placement Indications:: Feeding difficulty Performing Provider:: Lavon Poe MD Referring Provider:: . Sedation:: Monitored anesthesia care Procedure:: After informed consent was obtained the patient was maintained in the supine position. Monitored anesthesia care ensued. The gastroscope was advanced and the stomach was insufflated. Transillumination and impulse easily noted. The left upper quadrant was prepped and draped in a sterile fashion. After infiltration local anesthetic a small transverse incision was made overlying the point of maximal impulse/transillumination. A large bore Angiocath was placed under direct visualization into the gastric lumen. The guidewire was entered through the Angiocath and retrieved with Endo snare. The gastrostomy tube was secured to the guidewire and then pulled into appropriate position. The gastrostomy tube was anchored at 5 cm. The gastroscope was readvanced into the gastric lumen. The bumper was in good position and no active bleeding noted. Rotation easily confirmed. The gastroscope was carefully removed and an abdominal binder was secured in position. Findings:: Transillumination and impulse confirmed PEG anchored at 5 cm Specimens:: None Recommendations:: Post-PEG orders written Complications:: No immediate Estimated blood obtained (mL): 5
[2021-10-24 08:14] LABS: Alkaline Phosphatase 148 U/L (38-126)
--- NOTE | 2021-10-24 08:24 | HMH.ANESCL ---
[facility] Anesthesia Checklist - Structural Data Admitted From: Inpatient Planned Operative Procedure/s: peg tube Consent for Planned Operative Procedure(s) Verified: Yes - Additional verifications Anesthesia Reactions: No Hx Blood Transfusions: No Blood Transfusion Reaction: No - Airway Assessment C-Spine Mobility Assessed: Yes TMJ Mobility Assessed: Yes Dentition: Poor Dentition - Neurological Assessment Level of Consciousness: Awake, Combative, Restless - Anesthesia Plan Anesthesia Risk discussed: Yes Anesthesia Plan: Patient unable to respond/answer ASA Class: IV Anesthesia Type: [facility] History I have reviewed the patient's past medical history: Yes Medical History: Reports:: Arrhythmia, Atrial Fibrillation, Congestive Heart Failure, Coronary Artery Disease, Hyperlipidemia, Hypertension Denies:: Diabetes Mellitus Type 2, Seizures *Have you ever received a pneumonia vaccine?: No *Have you received a flu vaccine this season?: No Other Medical History: Reports: Hypothyroidism. Denies: Blood Transfusion Reaction Anesthesia experience/problems:: nonenac Other Surgeries: Yes: Cardiac Catheterization, Cardiac Surgery, Other - *Social History Last grade of school completed: Some college Smoking Status: Never smoker Alcohol Intake: never Alcohol Intake Frequency:: other Substance Use Type: former substance user *Occupational Status:: employed Housing: apartment Household Members: none *Travel in the last 8 weeks: None Family Hx:: Anemia, Cancer, Coronary Artery Disease, Diabetes, Hyperlipidemia, Hypertension, Mental illness
--- NOTE | 2021-10-24 08:55 | HMH.ACPN2 ---
Internal Medicine - PN: Subj *Date: 10/24/21 *Time: 08:55 Interval history: Over the past 24 hours patient has had several consultations-I spoke with Dr. Perez about her case and he feels much more comfortable having her transfer to [facility] to have the tracheostomy done given multiple comorbidities, patient body habitus, etc. I certainly agree with this. As a result, we consulted surgery to have PEG placement done before this and Dr. Carreon graciously put a PEG in her this morning that was uncomplicated. I spoke with family at bedside today regarding plan and they are on board. Labs have been stable. Cardiopulmonary status has been stable. She continues to require ventilator support. Exam Vital signs and Labs for Last 24 Hours: Temp Pulse Resp BP Pulse Ox 96.5 F L 70 20 134/77 97 10/24/21 08:00 10/24/21 08:00 10/24/21 08:00 10/24/21 08:00 10/24/21 08:15 Laboratory Results - last 24 hr 10/23/21 21:54: POC Glucose 105 10/24/21 05:45: WBC 10.4 D, RBC 4.38, Hgb 12.9, Hct 39.0, MCV 88.9, MCH 29.5, MCHC 33.2, RDW 16.3, Plt Count 336, MPV 8.4, Neut % (Auto) 77.7, Lymph % (Auto) 11.7, [place] % (Auto) 7.2, Eos % (Auto) 2.5, Baso % (Auto) 0.9, Neut # (Auto) 8.1 H, Lymph # (Auto) 1.2, [place] # (Auto) 0.8, Eos # (Auto) 0.3, Baso # (Auto) 0.1 10/24/21 05:45: Sodium 132 L, Potassium 4.1, Chloride 101, Carbon Dioxide 25, Anion Gap 10.1, BUN 13, Creatinine 0.50 L, Estimated Creat Clear 44, Estimated GFR 125, Est GFR ( Amer) 151 D, Glucose 120 H, Calcium 8.7, Magnesium 1.7 D, Total Bilirubin 2.5 H, AST 53 H, ALT 41, Alkaline Phosphatase 148 H, Total Protein 6.6, Albumin 3.4 L, Globulin 3.2, Albumin/Globulin Ratio 1.1 I & O for Last 24 hours: Intake & Output 10/21/21 10/22/21 10/23/21 10/24/21 11:59 11:59 11:59 11:59 Intake Total 670 / 670 252 / 252 397 / 397 80 / 80 Output Total 625 / 625 1325 / 1325 1305 / 1480 2045 / 2045 Balance 45 / 45 -1073 / -1073 -908 / -1083 -1964 / -1964 Weight 255 lb 2 oz 247 lb 14.4 oz 249 lb 11.2 oz 249 lb 11.199 oz Narrative: Patient intubated. No sedation. Continues to have her neurologic responses as previously noted. Hematoma on chest is unchanged overlying the pacemaker site. No evidence of streaking down the left arm. Abdomen soft. Heart rate regular. Pacer spikes noted on telemetry. Good expansion of lungs, ventilator sounds noted. No edema or clubbing. Katz catheter draining clear yellow urine. Assessment and Plan (1) Acute on chronic congestive heart failure Status: Acute Qualifiers: Heart failure type: systolic Qualified Code(s): I50.23 - Acute on chronic systolic (congestive) heart failure Category: Medical Code(s): I50.9 - Heart failure, unspecified (2) Atrial flutter with rapid ventricular response Status: Resolved Category: Medical Code(s): I48.92 - Unspecified atrial flutter (3) AICD (automatic cardioverter/defibrillator) present Status: Acute Category: Surgical Code(s): Z95.810 - Presence of automatic (implantable) cardiac defibrillator (4) Cardiac arrest Status: Acute Category: Medical Code(s): I46.9 - Cardiac arrest, cause unspecified (5) Cardiogenic shock Status: Acute Category: Medical Code(s): R57.0 - Cardiogenic shock (6) CAD (coronary atherosclerotic disease) Status: Chronic Qualifiers: Coronary Disease-Associated Artery/Lesion type: [place] artery [place] vs. transplanted heart: [place] heart Associated angina: without angina Qualified Code(s): I25.10 - Atherosclerotic heart disease of [place] coronary artery without angina pectoris Category: Medical Code(s): I25.10 - Atherosclerotic heart disease of [place] coronary artery without angina pectoris (7) Diabetes mellitus Status: Chronic Qualifiers: Diabetes mellitus type: type 2 Diabetes mellitus [employer] insulin use: without [employer] use Diabetes mellitus complication status: without complication Qualified Cod
--- NOTE | 2021-10-24 09:48 | PC.NURSE ---
hernandez catheter leaking urine around insertion site. Hernandez discontinued and new 18fr 10cc hernandez inserted. UA ordered.
--- NOTE | 2021-10-24 09:53 | DIET.NUTRFU ---
Patient had PEG placed this AM and able to start TF at noon. Orders in, osmolite 1.2 at 10ml/hr and increase Q4H by 10min. Plan is to transfer to [facility] where she will have the trach placed and from there go to [facility]. Labs reviewed, Na 132L. Continues to receive fluid with meds and with TF when running. No bolus fluids at this time.Continues on lasix which may cause change in fluid status. Nystatin in place for anti-fungal tx. skin remains intake. Urine output noted poor yesterday. Will continue to follow POC
[2021-10-24 09:56] LABS: Microscopic, Urine URINE MICROSCOPIC (MICROSCOPIC)
[2021-10-24 10:00] LABS: Appearance,Urine CLOUDY (Clear); Blood, Urine 3+ (Negative); Color,Urine DK YELLOW (Yellow); Glucose,Urine (UA) Negative (Negative); Ketones,Urine 1+ (Negative); Leukocyte Esterase,Urine TRACE (Negative); Nitrate,Urine POSITIVE (Negative); PH,Urine 5.5 (5.0-8.5); Protein,Urine TRACE (Negative); Specific Gravity, Urine >= 1.030 (1.005-1.030)
[2021-10-24 10:08] LABS: Bilirubin,Urine Negative (Negative)
[2021-10-24 10:27] LABS: RBC,Urine 50-100 #/hpf (0-3)
[2021-10-24 10:28] LABS: Bacteria,Urine Trace /lpf
--- NOTE | 2021-10-24 12:00 | PC.NURSE ---
tubefeeds restarted via PEG tube: Osmolite 1.2 @ 10mL/hr. Will advance by 10mL Q4hrs if tolerated. Free water 50mL Q4hr programmed on pump.
--- NOTE | 2021-10-24 16:00 | PC.NURSE ---
tubefeed rate increased to 20mL/hr
--- NOTE | 2021-10-24 16:34 | HMH.PULMPN ---
Internal Medicine - PN: Subj *Date: 10/24/21 *Time: 16:34 Interval history: No acute respiratory vents overnight. Exam - Constitutional Constitutional:: Absent: no acute distress, comfortable - HENMT Exam HENMT: Present: normocephalic - Eye Exam Eyes:: Present: normal appearance both eyes and related structures - Neck Exam Neck:: Present: normal visual inspection - Respiratory Exam Respiratory:: Present: no respiratory distress, crackles. Absent: able to speak in complete sentences, wheezing - Cardiovascular Exam Cardiac:: Present: S1, S2 - GI Exam GI:: Present: soft - Skin Exam Skin: Present: warm - Neurological Exam Neurological: Present: awake. Absent: alert, normal cognition - Extremities Exam Extremities: Present: no cyanosis, no clubbing. Absent: no edema Assessment and Plan (1) Acute on chronic congestive heart failure Status: Acute Qualifiers: Heart failure type: systolic Qualified Code(s): I50.23 - Acute on chronic systolic (congestive) heart failure Category: Medical Code(s): I50.9 - Heart failure, unspecified (2) Atrial flutter with rapid ventricular response Status: Resolved Category: Medical Code(s): I48.92 - Unspecified atrial flutter (3) AICD (automatic cardioverter/defibrillator) present Status: Acute Category: Surgical Code(s): Z95.810 - Presence of automatic (implantable) cardiac defibrillator (4) Cardiac arrest Status: Acute Category: Medical Code(s): I46.9 - Cardiac arrest, cause unspecified (5) Cardiogenic shock Status: Acute Category: Medical Code(s): R57.0 - Cardiogenic shock (6) CAD (coronary atherosclerotic disease) Status: Chronic Qualifiers: Coronary Disease-Associated Artery/Lesion type: [place] artery [place] vs. 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 use Diabetes mellitus complication status: without complication Qualified Code(s): E11.9 - Type 2 diabetes mellitus without complications Category: Medical Code(s): E11.9 - Type 2 diabetes mellitus without complications (8) Dilated cardiomyopathy Status: Chronic Category: Medical Code(s): I42.0 - Dilated cardiomyopathy (9) HLD (hyperlipidemia) Status: Chronic Qualifiers: Hyperlipidemia type: mixed hyperlipidemia Qualified Code(s): E78.2 - Mixed hyperlipidemia Category: Medical Code(s): E78.5 - Hyperlipidemia, unspecified (10) Hypertensive disorder Status: Chronic Qualifiers: Hypertension type: primary hypertension Qualified Code(s): I10 - Essential (primary) hypertension Category: Medical Code(s): I10 - Essential (primary) hypertension (11) Obstructive sleep apnea syndrome Status: Chronic Category: Medical Code(s): G47.33 - Obstructive sleep apnea (adult) (pediatric) (12) Encephalopathy acute Status: Acute Category: Medical Code(s): G93.40 - Encephalopathy, unspecified (13) Hematoma, chest wall Status: Acute Category: Medical Code(s): S20.219A - Contusion of unspecified front wall of thorax, initial encounter (14) Anemia Status: Acute Category: Medical Code(s): D64.9 - Anemia, unspecified - Assessment and plan all Dx Assessment and Plan for all problems:: #Acute hypoxic respiratory failure needing mechanical ventilatory support: #Hospital-acquired pneumonia: 61-year-old female present with Gustavo jarrett RVR, experienced cardiopulmonary arrest with return of spontaneous circulation after less than 1 minute of CPR and epinephrine. Patient during the procedure was intubated for airway
--- NOTE | 2021-10-24 18:47 | PC.NURSE ---
shift summary: Pt follows commands (sticks out tongue, nods yes/no, wiggles toes, and squeezes hands). GCS (11T). AV paced on tele with rate 70. Normotensive. No BM. Adequate UOP. Katz catheter leaking early in shift and was changed to 18fr. No issues since. O2 sat high 90s on 40% FiO2. Failed SBT this morning. Will not initiate a breath. Pt now has PEG tube. Tubefeeds restarted and are at 20m/hr. Will advance by 10mL/hr Q4hrs if tolerated for goal rate of 90mL/hr. Left chest hematoma not any larger. Has been turned Q2hr and oral care performed Q2hrs as well. Pt is on surgery schedule @ for Thursday 10/26 to have trach procedure. Pt on waiting list for bed @ . bed control [phone][address] Dr. Hollis has been updated on all phone calls today with and Dr. Perez.
[2021-10-25] VITALS (23 sets, daily range): BP systolic 96–142; BP diastolic 52–96; PULSE 70–73; RESP 16–23; TEMP 36.4–37.1; O2SAT 94–99; BMI 45.9
[2021-10-25 01:13] LABS: POC Glucose,Bedside 114 (70-110)
--- NOTE | 2021-10-25 04:39 | PC.NURSE ---
Pt continue to respond with nods. Sticks tongue out, moves extremities. Will help staff during VS by lifting arm up. VSS. Vent settings unchanged. AC, FiO2 40%, TV 440, R 20, PEEP 5. Peg tube patent. No signs of infection. Osmolite infusing @ 40 ml/hr. Pt tolerating well. No BM this shift. F/C draining to bedside with dark dedrick urine. Output has decreased overnight. Possible leak from F/C. Urine noted to incontinent pad. Pacemaker site continues to have hematoma. Bed bath given and bed linens changed. No other concerns. Will continue to monitor.
[2021-10-25 05:50] LABS: Basophils # 0.1 K/mm3 (0-0.2); Eosinophils # 0.2 K/mm3 (0.0-0.4); Eosinophils % 1.9 % (0.1-12.0); Hematocrit 39.7 % (37.0-47.0); Hemoglobin 12.8 g/dL (12.2-16.2); Lymphocytes # 1.3 K/mm3 (0.7-4.5); Lymphocytes % 11.3 % (10-50); Mean Corpuscular HGB Conc 32.3 g/dL (31.8-35.4); Mean Corpuscular Hemoglobin 28.3 pg (27.0-31.2); Mean Corpuscular Volume 87.6 fl (81-99); Mean Platelet Volume 8.3 fl (7.4-10.4); Monocytes # 0.8 K/mm3 (0.1-1.0); Monocytes % 7.2 % (1.7-9.3); Neutrophils # 9.2 K/mm3 (1.8-7.8); Neutrophils % 78.6 % (37.0-80.0); Platelet Count 356 K/mm3 (142-424); Red Blood Count 4.53 M/mm3 (4.20-5.40); Red Cell Distribution Width 16.2 % (11.5-17.5); White Blood Count 11.6 K/mm3 (4.8-10.8)
[2021-10-25 05:58] LABS: Alanine Aminotransferase 36 U/L (12-78); Albumin Level 3.5 g/dl (3.5-5.0); Albumin/Globulin Ratio 1.1 (1.1-1.8); Alkaline Phosphatase 130 U/L (38-126); Anion Gap 8.3 mEq/L (5-15); Aspartate Amino Transferase 47 U/L (14-36); Bilirubin,Total 2.4 mg/dl (0.2-1.3); Blood Urea Nitrogen 24 mg/dl (7-17); Calcium 8.7 mg/dl (8.4-10.2); Carbon Dioxide 27 mmol/L (22.0-30.0); Chloride 100 mmol/L (98-107); Creatinine Clearance Estimated 44 mL/min (50-200); Estimated Glomerular Filt Rate 85 ml/min (>60); GFR (African American) 103 ML/MIN (>60); Globulin 3.2 g/dL (1.3-3.2); Glucose 157 mg/dl (74-100); Potassium 4.3 mmoL/L (3.5-5.1); Sodium 131 mmol/L (136-145); Total Protein,Serum 6.7 g/dl (6.3-8.2)
--- NOTE | 2021-10-25 06:00 | XR_ITS ---
PROCEDURE INFORMATION: Exam: XR Chest Exam date and time: 10/25/2021 5:25 AM Age: 61 years old Clinical indication: Device placement; Ett placement (vent status); Additional info: Intubated TECHNIQUE: Imaging protocol: XR of the chest. Views: 1 view. COMPARISON: CR XR CHEST PORTABLE 10/24/2021 5:10 AM FINDINGS: Examination: Radiograph with left marker overlying right shoulder. Patient is slightly levo rotated. Tubes, catheters and devices: Endotracheal tube tip 5 cm above the candace and in good position. Left-sided pacing device. Overlying monitoring leads. Right subclavian central line with tip at SVC right atrial junction. Lungs: Persistent right basilar and left lung field opacities concerning for pneumonia or atelectasis. Pleural spaces: No pneumothorax. Heart/Mediastinum: Cardiac silhouette stable in size. Bones/joints: No acute fracture or dislocation. IMPRESSION: Right basilar and left lung opacities are persistent and concerning for pneumonia or atelectasis.
[2021-10-25 07:57] LABS: ABG Base Excess -1.2 mmol/L (-2.4-2.3); ABG HCO3 21.3 mmhg (22.0-26.0); ABG Oxygen Saturation 98 % (90-100); ABG PCO2 25.6 mmhg (35.0-45.0); ABG PH 7.54 mmol/L (7.35-7.45); ABG PO2 99.4 mmhg (80-100); ABG TCO2 22.1 mmhg (23-27)
[2021-10-25 07:59] LABS: Allen's Test acceptable; Oxygen 40 %; PEEP 5; Tidal Volume 440; Vent Rate 20
--- NOTE | 2021-10-25 08:43 | HMH.DCSUM ---
General - General Admission date:: 10/09/21 Discharge date: 10/25/21 HPI HPI: Ms. Pham is a pleasant 61-year-old female who presented to the emergency room with worsening shortness of breath. Shortness of breath has been progressive over the past several weeks. Having difficulty walking around the house, taking breaks frequently due to shortness of air with minimal exertion. Has noted significant swelling in her legs. From a cough when she came into the ER that she reports is somewhat better now that she has been urinating after diuresis. Interestingly, she denies any chest pain or pressure. Does complain of feeling like her heart is racing, though she knows she has a history of A. fib. Has not been seen by primary care or cardiology since April 2020. Still had refills of some of her medications and was taking per her report some Entresto, metoprolol fairly regularly for the past 18+ months. Ran out of anticoagulant in May. Has not been on amiodarone in some time per her report. Had been on it previously however. On arrival to the ER, found to be in florid heart failure, A. fib with RVR, and had concern for significant volume overload. Cardiology consulted. Admitted to medicine for further management and observation Visited with patient after arrival to the floor. Very pleasant, sitting at bedside eating dinner. In A. fib with RVR on telemetry. States she is feeling somewhat better since responding to diuretic. Has been urinated numerous times. Denies significant shortness of breath, stable on room air. Afebrile. No vomiting or diarrhea. States she has had significant loss and social/emotional stress over the past year and a half. This is led to her neglecting herself which she admits. Of note, has not been seen in our office since March 2020 Hospital Course Hospital Course: Patient was admitted as noted in the HPI. She was found to have significant and severe heart failure with A. fib and a very suppressed ejection fraction. Given these parameters she was taken for placement of AICD the day after admission. Unfortunately, during the event she suffered cardiac arrest requiring intubation. Nursing notes indicate that she was pulseless for 3 to 4 minutes. Intubation was successful and she was transferred back to the intensive care unit on several drips for blood pressure, sedation, etc. Please see the daily progress notes for details, but over the next 48 to 72 hours patient was able to be weaned off pressors and drips for rate control with good functioning of the AICD/pacer device. She did develop a hematoma over the pacemaker site which necessitated cessation of chemical anticoagulation for DVT prophylaxis. This hematoma stopped increasing in size and her hemoglobin and hematocrit did not drop significantly. Over the next several days pulmonology was consulted for ventilator management and weaning. Patient was able to be weaned to lower settings but unfortunately failed multiple spontaneous breathing trials with significant apnea and decompensation of hypoxia. After the cardiac arrest her neurologic status was significantly obtunded, CT scan and CTA testing was done which revealed no evidence of cerebrovascular hemorrhage and EEG revealed no evidence of active epileptiform activity but did reveal significant metabolic slowing. She was placed on Keppra for 1 episode of posturing after the anoxic event. Interestingly over the last for 5 days she is improved her neurologic function has been able to meaningfully communicate with blinks, sticking her tongue out, squeezing hands and has been able to shake her head yes or no to questions. However, this neurologic improvement has not manifested itself in her ability to breathe on her own. After consultation with her family, decision was made to pursue PEG placement, tracheostomy placement for transition to LTAC unit for ventilatory support and ongoing aggress
--- NOTE | 2021-10-25 10:01 | DIET.NUTRFU ---
Rounded with provider today, reviewed update with nursing. Patient is planning on transfer today to [facility] for Trach and after LTC placement at [facility]. Patient continues to be responsive to commands. PEG placed yesterday, Osmolite 1.2 now at 40ml/hr- tolerating well with 10ml residuals noted at 2300. Goal rate of 80ml/hr would be providing 1840ml/2208kcal/102gm protein/1508ml free water plus flush of 50ml E7Z=020tv/day. Total fluid= 1800ml/day. Labs today: Na 131 (132), BUN 24H, Glucose 157. Patient is diabetic, if continues to tolerate TF maybe beneficial to switch to diabetic formula, insulin ordered to tx. Glucerna was tried early on with NG tube, was not tolerating but may not be d/t formula but with the tube and gag reflux. AST and alkaline phosphate also improving, still elevated. Will continue to follow
[2021-10-25 12:18] LABS: POC Glucose,Bedside 180 (70-110)
--- NOTE | 2021-10-25 14:46 | HMH.PULMPN ---
Internal Medicine - PN: Subj *Date: 10/25/21 *Time: 14:46 Interval history: No acute respiratory events overnight. Remains on minimal ventilator settings. Exam - Constitutional Constitutional:: Present: no acute distress, comfortable - HENMT Exam HENMT: Present: oral mucosa normal - Eye Exam Eyes:: Present: normal appearance both eyes and related structures - Neck Exam Neck:: Present: normal visual inspection - Respiratory Exam Respiratory:: Present: no respiratory distress. Absent: crackles, wheezing - Cardiovascular Exam Cardiac:: Present: S1, S2 - GI Exam GI:: Present: soft, no hepatosplenomegaly - Skin Exam Skin: Present: warm, no rash - Neurological Exam Neurological: Present: awake. Absent: alert, normal cognition - Extremities Exam Extremities: Present: no cyanosis, no clubbing, edema Assessment and Plan (1) Acute on chronic congestive heart failure Status: Acute Qualifiers: Heart failure type: systolic Qualified Code(s): I50.23 - Acute on chronic systolic (congestive) heart failure Category: Medical Code(s): I50.9 - Heart failure, unspecified (2) Atrial flutter with rapid ventricular response Status: Resolved Category: Medical Code(s): I48.92 - Unspecified atrial flutter (3) AICD (automatic cardioverter/defibrillator) present Status: Acute Category: Surgical Code(s): Z95.810 - Presence of automatic (implantable) cardiac defibrillator (4) Cardiac arrest Status: Acute Category: Medical Code(s): I46.9 - Cardiac arrest, cause unspecified (5) Cardiogenic shock Status: Acute Category: Medical Code(s): R57.0 - Cardiogenic shock (6) CAD (coronary atherosclerotic disease) Status: Chronic Qualifiers: Coronary Disease-Associated Artery/Lesion type: [place] artery [place] vs. 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 insulin use: without fpc use Diabetes mellitus complication status: without complication Qualified Code(s): E11.9 - Type 2 diabetes mellitus without complications Category: Medical Code(s): E11.9 - Type 2 diabetes mellitus without complications (8) Dilated cardiomyopathy Status: Chronic Category: Medical Code(s): I42.0 - Dilated cardiomyopathy (9) HLD (hyperlipidemia) Status: Chronic Qualifiers: Hyperlipidemia type: mixed hyperlipidemia Qualified Code(s): E78.2 - Mixed hyperlipidemia Category: Medical Code(s): E78.5 - Hyperlipidemia, unspecified (10) Hypertensive disorder Status: Chronic Qualifiers: Hypertension type: primary hypertension Qualified Code(s): I10 - Essential (primary) hypertension Category: Medical Code(s): I10 - Essential (primary) hypertension (11) Obstructive sleep apnea syndrome Status: Chronic Category: Medical Code(s): G47.33 - Obstructive sleep apnea (adult) (pediatric) (12) Encephalopathy acute Status: Acute Category: Medical Code(s): G93.40 - Encephalopathy, unspecified (13) Hematoma, chest wall Status: Acute Category: Medical Code(s): S20.219A - Contusion of unspecified front wall of thorax, initial encounter (14) Anemia Status: Acute Category: Medical Code(s): D64.9 - Anemia, unspecified - Assessment and plan all Dx Assessment and Plan for all problems:: #Acute hypoxic respiratory failure needing mechanical ventilatory support: #Hospital-acquired pneumonia: 61-year-old female present with Gustavo jarrett RVR, experienced cardiopulmonary arrest with return of spontaneous circulation after less than 1 minute of CPR and epinephrine. Patient during the proc
[2021-10-26 06:48] LABS: POC Glucose,Bedside 159 (70-110)
== END 2021-10-25 17:36 | disposition short-term general hospital (02) | DRG 226 ==
LOC: UTC 10:28 → ER 11:31 → 2ND 16:32
PROVIDERS: Internal Medicine; Internal Medicine Pulmonary Disease; Nurse Practitioner Family; Student in an Organized Health Care Education/Training Program; Surgery; Admitting Provider Internal Medicine Adolescent Medicine; Emergency Provider Emergency Medicine; PCP Internal Medicine Adolescent Medicine; Visit Provider Internal Medicine Adolescent Medicine
PROC: 0JH608Z Insertion of Defibrillator Generator into Chest Subcutaneous Tissue and Fascia, Open Approach (ICD-10-PCS; CPT 33249; principal; 2021-10-10 10:15)
PROC: 0DH63UZ Insertion of Feeding Device into Stomach, Percutaneous Approach (ICD-10-PCS; CPT 43246; principal; 2021-10-24 07:30)
DX: R57.0 Cardiogenic shock (principal); I46.9 Cardiac arrest, cause unspecified; I50.23 Acute on chronic systolic (congestive) heart failure; J18.9 Pneumonia, unspecified organism; J96.01 Acute respiratory failure with hypoxia; I11.0 Hypertensive heart disease with heart failure; Z68.42 Body mass index [BMI] 45.0-49.9, adult; G93.40 Encephalopathy, unspecified; I97.638 Postprocedural hematoma of a circulatory system organ or structure following other circulatory system procedure; D62 Acute posthemorrhagic anemia; Z20.822 Contact with and (suspected) exposure to COVID-19; I42.0 Dilated cardiomyopathy; I48.91 Unspecified atrial fibrillation; I25.10 Atherosclerotic heart disease of native coronary artery without angina pectoris; E03.9 Hypothyroidism, unspecified; Z95.810 Presence of automatic (implantable) cardiac defibrillator; E66.9 Obesity, unspecified; E11.65 Type 2 diabetes mellitus with hyperglycemia; F32.A Depression, unspecified; Y95 Nosocomial condition; G47.33 Obstructive sleep apnea (adult) (pediatric); E87.6 Hypokalemia; E83.51 Hypocalcemia; E83.42 Hypomagnesemia; Y83.1 Surgical operation with implant of artificial internal device as the cause of abnormal reaction of the patient, or of later complication, without mention of misadventure at the time of the procedure; E78.2 Mixed hyperlipidemia; R63.30 Feeding difficulties, unspecified
CPT/HCPCS: 31500; 94002; 33249; 43246; 92960; 36556; 92950; 36415; 70450; 70496; 70498; 71045; 71046; 71260; 74018; 76604; 80048; 80053; 80061; 81001; 82140; 82803; 82962; 83036; 83605; 83735; 83880; 84100; 84439; 84443; 84484; 85007; 85025; 87070; 87081; 87205; 93005; 93306; 93308; 94003; 94760; 94761; 95822; 96375; 99152; 99153; 99285; C1751; C1769; C1882; C1895; C1898; C1900; C9803; J0282; J1953; J2405; J2704; J2790; J3475; J7060; Q9967; U0003; U0005

== ENCOUNTER → 2022-02-14 11:01 | Outpatient (CLI) | payer MEDICAID, SELFPAY | PROVIDERS: PCP Internal Medicine Adolescent Medicine; Visit Provider Internal Medicine | DX: I50.23 Acute on chronic systolic (congestive) heart failure (principal) | CPT/HCPCS: 93308 ==

== ENCOUNTER → 2022-04-02 14:18 | Outpatient (CLI) | payer OTHER, SELFPAY | PROVIDERS: PCP Internal Medicine Adolescent Medicine; Visit Provider Internal Medicine | DX: G47.33 Obstructive sleep apnea (adult) (pediatric) (principal); R06.83 Snoring; E66.01 Morbid (severe) obesity due to excess calories; Z68.41 Body mass index [BMI] 40.0-44.9, adult | CPT/HCPCS: 95806 ==

== ENCOUNTER 2022-08-08 15:00 | Outpatient (RCR) | payer MEDICAID, OTHER, SELFPAY | END 2022-08-08 15:05 | disposition home or self-care (01) | LOC: OT 15:00 | PROVIDERS: PCP Internal Medicine Adolescent Medicine | DX: R53.1 Weakness (principal) | CPT/HCPCS: 97110; 97140; 97164; 97165; 97530 ==

== ENCOUNTER → 2022-10-16 09:42 | Outpatient (CLI) | payer OTHER, SELFPAY ==
--- NOTE | 2022-10-16 09:50 | FL_ITS ---
FINAL REPORT CLINICAL HISTORY: difficulty swallowing 1.17 fluoro time FINDINGS: MODIFIED BARIUM SWALLOW History: Dysphagia FINDINGS: Fluoroscopy was provided for the speech pathologist to evaluate the swallowing mechanism. The patient was given several different consistencies of barium while the swallow was visualized fluoroscopically. The report of the speech pathologist should be consulted prior to making dietary decisions. FLUOROSCOPY TIME: 1.17 minutes IMPRESSION: Modified barium swallow under fluoroscopic guidance. Please see the report of the speech pathologist for Dietary recommendations. Films reviewed , interpreted and dictated by Dr. Jones Transcribed by Duglas Quintanilla PA-C. Reviewed, Interpreted and Dictated by Bharat Jones III, MD Transcribed by CHRISTOPH Harris Authenticated and [facility]
--- NOTE | 2022-10-16 09:50 | FL_ITS ---
FINAL REPORT CLINICAL HISTORY: dysphagia FINDINGS: ESOPHAGRAM HISTORY: Dysphagia. PROCEDURE: The patient ingested barium. Effervescent crystals were also administered. Spot and overhead films were obtained. FINDINGS: The esophagus is normal. There is no hiatal hernia. There is no gastroesophageal reflux. Peristalsis is normal. There is a traction diverticulum in the midesophagus. IMPRESSION: Mid esophageal traction diverticulum. Otherwise, unremarkable exam. Films reviewed , interpreted and dictated by Dr. Jones Transcribed by Duglas Quintanilla PA-C. Reviewed, Interpreted and Dictated by Bharat Jones III, MD Transcribed by CHRISTOPH Harris Authenticated and [facility]
--- NOTE | 2022-10-16 13:31 | HMH.SLMBS2 ---
Speech & Language Evaluation Speech/Language Mod Barium Swallow Start: 10/16/22 13:20 Freq: once Status: Complete Protocol: Document 10/16/22 13:21 RASHID (Rec: 10/16/22 13:31 RASHID [id number]) General Information General Current Food Consistancy Regular,Thin Liquids Dentition Good Dentition Oxygen Status Room Air Facial Symmetry Symmetrical Patient Orientation Person,Place,Time,Situation Ability to Follow Directions Excellent Communication Ability No Impairment MBS Recommendations Diet Dietary Recommendations Regular,Thin Liquids Treatment/Strategies Strategy/Precaution Recommend Sitting Upright (90 deg),Small Bites and Sips,Alternate Liquids/Solids Mod Barium Swallow Impressions Summary and Impressions Oral Phase Impression No Impairment (WFL) Oral Phase Summary Functional oral phase of swallowing. Pt demonstrates adequate mastication with both mechanical soft and regular solids. Pt is able to efficiently form bolus and AP transit of bolus is timely. She did have prolonged AP transit x1 with an uncoated barium tablet, likely 2' large bolus size. Back of tongue control is WFL, therefore there is no premature spillage into the pharynx. There is no significant oral residue on the study. Pharyngeal Phase Impression No Impairment (WFL) Pharyngeal Phase Summary Functional pharyngeal phase of swallowing. No aspiration is noted on the study. Pt does demonstrate intermittent transient penetration during the swallow with large, uncontrolled drinks, however, she is able to clear all penetrated material from the laryngeal vestibule with no residue leftover upon completion of the pharyngeal swallow. Despite transient penetration, airway protection is sufficient given pt's age. Mildly decreased hyolaryngeal elevation and excursion were
== END ==
PROVIDERS: PCP Internal Medicine Adolescent Medicine; Visit Provider Internal Medicine Adolescent Medicine
DX: R13.10 Dysphagia, unspecified (principal); I47.20 Ventricular tachycardia, unspecified; G93.1 Anoxic brain damage, not elsewhere classified
CPT/HCPCS: 70371; 74220; 92611

== ENCOUNTER 2022-12-12 14:00 | Outpatient (RCR) | payer MEDICAID, OTHER, SELFPAY ==
--- NOTE | 2022-09-12 16:00 | HMH.RHREAS ---
Rehab Reassessment Rehab OP Re-assessment Start: 01/31/22 14:29 Freq: Status: Active Protocol: Document 09/12/22 15:24 GUNJAN (Rec: 09/12/22 15:31 PHORVÍCTOR [id number]) E-signed By Melchor Stover, PT Rehab Re-assessment Subjective Subjective Pt reports she has been increasing her ambulation distances without an AD steadily. SHe has no c/o and is very happy with her progress. Objective Objective Notes DGI( Dynamic Gait Index): TU sec (without AD) Gait: Difficulty with appropriate arm swing during gait, likely due to trunk rigidity. Increased stride length B with appropriate step -through gait pattern Assessment Progress Assessment Progressing as Expected Assessment Notes Pt has shown improved static and dynamic balance steadily. SHe has imporved her gait pattern without an AD, although she continues to need increased arm swing. She has improved strength overall as well. She continues to need skilled therapy services to fully reach all goals. Patient goals met ST,2,3,4,5,6 Goals Not Met LT,2,3,4,5,6,7,8 Revised Goals none Plan Plan Continue per initial POC Frequency of Therapy 1-2 x/wk Duration of therapy 4 wks Time and Billing Re-Eval Time 13 Re-Eval Billing Units 1 PHYSICIAN CERTIFICATION: I certify the specified therapy services for Lisset Pham are required, authorized, and reviewed every 30 days.
--- NOTE | 2022-10-09 16:29 | HMH.RHREAS ---
Rehab Reassessment Rehab OP Re-assessment Start: 01/31/22 14:29 Freq: Status: Active Protocol: Document 10/09/22 16:07 GUNJAN (Rec: 10/09/22 16:12 PHOSOURAV [id number]) E-signed By Melchor Stover, PT Rehab Re-assessment Subjective Subjective Pt reports she has been away from therapy for a few weeks due to her mother passing away . Otherwise she has no new c/o . Objective Objective Notes Tineeti Balance assessment: which denotes increased risk for falls (<) TU sec (without AD) Gait: Difficulty with appropriate arm swing during gait, likely due to trunk rigidity. Increased stride length B with appropriate step -through gait pattern Assessment Progress Assessment Progressing as Expected Assessment Notes Pt continues to show steadily improving strength in B LE and overall mobility. She does continue to struggle with effective gait without AD due to shorter stride length and reduced arm-swing B. She continues to need skilled intervention to improve functional mobility. Patient goals met ST,2,3,4,5,6 Goals Not Met LT,2,3,4,5,6,7,8 Revised Goals none Plan Plan Continue per initial POC Frequency of Therapy 1-2 x/wk Duration of therapy 4 wks Time and Billing Re-Eval Time 15 Re-Eval Billing Units 1 PHYSICIAN CERTIFICATION: I certify the specified therapy services for Lisset Pham are required, authorized, and reviewed every 30 days.
--- NOTE | 2022-11-05 16:14 | HMH.RHREAS ---
Rehab Reassessment Rehab OP Re-assessment Start: 01/31/22 14:29 Freq: Status: Active Protocol: Document 11/05/22 16:07 GUNJAN (Rec: 11/05/22 16:14 PHOChantalVÍCTOR [id number]) E-signed By Melchor Stover PT Rehab Re-assessment Subjective Subjective Pt reports she feels she is improving with ambulation, especially with her RW. She has no c/o pain, and her goal is to increase her ability to walk independently. Objective Objective Notes Tinetti Balance assessment: which denotes increased risk for falls (<) MMT: B LE grossly 4+/5 at hips and 5/5 throughout knee and ankle. Gait: Increased knee flexion and slightly forward stooped posture during gait. Increased arm swing and improved step- through gait pattern B. Assessment Progress Assessment Progressing as Expected Assessment Notes She contines to show steady progress with improvements in gait pattern and strength. Balance is improving as well, but somewhat slower. SHe continues to need skilled intervention to return to prior level of function with all ADLs. Patient goals met ST,2,3,4,5,6 Goals Not Met LT,2,3,4,5,6,7,8 Revised Goals none Plan Plan Continue per initial POC Frequency of Therapy 1-2 x/wk Duration of therapy 4 wks Time and Billing Re-Eval Time 16 Re-Eval Billing Units 1 PHYSICIAN CERTIFICATION: I certify the specified therapy services for Lisset Pham are required, authorized, and reviewed every 30 days.
== END 2022-12-12 14:05 | disposition home or self-care (01) ==
LOC: PT 14:00
PROVIDERS: PCP Internal Medicine Adolescent Medicine
DX: R26.89 Other abnormalities of gait and mobility (principal)
CPT/HCPCS: 97110; 97112; 97116; 97163; 97164; 97530; 97535

== ENCOUNTER → 2023-05-09 10:11 | Outpatient (CLI) | payer OTHER, SELFPAY ==
--- NOTE | 2023-05-09 10:11 | CA_ITS ---
APPROVED REPORT EXAM: Comprehensive 2D, Doppler, and color-flow Echocardiogram Light Bulb Assembler: Jennifer Avila RT(R) Ht: 5 ft 3 in Wt: 163lbs BSA: 1.77 BP: 109/80 mmHg Indications: CM, AICD, AF, hyperlipidemia 2D Dimensions LVOT 1.78 cm (M/F) 1.5-2.5 LA Volume 31.30 mL LA Volume Index 17.68 mL/m2 (M/F) 16-34 M-Mode Dimensions RVDd 3.43 cm (0.9-2.6) LA Diam 3.20 cm (1.9-4.0) LVDd 3.73 cm (3.5-5.7) Ao Diam 2.85 cm (2.0-3.7) LVDs 2.92 cm (3.5-5.7) IVSd 1.06 cm (0.6-1.1) PWd 0.76 cm (0.6-1.1) EF (Teich) 44.70% FS 21.70% EDV (Teich) 59.30 mL ESV (Teich) 32.80 mL LV Diastology E Decel Time 213.00 (160-240 msec) E/A Ratio 0.8 MED E' 9.40 (< 7 cm/sec) E'/MED E' Ratio 7.81 (>14) LAT E' 6.20 (<10 cm/sec) E/LAT E' Ratio 11.84 (>14) Mitral Valve MV E Max Raymond. 73.00 (40-130 cm/s) MV A Velocity 89.00 (40-130 cm/s) E/A Ratio 0.82 MV Decel. Time 213.00 (160-240 ms) MV PHT 62.00 ms Tricuspid Valve TR P. Velocity 219.00 cm/s RAP Estimate 10.00 mmHg RVSP 29.30 mmHg Left Ventricle The left ventricle is normal size. The left ventricular systolic function is normal. The left ventricular ejection fraction is within the normal range. There is increased LV wall thickness. There is normal LV segmental wall motion. Transmitral Doppler flow pattern suggests impaired LV relaxation. LVEF is 55%. Right Ventricle The right ventricle is normal size. The right ventricular systolic function is normal. There is a device lead in the right ventricle. Atria The left atrium size is normal. The right atrium size is normal. There is no Doppler evidence of interatrial shunt. Aortic Valve The aortic valve is normal in structure. The aortic valve is trileaflet. There is no aortic valvular stenosis. No aortic regurgitation is present. Mitral Valve The mitral valve is normal in structure. No evidence of mitral valve stenosis. Trace mitral regurgitation. Tricuspid Valve The tricuspid valve leaflets are thin and pliable. Mild tricuspid regurgitation. RVSP is 20-25 mmHg. Pulmonic Valve The pulmonary valve is normal in structure. Trace pulmonic regurgitation. Great Vessels The aortic root is normal in size. The ascending aorta is normal in size. IVC is normal in size and collapses >50% with inspiration. Pericardium There is no pericardial effusion. Other Information Study Quality: Fair Conclusion Normal biventricular systolic function. Mild TR. Electronically signed by : Ruthie Solis MD 05/20/2023 21:54:17
== END ==
PROVIDERS: PCP Internal Medicine Adolescent Medicine; Visit Provider Physician Assistant
DX: I42.0 Dilated cardiomyopathy (principal)
CPT/HCPCS: 93306

== ENCOUNTER 2023-05-27 13:00 | Outpatient (RCR) | payer MEDICAID, OTHER, SELFPAY ==
--- NOTE | 2022-01-02 14:48 | HMH.SLAPHASI ---
Speech & Language Evaluation Speech/Language Aphasia Evaluation Start: 01/02/22 14:16 Freq: once Status: Complete Protocol: Document 01/02/22 14:16 RASHID (Rec: 01/02/22 14:45 RASHID [id number]) Aphasia Assessment/Goals/Plan Assessment Date of Evaluation: 01/02/22 Evaluation Type Initial Certification Assessment/Problems Speech disturbance per MD order. Does Patient Qualify for Service Yes Qualify/Failure Comment Based on the results of the speech assessment, pt would benefit from skilled ST services 2x/wk to address motor speech and cognitive- linguistic impairments. Plan Pt will be seen # times/week 2 for # weeks 12 Anticipate reaching STG in # weeks 8 Anticipate reaching LTG in # weeks 12 Pt/Guardian verbally ack understanding Yes of dx/prognosis/goals Pt/Guardian verbally ack understanding Yes of/consent to tx prog G -code Required No STG-Attending/Orientation/Memory Orientation 100 Delayed Recall 90 Attention/Concentration 90 Memory Recall 90 STG-Comparative/Linguistic Skills Sequence Events in Correct Order 80 STG-Divergent Thinking Inductive Reasoning 80 Open-Ended Problem Solving 80 STG-Intell/Buccal/Labial Strength Intelligibility 90 #Intelligibility Drills Performed/Sesson 10 Labial Strength 10 Buccal Strength 10 Buncher Hand Goals Increase oral motor tone to improve Yes intelligibility. Increase cognitive skills to communicate Yes w/family & friends Education Instructions provided Assessment results, POC, and goals discussed with patient and sister, both of whom expressed understanding. Pt/Caregiver Able to Recall Information Able to recall/restate Reinforcement needed No Speech & Language HPI History Present Illness Description of Patient Problem Patient is a 61 y.o. female presenting to [facility] for outpatient rehabilitation following discharge from [facility] ([facility]). She presented to [facility] on 10/10 for a pacemaker placement. Pt then coded and required prolonged mechanical ventilation. She was transferred to [facility], where she underwent tracheostomy on 10/27. She was not able to be weaned from the ventilator and was then transferred to [facility]. She was eventually weaned and the trach was removed on 11/20. At [facility], she received skilled ST services 5x/wk for an hour per session. Therapy targeted cognitive skills and motor speech. PMH includes R knee osteoarthritis, morbid obesity, AFib, CAD, DM, HTN. Rehab Services Assessed Speech therapy Language Primary Language Slovenian Inupiat Lang/Spoken in Home Slovenian Therapy History Seen by other [facility] therapists Yes Who/When/Recommendations Ms. Pham received skilled speech therapy services 5x/wk at [facility]. Aphasia Evaluations Communication Speech Intelligibility 70% to an unfamiliar but trained listener in a fixed context. Auditory Comprehension Yes: Word Level Sentences Following Directions Paragraph Conversation RC Comment Not completed at pt did not have glasses and was unable to see. Verbal Expressive Language Yes: Automatic Speech Completing Sentences Repetition Abilities Word Level Naming Naming Actions/Objects Sentence Level WL Comment Not completed at pt did not have glasses and was unable to see. Attending/Orientation/Memory No: Delayed Recall W/ Interference Orientation Attention/Concentration Memory AOM Comment Lisset required moderate cues to complete delayed recall with interference. She was not oriented to time this date. She was noted to be moving around the room and had difficulty attending to task when asked open-ended questions. She had significant difficulty with all memory tasks aside from immediate memory recall. Congnitive/Linguistic Skills No: Thought Organization Categorization Sequencing Deductive Reasoning Yes: Word Deductions Inductive Reasoning Yes: Analogies Additional Evaluation(s) Additional Tests Informal dysarthria examination was completed this date. She was noted to have slow, groping speech pattern. She was also monotone throughout the assessment and had slow atriculation. 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 PHYSICIAN CERTIFICATION: I certify the specified therapy services for Lisset Pham are required, authorized, and reviewed every 30 days.
--- NOTE | 2023-05-21 13:57 | HMH.SLUPOC ---
Speech/Lang UPOC (Updated Plan of Care) Speech/Lang UPOC (Updated Plan of Care) Start: 09/17/22 13:18 Freq: Status: Active Protocol: Document 05/21/23 13:53 CHEIKH (Rec: 05/21/23 13:57 CHEIKH [id number]) E-signed By ST Maura Speech/Language UPOC Subjective Subjective Ms. Pham was seen in the speech therapy room this afternoon. She brought back completed HEP for review. Objective Objective Notes An updated POC was compelted this date. Goals targeted include: - executive function - memory recall - problem solving Assessment Progress Assessment Progressing as Expected Assessment Notes Lisset and SLITTER SERVICE AND SETTER took part in dynamic discussion regarding GINA COVID dx and Thanksgiving on way to speech therapy treatment space. She was first given an visual scanning task that she independently completed with 90% accuracy that improved to 100% accuracy when given minimal prompts and cues. Later, she was given a deductive reasoning puzzle that she completed by self with 50% accuracy that increased to 100% accuracy when given mod-max prompts. Following, she was given a written directions task that she completed with 50% accuracy indepedenetly. Later, she completed a mental manipulation involving alphabetical order task with 75% accuracy. Lastly, she completed a word list retention task with 80% accuracy that improved to 100% with assist. Sister reports decline in some cognitive linguistic skills in home environment including memory, functional tasks, and problem solving/inferencing following change in living situation. Overall, it was a good session and SLITTER SERVICE AND SETTER reviewed HEP while Lisset expressed understanding. Goals STGS: 1. Lisset will complete a delayed memory task with 90% accuracy without cues. 2. Lisset will complete a sequencing task with 80% accuracy without cues. 3. Lisset will complete an inductive reasoning task with 80% accuracy without cues. 4. Lisset will compelte an open -ended problem solving task with 80% accuracy without cues . 5. Lisset will complete labial strengthening exercises x10 in a therapy session. 6.Lisset will complete buccal strengthening exercises x10 in a therapy session. LTGs: 1. Lisset will increase overall speech intelligibility to 90% accuracy to an unfamiliar listener in a non-fixed context. 2. Lisset will increase her cognitive communication skills in order to function independently at home. Patient goals met STGs: 5. Lisset will complete labial strengthening exercises x10 in a therapy session. 6.Lisset will complete buccal strengthening exercises x10 in a therapy session. Goals Not Met 1-4 Revised Goals additional goals STGs: 1. The patient will produce phrases with 3-5 words in one breath in 80% of opportunities given frequent maximal verbal cues to utilize breathing strategies. 2. The patient will read 5 functional phrases at 80% intelligibility given frequent verbal cues to ?talk loud.? Plan Plan Continue therapy. Frequency of Therapy 1-2x/wk Duration of therapy 12 weeks Home Exercise Program Home Exercise Program Yes Query Text: HEP provided to and explained to parent/caregiver following each session; HEP is based on therapy targets during the days session. Parent compliance with HEP Yes Current Severity Rating Current Severity Level: moderate Rehab Potential: Fair PHYSICIAN CERTIFICATION: I certify the specified therapy services for Lisset Pham are required, authorized, and reviewed every 30 days.
== END 2023-05-27 14:00 | disposition home or self-care (01) ==
LOC: ST 13:00
PROVIDERS: PCP Internal Medicine Adolescent Medicine; Visit Provider Internal Medicine Geriatric Medicine
DX: R47.89 Other speech disturbances (principal)
CPT/HCPCS: 92507; 92523; 97129; 97130

== ENCOUNTER 2023-08-29 14:41 | Outpatient (CLI) | payer MEDICAID, SELFPAY ==
[2023-08-29 15:03] LABS: Basophils # 0.1 K/mm3 (0-0.2); Basophils % 0.9 % (0.1-2.0); Eosinophils # 0.1 K/mm3 (0.0-0.4); Eosinophils % 0.9 % (0.1-12.0); Hematocrit 44.8 % (37.0-47.0); Hemoglobin 14.9 g/dL (12.2-16.2); Lymphocytes % 24.4 % (10-50); Mean Corpuscular HGB Conc 33.2 g/dL (31.8-35.4); Mean Corpuscular Volume 96.5 fl (81-99); Mean Platelet Volume 7.9 fl (7.4-10.4); Monocytes # 0.8 K/mm3 (0.1-1.0); Monocytes % 9.4 % (1.7-9.3); Neutrophils # 5.2 K/mm3 (1.8-7.8); Neutrophils % 64.4 % (37.0-80.0); Platelet Count 196 K/mm3 (142-424); Red Blood Count 4.64 M/mm3 (4.20-5.40); Red Cell Distribution Width 12.8 % (11.5-17.5)
[2023-08-29 15:40] LABS: Alanine Aminotransferase 35 U/L (12-78); Albumin Level 4.2 g/dl (3.5-5.0); Alkaline Phosphatase 79 U/L (38-126); Aspartate Amino Transferase 36 U/L (14-36); Bilirubin,Direct 0.1 mg/dl (0.0-0.4); Bilirubin,Indirect 0.6 mg/dL (0.0-0.9); Bilirubin,Total 0.7 mg/dl (0.2-1.3); Bilirubin,Unconjugated 0.6 mg/dL (0.0-1.1); Blood Urea Nitrogen 19 mg/dl (7-17); Calcium 9.1 mg/dl (8.4-10.2); Carbon Dioxide 28 mmol/L (22.0-30.0); Chloride 106 mmol/L (98-107); Chol/HDL Ratio 2.6 (1-3.5); Cholesterol 180 mg/dl (140-200); Estimated Glomerular Filt Rate 72 ml/min (>60); GFR (African American) 87 ML/MIN (>60); Glucose 88 mg/dl (74-100); HDL Cholesterol 69 mg/dl (40-60); Magnesium 1.9 mg/dl (1.6-2.3); Potassium 4.1 mmoL/L (3.5-5.1); Total Protein,Serum 6.8 g/dl (6.3-8.2); Triglycerides 99 mg/dl (30-150); VLDL Cholesterol 20 mg/dL (0-40)
[2023-08-29 15:51] LABS: Anion Gap 10.1 mEq/L (5-15); Direct LDL Cholesterol 75.02 mg/dL (100-129); Sodium 140 mmol/L (136-145)
[2023-08-29 15:58] LABS: Free T4 (Free Thyroxine) 1.21 ng/dl (0.78-2.19)
[2023-08-29 16:10] LABS: Thyroid Stimulating Hormone 0.76 uIU/mL (0.465-4.68)
== END 2023-08-29 23:59 ==
LOC: LAB 14:42
PROVIDERS: PCP Internal Medicine Adolescent Medicine; Visit Provider Nurse Practitioner Family
DX: I48.92 Unspecified atrial flutter (principal); Z95.810 Presence of automatic (implantable) cardiac defibrillator
CPT/HCPCS: 80048; 80061; 80076; 83735; 84439; 84443; 85025

== ENCOUNTER 2024-01-27 11:12 | Outpatient (CLI) | payer MEDICAID, SELFPAY ==
--- NOTE | 2024-01-27 11:24 | XR_ITS ---
FINAL REPORT CLINICAL HISTORY: PAIN,JOINT KNEE, LEFT COMPARISON: None FINDINGS: Three views of the left knee reveal no evidence of fracture or dislocation. The bony alignment is normal. There is moderate degenerative change. A small joint effusion is present. No localized soft tissue abnormality is seen. IMPRESSION: Moderate degenerative change. Small joint effusion without acute bony abnormality. Reviewed, Interpreted and Dictated by Bharat Jones III, MD Transcribed by Radha Navarro Authenticated and [facility]
[2024-01-27 11:29] LABS: Basophils # 0.1 K/mm3 (0-0.2); Basophils % 0.9 % (0.1-2.0); Eosinophils # 0.1 K/mm3 (0.0-0.4); Eosinophils % 0.6 % (0.1-12.0); Hematocrit 40.6 % (37.0-47.0); Hemoglobin 13.1 g/dL (12.2-16.2); Lymphocytes # 0.9 K/mm3 (0.7-4.5); Lymphocytes % 11.7 % (10-50); Mean Corpuscular HGB Conc 32.3 g/dL (31.8-35.4); Mean Corpuscular Hemoglobin 30.9 pg (27.0-31.2); Mean Corpuscular Volume 95.7 fl (81-99); Mean Platelet Volume 8.3 fl (7.4-10.4); Monocytes # 0.6 K/mm3 (0.1-1.0); Monocytes % 7.2 % (1.7-9.3); Neutrophils # 6.4 K/mm3 (1.8-7.8); Neutrophils % 79.7 % (37.0-80.0); Platelet Count 227 K/mm3 (142-424); Red Blood Count 4.25 M/mm3 (4.20-5.40); White Blood Count 8.1 K/mm3 (4.8-10.8)
[2024-01-27 12:29] LABS: Alanine Aminotransferase 13 U/L (12-78); Albumin Level 3.3 g/dl (3.5-5.0); Albumin/Globulin Ratio 1.2 (1.1-1.8); Alkaline Phosphatase 90 U/L (38-126); Anion Gap 13.3 mEq/L (5-15); Aspartate Amino Transferase 18 U/L (14-36); Bilirubin,Total 0.5 mg/dl (0.2-1.3); Blood Urea Nitrogen 18 mg/dl (7-17); Calcium 8.8 mg/dl (8.4-10.2); Carbon Dioxide 24 mmol/L (22.0-30.0); Chloride 109 mmol/L (98-107); Estimated Glomerular Filt Rate 72 ml/min (>60); GFR (African American) 87 ML/MIN (>60); Globulin 2.8 g/dL (1.3-3.2); Glucose 130 mg/dl (74-100); Potassium 4.3 mmoL/L (3.5-5.1); Sodium 142 mmol/L (136-145); Total Protein,Serum 6.1 g/dl (6.3-8.2)
[2024-01-27 12:37] LABS: NT Pro Brain Natriuretic Pep. 5600 pg/mL (0-125)
== END 2024-01-27 23:59 | disposition home or self-care (01) ==
LOC: LAB 11:13
PROVIDERS: PCP Internal Medicine Adolescent Medicine; Visit Provider Internal Medicine Adolescent Medicine
DX: I50.22 Chronic systolic (congestive) heart failure (principal); M25.562 Pain in left knee
CPT/HCPCS: 36415; 73562; 80053; 83880; 85025

== ENCOUNTER 2024-02-17 14:39 | Outpatient (CLI) | payer MEDICAID, SELFPAY ==
[2024-02-17 15:17] LABS: Blood Urea Nitrogen 15 mg/dl (7-17); Calcium 9.2 mg/dl (8.4-10.2); Carbon Dioxide 29 mmol/L (22.0-30.0); Chloride 105 mmol/L (98-107); Estimated Glomerular Filt Rate 72 ml/min (>60); GFR (African American) 87 ML/MIN (>60); Glucose 142 mg/dl (74-100); Sodium 138 mmol/L (136-145)
[2024-02-17 15:22] LABS: D-Dimer 1.78 ug/mL (0.0-0.5)
[2024-02-17 15:29] LABS: NT Pro Brain Natriuretic Pep. 6740 pg/mL (0-125)
[2024-02-17 15:33] LABS: Troponin I < 0.01 ng/ml (0.00-0.034)
== END 2024-02-17 23:59 | disposition home or self-care (01) ==
LOC: LAB 14:40
PROVIDERS: PCP Internal Medicine Adolescent Medicine; Visit Provider Nurse Practitioner Family
DX: K21.9 Gastro-esophageal reflux disease without esophagitis (principal); E78.5 Hyperlipidemia, unspecified; Z95.810 Presence of automatic (implantable) cardiac defibrillator; G47.33 Obstructive sleep apnea (adult) (pediatric); I42.0 Dilated cardiomyopathy; G93.1 Anoxic brain damage, not elsewhere classified; I48.92 Unspecified atrial flutter; I50.9 Heart failure, unspecified; E66.01 Morbid (severe) obesity due to excess calories; Z68.41 Body mass index [BMI] 40.0-44.9, adult; I48.0 Paroxysmal atrial fibrillation; I25.10 Atherosclerotic heart disease of native coronary artery without angina pectoris; R06.00 Dyspnea, unspecified
CPT/HCPCS: 36415; 80048; 83880; 84484; 85378

== ENCOUNTER 2024-03-12 07:55 | Outpatient (CLI) | payer MEDICAID, SELFPAY ==
--- NOTE | 2024-03-12 08:06 | CT_ITS ---
FINAL REPORT TECHNIQUE: Thin section axial CT images with coronal and sagittal reformats were performed of the left knee. This study was performed with techniques to keep radiation doses as low as reasonably achievable (ALARA). Individualized dose reduction techniques using automated exposure control or adjustment of mA and/or kV according to the patient''s size were employed. CLINICAL HISTORY: .LEFT KNEE PAIN FINDINGS: There is advanced medial and lateral compartment joint space narrowing. Prominent subchondral cysts and degenerative subchondral sclerosis with osteophytes are seen at the medial and lateral joint margin. There are small osteochondral lesions at the undersurface of the patella. There is a moderate-sized joint effusion. There are no fractures. There are no masses or fluid collections. There are no soft tissue abnormalities. IMPRESSION: Advanced medial and lateral compartment joint space narrowing with subchondral sclerosis and osteophytes consistent with advanced changes of osteoarthritis. Reviewed, Interpreted and Dictated by Hernandez Griffin MD Transcribed by Katia Colon Authenticated and [facility]
--- NOTE | 2024-03-12 08:06 | CT_ITS ---
FINAL REPORT CLINICAL HISTORY: PAIN MEMORY LOSS COMPARISON: 09/27/2021 FINDINGS: CT NECK ANGIO, WITHOUT AND WITH CONTRAST TECHNIQUE: Thin section axial CT with contrast with multiplanar 3D MIP reconstruction. This study was performed with techniques to keep radiation doses as low as reasonably achievable, (ALARA). Individualized dose reduction techniques using automated exposure control or adjustment of mA and/or kV according to the patient''s size were employed. NASCET criteria and technique was utilized during interpretation. FINDINGS: Aortic arch: Arch shows no significant narrowing. Great vessel origins are widely patent. Right carotid: No significant stenosis is seen of the cervical common or internal carotid artery. Left carotid: No significant stenosis is seen of the cervical common or internal carotid artery. Vertebrals: Left vertebral artery is dominant. No significant stenosis is present. IMPRESSION: No significant stenosis of the cervical carotid arteries This study was performed using automated techniques to achieve radiation exposure as low as reasonably Reviewed, Interpreted and Dictated by Anthony Owens MD Transcribed by Katia Colon Authenticated and [facility]
[2024-03-12] MEDS: IOPAMIDOL-370 (76%);100ML BOTTLE 100 ML IV (08:50)
[2024-03-12] MEDS: SODIUM CHLORIDE 0.9% 10ML SYR (RAD ONLY) 10 ML IV (08:50)
[2024-03-12] MEDS: 0.9 % SODIUM CHLORIDE 50 ML VIAL IV (08:50)
== END 2024-03-12 23:59 | disposition home or self-care (01) ==
LOC: RAD 07:55
PROVIDERS: PCP Internal Medicine Adolescent Medicine; Visit Provider Internal Medicine Adolescent Medicine
DX: M25.562 Pain in left knee (principal); R41.3 Other amnesia; G93.1 Anoxic brain damage, not elsewhere classified
CPT/HCPCS: 70498; 73700; Q9967

== ENCOUNTER 2024-03-18 10:55 | Outpatient (CLI) | payer MEDICAID, SELFPAY ==
[2024-03-18 11:58] LABS: Chloride 105 mmol/L (98-107); Potassium 4.2 mmoL/L (3.5-5.1); Sodium 136 mmol/L (136-145)
[2024-03-18 12:01] LABS: Anion Gap 9.2 mEq/L (5-15); Blood Urea Nitrogen 22 mg/dl (7-17); Calcium 9.6 mg/dl (8.4-10.2); Carbon Dioxide 26 mmol/L (22.0-30.0); Estimated Glomerular Filt Rate 56 ml/min (>60); GFR (African American) 68 ML/MIN (>60); Glucose 168 mg/dl (74-100)
[2024-03-18 12:11] LABS: NT Pro Brain Natriuretic Pep. 4920 pg/mL (0-125)
== END 2024-03-18 23:59 | disposition home or self-care (01) ==
LOC: LAB 10:57
PROVIDERS: PCP Internal Medicine Adolescent Medicine; Visit Provider Nurse Practitioner Family
DX: I10 Essential (primary) hypertension (principal); E78.2 Mixed hyperlipidemia; I25.10 Atherosclerotic heart disease of native coronary artery without angina pectoris
CPT/HCPCS: 36415; 80048; 83880

== ENCOUNTER 2024-03-25 08:44 | Outpatient (CLI) | payer MEDICARE, MEDICAID, SELFPAY ==
[2024-03-25] VITALS (9 sets, daily range): BP systolic 95–128; BP diastolic 49–90; PULSE 68–75; RESP 18; TEMP 36.2; O2SAT 95–97; BMI 30.9
--- NOTE | 2024-03-25 08:47 | CT_ITS ---
APPROVED REPORT Biomed Tech: CLINICAL INDICATION Chest Pain TECHNIQUE Image Acquisition: A 128 slice MDCT scanner ([employer] Bokea View) was used for data acquisition. A noncontrast coronary calcium scan was performed. A CT attenuation threshold of 130 Hounsfield units (HU) was used for the detection of calcium in contiguous voxels of 1 sq mm in area to be counted as individual lesions. Bolus tracking in the ascending aorta with a threshold of 180 HU was performed. Immediately afterwards, ECG synchronized cardiac CT was then performed from the cardiac base to apex using retrospective gating with ECG tube current modulation. A total of 85 mL of Isovue 370 mg/mL contrast medium was administered at 5 mL/sec followed by a saline flush using a biphasic injection protocol. A tube voltage of 120 KVp was used. The patient received the following medications prior to the cardiac CT. 125 mg of oral metoprolol 15 mg of intravenous metoprolol 15 mg of oral ivabradine 0.8 mg of sublingual nitroglycerin The average heart rate at the time of acquisition was 69 bpm and regular. Image Reconstruction Transaxial images were reconstructed at 0.67 mm slide thickness. Data was reviewed interactively on an advanced workstation capable of 2 and 3-dimensional displays in all conventional reconstruction formats, including multiplanar reformations, maximum intensity projections, curved multiplanar reformations, and volume rendered reconstructions. When applicable, selected routine images describing the relevant coronary anatomy and pathology were saved and sent to PACS. Complications None Technical Quality Overall image quality was poor due to significant calcification and hard beam artifact due to device leads Coronary artery opacification was inadequate (early image acquisition after contrast administration, contrast in RV/PA) Total DLP (Dose-Length Product) is 1110.3 mGy-cm. The reported value represents the total of one or more individual components during the CT acquisition of this date and at this time, and as such, the same value may appear in more than one CT report depending on the interpreting/reporting physicians. COMPARISON None FINDINGS CT Coronary Calcium Scoring LMA (Left Main Artery) = 257 LAD (Left Anterior Descending) = 515 LCX (Left Coronary Circumflex) = 1194 RCA (Right Coronary Artery) = 4264 Total Calcium Score = 6230 using the AJ-130 method. The observed calcium score of 6230 is at 99th percentile for subjects of the same age, sex, and race/ethnicity. The interpretation of the calcium heart score is based on the following continuum*: 0 = no calcified plaque detected (risk of coronary artery disease is very low ??? less than 5%) 1-10 = calcium detected in extremely minimal levels (risk of coronary diseases is still low ??? less than 10%) 11-100 = mild levels of plaque detected with certainty (mild or minimal narrowing of heart arteries is likely) 101-400 = definite,at least moderate levels of plaque detected (relatively high risk of a heart attack within 3-5 years) >401-999 = extensive levels of plaque detected (high risk of heart attack, high levels of vascular disease are present, high likelihood of at least one significant coronary narrowing) *The calcium heart score quantifies the burden of coronary calcification/plaque in the coronary arteries. The calcium heart score is not able to evaluate the presence or burden of non-calcified (i.e. soft) plaque. There is also identifiable calcification in the aortic valve, mitral annulus, and ascending and descending thoracic aorta. Coronary CT Angiography The coronary arterial system is right dominant. Quantitative Stenosis Grading: Left Main (LM): The left main originates normally from the left sinus of Valsalva. There is significant calcification along the LM with indeterminate degree of luminal stenosis. Left Anterior Descending (LAD) and Diagonal Branches: There is significant calcification along the LM with indeterminate degree of luminal stenosis. Left Circumflex (LCX) and Obtuse Marginals (OM): There is significant calcification along the LM with indeterminate degree of luminal stenosis. Right Coronary Artery (RCA): There is significant calcification along the LM with indeterminate degree of luminal stenosis. Non-Coronary Cardiac Findings: Analysis of the left ventricular (LV) structure and function was performed after 3-D reconstruction of the LV from axial images, with user-corrected automatic contouring for assessment of LV volumes and user-defined reconstruction from oblique planes for measurement of 3-D cardiac structure and function. -The left ventricle systolic function is indeterminate in the setting of poor contrast opacification but grossly appears to be at least mildly reduced. -No pericardial thickening or calcification. -Central and branch pulmonary arteries in the [id number] are unremarkable. -Thoracic aorta within the visualized thoracic aortic-branches in the [id number] is unremarkable. Extracardiac Structures No significant extra-cardiac findings. Note, however, that this study is focused on the cardiac findings. IMPRESSION -Nondiagnostic study due to poor image quality and inadequate opacification of the coronary arteries, including early image acquisition after contrast administration with residual contrast in the RV and the PA. The coronary arteries are not well-opacified. -Extensive coronary calcification with an Agatston score = 6230 using the AJ-130 method. -The observed calcium score of 6230 is at 99th percentile for subjects of the same age, sex, and race/ethnicity. -Qualitatively, there is multivessel atherosclerotic coronary disease with likely significant flow-limiting luminal stenosis. -CAD-RADS is indeterminate. Management recommendations per ACC/AHA guidelines*, as clinically appropriate. In the setting of technically difficult and nondiagnostic study, further evaluation with invasive coronary angiography is suggested, if clinically feasible and if indicated. *Recommendations: CAD RADS 0: Reassurance. Consider non-atherosclerotic causes of chest pain. CAD RADS 1: Consider non-atherosclerotic causes of chest pain. Consider preventive therapy and risk factor modification. CAD RADS 2: Consider non-atherosclerotic causes of chest pain. Consider preventive therapy and risk factor modification, particularly for patients with nonobstructive plaque in multiple segments. CAD RADS 3: Consider further functional testing. Consider symptom-guided anti-ischemic and preventive pharmacotherapy as well as risk factor modification per published guideline statements. CAD RADS 4A: Consider further functional testing or invasive coronary angiography with revascularization per published guideline statements. Consider symptom-guided anti-ischemic and preventive pharmacotherapy as well as risk factor modification per published guideline statements. CAD RADS 4B: Invasive coronary angiography recommended with revascularization per published guideline statements. Consider symptom-guided anti-ischemic and preventive pharmacotherapy as well as risk factor modification per published guideline statements. CAD RADS 5: Consider invasive angiography and/or viability assessment with revascularization per published guideline statements. Consider symptom-guided anti-ischemic and preventive pharmacotherapy as well as risk factor modification per published guideline statements. CRITICAL RESULT None COMMUNICATION Per this written report The coronary and cardiac findings of this CCTA were reviewed, reported, and signed by Kj Solis MD (Business Specialist) Conclusion Electronically signed by : Ruthie Solis MD 03/29/2024 12:59:33
--- NOTE | 2024-03-25 08:48 | CT_ITS ---
FINAL REPORT TECHNIQUE: Multiple axial CT images were performed from the foramen magnum to the vertex without enhancement. This study was performed with techniques to keep radiation doses as low as reasonably achievable (ALARA). Individualized dose reduction techniques using automated exposure control or adjustment of mA and/or kV according to the patient's size were employed. CLINICAL HISTORY: ABN CARDIAC TEST, HTN ANOXIC BRAIN DAMANGE FINDINGS: There is mild cortical atrophy with proportional ventriculomegaly. There is no evidence of hemorrhage. No masses are identified. No extra-axial fluid is seen. The sinuses are normal. IMPRESSION: Atrophy without acute process. Reviewed, Interpreted and Dictated by Hernandez Griffin MD Transcribed by Carolin Fried Authenticated and [facility]
[2024-03-25 09:32] LABS: POC Glucose,Bedside 196 (70-110)
[2024-03-25] MEDS: IVABRADINE HCL 7.5MG TABLET PO (09:32)
[2024-03-25] MEDS: METOPROLOL TARTRATE 50MG TABLET PO ×2 (09:33→10:10)
[2024-03-25] MEDS: METOPROLOL TARTRATE 5MG/5ML VIAL 5 MG IV ×3 (11:37→12:27)
[2024-03-25] MEDS: NITROGLYCERIN 0.4MG SL TABLET SL (12:00)
[2024-03-25] MEDS: SODIUM CHLORIDE 0.9% 10ML SYR (RAD ONLY) 10 ML IV (13:05)
[2024-03-25] MEDS: IOPAMIDOL-370 (76%);100ML BOTTLE 75 ML IV (13:06)
== END 2024-03-25 23:59 | disposition home or self-care (01) ==
PROVIDERS: PCP Internal Medicine Adolescent Medicine; Visit Provider Nurse Practitioner Family
DX: R41.89 Other symptoms and signs involving cognitive functions and awareness (principal); R94.39 Abnormal result of other cardiovascular function study; I10 Essential (primary) hypertension
CPT/HCPCS: 70450; 75574; 82962; Q9967

== ENCOUNTER 2024-04-13 10:58 | Outpatient (CLI) | payer MEDICARE, MEDICAID, SELFPAY ==
--- NOTE | 2024-04-13 | FL_ITS ---
FINAL REPORT CLINICAL HISTORY: DYSPHAGIA 4.56 MIN DAP 456.06 FINDINGS: MODIFIED BARIUM SWALLOW History: Dysphagia. FINDINGS: Fluoroscopy was provided for the speech pathologist to evaluate the swallowing mechanism. The patient was given several different consistencies of barium while the swallow was visualized fluoroscopically. The report of the speech pathologist should be consulted prior to making dietary decisions. Fluoro time: 4 minutes 56 seconds DAP: 456.06 uGy.m2 IMPRESSION: Modified barium swallow under fluoroscopic guidance. Please see the report of the speech pathologist for more detail. Films reviewed , interpreted and dictated by Dr. Jones. Transcribed by Vega Cardona PA-C. Reviewed, Interpreted and Dictated by Bharat Jones III, MD Transcribed by CHRISTOPH Melton Authenticated and [facility]
[2024-04-13] MEDS: BARIUM SULFATE(LIQUID E-Z-PAQUE);355ML BOTTLE 355 ML PO (11:33)
--- NOTE | 2024-04-13 13:09 | HMH.SLMBS2 ---
Speech & Language Evaluation Speech/Language Mod Barium Swallow Start: 04/13/24 12:36 Freq: once Status: Complete Protocol: Document 04/13/24 12:36 [facility] (Rec: 04/13/24 13:03 [employer] Laptop) Co-signed By ST Maura General Information General Current Food Consistancy Regular,Thin Liquids Dentition Good Dentition Oxygen Status Room Air Facial Symmetry Symmetrical Patient Orientation Person,Place,Time,Situation Ability to Follow Directions Excellent Communication Ability No Impairment MBS Recommendations Diet Dietary Recommendations Regular,Thin Liquids Treatment/Strategies Treatment Recommendation Base of Tongue Exercises Strategy/Precaution Recommend Double Swallow,Small Bites and Sips,Alternate Liquids/Solids Mod Barium Swallow Impressions Summary and Impressions Oral Phase Impression Minimal Impairment Oral Phase Summary Minimal impairment of the oral phase of swallow. Labial closure WFL on all consistencies trialed. No bolus pooling or scattered loss observed on any consistency trialed. Lingual movement WFL on all consistencies trialed. Pt demonstrated mild lingual residue during pudding, mechanical soft, and regular trials, which was able to be cleared with either a subsequent swallow or puree wash. Pt demonstrated slightly prolonged mastication and manipulation of bolus on mechanical soft and regular trials. Pharyngeal Phase Impression Mild Impairment Pharyngeal Phase Summary Mild impairment of pharyngeal phase of swallow. No aspiration noted on any consistency trial. Pt demonstrated penetration on thin liquid trial via straw and cup, which was cleared with a cough and double swallow. When cued to take smaller sip during thin via straw trial, no penetration was observed. Hyolaryngeal excursion and elevation and base of tongue retraction were noted to be mildly reduced, causing mildly reduced epiglottic coverage. Minimal-mild diffuse residue scattered in the oropharynx, which was cleared with a subsequent swallow or puree wash. Pill trial was observed to be WFL. Speech/Language MBS Assessment/Goals/Plan Assessment Date of Evaluation: 04/13/24 Evaluation Type Initial Certification Assessment/Problems dysphagia per MD order Does Patient Qualify for Service No Qualify/Failure Comment Based on clinical observations made throughout instrumental assessment (MBSS) and pt interview, pt would benefit for skilled speech therapy services to address swallowing exercises. Pt is currently receiving skilled speech therapy services at [facility] for cognition . Recommendations PHYSICIAN CERTIFICATION: The specified therapy services are required, authorized, and reviewed every 30 days. Pt will be seen # times/week 2 for # weeks 12 Diet Recommendations Normal Liquid Type Recommendations Normal/Thin SL Swallow Guidelines Alt bite w/sip thru meal, Standard Aspiration Prec.,Eat at slow rate,Oral Care Education Dysphagia Swallow Precautions/Strategies Sitting Upright (90 deg), Double Swallow,Small Bites and Sips,Alternate Liquids/Solids Plan Anticipate reaching STG in # weeks 8 Anticipate reaching LTG in # weeks 12 Pt/Guardian verbally ack understanding Yes of dx/prognosis/goals G -code Required No Education Instructions provided [employer] discussed clinical observations made throughout instrumental assessment, aspiration precautions/ compensatory strategies, and diet recommendation with pt and caregiver, each of which expressed understanding. Pt/Caregiver able to recall information Able to recall/restate Reinforcement needed No Mod Barium Swallow Setup Exam Setup Radiologist Bharat Jones Level of Consciousness Awake,Alert,Appropriate, Follows Commands Mod Barium Swallow-Lat View Textures Lateral View Food Presentation Thin Liquid via Cup,Thin Liquid via Straw,Pureed Food- Thick,Mech. Soft Food- Regular ,Barium Tablet,Regular Food, Pudding Comment All bolus presentations administered 2x to assess for consistency and fatigue. Oral Phase Labial Closure No Impairment (WFL) Bolus Formation Pooling L/R No Impairment (WFL) Bolus Formation under Tongue No Impairment (WFL) Bolus Formation Scattered Loss No Impairment (WFL) Mastication Rotary Chew Minimal Impairment Mastication Munching Minimal Impairment Mastication Lateralization Minimal Impairment Lingual Movement No Impairment (WFL) Residue Clearing Mild Impairment Pharyngeal Phase A/P Lingual Propulsion Spills No Impairment (WFL) Swallow Response Delay No Impairment (WFL) Base of Tongue Mild Impairment Epiglottic Coverage Mild Impairment Laryngeal Elevation Mild Impairment Vallecular Retention Clearing Minimal Impairment Pharyn. Wall Residue Clearing Minimal Impairment Piriform Sinus Retention Minimal Impairment Aspiration? No Silent aspiration? No Mod Barium Swallow-AP View Performed Mod Barium Swallow A/P View Test Not Applicable/Performed PHYSICIAN CERTIFICATION: I certify the specified therapy services for Lisset Pham are required, authorized, and reviewed every 30 days.
== END 2024-04-13 23:59 | disposition home or self-care (01) ==
LOC: RAD 10:58
PROVIDERS: PCP Internal Medicine Adolescent Medicine; Visit Provider Internal Medicine Adolescent Medicine
DX: R13.10 Dysphagia, unspecified (principal)
CPT/HCPCS: 70371; 74230; 92611

== ENCOUNTER 2024-06-08 13:00 | Outpatient (RCR) | payer MEDICAID, MEDICARE, SELFPAY ==
--- NOTE | 2024-02-03 10:01 | HMH.SLAPHASI ---
Speech & Language Evaluation Speech/Language Aphasia Evaluation Start: 02/03/24 09:39 Freq: once Status: Complete Protocol: Document 02/03/24 09:39 CHEIKH (Rec: 02/03/24 10:01 CHEIKH [id number]) Aphasia Assessment/Goals/Plan Assessment Date of Evaluation: 02/03/24 Evaluation Type Initial Certification Does Patient Qualify for Service Yes Qualify/Failure Comment Based on clinical observations , informal cognitive- linguistic assessment results, and patient interview, pt would benefit from skilled speech therapy services 1-2x/ week to address motor speech and cognitive-linguistic deficits. Plan Pt will be seen # times/week 2 for # weeks 12 Anticipate reaching STG in # weeks 8 Anticipate reaching LTG in # weeks 12 Pt/Guardian verbally ack understanding Yes of dx/prognosis/goals G -code Required No Director Of Global Marketing Goals Increase intelligibility w/use of Yes: 70% traditional articulation treatment. Increase cognitive skills to communicate Yes: 80% w/family & friends Education Instructions provided Discussed preliminary test results and POC with pt who expressed understanding. Pt/Caregiver Able to Recall Information Able to recall/restate Reinforcement needed No Speech & Language HPI History Present Illness Description of Patient Problem Patient is a pleasant 63 year old female presenting to [facility] Outpatient Rehab Services with reports of memory concerns and motor speech deficits and generalized weakness. Pt reports that she is worse than before referencing previous time spent at speech therapy at [facility], marking concerns for memory and speech intelligibility. Patient reports hx of an anoxic brain injury occurring approx 2 years ago. Comorbidities include hx of HTN, HL, and pacemaker placemement. Rehab Services Assessed Speech therapy Is this evaluation r/t stroke? No Language Primary Language [place] Aphasia Evaluations Communication Speech Intelligibility Pt is primarily intelligible with ~85% accuracy with notable slurred speech and poor respiratory control, mild to moderate groping, and misarticulations. Auditory Comprehension Yes: Word Level Sentences Conversation No: Following Directions Paragraph AC Comment Pt does well with 1-2 step directions however, more complex tasks including 3 step directions and/or complex yes /nos or detailed paragraphs appear to be more difficult. Reading Comprehension Yes: Letter Naming Word Naming Sentences Paragraphs Verbal Expressive Language Yes: Automatic Speech Completing Sentences Repetition Abilities Word Level Naming Sentence Level Written Language Yes: Signature Attending/Orientation/Memory Yes: Memory No: Delayed Recall W/ Interference Orientation Attention/Concentration AOM Comment Pt requires moderate prompting and repetitions to complete tasks involving orientation, memory, and/or attention. She had difficulty with basic orientation including date/ month/year, as well as her age . She also has notable difficulty with recalling information following a delay. Detailed paragraph she was able to recall 10% of information independently. Short term memory when task complexity increased was at 15 % accuracy. Congnitive/Linguistic Skills No: Thought Organization Categorization Deductive Reasoning No: Word Deductions Additional Evaluation(s) Additional Tests Pt was given an informal cognitive-linguistic evaluation that assessed basic orientation (recalled name and location, temporal information appears to be difficult), language comprehension including: ( id of body parts (WFL), ID of objects (WFL), ID by function (WFL), conversation comprehension (WFL), 1-3step commands (1-2 steps WFL, 3 step more difficult), simple/ complex yes and no questions ( simple WFL, complex performed with 60% accuracy) paragraph comprehension (completed with 75% accuracy)), written language comprehension including: (letters (WFL), single words (WFL) phrases ( WFL), and paragraph (WFL)), language expression including: automatic speech (WFL), confrontational naming (WFL), object function description ( WFL), divergent/convergent naming (area of difficulty with 0% accuracy), responsive naming (WFL), writing (some spelling and sentence structure errors noted)), apraxia screen (WFL), short term memory (difficulty as tasks became more complex), delayed recall (unable to recall items), problem solving and excutive function (not tested due to time constraints .) Based on clinical observations and results from assessment, Lisset would benefit from skilled speech therapy services to address these deficits and concerns. PHYSICIAN CERTIFICATION: I certify the specified therapy services for Lisset Pham are required, authorized, and reviewed every 30 days.
== END 2024-06-08 23:59 | disposition home or self-care (01) ==
LOC: ST 13:00
PROVIDERS: Visit Provider Internal Medicine Adolescent Medicine
DX: R41.841 Cognitive communication deficit (principal); R47.9 Unspecified speech disturbances; G93.1 Anoxic brain damage, not elsewhere classified; G93.40 Encephalopathy, unspecified; I50.22 Chronic systolic (congestive) heart failure
CPT/HCPCS: 92507; 92523; 97129; 97130

== ENCOUNTER 2024-06-08 14:00 | Outpatient (RCR) | payer MEDICARE, MEDICAID, SELFPAY | END 2024-06-08 23:59 | disposition home or self-care (01) | LOC: OT 14:00 | PROVIDERS: Visit Provider Internal Medicine Adolescent Medicine | DX: G93.1 Anoxic brain damage, not elsewhere classified (principal); G93.40 Encephalopathy, unspecified; I50.22 Chronic systolic (congestive) heart failure | CPT/HCPCS: 97110; 97140; 97164; 97165; 97168; 97530 ==

== ENCOUNTER 2024-06-08 15:00 | Outpatient (RCR) | payer MEDICAID, MEDICARE, SELFPAY ==
--- NOTE | 2023-10-22 19:00 | HMH.PTOPEV ---
PT Outpatient Evaluation Rehab PT Outpatient Evaluation Start: 10/21/23 10:58 Freq: Status: Active Protocol: Document 10/21/23 10:00 FABRICE (Rec: 10/22/23 18:58 FABRICE [id number]) E-signed By Bruno Cespedes, PT Outpatient Therapy Subjective History Subjective History Patient is a 63 year old female presenting to outpatient PT with reports of chronic overall deconditioning , BLE generalized weakness and poor balance. No reports of falls over the past 6 months. Patient reports hx of an anoxic brain injury occurring approx 2 years ago. Comorbidities include hx of HTN, HL, pacemaker placemement and R femur fracture. Chief Complaint Weakness,Decreased Coordination Symptom Type Other Symptoms Relieved By Rest/Positioning,Prescription Meds Symptoms Aggravated By Standing,Bending/Stooping, Physical Activity,Walking, Lifting Prior Functional Limitations Lifting,Housework,Standing, Walking,Bending/Stooping Current Functional Limitations Lifting,Housework,Standing, Walking,Balance,Bending/ Stooping Symptom Description Constant but Variable Level of pain today (0-10) 2 Pain scale - at its best (0-10) 5 Pain scale - at its worst (0-10) 1 Hip/Knee Eval Gait Observation General Gait Pattern Observation Wide Based Gait Assistive Device Assistive Devices Rolling / Wheeled Walker MMT bilateral Hip Flexion Strength Grade 3+ Fair+ Hip Abduction Strength Grade 4- Good- Hip Adduction Strength Grade 4- Good- Hip Extension Strength Grade 3+ Fair+ Hip External Rotation Strength Grade 4- Good- Hip Internal Rotation Strength Grade 3+ Fair+ Knee Extension Strength Grade 4 Good Knee Flexion Strength Grade 4 Good ROM Hip ROM Reason Not Measured Within Functional Limits Knee ROM Reason Not Measured Within Functional Limits Special Tests Hip Trendelenburg Test Negative Right,Positive Left Knee Anterior Drawer Test Negative Left,Negative Right Knee Valgus Stress Test Negative Left,Negative Right Knee Varus Stress Test Negative Left,Negative Right Knee Isela Test Negative Left,Negative Right Dynamic Gait Index Test Protocol Gait Level Surface Severe Impairment Query Text: Instructions: Walk at your normal speed from here to the next jose l (20'). Grading: Jose L the lowest category that applies. Change in Gait Speed Severe Impairment Query Text: Instructions: Begin walking at your normal pace (for 5'), when I tell you go , walk as fast as you can (for 5'). When I tell you slow , walk as slowly as you can (for 5'). Grading: Jose L the lowest category that applies. Gait with Horizontal Head Turns Severe Impairment Query Text: Instructions: Begin walking at your normal pace. When I tell you to look right , keep walking straight, but turn you head to the right. Keep looking to the right unit I tell you look left , then keep walking straight and turn your head to the left. Keep your head to the left until I tell you look straight , then keep walking straight, but return you head to the center. Grading: Jose L the lowest category that applies. Gait with Vertical Head Turns Severe Impairment Query Text: Instructions: Begin walking at your normal pace. When I tell you to look up , keep walking staight, but tip your head up. Keep looking up until I tell you to look down , then keep walking straight and tip your head down. Keep your head down until I tell you look straight , then keep walking straight, but return your head to the center. Grading: Jose L the lowest category that applies. Gait and Pivot Turn Severe Impairment Query Text: Instructions: Begin walking at your normal pace. When I tell you turn and stop , turn as quickly as you can to face the opposite direction and stop. Grading: Jose L the lowest category that applies. Step Over Obstacle Severe Impairment Query Text: Instructions: Begin walking at your normal speed. When you come to the shoebox, step over it, not around it and keep walking. Grading: Jose L the lowest category that applies. Step Around Obstacles Moderate Impairment Query Text: Instructions: Begin walking at normal speed. When you come to the first cone (about 6' away), walk around the right side of it. When you come to the second cone (6' past first cone), walk around it to the left. Grading: Jose L the lowest category that applies. Steps Moderate Impairment Query Text: Instructions: Walk up these stairs as you would at home. At the top, turn around and walk down. Grading: Jose L the lowest category that applies. Scoring Dynamic Gait Index Score 2 Lower Extremity Functional Index Activities Today, do you or would you have any difficulty at all with: a.Any of your usual work, housework or Extreme difficulty or unable school activities to perform activity b. Your usual hobbies, recreational or Extreme difficulty or unable sporting activities to perform activity c. Getting into or out of the bath Extreme difficulty or unable to perform activity d. Walking between rooms Moderate difficulty e. Putting on your shoes or socks A little bit of difficulty f. Squatting Extreme difficulty or unable to perform activity g. Lifting an object, like a bag of Quite a bit of difficulty groceries from the floor h. Performing light activities around Moderate difficulty your home i. Performing heavy activities around Extreme difficulty or unable your home to perform activity j. Getting into or out of a car Moderate difficulty k. Walking 2 blocks Moderate difficulty l. Walking a mile Extreme difficulty or unable to perform activity m. Going up or down 10 stairs (about 1 Extreme difficulty or unable flight of stairs) to perform activity n. Standing for 1 hour Extreme difficulty or unable to perform activity o. Sitting for 1 hour Extreme difficulty or unable to perform activity p. Running on even ground Extreme difficulty or unable to perform activity q. Running on uneven ground Extreme difficulty or unable to perform activity r. Making sharp turns while running fast Extreme difficulty or unable to perform activity s. Hopping Extreme difficulty or unable to perform activity t. Rolling over in bed Moderate difficulty LEFI Score Lower Extremity Functional Index Score 14 Outpatient Therapy Assessment Impairments Problems/Impairmments Palpation Tenderness,Impaired Strength,Impaired Endurance, Impaired Transfers,Impaired Gait Pattern,Impaired Walking, Impaired Standing,Impaired Driving,Impaired Lifting, Impaired Dressing,Impaired Shower/Bathing,Impaired Household Care,Impaired Stair Climbing,Impaired Incline Stepping,Impaired Stepping on Uneven Surface,Impaired Squatting,Impaired Bending, Impaired Balance,Impaired DGI Score,Subjective C/O Pain Prognosis Rehab Potential Fair Clinical Impression Consistent with Diagnosis Yes Short Term Goals Number of Weeks 2 Increase Ability to Walk Yes: 10 min without difficulty Increase Ability to Stand Yes: Decrease Subjective C/O Pain Yes: 08/30 at worst Patient to be Ind w/ HEP Yes Senior Category Manager Goals Number of Weeks 4-6 Decreased Palpation Tenderness Yes: 1/ Increase Strength Yes: BLE 5/5 grossly Increase Ability to Walk Yes: 20 min without difficulty Increase Ability to Stand Yes: Improve Ability to Climb Stairs Yes: 1 flight up/down without difficult Increase DGI Score Yes: >15 Decrease Subjective C/O Pain Yes: 110 at worst Outpatient Therapy Plan of Care Treatment Plan May Include Therapeutic Exercise Including Home Yes Exercise Program Manual Therapy Techniques Yes Neuromuscular Re-education Yes Therapeutic Activities to Return to Yes Previous Functional/Work Level Gait Training Yes ADL/Self Care Education Yes Mechanical Traction Yes Dry Needling Yes Thermal Modalities Yes Electrical Stimulation Yes Ultrasound/Phonophoresis Yes Iontophoresis Yes Orthotics/Bracing/Splinting Yes Vasopneumatic Compression Pump Yes Massage Yes Manual Lymphatic Drainage Yes Eval/Re-Eval Yes Aquatic Therapy Yes Frequency Times per week 2 Duration Number of Weeks 4-6 Addendums This patient is a candidate for social No or vocational rehab? Patient/Guardian verbally acknowledges Yes understanding of treatment program and consents to further treatment? Patient/Guardian verbally acknowledges Yes understanding of diagnosis, prognosis and goals for treatment? Eval Complexity PT Charges 48918 - High Complexity Shoulder/Elbow Eval Shoulder Objective Measurements Elbow Objective Measurements PHYSICIAN CERTIFICATION: I certify the specified therapy services for Lisset Pham are required, authorized, and reviewed every 30 days.
--- NOTE | 2023-11-27 10:02 | HMH.RHREAS ---
Rehab Reassessment Rehab OP Re-assessment Start: 10/21/23 10:58 Freq: Status: Active Protocol: Document 11/27/23 09:08 FABRICE (Rec: 11/27/23 09:55 LOISJOSE ALBERTO Desktop) E-signed By Bruno Cespedes, PT Dynamic Gait Index Test Protocol Gait Level Surface Moderate Impairement Query Text: Instructions: Walk at your normal speed from here to the next jose l (20'). Grading: Jose L the lowest category that applies. Change in Gait Speed Moderate Impairment Query Text: Instructions: Begin walking at your normal pace (for 5'), when I tell you go , walk as fast as you can (for 5'). When I tell you slow , walk as slowly as you can (for 5'). Grading: Jose L the lowest category that applies. Gait with Horizontal Head Turns Moderate Impairment Query Text: Instructions: Begin walking at your normal pace. When I tell you to look right , keep walking straight, but turn you head to the right. Keep looking to the right unit I tell you look left , then keep walking straight and turn your head to the left. Keep your head to the left until I tell you look straight , then keep walking straight, but return you head to the center. Grading: Jose L the lowest category that applies. Gait with Vertical Head Turns Moderate Impairment Query Text: Instructions: Begin walking at your normal pace. When I tell you to look up , keep walking staight, but tip your head up. Keep looking up until I tell you to look down , then keep walking straight and tip your head down. Keep your head down until I tell you look straight , then keep walking straight, but return your head to the center. Grading: Jose L the lowest category that applies. Gait and Pivot Turn Moderate Impairment Query Text: Instructions: Begin walking at your normal pace. When I tell you turn and stop , turn as quickly as you can to face the opposite direction and stop. Grading: Jose L the lowest category that applies. Step Over Obstacle Moderate Impairment Query Text: Instructions: Begin walking at your normal speed. When you come to the shoebox, step over it, not around it and keep walking. Grading: Jose L the lowest category that applies. Step Around Obstacles Mild Impairment Query Text: Instructions: Begin walking at normal speed. When you come to the first cone (about 6' away), walk around the right side of it. When you come to the second cone (6' past first cone), walk around it to the left. Grading: Jose L the lowest category that applies. Steps Moderate Impairment Query Text: Instructions: Walk up these stairs as you would at home. At the top, turn around and walk down. Grading: Jose L the lowest category that applies. Scoring Dynamic Gait Index Score 9 Lower Extremity Functional Index Activities Today, do you or would you have any difficulty at all with: a.Any of your usual work, housework or Extreme difficulty or unable school activities to perform activity b. Your usual hobbies, recreational or Extreme difficulty or unable sporting activities to perform activity c. Getting into or out of the bath Extreme difficulty or unable to perform activity d. Walking between rooms Moderate difficulty e. Putting on your shoes or socks A little bit of difficulty f. Squatting Quite a bit of difficulty g. Lifting an object, like a bag of Moderate difficulty groceries from the floor h. Performing light activities around Moderate difficulty your home i. Performing heavy activities around Quite a bit of difficulty your home j. Getting into or out of a car Moderate difficulty k. Walking 2 blocks Moderate difficulty l. Walking a mile Extreme difficulty or unable to perform activity m. Going up or down 10 stairs (about 1 Quite a bit of difficulty flight of stairs) n. Standing for 1 hour Extreme difficulty or unable to perform activity o. Sitting for 1 hour A little bit of difficulty p. Running on even ground Extreme difficulty or unable to perform activity q. Running on uneven ground Extreme difficulty or unable to perform activity r. Making sharp turns while running fast Extreme difficulty or unable to perform activity s. Hopping Extreme difficulty or unable to perform activity t. Rolling over in bed A little bit of difficulty LEFI Score Lower Extremity Functional Index Score 22 Rehab Re-assessment Subjective Subjective Patient reports overall improved endurance with gait training. Objective Objective Notes See FOM's Assessment Progress Assessment Progressing as Expected Assessment Notes Patient would benefit from continuing with skilled PT interventions in order to address functional limitation with standing/ambulatory activities. Patient has been seen for 6 treatment visits to date. Patient goals met None Goals Not Met All Revised Goals NA Plan Plan Continue with current POC. Frequency of Therapy 2x/week Duration of therapy 4 weeks Time and Billing Re-Eval Time 16 Re-Eval Billing Units 1 PHYSICIAN CERTIFICATION: I certify the specified therapy services for Lisset Tussey are required, authorized, and reviewed every 30 days.
--- NOTE | 2024-01-06 16:11 | HMH.RHREAS ---
Rehab Reassessment Rehab OP Re-assessment Start: 10/21/23 10:58 Freq: Status: Active Protocol: Document 01/06/24 16:03 SHERINEChantalVÍCTOR (Rec: 01/06/24 16:11 PHORVÍCTOR [id number]) E-signed By Melchor Stover PT Dynamic Gait Index Test Protocol Gait Level Surface Moderate Impairement Query Text: Instructions: Walk at your normal speed from here to the next jose l (20'). Grading: Jose L the lowest category that applies. Change in Gait Speed Mild Impairment Query Text: Instructions: Begin walking at your normal pace (for 5'), when I tell you go , walk as fast as you can (for 5'). When I tell you slow , walk as slowly as you can (for 5'). Grading: Jose L the lowest category that applies. Gait with Horizontal Head Turns Moderate Impairment Query Text: Instructions: Begin walking at your normal pace. When I tell you to look right , keep walking straight, but turn you head to the right. Keep looking to the right unit I tell you look left , then keep walking straight and turn your head to the left. Keep your head to the left until I tell you look straight , then keep walking straight, but return you head to the center. Grading: Jose L the lowest category that applies. Gait with Vertical Head Turns Moderate Impairment Query Text: Instructions: Begin walking at your normal pace. When I tell you to look up , keep walking staight, but tip your head up. Keep looking up until I tell you to look down , then keep walking straight and tip your head down. Keep your head down until I tell you look straight , then keep walking straight, but return your head to the center. Grading: Jose L the lowest category that applies. Gait and Pivot Turn Mild Impairment Query Text: Instructions: Begin walking at your normal pace. When I tell you turn and stop , turn as quickly as you can to face the opposite direction and stop. Grading: Jose L the lowest category that applies. Step Over Obstacle Moderate Impairment Query Text: Instructions: Begin walking at your normal speed. When you come to the shoebox, step over it, not around it and keep walking. Grading: Jose L the lowest category that applies. Step Around Obstacles Mild Impairment Query Text: Instructions: Begin walking at normal speed. When you come to the first cone (about 6' away), walk around the right side of it. When you come to the second cone (6' past first cone), walk around it to the left. Grading: Jose L the lowest category that applies. Steps Moderate Impairment Query Text: Instructions: Walk up these stairs as you would at home. At the top, turn around and walk down. Grading: Jose L the lowest category that applies. Scoring Dynamic Gait Index Score 11 Rehab Re-assessment Subjective Subjective Patient is doing very well today, she did mentioned that she recently had a fall and was having some pain and soreness. She informed us that she had a great trip visiting [place] and was able to get out and about during her time there. Objective Objective Notes MMT: B LE grossly 4/5 throughout hip and knee. Pt did not rate pain when asked, but does c/o pain in the L knee TTP: 2/4 inferior lateral L knee. DGI 11 this date vs 9 on IE. Assessment Progress Assessment Progressing as Expected Assessment Notes PT presents with improved strength in B LE, but continues to have difficulty with dynamic balance during ambulation as evidenced by lower than expected scores on the DGI. Skilled therapy remains necessary to aid pt return to OF. Patient goals met ST LT/7 Plan Plan Continue per initial POC. Frequency of Therapy 2 x/wk Duration of therapy 4 wks Time and Billing Re-Eval Time 10 PHYSICIAN CERTIFICATION: I certify the specified therapy services for Lisset Pham are required, authorized, and reviewed every 30 days.
--- NOTE | 2024-02-05 11:15 | HMH.RHREAS ---
Rehab Reassessment Rehab OP Re-assessment Start: 10/21/23 10:58 Freq: Status: Active Protocol: Document 02/05/24 11:08 FABRICE (Rec: 02/05/24 11:15 FABRICE [id number]) E-signed By Bruno Cespedes, PT Dynamic Gait Index Test Protocol Gait Level Surface Moderate Impairement Query Text: Instructions: Walk at your normal speed from here to the next jose l (20'). Grading: Jose L the lowest category that applies. Change in Gait Speed Mild Impairment Query Text: Instructions: Begin walking at your normal pace (for 5'), when I tell you go , walk as fast as you can (for 5'). When I tell you slow , walk as slowly as you can (for 5'). Grading: Jose L the lowest category that applies. Gait with Horizontal Head Turns Moderate Impairment Query Text: Instructions: Begin walking at your normal pace. When I tell you to look right , keep walking straight, but turn you head to the right. Keep looking to the right unit I tell you look left , then keep walking straight and turn your head to the left. Keep your head to the left until I tell you look straight , then keep walking straight, but return you head to the center. Grading: Jose L the lowest category that applies. Gait with Vertical Head Turns Moderate Impairment Query Text: Instructions: Begin walking at your normal pace. When I tell you to look up , keep walking staight, but tip your head up. Keep looking up until I tell you to look down , then keep walking straight and tip your head down. Keep your head down until I tell you look straight , then keep walking straight, but return your head to the center. Grading: Jose L the lowest category that applies. Gait and Pivot Turn Moderate Impairment Query Text: Instructions: Begin walking at your normal pace. When I tell you turn and stop , turn as quickly as you can to face the opposite direction and stop. Grading: Jose L the lowest category that applies. Step Over Obstacle Moderate Impairment Query Text: Instructions: Begin walking at your normal speed. When you come to the shoebox, step over it, not around it and keep walking. Grading: Jose L the lowest category that applies. Step Around Obstacles Mild Impairment Query Text: Instructions: Begin walking at normal speed. When you come to the first cone (about 6' away), walk around the right side of it. When you come to the second cone (6' past first cone), walk around it to the left. Grading: Jose L the lowest category that applies. Steps Moderate Impairment Query Text: Instructions: Walk up these stairs as you would at home. At the top, turn around and walk down. Grading: Jose L the lowest category that applies. Scoring Dynamic Gait Index Score 10 Lower Extremity Functional Index Activities Today, do you or would you have any difficulty at all with: a.Any of your usual work, housework or Extreme difficulty or unable school activities to perform activity b. Your usual hobbies, recreational or Extreme difficulty or unable sporting activities to perform activity c. Getting into or out of the bath Extreme difficulty or unable to perform activity d. Walking between rooms Moderate difficulty e. Putting on your shoes or socks A little bit of difficulty f. Squatting Quite a bit of difficulty g. Lifting an object, like a bag of Moderate difficulty groceries from the floor h. Performing light activities around Moderate difficulty your home i. Performing heavy activities around Quite a bit of difficulty your home j. Getting into or out of a car Moderate difficulty k. Walking 2 blocks Moderate difficulty l. Walking a mile Extreme difficulty or unable to perform activity m. Going up or down 10 stairs (about 1 Quite a bit of difficulty flight of stairs) n. Standing for 1 hour Extreme difficulty or unable to perform activity o. Sitting for 1 hour A little bit of difficulty p. Running on even ground Extreme difficulty or unable to perform activity q. Running on uneven ground Extreme difficulty or unable to perform activity r. Making sharp turns while running fast Extreme difficulty or unable to perform activity s. Hopping Extreme difficulty or unable to perform activity t. Rolling over in bed A little bit of difficulty LEFI Score Lower Extremity Functional Index Score 22 Rehab Re-assessment Subjective Subjective Patient reports fall approx 3 weeks ago associated with related L knee/LLE pain resulting in overall decreased mobility. Objective Objective Notes MMT: B LE grossly 4/5 throughout hip and knee. Pt did not rate pain when asked, but does c/o pain in the L knee TTP: 2/4 inferior lateral L knee. DGI 11 this date vs 9 on IE. Assessment Progress Assessment Slower Than Expected Assessment Notes PT presents with improved strength in B LE, but continues to have difficulty with dynamic balance during ambulation as evidenced by lower than expected scores on the DGI. Skilled therapy remains necessary to aid pt return to PLOF. Overall slight functional decline with standing/ambulatory activities since fall approx 3 weeks ago. Patient goals met ST/4 LT/7 Goals Not Met All Revised Goals NA Plan Plan Continue per initial POC. Frequency of Therapy 2 x/wk Duration of therapy 4 wks PHYSICIAN CERTIFICATION: I certify the specified therapy services for Lisset Pham are required, authorized, and reviewed every 30 days.
--- NOTE | 2024-03-04 11:57 | HMH.RHREAS ---
Rehab Reassessment Rehab OP Re-assessment Start: 10/21/23 10:58 Freq: Status: Active Protocol: Document 03/04/24 11:00 FABRICE (Rec: 03/04/24 11:57 FABRICE [id number]) E-signed By Bruno Cespedes, PT Dynamic Gait Index Test Protocol Gait Level Surface Severe Impairment Query Text: Instructions: Walk at your normal speed from here to the next jose l (20'). Grading: Jose L the lowest category that applies. Change in Gait Speed Severe Impairment Query Text: Instructions: Begin walking at your normal pace (for 5'), when I tell you go , walk as fast as you can (for 5'). When I tell you slow , walk as slowly as you can (for 5'). Grading: Jose L the lowest category that applies. Gait with Horizontal Head Turns Severe Impairment Query Text: Instructions: Begin walking at your normal pace. When I tell you to look right , keep walking straight, but turn you head to the right. Keep looking to the right unit I tell you look left , then keep walking straight and turn your head to the left. Keep your head to the left until I tell you look straight , then keep walking straight, but return you head to the center. Grading: Jose L the lowest category that applies. Gait with Vertical Head Turns Severe Impairment Query Text: Instructions: Begin walking at your normal pace. When I tell you to look up , keep walking staight, but tip your head up. Keep looking up until I tell you to look down , then keep walking straight and tip your head down. Keep your head down until I tell you look straight , then keep walking straight, but return your head to the center. Grading: Jose L the lowest category that applies. Gait and Pivot Turn Severe Impairment Query Text: Instructions: Begin walking at your normal pace. When I tell you turn and stop , turn as quickly as you can to face the opposite direction and stop. Grading: Jose L the lowest category that applies. Step Over Obstacle Severe Impairment Query Text: Instructions: Begin walking at your normal speed. When you come to the shoebox, step over it, not around it and keep walking. Grading: Jose L the lowest category that applies. Step Around Obstacles Moderate Impairment Query Text: Instructions: Begin walking at normal speed. When you come to the first cone (about 6' away), walk around the right side of it. When you come to the second cone (6' past first cone), walk around it to the left. Grading: Jose L the lowest category that applies. Steps Severe Impairment Query Text: Instructions: Walk up these stairs as you would at home. At the top, turn around and walk down. Grading: Jose L the lowest category that applies. Scoring Dynamic Gait Index Score 1 Lower Extremity Functional Index Activities Today, do you or would you have any difficulty at all with: a.Any of your usual work, housework or Extreme difficulty or unable school activities to perform activity b. Your usual hobbies, recreational or Extreme difficulty or unable sporting activities to perform activity c. Getting into or out of the bath Extreme difficulty or unable to perform activity d. Walking between rooms Quite a bit of difficulty e. Putting on your shoes or socks A little bit of difficulty f. Squatting Quite a bit of difficulty g. Lifting an object, like a bag of Moderate difficulty groceries from the floor h. Performing light activities around Moderate difficulty your home i. Performing heavy activities around Quite a bit of difficulty your home j. Getting into or out of a car Moderate difficulty k. Walking 2 blocks Moderate difficulty l. Walking a mile Extreme difficulty or unable to perform activity m. Going up or down 10 stairs (about 1 Quite a bit of difficulty flight of stairs) n. Standing for 1 hour Extreme difficulty or unable to perform activity o. Sitting for 1 hour No difficulty p. Running on even ground Extreme difficulty or unable to perform activity q. Running on uneven ground Extreme difficulty or unable to perform activity r. Making sharp turns while running fast Extreme difficulty or unable to perform activity s. Hopping Extreme difficulty or unable to perform activity t. Rolling over in bed A little bit of difficulty LEFI Score Lower Extremity Functional Index Score 22 Rehab Re-assessment Subjective Subjective Patient reports persistent functional declined secondary to L knee pain. Objective Objective Notes MMT: B LE grossly 4+/5 throughout hip and knee. 5/10 L knee pain noted TTP: 2/4 inferior lateral L knee. DGI 10 this date vs 9 on IE. Assessment Progress Assessment Slower Than Expected Assessment Notes PT presents with improved strength in B LE, but continues to have difficulty with dynamic balance during ambulation as evidenced by lower than expected scores on the DGI. Skilled therapy remains necessary to aid pt return to PLOF. Overall slight functional decline with standing/ambulatory activities since fall approx 3 weeks ago. Patient goals met ST/4 LT/7 [ End ] Goals Not Met All Revised Goals NA Plan Plan Continue per initial POC. Frequency of Therapy 2 x/wk Duration of therapy 4 wks Time and Billing Re-Eval Time 14 Re-Eval Billing Units 1 PHYSICIAN CERTIFICATION: I certify the specified therapy services for L[facility] Pham are required, authorized, and reviewed every 30 days.
== END 2024-06-08 23:59 | disposition home or self-care (01) ==
LOC: PT 15:00
PROVIDERS: Visit Provider Internal Medicine Adolescent Medicine
DX: G93.1 Anoxic brain damage, not elsewhere classified (principal)
CPT/HCPCS: 97014; 97110; 97112; 97113; 97116; 97140; 97163; 97164; 97530; G0283

== ENCOUNTER 2024-06-21 09:38 | Outpatient (CLI) | payer MEDICARE, MEDICAID, SELFPAY ==
--- NOTE | 2024-06-21 09:44 | XR_ITS ---
FINAL REPORT CLINICAL HISTORY: bilateral knee pain COMPARISON: 01/27/2024 FINDINGS: AP, lateral and oblique views of the left knee were obtained. There is no acute fracture or dislocation of the left knee. There is advanced tricompartmental degenerative joint disease, which has progressed slightly since the prior exam. There is no acute soft tissue abnormality. There is no joint effusion. IMPRESSION: Advanced degenerative disease. Reviewed, Interpreted and Dictated by Darby Clay MD Transcribed by Sonia Balderas Authenticated and [facility]
--- NOTE | 2024-06-21 09:44 | XR_ITS ---
FINAL REPORT CLINICAL HISTORY: bilateral knee pain FINDINGS: AP, lateral and oblique views of the right knee were obtained. There is no prior exam for comparison. There is an intramedullary waldo within the femur which is incompletely imaged. The superior surgical screw has possibly retracted as it is not flush with the distal femoral cortex by approximately 20 mm. There is an old fracture deformity of the distal femur with advanced degenerative disease at the right knee joint. There is no acute fracture of the right knee. The soft tissues are normal. There is no joint effusion. IMPRESSION: Postoperative changes from ORIF with probable retraction of the superior screw within the distal femur. Advanced degenerative joint disease without acute fracture. Reviewed, Interpreted and Dictated by Darby Clay MD Transcribed by Sonia Balderas Authenticated and [facility]
== END 2024-06-21 23:59 | disposition home or self-care (01) ==
LOC: RAD 09:41
PROVIDERS: PCP Internal Medicine Adolescent Medicine; Visit Provider Physician Assistant
DX: M25.561 Pain in right knee (principal); M25.562 Pain in left knee
CPT/HCPCS: 73562

== ENCOUNTER 2024-08-19 15:27 | Observation (INO) | payer MEDICARE, MEDICAID, SELFPAY ==
[2024-08-19] VITALS (10 sets, daily range): BP systolic 91–132; BP diastolic 65–109; PULSE 95–148; RESP 12–19; TEMP 36.3–37.2; O2SAT 94–98; BMI 32.9; BMI 33.0
--- NOTE | 2024-08-19 15:42 | ECG_ITS ---
APPROVED REPORT Exam: Resting ECG HR:141 bpm ECG Measurements Heart Rate 141 AXES QRSd 151 QRS 166 QT 358 T -2 QTc 440 Conclusion AV paced rhythm Right axis deviation with right bundle branch block morphology No acute ischemic change Electronically signed by : ARLEEN TENORIO, 08/19/2024 20:29:01
[2024-08-19 15:49] LABS: Coronavirus 19, PCR Not Detected (NotDetected); Influenza A, PCR Not Detected (NotDetected); Influenza B, PCR Not Detected (NotDetected)
--- NOTE | 2024-08-19 15:50 | HMH.EDCP ---
Discharge Plan Disposition Patient Disposition: Admitted Chief Complaint: Shortness of Breath/Dyspnea Prescriptions Prescriptions: No Action cranberry fruit 400 mg capsule 400 mg PO DAILY Rx Instructions: administer with a meal thiamine HCl (vitamin B1) [Vitamin B-1] 100 mg tablet 100 mg PO DAILY Qty: 90 3RF nystatin [Nystop] 100,000 unit/gram powder 100,000 applic topical NEEDED PRN (Reason: y) Gemtesa 75 mg tablet 75 mg PO DAILY hydroxyzine pamoate 25 mg capsule 25 mg PO BID PRN digoxin 125 mcg (0.125 mg) tablet 125 mcg PO DAILY spironolactone 25 mg tablet 25 mg PO DAILY aspirin 81 mg tablet,delayed release (DR/EC) 81 mg PO DAILY atorvastatin 40 mg tablet 40 mg PO HS Probiotic 3 billion cell capsule 3,000 mmu cells PO DAILY Rx Instructions: administer with a meal levothyroxine 100 mcg tablet 75 mcg PO DAILY diclofenac sodium [Aleve (diclofenac)] 1 % gel 2 g topical QID Rx Instructions: apply to single elbow, wrist or hand; for hand includes palm/fingers/back of hand Eliquis 5 mg tablet 5 mg PO BID Qty: 60 11RF trazodone 50 mg tablet 150 mg PO HS MDD 150 mg Qty: 90 5RF Rx Instructions: 150 mg p.o. nightly Jardiance 10 mg tablet 10 mg PO DAILY Qty: 30 2RF Jardiance 10 mg tablet 0RF Nuedexta 20-10 mg capsule 1 cap PO Q12H Qty: 180 3RF Rx Instructions: 1 capsule twice daily metoprolol succinate [Toprol XL] 50 mg tablet extended release 24 hr 50 mg PO DAILY Qty: 30 5RF bumetanide 2 mg tablet See Rx Instructions .ROUTE .COMPLEX Qty: 90 3RF Dose Instruction: TAKE 1 TABLET ORALLY DAILY Rx Instructions: TAKE 1 TABLET ORALLY DAILY Clinical Impressions Clinical Impression: Severe sepsis, MICAH (acute kidney injury) Print Language Print Language: [place] Discharge ED Provider: Vladimir Kasper General Chief Complaint: Shortness of Breath/Dyspnea Stated Complaint: weakness,SOA Time Seen by Provider: 08/19/24 15:45 Mode of Arrival: Wheelchair Source of Information: Patient Limitations: No Limitations Description of Symptoms (Recalled from ER Triage Doc. by RN): Pt presents for evaluation of shortness of breath since yesterday. Pt has been feeling weak and restless, and a decreased appetite. Pt has a rash to her upper back x1 weeks. Pt has a pacemaker History of Present Illness HPI narrative: Please note that above description of symptoms, in this electronic medical record under categorization of recalled from ER triage doctor by RN are reflective of an initial nursing assessment, however, is not reflective of my full history and physical exam that was personally taken and clarified. Consequentially, this preceding description of symptoms, which may include the patient's categorized chief complaint in the EMR, do not reflect my personal clinical impression, and the ultimate description of history of present illness and patient stated complaints should be deferred to this section of the note. Unless stated otherwise or congruent with this section of the note, additional signs, symptoms, or incongruence should be interpreted as inaccurate with my clinical impression. Related Data Home Medications ?Medication ?Instructions ?Recorded ?Confirmed aspirin 81 mg tablet,delayed 81 mg PO DAILY 02/12/22 06/21/24 release atorvastatin 40 mg tablet 40 mg PO HS 02/12/22 06/21/24 digoxin 125 mcg (0.125 mg) tablet 125 mcg PO DAILY 02/12/22 06/21/24 lactobacillus combination no.4 3 3,000 mmu cells PO DAILY 02/12/22 06/21/24 billion cell capsule (Probiotic) spironolactone 25 mg tablet 25 mg PO DAILY 02/12/22 06/21/24 cranberry fruit 400 mg capsule 400 mg PO DAILY 10/17/22 06/21/24 levothyroxine 100 mcg tablet 75 mcg PO DAILY 10/17/22 06/21/24 nystatin 100,000 unit/gram topical 100,000 applic topical NEEDED 03/16/24 06/21/24 powder (Nystop) PRN y vibegron 75 mg tablet (Gemtesa) 75 mg PO DAILY 03/16/24 06/21/24 hydroxyzine pamoate 25 mg capsule 25 mg PO BID PRN 03/31/24 06/21/24 diclofenac sodium 1 % topical gel 2 g topical QID 04/12/24 06/21/24 (Aleve (diclofenac)) Previous Rx's ?Medication ?Instructions ?Recorded thiamine HCl (vitamin B1) 100 mg 100 mg PO DAILY #90 tabs 10/14/23 tablet (Vitamin B-1) apixaban 5 mg tablet (Eliquis) 5 mg PO BID #60 tabs 11/14/23 trazodone 50 mg tablet 150 mg (3 x 50 mg) PO HS insomnia 12/10/23 #90 tabs empagliflozin 10 mg tablet 10 mg PO DAILY #30 tabs 03/25/24 (Jardiance) dextromethorphan 20 mg-quinidine 1 cap PO Q12H Pseudobulbar #180 05/07/24 10 mg capsule (Nuedexta) caps metoprolol succinate 50 mg 50 mg PO DAILY #30 tabs 05/12/24 tablet,extended release 24 hr (Toprol XL) bumetanide 2 mg tablet See Rx Instructions .Route 08/16/24 .COMPLEX #90 tabs Allergies Allergy/AdvReac Type Severity Reaction Status Date / Time No Known Allergies Allergy Verified 06/21/24 10:44 [facility] Disclaimer: The information contained in this section may have been updated after the patient was seen, as this information can be updated by other users. Medical History (Updated 08/19/24 @ 18:47 by Vladimir Kasper MD) Chronic depression Abnormal computed tomography angiography of heart Atypical angina Nonischemic dilated cardiomyopathy BETH (obstructive sleep apnea) Brain aneurysm Pseudobulbar affect Hypothyroidism Atrial fibrillation with RVR CAD (coronary atherosclerotic disease) Atrial fibrillation HLD (hyperlipidemia) Hypertensive disorder Diabetes mellitus Obstructive sleep apnea syndrome Surgical History (Updated 04/12/24 @ 17:50 by Deana Delacruz MD) History of cardiac catheterization Presence of biventricular AICD AICD (automatic cardioverter/defibrillator) present Family History Other Atrial fibrillation Cancer Diabetes Hypertension Social History Smoking Status: Never smoker alcohol intake: never substance use type: former substance user current occupational status: retired and disabled Travel in the last 8 weeks: None household members: none housing: apartment current occupational exposures/hazards: No Have you lived/traveled outside [place] in past 30 days?: No Contact w/someone who lives/traveled outside US past 30 days?: No Exposure to someone with infectious disease in past 14 days?: No Do you have a fever (greater than 100.4 F or 38 C)?: No Have you tested positive for COVID-19: No Exposed to someone with COVID-19 in past 14 days?: No Do you have a sore throat?: No Do you have a cough?: No Do you have any weakness?: Yes Do you have any diarrhea?: No Are you experiencing any unusual bleeding?: No Do you have any muscle aches/pain?: No Do you have any abdominal pain?: No Are you experiencing loss of taste or smell?: No Other Medical History Have you received the Flu Vaccine for this season: No Have you received the Pneumonia Vaccine: No ROS Obtained: Yes All systems reviewed & no additional complaints except as documented Physical Exam General General appearance: alert Neck Neck exam: Present trachea midline Chest Chest inspection: Present normal inspection and symmetric chest wall rise Respiratory Respiratory exam: Present normal lung sounds bilaterally; Absent respiratory distress, wheezes, stridor, accessory muscle use or prolonged expiratory phase Cardiovascular Cardiovascular exam: Present normal rhythm, tachycardia, systolic murmur and other (Pulses equal and symmetric in upper and lower extremities) Extremities Exam Extremities exam: Absent edema Neurological Exam Neurological exam: Present alert, oriented X3 and CN II-XII intact Skin Skin exam: Present warm and dry; Absent cyanosis, diaphoresis or pallor HEART Score HEART Score HEART Score assessment performed?: Yes History (anamnesis): Slightly suspicious ECG: Non-specific disturbance Age: >65 years Risk factors: 3 or more risk factors Troponin: </= normal limit HEART Score: 5 Critical Care Critical Care Time Critical Care Time: Yes (sepsis) Attestation: On 08/19/24, the high probability of a clinically significant, sudden or life threatening deterioration of the following system(s) required my full and direct attention, intervention and personal management. The time I documented below is in addition to time spent performing reported procedures but includes the following listed in this critical care notation. Total Time Total Critical Care Time: 45 Medical Decision Making Medical Records Medical records reviewed: Yes I reviewed the patient's medical records. [place] Inquiry Pt receiving controlled substance: No [place] was queried for this patient: No Vital Signs Vital Signs: 08/19/24 15:35 08/19/24 16:02 Pulse Rate 144 H Pulse Rate [Right] 95 H Respiratory Rate 18 Blood Pressure 126/109 H Blood Pressure [Right Arm] 123/99 H Blood Pressure Mean [Right Arm] 107 Blood Pressure Source [Right Arm] Automatic Cuff Blood Pressure Position [Right Arm] Sitting 02 Sat by Pulse Oximetry 95 95 Oxygen Delivery Method Room Air Room Air Lab Data Labs: Lab Results 08/19/24 15:39: SARS-CoV-2 (PCR) Not detected, Influenza A Untype (PCR) Not detected, Influenza Type B (PCR) Not detected 08/19/24 15:53: VBG pCO2 45.4, VBG pO2 38.7, VBG HCO3 25.2, VBG Total CO2 26.6, VBG O2 Saturation 67.4, VBG Base Excess -0.2, VBG Lactic Acid 4.0 H 08/19/24 16:30: WBC 8.8, RBC 5.57 H, Hgb 15.1, Hct 48.5 H, MCV 87.1, MCH 27.1, MCHC 31.1 L, RDW 15.2, Plt Count 276, MPV 10.5 H, Neut % (Auto) 62.8, Lymph % (Auto) 24.3, [place] % (Auto) 11.8 H, Eos % (Auto) 0.1, Baso % (Auto) 0.5, Neut # (Auto) 5.5, Lymph # (Auto) 2.1, [place] # (Auto) 1.0, Eos # (Auto) 0.0, Baso # (Auto) 0.0, PT 15.1 H, INR 1.39 H, APTT 27.3, Sodium 136, Potassium 4.5, Chloride 100, Carbon Dioxide 27, Anion Gap 13.5, BUN 28 H, Creatinine 1.20 H, Estimated Creat Clear 64, Estimated GFR 45 L, Est GFR ( Amer) 55 L, Glucose 127 H, Lactate 3.6 H, Calcium 9.1, Magnesium 1.8, Total Bilirubin 1.7 H, AST 40 H, ALT 38, Alkaline Phosphatase 133 H, Troponin I < 0.01, C-Reactive Protein 12.3 H, NT-Pro-B Natriuret Pep 29485 H, Total Protein 6.8, Albumin 4.1, Globulin 2.7, Albumin/Globulin Ratio 1.5, Lipase 125, Procalcitonin 0.103, TSH 2.60, Thyroxine (T4) 11.8 H 08/19/24 17:46: Urine Color Yellow, Urine Appearance Clear, Urine pH 6.0, Ur Specific [place] 1.015, Urine Protein Negative, Urine Glucose (UA) Negative, Urine Ketones Negative, Urine Blood 1+ A, Urine Nitrate Negative, Urine Bilirubin Negative, Urine Urobilinogen 0.2, Ur Leukocyte Esterase Negative, Urine RBC 3-5, Urine WBC Occasional, Ur Squamous Epith Cells Occasional, Urine Bacteria Trace, Hyaline Casts 3-5, Ur Barbituates Screen Negative, Ur Amphetamines Screen Negative, U Benzodiazepines Scrn Negative, Urine Cocaine Screen Negative, U Marijuana (THC) Screen Negative 08/19/24 16:30 08/19/24 16:30 Response Orders (Tests/Meds): ED MEDICATIONS Generic Name Dose Route Start Last Admin Trade Name Freq PRN Reason Stop Dose Admin Vancomycin/PEG/NA[place]/Lysine/Water 1.75 gm in 350 mls @ 175 mls/hr 08/19/24 17:15 08/19/24 17:25 Vancomycin 1.75gm/350ml (Peg) Premix IV 08/19/24 19:14 175 mls/hr ONCE ONE Administration Miscellaneous 1 each 08/19/24 17:00 08/19/24 17:26 Vancomycin Consult Request NOTAPPLIC 09/18/24 16:59 1 each CONSULT PHARMACY [facility] Administration Discontinued Medications Generic Name Dose Route Start Last Admin Trade Name Freq PRN Reason Stop Dose Admin Lactated Ringer's 1,000 mls @ 999 mls/hr 08/19/24 16:54 08/19/24 17:18 Lactated Ringer's 1000 Ml Bag IV 08/19/24 17:54 999 mls/hr .Q1H1M ONE Administration Cefepime HCl 2 gm/ Sodium 100 mls @ 200 mls/hr 08/19/24 17:14 08/19/24 17:18 Chloride IV 08/19/24 17:43 200 mls/hr ONCE ONE Administration ORDERS Category Date Time Status CXR 2 view (NOT portable) [XR chest 2V] Stat Exams 08/19/24 15:51 Completed CBC w/Auto Diff [Complete Blood Count Auto Diff] Stat Lab 08/19/24 16:30 Completed CRP [C-Reactive Protein] Stat Lab 08/19/24 16:30 Completed Comprehensive Metabolic Panel Stat Lab 08/19/24 16:30 Completed Lactic Acid Stat Lab 08/19/24 16:30 Completed Lipase Stat Lab 08/19/24 16:30 Completed Magnesium Stat Lab 08/19/24 16:30 Completed NT Pro Brain Natriuretic Pep. Stat Lab 08/19/24 16:30 Completed PT INR [Prothrombin Time INR] Stat Lab 08/19/24 16:30 Completed PTT [Activated Partial Thrombo Time] Stat Lab 08/19/24 16:30 Completed Procalcitonin Stat Lab 08/19/24 16:30 Completed Rapid PCR Covid and Flu A/B Stat Lab 08/19/24 15:39 Completed T4 (Thyroxine) Stat Lab 08/19/24 16:30 Completed TSH [Thyroid Stimulating Hormone] Stat Lab 08/19/24 16:30 Completed Troponin I Q3H Lab 08/19/24 19:00 Ordered Troponin I Q3H Lab 08/19/24 22:00 Ordered Troponin I Stat Lab 08/19/24 16:30 Completed UDS [Drug Screen,Urine] Stat Lab 08/19/24 17:46 Results Urinalysis and Microscopic Stat Lab 08/19/24 17:46 Completed Blood Culture Stat Micro 08/19/24 16:30 Received Venous Blood Gas Stat RT 08/19/24 15:53 Results MDM Narrative Medical Decision Narrative: 64-year-old female history of hypertension, hyperlipidemia, CAD status post stenting, CKD, cardiomyopathy status post AICD placement with complicated cardiac arrestResulting in long-term ventilation, PEG/trach status post reversal, atrial fibrillation and mitten on Eliquis CHF presenting with multiple complaints. About a week ago, patient started complaining of restlessness, per family he was at bedside. States that she could not sit still, was rolling around when she was trying to sleep in her recliner, just could not get comfortable. Saw family doctor who recommended patient continue following outpatient and go to the emergency department if things seem to get worse. Today, patient started having chest pressure that was 9 out of 10 at home, reported, per daughter, then today came into the emergency department for further evaluation. Patient has no acute complaints other than just not feeling well. Currently denying chest pain, shortness of breath, nausea, any acute complaints. History was obtained via conversation with patient and family. On arrival, patient hemodynamically stable, alert, oriented x4, appropriate, GCS 15, moving all extremities spontaneously, pupils equal and reactive to light. Full physical exam performed and significant for chronically ill-appearing female who is in no acute distress. She is tachycardic 120 to 130 bpm. Right upper sternal border murmur radiating to the carotids. No evidence of JVD. Pulses equal symmetric in upper and lower extremities. Neurologically at baseline, per family. No lower extremity edema. Differential includes microvascular coronary artery disease, CHF, ACS, CT, coronary artery dissection, pneumothorax, PE, dissection, pericarditis, myocarditis, pneumothorax, aortic aneurysm, pneumonia, bronchitis, among others. Patient was given 324 mg aspirin for symptomatic management and correction of underlying abnormalities. Patient placed on continuous cardiac monitoring and continuous pulse ox with initial blood pressure 123/99, heart rate 95, saturation 95% on room air. Independent interpretation of EKG shows AV paced rhythm with ventricular rate 141, ND interval just over 100 ms, QRS 151, QTc 440. Right bundle branch block morphology with right axis deviation. Workup independently interpreted and significant for no leukocytosis, but patient does have a relative monocyte EMEA concerning for early infection. Patient's VBG with normal CO2, bicarb, but lactate of 4.0. Given tachycardia and elevated lactate, empiric antibiotics were given including cefepime and vancomycin and patient was given 1 L of LR. Full sepsis bolus was not administered initially due to cardiac history. On independent interpretation of imaging, cardiomegaly without effusions, edema, or acute intrathoracic process. AICD leads appear to be in place and do not appear to be fractured. See radiology read for full review of final results. On reevaluation, patient still resting comfortably. Repeat lactic drawn. Tissue reperfusion was performed and patient remains normotensive, tachycardia is improving. Still mentating at baseline. Given patient presentation, workup, history, this most likely represents undifferentiated sepsis. Because patient high risk for clinical decompensation, deemed appropriate for inpatient admission. Results were relayed to patient who voiced understanding and patient was agreeable to inpatient admission and management. Patient was admitted to the hospital for further definitive management. [employer] disclaimer Much of this encounter note is an electronic chairman & chief executive officer spoken language to printed text. Electronic chairman & chief executive officer of the spoken language may permit errors. Although I have reviewed the note, some errors may still exist.
--- NOTE | 2024-08-19 15:51 | XR_ITS ---
FINAL REPORT CLINICAL HISTORY: SOA, cp COMPARISON: 10/25/2021 FINDINGS: CHEST 2 VIEWS PA AND LATERAL There is mild cardiomegaly. Left-sided pacer is identified. The mediastinum is unremarkable. There is no evidence of pleural effusion. The lungs are clear. There is no pneumothorax. IMPRESSION: Cardiomegaly without acute findings. Reviewed, Interpreted and Dictated by Anthony Owens MD Transcribed by Carolin Fried Authenticated and [facility] [place]
--- NOTE | 2024-08-19 16:24 | PC.NURSE ---
rounded on the pt. the pt voices that she does not need anything at this time. call light is within reach of the pt.
[2024-08-19 16:40] LABS: VBG Base Excess -0.2 mmol/L (-2.4-2.3); VBG HCO3 25.2 mmol/L (23-30); VBG Oxygen Saturation 67.4 % (50-70); VBG PCO2 45.4 mmol/L (35-51); VBG PO2 38.7 mmol/L (28-40); VBG Total CO2 26.6 mmol/L (23-27)
[2024-08-19 16:48] LABS: Basophils % 0.5 % (0.1-2.0); Eosinophils % 0.1 % (0.1-12.0); Hematocrit 48.5 % (37.0-47.0); Hemoglobin 15.1 g/dL (12.2-16.2); Lymphocytes # 2.1 K/mm3 (0.7-4.5); Lymphocytes % 24.3 % (10-50); Mean Corpuscular HGB Conc 31.1 g/dL (31.8-35.4); Mean Corpuscular Hemoglobin 27.1 pg (27.0-31.2); Mean Corpuscular Volume 87.1 fl (81-99); Mean Platelet Volume 10.5 fl (7.4-10.4); Monocytes % 11.8 % (1.7-9.3); Neutrophils # 5.5 K/mm3 (1.8-7.8); Neutrophils % 62.8 % (37.0-80.0); Platelet Count 276 K/mm3 (142-424); Red Blood Count 5.57 M/mm3 (4.20-5.40); Red Cell Distribution Width 15.2 % (11.5-17.5); White Blood Count 8.8 K/mm3 (4.8-10.8)
--- NOTE | 2024-08-19 16:49 | PC.NURSE ---
CRITICAL LACTIC RECEIVED 4.0. PT NAME AND R/V. DR TENORIO NOTIFIED
[2024-08-19 16:54] LABS: INR 1.39 (0.9-1.1); Prothrombin Time 15.1 seconds (10.1-12.5)
[2024-08-19 16:55] LABS: Alanine Aminotransferase 38 U/L (12-78); Albumin Level 4.1 g/dl (3.5-5.0); Albumin/Globulin Ratio 1.5 (1.1-1.8); Alkaline Phosphatase 133 U/L (38-126); Anion Gap 13.5 mEq/L (5-15); Aspartate Amino Transferase 40 U/L (14-36); Bilirubin,Total 1.7 mg/dl (0.2-1.3); Blood Urea Nitrogen 28 mg/dl (7-17); Calcium 9.1 mg/dl (8.4-10.2); Carbon Dioxide 27 mmol/L (22.0-30.0); Chloride 100 mmol/L (98-107); Creatinine Clearance Estimated 64 mL/min (50-200); Estimated Glomerular Filt Rate 45 ml/min (>60); GFR (African American) 55 ML/MIN (>60); Globulin 2.7 g/dL (1.3-3.2); Glucose 127 mg/dl (74-100); Lipase 125 U/L (23-300); Magnesium 1.8 mg/dl (1.6-2.3); Potassium 4.5 mmoL/L (3.5-5.1); Sodium 136 mmol/L (136-145); Total Protein,Serum 6.8 g/dl (6.3-8.2)
[2024-08-19 16:59] LABS: Activated Partial Thrombo Time 27.3 seconds (22.8-30.6)
[2024-08-19 17:01] LABS: C-Reactive Protein 12.3 mg/L (0-4)
[2024-08-19 17:07] LABS: NT Pro Brain Natriuretic Pep. 10600 pg/mL (0-125)
[2024-08-19 17:12] LABS: Procalcitonin 0.103 ng/mL (0.0-2.0); T4 (Thyroxine) 11.8 ug/dl (5.53-11.0)
[2024-08-19 17:17] LABS: Troponin I < 0.01 ng/ml (0.00-0.034)
[2024-08-19] MEDS: LACTATED RINGERS 1000ML 1,000 ML 999 ML IV (17:18)
[2024-08-19] MEDS: CEFEPIME HCL 2 GM in 0.9 % SODIUM CHLORIDE 100 ML IV (17:18)
[2024-08-19] MEDS: VANCOMYCIN/WATER FOR INJ (PEG) 1.75 GM/350 ML PIGGYBACK IV (17:25)
[2024-08-19] MEDS: VANCOMYCIN CONSULT REQUEST 1 EACH NOTAPPLIC (17:26)
[2024-08-19 17:49] LABS: Microscopic, Urine URINE MICROSCOPIC (MICROSCOPIC)
[2024-08-19 17:55] LABS: Appearance,Urine CLEAR (Clear); Bilirubin,Urine Negative (Negative); Blood, Urine 1+ (Negative); Color,Urine YELLOW (Yellow); Glucose,Urine (UA) Negative (Negative); Ketones,Urine Negative (Negative); Leukocyte Esterase,Urine Negative (Negative); Nitrate,Urine Negative (Negative); Protein,Urine Negative (Negative); Specific Gravity, Urine 1.015 (1.005-1.030); Urobilinogen,Urine 0.2 EU/dl (0.2)
--- NOTE | 2024-08-19 18:02 | PC.NURSE ---
is speaking with the hospitalist.
[2024-08-19 18:28] LABS: Amphetamine/Metha Screen,Urine Negative ng/ml (<1000); Barbiturates Screen,Urine Negative ng/ml (<200)
[2024-08-19 18:29] LABS: Benzodiazepines Screen,Urine Negative ng/ml (<200); Cannabinoid Screen,Urine Negative ng/ml (<50)
[2024-08-19 18:30] LABS: Lactic Acid 3.6 mmol/L (0.7-2.1)
[2024-08-19 18:30] LABS: Bacteria,Urine Trace /lpf; Cocaine Screen,Urine Negative ng/ml (<300); Squamous Epithelial Cell,Urine Occasional #/hpf (0-5); WBC,Urine Occasional #/hpf (0-3)
[2024-08-19 18:31] LABS: Methadone Screen,Urine Negative ng/ml (<300); Phencyclidine Screen,Urine Negative ng/ml (<25)
[2024-08-19 18:32] LABS: Opiate Screen,Urine Negative ng/ml (<300)
--- NOTE | 2024-08-19 18:38 | PC.NURSE ---
CAMPUS SECURITY DIRECTOR NOTIFIED OF ADMISSION
--- NOTE | 2024-08-19 18:51 | PC.NURSE ---
ROUNDED ON THE PT. THE PT VOICES THAT SHE DOES NOT NEED ANYTHING AT THIS TIME. CALL LIGHT IS WITHIN REACH OF THE PT. NIECE IS PRESENT AT THE BEDSIDE.
--- NOTE | 2024-08-19 19:29 | PC.NURSE ---
Rounding complete; Report called to Imelda. Waiting on floor to get patient
--- NOTE | 2024-08-19 19:46 | PC.NURSE ---
pt arrived to floor from ed via wheelchair at 1935.
--- NOTE | 2024-08-19 19:56 | P.HP_ITS ---
<Statement entered by Ronnie Escalante MD - 08/23/24 22:58> Personally evaluated patient and agree with plan of care as outlined by the BURN OUT SCARFING OPERATOR. History of Present Illness *Admission Date: 08/19/24 *Reason for visit:: Shortness of breath *History of present illness: This is a 64-year-old female who has a past medical history significant for nonischemic dilated cardiomyopathy, obstructive sleep apnea, cardiac arrest with an anoxic injury, brain aneurysm, pseudobulbar affect, depression, hypothyroidism, atrial fibrillation with rapid ventricular response, coronary artery disease, hyperlipidemia, hypertension, insomnia, and diabetes who presents with a chief complaint of restlessness, shortness of breath, and chest pressure. Due to patient's symptoms, she presented to the emergency room for evaluation. While in emergency room, plain films of the chest were consistent with cardiomegaly without acute findings. Patient did complain of some chest pressure rated 9 out of 10 with coupled with some shortness of breath. Moreover, patient's heart rate was elevated. As a result, patient has been admitted for further management. During my evaluation of the patient, daughter at the bedside states that patient started to experience restlessness approximately 1 week ago. She reports that patient would go from bed to the recliner. She would sometimes sit sideways in the recliner because she was restless. Daughter states that she did last night mom started complaining of shortness of air and she had more complaints of shortness of air this morning. She reports that her mom has had decreased appetite. Currently, daughter states she that patient has a rash on her back that she has been giving mom Benadryl and using Aquaphor to the rash. Patient symptomology predates the administration of the Benadryl. Under her new canary breeder Dr. Mabry, patient was started on metoprolol 50 mg extended release and her digoxin was discontinued. She does report that mom is on nuedexta. Since patient's anoxic brain injury, patient has some difficulty expressing herself but this is normal according to patient's daughter. Patient is currently denying any chest pain, lightheadedness, dizziness, fever, chills, rigors, nausea, vomiting, or diarrhea. She does endorse having some shortness of breath yet patient is laying flat and in no visible distress. Additional pertinent vitals obtained include a red blood cell count of 5.57, hematocrit of 48.5, INR of 1.39, BUN of 28, creatinine 1.20, GFR 45, blood glucose 127, lactate of 3.6, total bilirubin 1.7, AST of 40, alkaline phosphate of 133, C- reactive protein of 12.3, BNP of 1600, TSH of 2.60, and T4 of 11.8. [facility] Disclaimer: The information contained in this section may have been updated after the patient was seen, as this information can be updated by other users. Medical History (Updated 08/19/24 @ 20:32 by Imelda Correa RN) Neurogenic bladder Abnormal computed tomography angiography of heart Atypical angina Nonischemic dilated cardiomyopathy BETH (obstructive sleep apnea) Brain aneurysm Chronic depression Pseudobulbar affect Hypothyroidism Atrial fibrillation with RVR CAD (coronary atherosclerotic disease) Atrial fibrillation HLD (hyperlipidemia) Hypertensive disorder Diabetes mellitus Obstructive sleep apnea syndrome Surgical History History of cardiac catheterization Presence of biventricular AICD AICD (automatic cardioverter/defibrillator) present Family History Other Atrial fibrillation Cancer Diabetes Hypertension Social History (Updated 08/19/24 @ 20:32 by Imelda Correa RN) Smoking Status: Never smoker alcohol intake: never substance use type: former substance user current occupational status: retired and disabled Travel in the last 8 weeks: None household members: none housing: apartment current occupational exposures/hazards: No Have you lived/traveled outside [place] in past 30 days?: No Contact w/someone who lives/traveled outside US past 30 days?: No Exposure to someone with infectious disease in past 14 days?: No Do you have a fever (greater than 100.4 F or 38 C)?: No Have you tested positive for COVID-19: No Exposed to someone with COVID-19 in past 14 days?: No Do you have a sore throat?: No Do you have a cough?: No Do you have any weakness?: Yes Are you experiencing any nausea/vomitting?: No Do you have any diarrhea?: No Are you experiencing any unusual bleeding?: No Do you have any muscle aches/pain?: No Do you have any abdominal pain?: No Are you experiencing loss of taste or smell?: No Other Medical History Have you received the Flu Vaccine for this season: No Have you received the Pneumonia Vaccine: No Review of Systems Review of Systems Review of systems:: pertinent systems reviewed and negative unless documented below Constitutional Constitutional: Reports system reviewed and no additional complaints, except as documented Eyes Eyes: Reports system reviewed and no additional complaints, except as documented ENT Ears, Nose, Mouth, and Throat: Reports system reviewed and no additional complaints, except as documented *Cardiovascular Cardiovascular: Reports chest pain and Reports dyspnea *Respiratory Respiratory: Reports dyspnea *Gastrointestinal Gastrointestinal: Reports system reviewed and no additional complaints, except as documented *Genitourinary Genitourinary: Reports system reviewed and no additional complaints, except as documented *Musculoskeletal Musculoskeletal: Reports system reviewed and no additional complaints, except as documented Integumentary/Breasts Skin/Breast: Reports system reviewed and no additional complaints, except as documented *Neurologic Neurologic: Reports abnormal speech Psychiatric Psychiatric: Reports system reviewed and no additional complaints, except as documented Endocrine Endocrine: Reports system reviewed and no additional complaints, except as documented Hematologic/Lymphatic Hematologic/Lymphatic: Reports system reviewed and no additional complaints, except as documented Allergic/Immunologic Allergic/Immunologic: Reports system reviewed and no additional complaints, except as documented Meds Home Medications and Allergies Home Medications ?Medication ?Instructions ?Recorded ?Confirmed ?Type atorvastatin 40 mg tablet 40 mg PO HS 02/12/22 08/19/24 History lactobacillus combination no.4 3 3,000 mmu cells PO DAILY 02/12/22 08/19/24 History billion cell capsule (Probiotic) spironolactone 25 mg tablet 25 mg PO DAILY 02/12/22 08/19/24 History cranberry fruit 400 mg capsule 400 mg PO DAILY 10/17/22 08/19/24 History levothyroxine 100 mcg tablet 75 mcg PO DAILY 10/17/22 08/19/24 History thiamine HCl (vitamin B1) 100 mg 100 mg PO DAILY #90 tabs 10/14/23 08/19/24 Rx tablet (Vitamin B-1) apixaban 5 mg tablet (Eliquis) 5 mg PO BID #60 tabs 11/14/23 08/19/24 Rx trazodone 50 mg tablet 150 mg (3 x 50 mg) PO HS insomnia 12/10/23 08/19/24 Rx #90 tabs vibegron 75 mg tablet (Gemtesa) 75 mg PO DAILY 03/16/24 08/19/24 History hydroxyzine pamoate 25 mg capsule 25 mg PO TID PRN anxiety 03/31/24 08/19/24 History dextromethorphan 20 mg-quinidine 1 cap PO Q12H Pseudobulbar #180 05/07/24 08/19/24 Rx 10 mg capsule (Nuedexta) caps metoprolol succinate 50 mg 50 mg PO DAILY #30 tabs 05/12/24 08/19/24 Rx tablet,extended release 24 hr (Toprol XL) bumetanide 2 mg tablet 1 mg PO DAILY 08/19/24 08/19/24 History escitalopram oxalate 5 mg tablet 5 mg PO DAILY 08/19/24 08/19/24 History New Prescriptions to Start Prescriptions: Allergies Allergy/AdvReac Type Severity Reaction Status Date / Time No Known Allergies Allergy Verified 06/21/24 10:44 Exam Data for Last 24 hours Vital signs and Labs for Last 24 Hours: Temp Pulse Resp BP Pulse Ox O2 Del Method O2 Flow Rate 98.9 F 105 H 15 99/65 L 97 Nasal Cannula 2 08/19/24 19:26 08/19/24 19:26 08/19/24 19:26 08/19/24 19:26 08/19/24 17:49 08/19/24 19:26 08/19/24 19:26 Laboratory Results - last 24 hr 08/19/24 15:39: SARS-CoV-2 (PCR) Not detected, Influenza A Untype (PCR) Not detected, Influenza Type B (PCR) Not detected 08/19/24 15:53: VBG pCO2 45.4, VBG pO2 38.7, VBG HCO3 25.2, VBG Total CO2 26.6, VBG O2 Saturation 67.4, VBG Base Excess -0.2, VBG Lactic Acid 4.0 H 08/19/24 16:30: WBC 8.8, RBC 5.57 H, Hgb 15.1, Hct 48.5 H, MCV 87.1, MCH 27.1, MCHC 31.1 L, RDW 15.2, Plt Count 276, MPV 10.5 H, Neut % (Auto) 62.8, Lymph % (Auto) 24.3, [place] % (Auto) 11.8 H, Eos % (Auto) 0.1, Baso % (Auto) 0.5, Neut # (Auto) 5.5, Lymph # (Auto) 2.1, [place] # (Auto) 1.0, Eos # (Auto) 0.0, Baso # (Auto) 0.0, PT 15.1 H, INR 1.39 H, APTT 27.3, Sodium 136, Potassium 4.5, Chloride 100, Carbon Dioxide 27, Anion Gap 13.5, BUN 28 H, Creatinine 1.20 H, Estimated Creat Clear 64, Estimated GFR 45 L, Est GFR ( Amer) 55 L, Glucose 127 H, Lactate 3.6 H, Calcium 9.1, Magnesium 1.8, Total Bilirubin 1.7 H, AST 40 H, ALT 38, Alkaline Phosphatase 133 H, Troponin I < 0.01, C-Reactive Protein 12.3 H, NT-Pro-B Natriuret Pep 14216 H, Total Protein 6.8, Albumin 4.1, Globulin 2.7, Albumin/Globulin Ratio 1.5, Lipase 125, Procalcitonin 0.103, TSH 2.60, Thyroxine (T4) 11.8 H 08/19/24 17:46: Urine Color Yellow, Urine Appearance Clear, Urine pH 6.0, Ur Specific [place] 1.015, Urine Protein Negative, Urine Glucose (UA) Negative, Urine Ketones Negative, Urine Blood 1+ A, Urine Nitrate Negative, Urine Bilirubin Negative, Urine Urobilinogen 0.2, Ur Leukocyte Esterase Negative, Urine RBC 3-5, Urine WBC Occasional, Ur Squamous Epith Cells Occasional, Urine Bacteria Trace, Hyaline Casts 3-5, Urine Opiates Screen Negative, Urine Methadone Screen Negative, Ur Barbituates Screen Negative, Ur Phencyclidine Scrn Negative, Ur Amphetamines Screen Negative, U Benzodiazepines Scrn Negative, Urine Cocaine Screen Negative, U Marijuana (THC) Screen Negative I & O for Last 24 hours: Intake & Output 08/16/24 08/17/24 08/18/24 08/19/24 23:59 23:59 23:59 23:59 Weight 87.09 kg Constitutional Constitutional: no acute distress, obese and cooperative *Routine HEENT Exam Head: Present normocephalic and atraumatic Eye: Present EOMI and PERRL ENT: Present mucous membranes moist *Routine Neck Exam Neck: Present supple and full ROM *Routine Respiratory Exam Respiratory: Present normal respiratory effort, able to speak in complete sentences and symmetric chest movement *Routine Cardiovascular Exam Cardiovascular: Present tachycardia *Routine Abdominal Exam Abdominal: Present soft and normoactive bowel sounds *Routine Rectal Exam Rectal:: deferred *Routine Genitalia Exam Genitalia:: deferred *Routine Extremities Exam Extremities: Present pulses intact and normal capillary refill Routine Back/Spine/Pelvis Exam Back/Spine: Present full ROM *Routine Skin Exam Skin: Present intact, dry and warm *Routine Neurological Exam Neurological: Present alert and oriented X3 Routine Psychiatric Exam Psychiatric: Present normal affect and cooperative H&P: Result Impressions 64-year-old female who has known anoxic brain injury presents with restlessness, chest pressure, and shortness of air. Currently symptomology is unexplained but no clear etiology. Patient did have an elevated BNP without any overt findings consistent with hypervolemia/pulmonary edema Assessment and Plan *Assessment and plan (1) Chest pain: Status: Acute Qualifiers: Chest pain type: unspecified Qualified Code(s): R07.9 - Chest pain, unspecified Category: Medical Code(s): R07.9 - Chest pain, unspecified (2) Lactic acidosis: Status: Acute Category: Medical Code(s): E87.20 - Acidosis, unspecified (3) Elevated bilirubin: Status: Acute Category: Medical Code(s): R17 - Unspecified jaundice (4) Restlessness: Status: Acute Category: Medical Code(s): R45.1 - Restlessness and agitation Plan Assessment: Chest pain -Low suspicion for acute coronary syndrome -EKG reveals a paced rhythm with possible underlying A-fib, right axis devia tion, QTc of 444, right bundle branch block -Patient was given aspirin in emergency room -Will obtain 2D echo-last 2D echo revealed an EF of 55% Lactic acidosis: -Patient does not appear to be Hypolar hypervolemic Elevated bilirubin -Will fractionate bilirubin Restlessness -Unexplained -T4 is somewhat elevated -Patient takes 75 mcg of Synthroid -Will obtain free T4 and free T3 Prior anoxic brain injury -Will obtain CT scan of the head without contrast Differential diagnosis: Serotonin syndrome -Patient is currently prescribed trazodone and Celexa -Serotonin syndrome can develop over time -No mention of increased in SSRI or NDRI however given prior anoxic brain injury this may be a problem Plan: Admit patient to the [facility] unit on telemetry Supplemental oxygen maintain oxygen saturation greater than 94% Saline lock Cardiac diet/1800 ADA diet Sliding scale insulin ACH S with mild scale coverage CBC/BMP daily Repeat venous lactic acid Blood cultures x 2 Full code I have discussed this case with attending physician Dr. escalante and I look forward to more input for that
[2024-08-19 20:02] LABS: Bilirubin,Total 1.7 mg/dl (0.2-1.3)
[2024-08-19 20:44] LABS: Reflex Lactic Add Lactic Reflex
[2024-08-19 20:47] LABS: Troponin I < 0.01 ng/ml (0.00-0.034)
[2024-08-19 21:31] LABS: Lactic Acid Follow Up (RFLX 1) 1.5 mmol/L (0.7-2.1)
[2024-08-19] MEDS: TRAZODONE 50MG TABLET 150 MG PO (22:51)
[2024-08-19] MEDS: ATORVASTATIN 40MG TABLET 40 MG PO (22:51)
[2024-08-19] MEDS: APIXABAN 5MG TABLET 5 MG PO (22:51)
[2024-08-19] MEDS: NYSTATIN TOPICAL POWDER 30GM TP (22:55)
[2024-08-19 23:22] LABS: Troponin I < 0.01 ng/ml (0.00-0.034)
[2024-08-19] MEDS: DEXTROMETHORPHAN QUINIDINE 1 EACH PO (23:33)
[2024-08-19] MEDS: hydrOXYzine pamoate 25MG CAPSULE 25 MG PO (23:33)
[2024-08-20] VITALS: BP 90/50; PULSE 65; PULSE 71; RESP 16; TEMP 36.1; O2SAT 93
[2024-08-20 04:00] VITALS: BP 108/68; PULSE 121; PULSE 70; RESP 16; TEMP 36.1; O2SAT 95; BMI 33.3
--- NOTE | 2024-08-20 04:29 | PC.NURSE ---
Pt is alert x3 however has episodes of confusion at times. Pt is tolerating 2LNC well at this time (93%). Pt HR has been elevated (120s) for the most part of this shift (MD aware). Pt is a high fall risk due to cognition and moments of confusion. Pt has not rested well this shift, despite being treated per MAR. Pt denies pain and needs. Alarm is set and active, Pt has had no acute changes to note this shift. Call light is within reach.
[2024-08-20 05:29] LABS: POC Glucose,Bedside 99 (70-110)
[2024-08-20 07:03] LABS: Basophils % 0.3 % (0.1-2.0); Eosinophils % 0.3 % (0.1-12.0); Hematocrit 45.2 % (37.0-47.0); Hemoglobin 14.2 g/dL (12.2-16.2); Lymphocytes # 1.4 K/mm3 (0.7-4.5); Lymphocytes % 21.2 % (10-50); Mean Corpuscular HGB Conc 31.4 g/dL (31.8-35.4); Mean Corpuscular Hemoglobin 27.3 pg (27.0-31.2); Mean Corpuscular Volume 86.9 fl (81-99); Mean Platelet Volume 10.5 fl (7.4-10.4); Monocytes # 0.7 K/mm3 (0.1-1.0); Monocytes % 9.8 % (1.7-9.3); Neutrophils # 4.5 K/mm3 (1.8-7.8); Neutrophils % 67.9 % (37.0-80.0); Platelet Count 207 K/mm3 (142-424); Red Cell Distribution Width 15.1 % (11.5-17.5); White Blood Count 6.7 K/mm3 (4.8-10.8)
[2024-08-20 07:16] LABS: Anion Gap 9.6 mEq/L (5-15); Blood Urea Nitrogen 26 mg/dl (7-17); Calcium 8.6 mg/dl (8.4-10.2); Carbon Dioxide 29 mmol/L (22.0-30.0); Chloride 102 mmol/L (98-107); Creatinine Clearance Estimated 71 mL/min (50-200); Estimated Glomerular Filt Rate 50 ml/min (>60); GFR (African American) 60 ML/MIN (>60); Glucose 86 mg/dl (74-100); Potassium 3.6 mmoL/L (3.5-5.1); Sodium 137 mmol/L (136-145)
[2024-08-20 07:48] LABS: Lactate Venous 1.5 mmol/L (0.4-2.0)
[2024-08-20 08:00] VITALS: BP 110/60; PULSE 110; PULSE 75; RESP 16; TEMP 36.1; O2SAT 98
[2024-08-20 08:01] LABS: Free T4 (Free Thyroxine) 1.85 ng/dl (0.78-2.19)
--- NOTE | 2024-08-20 09:00 | CT_ITS ---
FINAL REPORT TECHNIQUE: Noncontrast exam This study was performed with techniques to keep radiation doses as low as reasonably achievable, (ALARA). Individualized dose reduction techniques using automated exposure control or adjustment of mA and/or kV according to the patient''s size were employed. CLINICAL HISTORY: restlessness COMPARISON: 03/25/2024 FINDINGS: Generalized atrophy and chronic ischemic white matter changes are noted. No cortical edema is present. There is no mass or hemorrhage. Ventricles are normal. Bone windows show no skull fracture or obvious obstructive lesion. IMPRESSION: 1. No acute intracranial abnormality or obvious mass. 2. Stable generalized atrophy and chronic ischemic white matter changes as above. Reviewed, Interpreted and Dictated by Anthony Owens MD Transcribed by Aracely Purcell Authenticated and [facility]
--- NOTE | 2024-08-20 09:00 | CA_ITS ---
APPROVED REPORT EXAM: Comprehensive 2D, Doppler, and color-flow Echocardiogram [employer] Markup Clerk: KARLA Vazquez, RVS Ht: 5 ft 4 in Wt: 192lbs BSA: 1.92 HR: 114 bpm BP: 99/65 mmHg Rhythm: Atrial Fibrillation Indications: Afib, AICD, Sepsis, HF, Confusion, CAD, Echo11/23-55%EF 2D Dimensions Left Atrium 3.97 cm F: 2.7 - 3.8 EF AP4 41.40 % GL Strain -13.0 % M-Mode Dimensions RVDd 3.68 cm (0.9-2.6) LA Diam 4.38 cm (1.9-4.0) LVDd 4.65 cm (3.5-5.7) LVDs 3.84 cm (3.5-5.7) IVSd 1.05 cm (0.6-1.1) PWd 1.14 cm (0.6-1.1) EF (Teich) 36.40% EPSs 0.88 cm FS 17.40% EDV (Teich) 99.80 mL TAPSE 0.97 (<1.7) ESV (Teich) 63.50 mL LV Diastology E Decel Time 183 (160-240 msec) E/A Ratio 6.25 MED A' 3.00 cm/s LAT A' 6.60 cm/s Aortic Valve SEA Index 0.53 cm2/m2 AoV Peak Raymond. 143.0 (50-130 cm/s) AO Peak GR. 8.20 mmHg AO Mean GR. 4.00 (<5 mmHg) AO VTI 28.8 (18-25 cm) SEA (VTI) 1.04 (2.5-4.5 cm2) Mitral Valve MV A Velocity 18.0 (40-130 cm/s) E/A Ratio 6.25 MV Mean Gr. 1.60 (<2mmHg) Pulmonary Valve PV Peak Velocity 67.0 (50-150 cm/s) Tricuspid Valve TR P. Velocity 209.00 cm/s RAP Estimate 10.00 mmHg RVSP 27.40 mmHg Left Ventricle The left ventricle is normal size. Left ventricular systolic function is moderately decreased. There is normal left ventricular wall thickness. There is moderate global hypokinesis present. The septum is asynchronous. Diastolic function is indeterminate. LVEF is 30-35%. Right Ventricle Right ventricle is mildly dilated. Right ventricle is mildly hypokinetic. There is a device lead in the right ventricle. Atria Left atrium is moderately dilated. Right atrium is moderately dilated. There is no Doppler evidence of interatrial shunt. Aortic Valve The aortic valve is mildly thickened. There is no aortic valvular stenosis. Trace aortic regurgitation. Mitral Valve The mitral valve is normal in structure. No evidence of mitral valve stenosis. Mild mitral regurgitation. Tricuspid Valve Tricuspid valve is grossly normal in structure and function. Moderate to severe tricuspid regurgitation. RVSP is 30-35 mmHg (likely underestimated to severe TR). Pulmonic Valve The pulmonary valve is normal in structure. Trace pulmonic regurgitation. Great Vessels The aortic root is normal in size. The IVC is dilated. Pericardium Trivial pocket of pericardial effusion noted along the anterolateral LV wall. No echo indications of tamponade. Other Information Study Quality: Fair Conclusion Moderate reduction in LV systolic function (LVEF 30-35%). Mild RV dilation with mild reduction in RV function. Biatrial dilation. Moderate to severe TR. Mild MR. Trivial pocket of pericardial effusion noted along the anterolateral LV wall. No echo indications of tamponade. Electronically signed by : Ruthie Solis MD 08/20/2024 15:39:16
--- NOTE | 2024-08-20 09:04 | HMH.PHAINT1 ---
Pharmacy Intervention Comments: MEDICATION RECONCILIATION COMPLETED ON PATIENT USING EXTERNAL FILL HISTORY FROM PHARMACY AND LIST FROM NEUROLOGY OFFICE. -LARA JAUREGUI, LATOYAD
[2024-08-20] MEDS: THIAMINE 100MG TABLET 100 MG PO (09:25)
[2024-08-20] MEDS: LEVOTHYROXINE 75MCG (0.075MG) TAB 75 MCG PO (09:25)
[2024-08-20] MEDS: SPIRONOLACTONE 25MG TABLET 25 MG PO (09:25)
[2024-08-20] MEDS: LACTOBACILLUS PROBIOTIC COMB CAPSULE 1 CAP PO (09:25)
[2024-08-20] MEDS: METOPROLOL SUCCINATE XL 50MG TABLET 50 MG PO (09:25)
[2024-08-20] MEDS: DEXTROMETHORPHAN QUINIDINE 1 EACH PO (09:25)
[2024-08-20] MEDS: CITALOPRAM 10MG TABLET 10 MG PO (09:25)
[2024-08-20] MEDS: APIXABAN 5MG TABLET 5 MG PO (09:25)
[2024-08-20] MEDS: BUMETANIDE 1 MG TABLET 2 MG PO (09:25)
[2024-08-20] MEDS: NYSTATIN TOPICAL POWDER 30GM TP (09:26)
[2024-08-20 11:47] LABS: POC Glucose,Bedside 122 (70-110)
[2024-08-20 12:00] VITALS: BP 105/72; PULSE 110; PULSE 112; RESP 20; TEMP 36.3; O2SAT 96
--- NOTE | 2024-08-20 12:32 | CT_ITS ---
FINAL REPORT TECHNIQUE: Axial CT images were performed from the lung apices through the upper abdomen. Coronal reformats were submitted. This study was performed with techniques to keep radiation doses as low as reasonably achievable (ALARA). Individualized dose reduction techniques using automated exposure control or adjustment of mA and/or kV according to the patient's size were employed. CLINICAL HISTORY: SOB COMPARISON: CTA dated 02/18/2024 FINDINGS: No acute lung disease is present. A dominant bleb again noted in the right lower lobe. No pleural or pericardial effusion is seen. No adenopathy or mass lesion is present. Cardiomegaly is worse since the prior exam. IMPRESSION: No acute lung disease. Worsening cardiomegaly. Reviewed, Interpreted and Dictated by Anthony Owens MD Transcribed by Sonia Balderas Authenticated and [facility]
[2024-08-20] MEDS: predniSONE 20MG TAB 40 MG PO (13:23)
--- NOTE | 2024-08-20 15:53 | P.DS_ITS ---
General Admission date:: 08/19/24 HPI HPI HPI: This is a 64-year-old female who has a past medical history significant for nonischemic dilated cardiomyopathy, obstructive sleep apnea, cardiac arrest with an anoxic injury, brain aneurysm, pseudobulbar affect, depression, hypothyroidism, atrial fibrillation with rapid ventricular response, coronary artery disease, hyperlipidemia, hypertension, insomnia, and diabetes who presents with a chief complaint of restlessness, shortness of breath, and chest pressure. Due to patient's symptoms, she presented to the emergency room for evaluation. While in emergency room, plain films of the chest were consistent with cardiomegaly without acute findings. Patient did complain of some chest pressure rated 9 out of 10 with coupled with some shortness of breath. Moreover, patient's heart rate was elevated. As a result, patient has been admitted for further management. During my evaluation of the patient, daughter at the bedside states that patient started to experience restlessness approximately 1 week ago. She reports that patient would go from bed to the recliner. She would sometimes sit sideways in the recliner because she was restless. Daughter states that she did last night mom started complaining of shortness of air and she had more complaints of shortness of air this morning. She reports that her mom has had decreased appetite. Currently, daughter states she that patient has a rash on her back that she has been giving mom Benadryl and using Aquaphor to the rash. Patient symptomology predates the administration of the Benadryl. Under her new roustabout crew pusher Dr. Mabry, patient was started on metoprolol 50 mg extended release and her digoxin was discontinued. She does report that mom is on nuedexta. Since patient's anoxic brain injury, patient has some difficulty expressing herself but this is normal according to patient's daughter. Patient is currently denying any chest pain, lightheadedness, dizziness, fever, chills, rigors, nausea, vomiting, or diarrhea. She does endorse having some shortness of breath yet patient is laying flat and in no visible distress. Additional pertinent vitals obtained include a red blood cell count of 5.57, hematocrit of 48.5, INR of 1.39, BUN of 28, creatinine 1.20, GFR 45, blood glucose 127, lactate of 3.6, total bilirubin 1.7, AST of 40, alkaline phosphate of 133, C- reactive protein of 12.3, BNP of 1600, TSH of 2.60, and T4 of 11.8. Hospital Course Hospital Course Hospital Course: Janeth Short is a 64-year-old female with a medical history significant for anoxic brain injury restlessness, shortness of breath, and chest pressure and was admitted for the same. #Rash on back #Chest pressure, shortness of breath ? On my evaluation of the patient, she endorsed pruritus over her back. There was scattered erythematous rash over her back, no tenderness or drainage. ? Started prednisone 40 mg, which significantly improved symptoms. ? Given no other reason for restlessness, shortness of breath, chest pressure, I do suspect whether patient's combination of anoxic brain injury and pruritic rash caused her to be restless with symptoms of anxiety relating to shortness of breath and chest pressure. Could also be related to her worsening HFrEF. ? Nonetheless, all symptoms have improved. Daughter at bedside confirms this, and states her mother is back to baseline. ? Troponins negative, EKG without acute ischemic changes, TFTs normal, procalcitonin and inflammatory markers, CT chest unremarkable. ? Discharged with prednisone 40 mg for 4 more days. #HFrEF ? ECHO does reveal known LVEF 30 to 35%, follows closely with cardiology. No signs of volume overload. ? With symptoms of chest pressure, shortness of breath, patient will need close follow-up with cardiology. ? Continue GDMT with metoprolol succinate 50 mg, spironolactone 25 mg. #Paroxysmal A-fib ? Continue metoprolol, Eliquis. #Hypothyroidism ? TFTs normal. Continue home levothyroxine 75 mg. Total time spent on discharge: 32 minutes on chart review, counseling, documentation, and direct care with patient. Exam Data for Last 24 hours Vital signs and Labs for Last 24 Hours: Temp Pulse Resp BP Pulse Ox O2 Del Method O2 Flow Rate 97.4 F L 112 H 20 105/72 L 96 Nasal Cannula 2 08/20/24 12:08/20/24 12:08/20/24 12:08/20/24 12:08/20/24 12:08/20/24 13:00 08/20/24 08:00 Laboratory Results - last 24 hr 08/19/24 15:39: SARS-CoV-2 (PCR) Not detected, Influenza A Untype (PCR) Not detected, Influenza Type B (PCR) Not detected 08/19/24 15:53: VBG pCO2 45.4, VBG pO2 38.7, VBG HCO3 25.2, VBG Total CO2 26.6, VBG O2 Saturation 67.4, VBG Base Excess -0.2, VBG Lactic Acid 4.0 H 08/19/24 16:30: WBC 8.8, RBC 5.57 H, Hgb 15.1, Hct 48.5 H, MCV 87.1, MCH 27.1, MCHC 31.1 L, RDW 15.2, Plt Count 276, MPV 10.5 H, Neut % (Auto) 62.8, Lymph % (Auto) 24.3, [place] % (Auto) 11.8 H, Eos % (Auto) 0.1, Baso % (Auto) 0.5, Neut # (Auto) 5.5, Lymph # (Auto) 2.1, Crawford # (Auto) 1.0, Eos # (Auto) 0.0, Baso # (Auto) 0.0, PT 15.1 H, INR 1.39 H, APTT 27.3, Sodium 136, Potassium 4.5, Chloride 100, Carbon Dioxide 27, Anion Gap 13.5, BUN 28 H, Creatinine 1.20 H, Estimated Creat Clear 64, Estimated GFR 45 L, Est GFR ( Amer) 55 L, Glucose 127 H, Lactate 3.6 H, Calcium 9.1, Magnesium 1.8, Total Bilirubin 1.7 H 08/19/24 16:30: Total Bilirubin 1.7 H, AST 40 H, ALT 38, Alkaline Phosphatase 133 H, Troponin I < 0.01, C-Reactive Protein 12.3 H, NT-Pro-B Natriuret Pep 05487 H, Total Protein 6.8, Albumin 4.1, Globulin 2.7, Albumin/Globulin Ratio 1.5, Lipase 125, Procalcitonin 0.103, TSH 2.60, Thyroxine (T4) 11.8 H 08/19/24 17:46: Urine Color Yellow, Urine Appearance Clear, Urine pH 6.0, Ur Specific [place] 1.015, Urine Protein Negative, Urine Glucose (UA) Negative, Urine Ketones Negative, Urine Blood 1+ A, Urine Nitrate Negative, Urine Bi lirubin Negative, Urine Urobilinogen 0.2, Ur Leukocyte Esterase Negative, Urine RBC 3-5, Urine WBC Occasional, Ur Squamous Epith Cells Occasional, Urine Bacteria Trace, Hyaline Casts 3-5, Urine Opiates Screen Negative, Urine Methadone Screen Negative, Ur Barbituates Screen Negative, Ur Phencyclidine Scrn Negative, Ur Amphetamines Screen Negative, U Benzodiazepines Scrn Negative, Urine Cocaine Screen Negative, U Marijuana (THC) Screen Negative 08/19/24 20:01: Troponin I < 0.01 08/19/24 21:03: Lactate 1.5 08/19/24 22:29: Troponin I < 0.01 08/20/24 05:19: POC Glucose 99 08/20/24 05:29: Sodium 137, Potassium 3.6, Chloride 102, Carbon Dioxide 29, Anion Gap 9.6, BUN 26 H, Creatinine 1.10 H, Estimated Creat Clear 71, Estimated GFR 50 L, Est GFR ( Amer) 60, Glucose 86 D, Calcium 8.6 08/20/24 05:30: WBC 6.7, RBC 5.20, Hgb 14.2, Hct 45.2, MCV 86.9, MCH 27.3, MCHC 31.4 L, RDW 15.1, Plt Count 207, MPV 10.5 H, Neut % (Auto) 67.9, Lymph % (Auto) 21.2, [place] % (Auto) 9.8 H, Eos % (Auto) 0.3, Baso % (Auto) 0.3, Neut # (Auto) 4.5, Lymph # (Auto) 1.4, Crawford # (Auto) 0.7, Eos # (Auto) 0.0, Baso # (Auto) 0.0, Free T4 1.85 08/20/24 06:00: VBG Lactic Acid 1.5 08/20/24 11:38: POC Glucose 122 H I & O for Last 24 hours: Intake & Output 08/17/24 08/18/24 08/19/24 08/20/24 23:59 23:59 23:59 23:59 Intake Total 630 / 630 Output Total 950 / 950 Balance -320 / -320 Weight 87.815 kg 88.587 kg Constitutional Constitutional: no acute distress Comments: Pleasantly cognitively impaired. *Routine HEENT Exam Head: Present normocephalic Eye: Present EOMI and PERRL ENT: Present mucous membranes moist *Routine Neck Exam Neck: Present supple; Absent lymphadenopathy *Routine Respiratory Exam Respiratory: Present CTA bilaterally *Routine Cardiovascular Exam Cardiovascular: Present RRR *Routine Abdominal Exam Abdominal: Present soft and normoactive bowel sounds; Absent tenderness *Routine Extremities Exam Extremities: Absent cyanosis, clubbing or edema *Routine Skin Exam Skin: Present warm; Absent rash *Routine Neurological Exam Neurological: Present alert Results Data Completed and Pending Labs on day of discharge: Labs from last 24 hours 08/20/24 08/20/24 08/20/24 11:38 06:00 05:30 WBC 6.7 RBC 5.20 Hgb 14.2 Hct 45.2 MCV 86.9 MCH 27.3 MCHC 31.4 L RDW 15.1 Plt Count 207 MPV 10.5 H Neut % (Auto) 67.9 Lymph % (Auto) 21.2 Crawford % (Auto) 9.8 H Eos % (Auto) 0.3 Baso % (Auto) 0.3 Neut # (Auto) 4.5 Lymph # (Auto) 1.4 Crawford # (Auto) 0.7 Eos # (Auto) 0.0 Baso # (Auto) 0.0 PT INR APTT VBG pCO2 VBG pO2 VBG HCO3 VBG Total CO2 VBG O2 Saturation VBG Base Excess VBG Lactic Acid 1.5 Sodium Potassium Chloride Carbon Dioxide Anion Gap BUN Creatinine Estimated Creat Clear Estimated GFR Est GFR ( Amer) Glucose POC Glucose 122 H Lactate Calcium Magnesium Total Bilirubin AST ALT Alkaline Phosphatase Troponin I C-Reactive Protein NT-Pro-B Natriuret Pep Total Protein Albumin Globulin Albumin/Globulin Ratio Lipase Procalcitonin TSH Free T4 1.85 Thyroxine (T4) Urine Color Urine Appearance Urine pH Ur Specific [place] Urine Protein Urine Glucose (UA) Urine Ketones Urine Blood Urine Nitrate Urine Bilirubin Urine Urobilinogen Ur Leukocyte Esterase Urine RBC Urine WBC Ur Squamous Epith Cells Urine Bacteria Hyaline Casts Urine Opiates Screen Urine Methadone Screen Ur Barbituates Screen Ur Phencyclidine Scrn Ur Amphetamines Screen U Benzodiazepines Scrn Urine Cocaine Screen U Marijuana (THC) Screen SARS-CoV-2 (PCR) Influenza A Untype (PCR) Influenza Type B (PCR) 08/20/24 08/20/24 08/19/24 05:29 05:19 22:29 WBC RBC Hgb Hct MCV MCH MCHC RDW Plt Count MPV Neut % (Auto) Lymph % (Auto) [place] % (Auto) Eos % (Auto) Baso % (Auto) Neut # (Auto) Lymph # (Auto) [place] # (Auto) Eos # (Auto) Baso # (Auto) PT INR APTT VBG pCO2 VBG pO2 VBG HCO3 VBG Total CO2 VBG O2 Saturation VBG Base Excess VBG Lactic Acid Sodium 137 Potassium 3.6 Chloride 102 Carbon Dioxide 29 Anion Gap 9.6 BUN 26 H Creatinine 1.10 H Estimated Creat Clear 71 Estimated GFR 50 L Est GFR ( Amer) 60 Glucose 86 D POC Glucose 99 Lactate Calcium 8.6 Magnesium Total Bilirubin AST ALT Alkaline Phosphatase Troponin I < 0.01 C-Reactive Protein NT-Pro-B Natriuret Pep Total Protein Albumin Globulin Albumin/Globulin Ratio Lipase Procalcitonin TSH Free T4 Thyroxine (T4) Urine Color Urine Appearance Urine pH Ur Specific [place] Urine Protein Urine Glucose (UA) Urine Ketones Urine Blood Urine Nitrate Urine Bilirubin Urine Urobilinogen Ur Leukocyte Esterase Urine RBC Urine WBC Ur Squamous Epith Cells Urine Bacteria Hyaline Casts Urine Opiates Screen Urine Methadone Screen Ur Barbituates Screen Ur Phencyclidine Scrn Ur Amphetamines Screen U Benzodiazepines Scrn Urine Cocaine Screen U Marijuana (THC) Screen SARS-CoV-2 (PCR) Influenza A Untype (PCR) Influenza Type B (PCR) 08/19/24 08/19/24 08/19/24 21:03 20:01 17:46 WBC RBC Hgb Hct MCV MCH MCHC RDW Plt Count MPV Neut % (Auto) Lymph % (Auto) [place] % (Auto) Eos % (Auto) Baso % (Auto) Neut # (Auto) Lymph # (Auto) [place] # (Auto) Eos # (Auto) Baso # (Auto) PT INR APTT VBG pCO2 VBG pO2 VBG HCO3 VBG Total CO2 VBG O2 Saturation VBG Base Excess VBG Lactic Acid Sodium Potassium Chloride Carbon Dioxide Anion Gap BUN Creatinine Estimated Creat Clear Estimated GFR Est GFR ( Amer) Glucose POC Glucose Lactate 1.5 Calcium Magnesium Total Bilirubin AST ALT Alkaline Phosphatase Troponin I < 0.01 C-Reactive Protein NT-Pro-B Natriuret Pep Total Protein Albumin Globulin Albumin/Globulin Ratio Lipase Procalcitonin TSH Free T4 Thyroxine (T4) Urine Color Yellow Urine Appearance Clear Urine pH 6.0 Ur Specific [place] 1.015 Urine Protein Negative Urine Glucose (UA) Negative Urine Ketones Negative Urine Blood 1+ A Urine Nitrate Negative Urine Bilirubin Negative Urine Urobilinogen 0.2 Ur Leukocyte Esterase Negative Urine RBC 3-5 Urine WBC Occasional Ur Squamous Epith Cells Occasional Urine Bacteria Trace Hyaline Casts 3-5 Urine Opiates Screen Negative Urine Methadone Screen Negative Ur Barbituates Screen Negative Ur Phencyclidine Scrn Negative Ur Amphetamines Screen Negative U Benzodiazepines Scrn Negative Urine Cocaine Screen Negative U Marijuana (THC) Screen Negative SARS-CoV-2 (PCR) Influenza A Untype (PCR) Influenza Type B (PCR) 08/19/24 08/19/24 08/19/24 16:30 16:30 15:53 WBC 8.8 RBC 5.57 H Hgb 15.1 Hct 48.5 H MCV 87.1 MCH 27.1 MCHC 31.1 L RDW 15.2 Plt Count 276 MPV 10.5 H Neut % (Auto) 62.8 Lymph % (Auto) 24.3 [place] % (Auto) 11.8 H Eos % (Auto) 0.1 Baso % (Auto) 0.5 Neut # (Auto) 5.5 Lymph # (Auto) 2.1 Crawford # (Auto) 1.0 Eos # (Auto) 0.0 Baso # (Auto) 0.0 PT 15.1 H INR 1.39 H APTT 27.3 VBG pCO2 45.4 VBG pO2 38.7 VBG HCO3 25.2 VBG Total CO2 26.6 VBG O2 Saturation 67.4 VBG Base Excess -0.2 VBG Lactic Acid 4.0 H Sodium 136 Potassium 4.5 Chloride 100 Carbon Dioxide 27 Anion Gap 13.5 BUN 28 H Creatinine 1.20 H Estimated Creat Clear 64 Estimated GFR 45 L Est GFR ( Amer) 55 L Glucose 127 H POC Glucose Lactate 3.6 H Calcium 9.1 Magnesium 1.8 Total Bilirubin 1.7 H 1.7 H AST 40 H ALT 38 Alkaline Phosphatase 133 H Troponin I < 0.01 C-Reactive Protein 12.3 H NT-Pro-B Natriuret Pep 14069 H Total Protein 6.8 Albumin 4.1 Globulin 2.7 Albumin/Globulin Ratio 1.5 Lipase 125 Procalcitonin 0.103 TSH 2.60 Free T4 Thyroxine (T4) 11.8 H Urine Color Urine Appearance Urine pH Ur Specific [place] Urine Protein Urine Glucose (UA) Urine Ketones Urine Blood Urine Nitrate Urine Bilirubin Urine Urobilinogen Ur Leukocyte Esterase Urine RBC Urine WBC Ur Squamous Epith Cells Urine Bacteria Hyaline Casts Urine Opiates Screen Urine Methadone Screen Ur Barbituates Screen Ur Phencyclidine Scrn Ur Amphetamines Screen U Benzodiazepines Scrn Urine Cocaine Screen U Marijuana (THC) Screen SARS-CoV-2 (PCR) Influenza A Untype (PCR) Influenza Type B (PCR) 08/19/24 15:39 WBC RBC Hgb Hct MCV MCH MCHC RDW Plt Count MPV Neut % (Auto) Lymph % (Auto) [place] % (Auto) Eos % (Auto) Baso % (Auto) Neut # (Auto) Lymph # (Auto) [place] # (Auto) Eos # (Auto) Baso # (Auto) PT INR APTT VBG pCO2 VBG pO2 VBG HCO3 VBG Total CO2 VBG O2 Saturation VBG Base Excess VBG Lactic Acid Sodium Potassium Chloride Carbon Dioxide Anion Gap BUN Creatinine Estimated Creat Clear Estimated GFR Est GFR ( Amer) Glucose POC Glucose Lactate Calcium Magnesium Total Bilirubin AST ALT Alkaline Phosphatase Troponin I C-Reactive Protein NT-Pro-B Natriuret Pep Total Protein Albumin Globulin Albumin/Globulin Ratio Lipase Procalcitonin TSH Free T4 Thyroxine (T4) Urine Color Urine Appearance Urine pH Ur Specific [place] Urine Protein Urine Glucose (UA) Urine Ketones Urine Blood Urine Nitrate Urine Bilirubin Urine Urobilinogen Ur Leukocyte Esterase Urine RBC Urine WBC Ur Squamous Epith Cells Urine Bacteria Hyaline Casts Urine Opiates Screen Urine Methadone Screen Ur Barbituates Screen Ur Phencyclidine Scrn Ur Amphetamines Screen U Benzodiazepines Scrn Urine Cocaine Screen U Marijuana (THC) Screen SARS-CoV-2 (PCR) Not detected Influenza A Untype (PCR) Not detected Influenza Type B (PCR) Not detected DS: Diagnosis Discharge Diagnosis (1) Chest pain: Status: Acute Code(s): R07.9 - Chest pain, unspecified Qualifiers: Chest pain type: unspecified Qualified Code(s): R07.9 - Chest pain, uns pecified (2) Lactic acidosis: Status: Acute Code(s): E87.20 - Acidosis, unspecified (3) Elevated bilirubin: Status: Acute Code(s): R17 - Unspecified jaundice (4) Restlessness: Status: Acute Code(s): R45.1 - Restlessness and agitation Meds Home Medications and Allergies Home Medications ?Medication ?Instructions ?Recorded ?Confirmed ?Type atorvastatin 40 mg tablet 40 mg PO HS 02/12/22 08/19/24 History lactobacillus combination no.4 3 3,000 mmu cells PO DAILY 02/12/22 08/19/24 History billion cell capsule (Probiotic) spironolactone 25 mg tablet 25 mg PO DAILY 02/12/22 08/19/24 History apixaban 5 mg tablet (Eliquis) 5 mg PO BID #60 tabs 11/14/23 08/19/24 Rx vibegron 75 mg tablet (Gemtesa) 75 mg PO DAILY 03/16/24 08/19/24 History hydroxyzine pamoate 25 mg capsule 25 mg PO TIDP PRN anxiety 03/31/24 08/20/24 History dextromethorphan 20 mg-quinidine 1 cap PO Q12H Pseudobulbar #180 05/07/24 08/19/24 Rx 10 mg capsule (Nuedexta) caps metoprolol succinate 50 mg 50 mg PO DAILY #30 tabs 05/12/24 08/19/24 Rx tablet,extended release 24 hr (Toprol XL) bumetanide 2 mg tablet 2 mg PO DAILY 08/19/24 08/20/24 History escitalopram oxalate 5 mg tablet 5 mg PO DAILY 08/19/24 08/19/24 History levothyroxine 75 mcg tablet 75 mcg PO DAILY 08/20/24 08/20/24 History bolfvpqpuhfh-yojkyars-dekcm acid 1 cap PO DAILY #30 caps 08/20/24 Rx 400 mcg-vitamin K 80 mcg capsule (Multi For Her 50 Plus) prednisone 20 mg tablet 40 mg (2 x 20 mg) PO DAILY 4 days 08/20/24 Rx #8 tabs trazodone 50 mg tablet See Rx Instructions .Route 08/30/24 Rx .COMPLEX #90 tabs New Prescriptions to Start Prescriptions: [id number] acid-vit K [Multi For Her 50 Plus] Ronnie Moore prednisone Ronnie Moore Allergies Allergy/AdvReac Type Severity Reaction Status Date / Time No Known Allergies Allergy Verified 06/21/24 10:44 Discharge Plan Disposition Patient Disposition: Home, Self-Care Condition: Fair Follow up Plan Follow up with: Scottie Senior PA [Physician Firestopper Technician] - 08/23/24 10:00 am Km Hollis MD [Primary Care Provider] - 08/25/24 3:00 pm Prescriptions/Medication Reconciliation: New prednisone 20 mg Tablet 40 mg PO DAILY 4 Days Qty: 8 0RF Multi For Her 50 Plus 400-80 mcg capsule 1 cap PO DAILY Qty: 30 0RF Continued Gemtesa 75 mg tablet 75 mg PO DAILY hydroxyzine pamoate 25 mg capsule 25 mg PO TIDP PRN (Reason: anxiety ) spironolactone 25 mg tablet 25 mg PO DAILY atorvastatin 40 mg tablet 40 mg PO HS Probiotic 3 billion cell capsule 3,000 mmu cells PO DAILY Rx Instructions: administer with a meal Eliquis 5 mg tablet 5 mg PO BID Qty: 60 11RF Nuedexta 20-10 mg capsule 1 cap PO Q12H Qty: 180 3RF Rx Instructions: 1 capsule twice daily metoprolol succinate [Toprol XL] 50 mg tablet extended release 24 hr 50 mg PO DAILY Qty: 30 5RF escitalopram oxalate 5 mg tablet 5 mg PO DAILY bumetanide 2 mg tablet 2 mg PO DAILY levothyroxine 75 mcg tablet 75 mcg PO DAILY No Action trazodone 50 mg tablet See Rx Instructions .ROUTE .COMPLEX Qty: 90 4RF Dose Instruction: TAKE 3 TABLETS (150 MG) ORALLY AT BEDTIME NIGHTLY FOR INSOMNIA, MAX DAILY DOSE: 150 MG Rx Instructions: TAKE 3 TABLETS (150 MG) ORALLY AT BEDTIME NIGHTLY FOR INSOMNIA, MAX DAILY DOSE: 150 MG Problem Reconciliation Problems Reviewed?: Yes Patient Discharge Instructions Patient Instructions: DI for Chest Pain Print Language: Macedonian Providers Primary Care Provider: Km Hollis Admit Provider: Ronnie Moore Attending Provider: Ronnie Moore
[2024-08-21 10:11] LABS: Triiodothyronine (T3) Free 1.9 pg/mL (2.0-4.4)
--- NOTE | 2024-08-22 18:12 | PC.NURSE ---
Lab aware bc prelim needs to be sent to hospitalist due to pt being admitted after calling the results to ER
--- NOTE | 2024-08-23 12:06 | SW/DCPLANNER ---
Spoke with patients sister on the phone. Patients sister said she is doing better today. Patients sister said that she is aware of her upcoming appointments and that they were able to get her new medicine picked up. Patients sister stated that they have no concerns or questions at this time. Lesley Rodarte
== END 2024-08-20 17:05 | disposition home or self-care (01) ==
LOC: ER 16:38 → 2ND 18:47
PROVIDERS: Nurse Practitioner Family; Admitting Provider Student in an Organized Health Care Education/Training Program; Emergency Provider Emergency Medicine; PCP Internal Medicine Adolescent Medicine; Visit Provider Student in an Organized Health Care Education/Training Program
DX: G93.1 Anoxic brain damage, not elsewhere classified (principal); R07.9 Chest pain, unspecified; R45.1 Restlessness and agitation; I48.0 Paroxysmal atrial fibrillation; E87.21 Acute metabolic acidosis; G47.33 Obstructive sleep apnea (adult) (pediatric); I42.8 Other cardiomyopathies; I11.0 Hypertensive heart disease with heart failure; E11.9 Type 2 diabetes mellitus without complications; L53.9 Erythematous condition, unspecified; I50.22 Chronic systolic (congestive) heart failure; I25.10 Atherosclerotic heart disease of native coronary artery without angina pectoris; R17 Unspecified jaundice; F32.A Depression, unspecified; F48.2 Pseudobulbar affect; I69.898 Other sequelae of other cerebrovascular disease; F19.11 Other psychoactive substance abuse, in remission; I45.10 Unspecified right bundle-branch block; E66.9 Obesity, unspecified; E03.9 Hypothyroidism, unspecified; Z79.02 Long term (current) use of antithrombotics/antiplatelets; Z79.899 Other long term (current) drug therapy; Z79.890 Hormone replacement therapy; Z83.3 Family history of diabetes mellitus; Z80.9 Family history of malignant neoplasm, unspecified; Z82.49 Family history of ischemic heart disease and other diseases of the circulatory system; Z95.810 Presence of automatic (implantable) cardiac defibrillator; Z68.33 Body mass index [BMI] 33.0-33.9, adult
CPT/HCPCS: 36415; 70450; 71046; 71250; 80048; 80053; 80307; 81001; 82247; 82803; 82962; 83605; 83690; 83735; 83880; 84145; 84436; 84439; 84443; 84481; 84484; 85025; 85610; 85730; 86140; 87040; 87077; 87636; 93005; 93306; 99291; G0378; J3372; J7120

== ENCOUNTER 2024-09-21 13:52 | Outpatient (RCR) | payer MEDICARE, MEDICAID, SELFPAY ==
--- NOTE | 2024-09-21 16:56 | HMH.PTOPEV ---
PT Outpatient Evaluation Rehab PT Outpatient Evaluation Start: 09/21/24 13:56 Freq: Status: Active Protocol: Document 09/21/24 13:59 [email or web address] (Rec: 09/21/24 16:56 [email or web address] [id number]) E-signed By Elida To, PT Outpatient Therapy Subjective History Subjective History Pt is a 64 y/o female who reports to PT for ataxia and anoxic brain injury. Pt presents to the initial evaluation with her niece who is her caregiver and whom provided the subjective history. She states she has noticed a cognitive and physical decline with Lisset over the past 3 months. She states Lisset likes to sleep a lot but does get up and ambulate with a rolling walker multiple times a day to go to the bathroom and to/from the bedroom and living room. Pt's caregiver reports Lisset is independent with bed mobility and requires a 1 person assist to perform sit to stand transfers, traverse 4 steps with HR to enter the home and ambulation with a RW. Pt's caregiver reports Lisset uses a wheelchair for community ambulation. She reports at baseline she assists Lisset with ADLs and iADLs. She reports Lisset did fall 1 month ago due to getting out of the bed on the wrong side and attempting to ambulate without her walker. She states Lisset scraped the front of her face but denies serious injuries from the fall. Pt's caregiver reports Lisset did go see an orthopedic doctor yesterday and received bilateral steroid injections in her knees with good tolerance, and states her vitals were good at that time . Pt's caregiver reports Lisset was admitted to the hospital ~1 month ago for restlessness, shortness of breath and chest pain and discharged 3 days later with return to baseline. She reports since the brain injury Lisset presents with SOA and chest pressure related to anxiety. She states she does have oxygen at home she uses as needed but not regularly and states she does have a pulse oximeter to monitor her vitals at home. Pt's caregiver states she is unsure if Lisset takes a beta guillermo. Medical History: Neurogenic bladder, Abnormal computed tomography angiography of heart, Atypical angina, Nonischemic dilated cardiomyopathy, BETH ( obstructive sleep apnea), Brain aneurysm, Chronic depression, Anxiety, Pseudobulbar affect, Hypothyroidism, Atrial fibrillation with RVR, CAD ( coronary atherosclerotic disease), HLD (hyperlipidemia) , Hypertensive disorder, Diabetes mellitus, PACEMAKER New diagnosis of cancer in past 12 No months? Chief Complaint Weakness,Decreased Coordination Current Functional Limitations Walking,Stairs,Balance Miscellaneous Dx PT Eval Objective Objective Vitals: SpO2 87-90% RA, HR 44 bpm at rest BLE MMT: 3+/5, able to follow simple commands for testing Coordination: alternating toe taps with varying speed Transfers: Sit to stand minAx1 from wheelchair, verbal cues for hand placement and anterior weight shift Gait: x8ft with RW and CGA, cues for walker navigation - pt reported dizziness therefore returned to seated position - held TUG this date due to vitals, will perform at next appropriate time and incorporate into goals Outpatient Therapy Assessment Impairments Problems/Impairmments Impaired Strength,Impaired Endurance,Impaired Transfers, Impaired Gait Pattern,Impaired Walking,Impaired Dressing, Impaired Shower/Bathing, Impaired Household Care, Impaired Stair Climbing, Impaired Balance,Impaired TUG Time,Subjective C/O Pain, Impaired Self Care/Self Management Prognosis Rehab Potential Fair Comment Barriers to progress include complex medical history Clinical Impression Consistent with Diagnosis Yes Short Term Goals Number of Weeks 3 Increase Endurance Yes: Perform 5-10' on NuStep with RPE <5/10 & vitals WNL Improve Gait Pattern with Assistive Yes: Ambulate 25-50ft with RW Device and CGA Improve Self Care/Self Management Yes Patient to be Ind w/ HEP Yes Half-Way Goals Number of Weeks 6 Increase Strength Yes: improve BLE MMT to 4/5 grossly to assist with function Increase Endurance Yes: tolerate 30 minutes of PT treatment with RPE <5/10 and vitals WNL Improve Transfers Yes: perform sit to stand with SBA and VC for hand placement Improve Gait Pattern with Assistive Yes: ambulate 50-100ft with RW Device and CGA Improve Ability to Climb Stairs Yes: traverse 4 steps w/ HR w/ SBA & VC to assist with safe home navigation Decrease TUG Time Yes: 12 or less with RW to decrease fall risk Outpatient Therapy Plan of Care Treatment Plan May Include Therapeutic Exercise Including Home Yes Exercise Program Manual Therapy Techniques Yes Neuromuscular Re-education Yes Therapeutic Activities to Return to Yes Previous Functional/Work Level Gait Training Yes ADL/Self Care Education Yes Group Therapy for Medicare Yes Eval/Re-Eval Yes Frequency Times per week 1-2 Duration Number of Weeks 6 Addendums This patient is a candidate for social No or vocational rehab? Patient/Guardian verbally acknowledges Yes understanding of treatment program and consents to further treatment? Patient/Guardian verbally acknowledges Yes understanding of diagnosis, prognosis and goals for treatment? Eval Complexity PT Charges 67033 - Moderate Complexity Shoulder/Elbow Eval Shoulder Objective Measurements Elbow Objective Measurements PHYSICIAN CERTIFICATION: I certify the specified therapy services for Lisset Pham are required, authorized, and reviewed every 30 days.
== END 2024-09-21 23:59 | disposition home or self-care (01) ==
LOC: PT 13:52
PROVIDERS: PCP Internal Medicine Adolescent Medicine; Visit Provider Internal Medicine Adolescent Medicine
DX: G93.1 Anoxic brain damage, not elsewhere classified (principal)
CPT/HCPCS: 97163; 97535

== ENCOUNTER 2024-09-29 15:51 | Inpatient (IN) | payer MEDICARE, MEDICAID, SELFPAY ==
[2024-09-29] VITALS (11 sets, daily range): BP systolic 93–118; BP diastolic 62–92; PULSE 66–140; RESP 13–37; TEMP 36.2–36.6; O2SAT 93–98; BMI 30.4
--- NOTE | 2024-09-29 16:10 | XR_ITS ---
PROCEDURE INFORMATION: Exam: XR Chest Exam date and time: 09/29/2024 4:28 PM Age: 64 years old Clinical indication: Tachypnea; Additional info: Tachycardia, AMS TECHNIQUE: Imaging protocol: Radiologic exam of the chest. Views: 1 view. COMPARISON: CT CHEST WO CON 08/20/2024 1:11 PM FINDINGS: Tubes, catheters and devices: Stable positioning of the multi lead pacer device. Lungs: Unremarkable. No consolidation. Pleural spaces: Unremarkable. No pleural effusion. No pneumothorax. Heart/Mediastinum: Heart size mildly enlarged and stable Bones/joints: Unremarkable. IMPRESSION: Stable chest x-ray with no acute disease. Cardiomegaly.
--- NOTE | 2024-09-29 16:16 | ECG_ITS ---
APPROVED REPORT Exam: Resting ECG HR:141 bpm ECG Measurements Heart Rate 141 AXES QRSd 152 QRS 179 QT 360 T -4 QTc 442 Conclusion ATRIAL FIBRILLATION WITH RAPID VENTRICULAR RESPONSE WITH ABERRANT CONDUCTION OR VENTRICULAR PREMATURE COMPLEXES RIGHT AXIS DEVIATION [QRS AXIS > 100] RIGHT BUNDLE BRANCH BLOCK [120+ ms QRS DURATION, UPRIGHT V1, 40+ ms S IN I/aVL/V4/V5/V6] POSSIBLE ANTERIOR MYOCARDIAL INFARCTION , OF INDETERMINATE AGE [30 ms Q WAVE IN V3/V4, OR R < 0.2 mV IN V4] ABNORMAL ECG UNCONFIRMED REPORT Electronically signed by : TED WESTFALL, 09/30/2024 06:25:30
--- NOTE | 2024-09-29 16:19 | HMH.EDGENADL ---
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 LIVING HOUSEKEEPER - Last Filed: 09/29/24 16:19> General Chief complaint: Weakness Stated complaint: fatigue,brain fog Time Seen by Provider: 09/29/24 15:59 Related Data Home Medications ?Medication ?Instructions ?Recorded ?Confirmed atorvastatin 40 mg tablet 40 mg PO PM 02/12/22 09/29/24 lactobacillus combination no.4 3 3,000 mmu cells PO DAILY 02/12/22 09/29/24 billion cell capsule (Probiotic) spironolactone 25 mg tablet 25 mg PO DAILY 02/12/22 09/29/24 bumetanide 2 mg tablet 2 mg PO DAILY 08/19/24 09/29/24 escitalopram oxalate 5 mg tablet 5 mg PO DAILY 08/19/24 09/29/24 levothyroxine 75 mcg tablet 75 mcg PO DAILY 08/20/24 09/29/24 metoprolol succinate 50 mg 50 mg PO PM 09/29/24 09/29/24 tablet,extended release 24 hr (Toprol XL) thiamine HCl (vitamin B1) 100 mg 100 mg PO DAILY 09/29/24 09/29/24 tablet trazodone 50 mg tablet 100 mg PO PM 09/29/24 09/29/24 Previous Rx's ?Medication ?Instructions ?Recorded apixaban 5 mg tablet (Eliquis) 5 mg PO BID #60 tabs 11/14/23 dextromethorphan 20 mg-quinidine 1 cap PO Q12H Pseudobulbar #180 05/07/24 10 mg capsule (Nuedexta) caps Allergies Allergy/AdvReac Type Severity Reaction Status Date / Time No Known Allergies Allergy Verified 09/29/24 11:52 <Vladimir Kasper MD - Last Filed: 09/30/24 00:19> History of Present Illness HPI narrative: Please note that above description of symptoms, in this electronic medical record under categorization of recalled from ER triage doctor by RN are reflective of an initial nursing assessment, however, is not reflective of my full history and physical exam that was personally taken and clarified. Consequentially, this preceding description of symptoms, which may include the patient's categorized chief complaint in the EMR, do not reflect my personal clinical impression, and the ultimate description of history of present illness and patient stated complaints should be deferred to this section of the note. Unless stated otherwise or congruent with this section of the note, additional signs, symptoms, or incongruence should be interpreted as inaccurate with my clinical impression. [facility] <Martine Watkins ([facility]), ASSISTED LIVING HOUSEKEEPER - Last Filed: 09/29/24 16:19> [facility] Disclaimer: The information contained in this section may have been updated after the patient was seen, as this information can be updated by other users. Medical History Restlessness Elevated bilirubin Lactic acidosis Chest pain MICAH (acute kidney injury) Severe sepsis Abnormal cardiovascular stress test Nocturnal hypoxemia Abnormal overnight oximetry. Order for O2 2 L/min at night was sent to [facility]. Hematoma, chest wall Hematoma Hematoma of implantable cardioverter-defibrillator (ICD) pocket Encephalopathy acute Cardiogenic shock Respiratory failure Cardiac arrest Depression Hyperglycemia Acute on chronic congestive heart failure Chronic systolic CHF (congestive heart failure) Abnormal echocardiogram Shortness of breath Acute systolic (congestive) heart failure Ventricular hypokinesis Hyperglycemia Electrocardiogram abnormal Dilated cardiomyopathy Obesity Congestive heart failure Atrial fibrillation with rapid ventricular response Neurogenic bladder Abnormal computed tomography angiography of heart Atypical angina Nonischemic dilated cardiomyopathy BETH (obstructive sleep apnea) Unable to tolerate AutoPap, CPAP. Abnormal overnight oximetry. On O2 at night. Brain aneurysm R-MCA aneurysm Chronic depression Overall stable Pseudobulbar affect Hypothyroidism Atrial fibrillation with RVR CAD (coronary atherosclerotic disease) CAD, CHF, AFIB Atrial fibrillation HLD (hyperlipidemia) Hypertensive disorder Diabetes mellitus Obstructive sleep apnea syndrome 07/08/2022: Compliance is still an issue, there are several days where there is no recording whatsoever and days where she is able to use her Auto-Pap for 4 hours or longer. Consider formal titration or trial with Auto-BIPAP. 05/02/2022: New AutoPap [employer], [facility], [facility]. She will work on increasing compliance. 04/04/2022: Moderate, unable to tolerate CPAP ([facility] unit already registered due to recall) in the past. She does not qualify for a new unit until 05/2022. She was advised to consider resuming use of her old CPAP unit and was referred to [facility] to check and service her unit, obtain supplies. Surgical History History of cardiac catheterization Presence of biventricular AICD AICD (automatic cardioverter/defibrillator) present Family History Other Atrial fibrillation Cancer Diabetes Hypertension Social History Smoking Status: Never smoker alcohol intake: never substance use type: former substance user current occupational status: retired and disabled Travel in the last 8 weeks: None household members: none housing: apartment current occupational exposures/hazards: No Have you lived/traveled outside [place] in past 30 days?: No Contact w/someone who lives/traveled outside US past 30 days?: No Exposure to someone with infectious disease in past 14 days?: No Do you have a fever (greater than 100.4 F or 38 C)?: No Have you tested positive for COVID-19: No Exposed to someone with COVID-19 in past 14 days?: No Do you have a sore throat?: No Do you have a cough?: No Do you have any weakness?: No Are you experiencing any nausea/vomitting?: Yes Do you have any diarrhea?: No Are you experiencing any unusual bleeding?: No Do you have any muscle aches/pain?: No Do you have any abdominal pain?: No Are you experiencing loss of taste or smell?: No Other Medical History Have you received the Flu Vaccine for this season: No Have you received the Pneumonia Vaccine: No <Vladimir Kasper MD - Last Filed: 09/30/24 00:19> ROS Obtained: Yes All systems reviewed & no additional complaints except as documented Physical Exam <Vladimir Kasper MD - Last Filed: 09/30/24 00:19> General General appearance: alert Head Head exam: atraumatic and normocephalic Eye Eye exam: Present normal appearance, PERRL and EOMI Neck Neck exam: Present normal inspection, full ROM and trachea midline Respiratory Respiratory exam: Absent respiratory distress, wheezes, stridor, accessory muscle use or prolonged expiratory phase Cardiovascular Cardiovascular exam: Present other (Pulses equal symmetric in upper and lower extremities) Abdominal Exam Abdominal exam: Present soft; Absent distention, tenderness or pulsatile mass Extremities Exam Extremities exam: Absent edema Neurological Exam Neurological exam: Present alert, oriented X3 and CN II-XII intact; Absent motor sensory deficit Skin Skin exam: Present warm and dry; Absent diaphoresis or erythema Medical Decision Making <Martine Watkins ([facility]), ASSISTED LIVING HOUSEKEEPER - Last Filed: 09/29/24 16:19> Medical Records Screening: Per USPSTF and CDC recommendations, given the prevalence of disease in our region, it is our hospital?s policy to screen for HIV and viral Hepatitis for all patients aged 18 and over and those with ongoing risk factors. Vital Signs: 09/29/24 16:31 09/29/24 16:32 09/29/24 17:27 Temperature 97.6 F Temperature Source Oral Pulse Rate 136 H 89 Pulse Rate [Right] 140 H Respiratory Rate 20 15 31 H Blood Pressure 111/91 H 116/77 Blood Pressure [Right Arm] 111/91 H Blood Pressure Mean Blood Pressure Mean [Right Arm] 97 Blood Pressure Source Blood Pressure Source [Right Arm] Automatic Cuff Blood Pressure Position Blood Pressure Position [Right Arm] Supine 02 Sat by Pulse Oximetry 97 95 96 Oxygen Delivery Method Room Air 09/29/24 17:31 09/29/24 18:01 09/29/24 18:15 Temperature Temperature Source Pulse Rate 66 80 98 H Pulse Rate [Right] Respiratory Rate 37 H 24 22 Blood Pressure 112/62 95/72 L 114/81 Blood Pressure [Right Arm] Blood Pressure Mean Blood Pressure Mean [Right Arm] Blood Pressure Source Blood Pressure Source [Right Arm] Blood Pressure Position Blood Pressure Position [Right Arm] 02 Sat by Pulse Oximetry 95 93 L 96 Oxygen Delivery Method 09/29/24 19:00 09/29/24 19:57 Temperature 97.8 F Temperature Source Oral Pulse Rate 98 H 112 H Pulse Rate [Right] Respiratory Rate 16 15 Blood Pressure 93/68 L 94/70 L Blood Pressure [Right Arm] Blood Pressure Mean 72 Blood Pressure Mean [Right Arm] Blood Pressure Source Automatic Cuff Blood Pressure Source [Right Arm] Blood Pressure Position Supine Blood Pressure Position [Right Arm] 02 Sat by Pulse Oximetry 94 L Oxygen Delivery Method Room Air Lab Data Lab Results 09/29/24 16:30: VBG pH 7.56 H, VBG pCO2 23.7 L, VBG pO2 135.0 H, VBG HCO3 20.9 L, VBG Total CO2 21.6 L, VBG O2 Saturation 99.1 H, VBG Base Excess -1.3, VBG Lactic Acid 5.0 H, Sodium 137, Potassium 4.5, Chloride 98, Carbon Dioxide 26, Anion Gap 17.5 H, BUN 36 H, Creatinine 1.30 H, Estimated Creat Clear 53, Estimated GFR 41 L, Est GFR ( Amer) 50 L, Glucose 186 H, Calcium 9.3, Magnesium 2.5 H, Total Bilirubin 2.5 H, AST 50 H, ALT 98 H, Alkaline Phosphatase 225 H, Troponin I < 0.01, NT-Pro-B Natriuret Pep 8910 H, Total Protein 6.4, Albumin 3.7, Globulin 2.7, Albumin/Globulin Ratio 1.4, TSH 7.96 H, Thyroxine (T4) 10.7, Salicylates < 1.0 L, Acetaminophen < 10 L, Plasma/Serum Alcohol < 10, HCV Ab HILARY w/Rflx PCR Qn Negative, HIV Ag/Ab Combo Qual Negative 09/29/24 17:00: WBC 13.7 H, RBC 6.45 H, Hgb 16.8 H, Hct 53.5 H, MCV 82.9, MCH 26.0 L, MCHC 31.4 L, RDW 19.2 H, Plt Count 203, MPV 10.2, Neut % (Auto) 79.6, Lymph % (Auto) 12.9, [place] % (Auto) 6.9, Eos % (Auto) 0.1, Baso % (Auto) 0.1, Neut # (Auto) 10.9 H, Lymph # (Auto) 1.8, [place] # (Auto) 0.9, Eos # (Auto) 0.0, Baso # (Auto) 0.0, PT 15.9 H, INR 1.48 H, APTT 28.0, Hemoglobin A1c 8.7 H 09/29/24 17:44: Urine Color Yellow, Urine Appearance Clear, Urine pH 7.0, Ur Specific [place] 1.015, Urine Protein Negative, Urine Glucose (UA) Negative, Urine Ketones Negative, Urine Blood Negative, Urine Nitrate Negative, Urine Bilirubin Negative, Urine Urobilinogen 1.0, Ur Leukocyte Esterase Trace, Urine RBC 5-10, Urine WBC 10-20, Ur Squamous Epith Cells 3-5, Urine Bacteria 1+, Hyaline Casts 3-5, Urine Mucus 2+, Urine Opiates Screen Negative, Urine Methadone Screen Negative, Ur Barbituates Screen Negative, Ur Phencyclidine Scrn Negative, Ur Amphetamines Screen Negative, U Benzodiazepines Scrn Negative, Urine Cocaine Screen Negative, U Marijuana (THC) Screen Negative 09/29/24 19:35: Troponin I < 0.01 09/29/24 17:00 09/29/24 16:30 Orders (Tests/Meds): ED MEDICATIONS Generic Name Dose Route Start Last Admin Trade Name Freq PRN Reason Stop Dose Admin Acetaminophen 650 mg 09/29/24 18:48 Acetaminophen 325mg Tab PO 10/29/24 18:47 Q4HP PRN Fever or Mild Pain (1-3) Apixaban 5 mg 09/29/24 11:00 Apixaban 5mg Tablet PO 10/29/24 10:59 BID ELVIA Atorvastatin Calcium 40 mg 09/29/24 11:00 Atorvastatin 40mg Tablet PO 10/29/24 10:59 PM ELVIA Lactated Ringer's 1,000 mls @ 100 mls/hr 09/29/24 19:00 Lactated Ringer's 1000 Ml Bag IV 10/29/24 18:59 .Q10H ELVIA Amiodarone HCl 150 mg/ 103 mls @ 618 mls/hr 09/29/24 20:37 09/29/24 21:01 Dextrose IV 09/29/24 20:46 618 mls/hr ONCE ONE Administration Protocol Amiodarone HCl 900 mg/ 518 mls @ 34.533 mls/hr 09/29/24 20:37 09/29/24 21:03 Dextrose IV 09/30/24 11:37 1 mg/min .Q15H1M ELVIA 34.53 mls/hr Administration Protocol 1 MG/MIN Insulin Human Lispro 0 - 12 unit 09/29/24 21:00 09/29/24 23:46 Humalog 100 Units/Ml 10ml Vial (Ssi) SUBCUT 10/29/24 20:59 2 unit ACHS [facility] Administration Protocol Levothyroxine Sodium 75 mcg 09/30/24 09:00 Levothyroxine 75mcg (0.075mg) Tab PO 10/30/24 08:59 DAILY ELVIA Metoprolol Succinate 50 mg 09/30/24 18:00 Metoprolol Succinate Xl 50mg Tablet PO 10/30/24 17:59 PM [facility] Miscellaneous 1 each 09/29/24 18:00 Vancomycin Consult Request NOTAPPLIC 10/29/24 17:59 CONSULT PHARMACY [facility] Non-Formulary Medication 100 mg 09/30/24 09:00 Thiamine Hcl (Vitamin B1) PO 10/30/24 08:59 DAILY [facility] Non-Formulary Medication 1 cap 09/29/24 23:45 Dextromethorphan-Quinidine [Nuedexta] PO 10/29/24 23:44 Q12H ELVIA Non-Formulary Medication 5 mg 09/30/24 09:00 Escitalopram Oxalate PO 10/30/24 08:59 DAILY [facility] Non-Formulary Medication 3,000 mmu cells 09/30/24 09:00 Lactobacillus Combination No.4 [Probiotic] PO 10/30/24 08:59 DAILY [facility] Ondansetron HCl 4 mg 09/29/24 18:48 Ondansetron 4mg/2ml Vial IV 10/29/24 18:47 Q8HP PRN Nausea Trazodone HCl 100 mg 09/30/24 18:00 Trazodone 50mg Tablet PO 10/29/24 23:00 PM [facility] Discontinued Medications Generic Name Dose Route Start Last Admin Trade Name Freq PRN Reason Stop Dose Admin Diltiazem HCl 20 mg 09/29/24 17:54 09/29/24 18:20 Diltiazem 25mg/5ml Vial IV 09/29/24 17:55 20 mg ONCE ONE Administration Diltiazem HCl 180 mg 09/29/24 17:55 09/29/24 18:21 Diltiazem Hcl 180mg Cap.Er.24h PO 09/29/24 17:56 180 mg ONCE ONE Administration Furosemide 60 mg 09/29/24 17:54 09/29/24 18:22 Furosemide 40mg/4ml Vial IV 09/29/24 17:55 60 mg ONCE ONE Administration Sodium Chloride 500 mls @ 999 mls/hr 09/29/24 16:15 09/29/24 17:30 Sod Chlor 0.9% 1000ml Bag IV 09/29/24 16:45 999 mls/hr .Q31M ELVIA Administration Piperacillin Sod/Tazobactam 100 mls @ 200 mls/hr 09/29/24 17:54 09/29/24 18:21 Sod 4.5 gm/ Sodium Chloride IV 09/29/24 18:23 200 mls/hr ONCE ONE Administration Vancomycin/PEG/NADA/Lysine/Water 1.5 gm in 300 mls @ 150 mls/hr 09/29/24 18:15 09/29/24 18:51 Vancomycin 1.5gm/300ml (Peg) Premix IV 09/29/24 20:14 150 mls/hr ONCE ONE Administration Lactated Ringer's 1,000 mls @ 999 mls/hr 09/29/24 18:26 09/29/24 18:53 Lactated Ringer's 1000 Ml Bag IV 09/29/24 19:26 999 mls/hr .Q1H1M ONE Administration ORDERS Category Date Time Status POCUS Point of Care (ER Only) Stat Exams 09/29/24 17:57 Completed XR chest portable Stat Exams 09/29/24 16:10 Completed Acetaminophen Stat Lab 09/29/24 16:30 Completed Basic Metabolic Panel AMLAB Lab 09/30/24 06:00 Ordered Basic Metabolic Panel AMLAB Lab 10/01/24 06:00 Ordered Basic Metabolic Panel AMLAB Lab 10/02/24 06:00 Ordered Basic Metabolic Panel AMLAB Lab 10/03/24 06:00 Ordered Basic Metabolic Panel AMLAB Lab 10/04/24 06:00 Ordered Complete Blood Count Auto Diff AMLAB Lab 09/30/24 06:00 Ordered Complete Blood Count Auto Diff AMLAB Lab 10/01/24 06:00 Ordered Complete Blood Count Auto Diff AMLAB Lab 10/02/24 06:00 Ordered Complete Blood Count Auto Diff AMLAB Lab 10/03/24 06:00 Ordered Complete Blood Count Auto Diff AMLAB Lab 10/04/24 06:00 Ordered Complete Blood Count Auto Diff Stat Lab 09/29/24 17:00 Completed Comprehensive Metabolic Panel Stat Lab 09/29/24 16:30 Completed Drug Screen,Urine Stat Lab 09/29/24 17:44 Completed Ethanol [Ethyl Alcohol] Stat Lab 09/29/24 16:30 Completed HIV Combo Stat Lab 09/29/24 16:30 Completed Hemoglobin A1C Stat Lab 09/29/24 17:00 Completed Hepatitis C Ab Qual. W/ RFX Stat Lab 09/29/24 16:30 Completed Lactic Acid AMLAB Lab 09/30/24 06:00 Ordered Magnesium Stat Lab 09/29/24 16:30 Completed NT Pro Brain Natriuretic Pep. Stat Lab 09/29/24 16:30 Completed PT INR [Prothrombin Time INR] Stat Lab 09/29/24 17:00 Completed PTT [Activated Partial Thrombo Time] Stat Lab 09/29/24 17:00 Completed Procalcitonin Routine Lab 09/30/24 06:00 Ordered Salicylate Stat Lab 09/29/24 16:30 Completed T4 (Thyroxine) Stat Lab 09/29/24 16:30 Completed TSH [Thyroid Stimulating Hormone] Stat Lab 09/29/24 16:30 Completed Troponin I Q3H Lab 09/29/24 19:35 Completed Troponin I Q3H Lab 09/29/24 22:27 Completed Troponin I Stat Lab 09/29/24 16:30 Completed Urinalysis and Microscopic Stat Lab 09/29/24 17:44 Completed Blood Culture Stat Micro 09/29/24 17:26 Received Urine Culture Stat Micro 09/29/24 17:44 Received Venous Blood Gas Stat RT 09/29/24 16:30 Completed <Vladimir Kasper MD - Last Filed: 09/30/24 00:19> Medical Records Medical records reviewed: Yes I reviewed the patient's medical records. [place] Inquiry Pt receiving controlled substance: No [place] was queried for this patient: No Vital Signs: 09/29/24 16:31 09/29/24 16:32 09/29/24 17:27 Temperature 97.6 F Temperature Source Oral Pulse Rate 136 H 89 Pulse Rate [Right] 140 H Respiratory Rate 20 15 31 H Blood Pressure 111/91 H 116/77 Blood Pressure [Right Arm] 111/91 H Blood Pressure Mean Blood Pressure Mean [Right Arm] 97 Blood Pressure Source Blood Pressure Source [Right Arm] Automatic Cuff Blood Pressure Position Blood Pressure Position [Right Arm] Supine 02 Sat by Pulse Oximetry 97 95 96 Oxygen Delivery Method Room Air 09/29/24 17:31 09/29/24 18:01 09/29/24 18:15 Temperature Temperature Source Pulse Rate 66 80 98 H Pulse Rate [Right] Respiratory Rate 37 H 24 22 Blood Pressure 112/62 95/72 L 114/81 Blood Pressure [Right Arm] Blood Pressure Mean Blood Pressure Mean [Right Arm] Blood Pressure Source Blood Pressure Source [Right Arm] Blood Pressure Position Blood Pressure Position [Right Arm] 02 Sat by Pulse Oximetry 95 93 L 96 Oxygen Delivery Method 09/29/24 19:00 09/29/24 19:57 Temperature 97.8 F Temperature Source Oral Pulse Rate 98 H 112 H Pulse Rate [Right] Respiratory Rate 16 15 Blood Pressure 93/68 L 94/70 L Blood Pressure [Right Arm] Blood Pressure Mean 72 Blood Pressure Mean [Right Arm] Blood Pressure Source Automatic Cuff Blood Pressure Source [Right Arm] Blood Pressure Position Supine Blood Pressure Position [Right Arm] 02 Sat by Pulse Oximetry 94 L Oxygen Delivery Method Room Air Lab Data Lab Results 09/29/24 16:30: VBG pH 7.56 H, VBG pCO2 23.7 L, VBG pO2 135.0 H, VBG HCO3 20.9 L, VBG Total CO2 21.6 L, VBG O2 Saturation 99.1 H, VBG Base Excess -1.3, VBG Lactic Acid 5.0 H, Sodium 137, Potassium 4.5, Chloride 98, Carbon Dioxide 26, Anion Gap 17.5 H, BUN 36 H, Creatinine 1.30 H, Estimated Creat Clear 53, Estimated GFR 41 L, Est GFR ( Amer) 50 L, Glucose 186 H, Calcium 9.3, Magnesium 2.5 H, Total Bilirubin 2.5 H, AST 50 H, ALT 98 H, Alkaline Phosphatase 225 H, Troponin I < 0.01, NT-Pro-B Natriuret Pep 8910 H, Total Protein 6.4, Albumin 3.7, Globulin 2.7, Albumin/Globulin Ratio 1.4, TSH 7.96 H, Thyroxine (T4) 10.7, Salicylates < 1.0 L, Acetaminophen < 10 L, Plasma/Serum Alcohol < 10, HCV Ab HILARY w/Rflx PCR Qn Negative, HIV Ag/Ab Combo Qual Negative 09/29/24 17:00: WBC 13.7 H, RBC 6.45 H, Hgb 16.8 H, Hct 53.5 H, MCV 82.9, MCH 26.0 L, MCHC 31.4 L, RDW 19.2 H, Plt Count 203, MPV 10.2, Neut % (Auto) 79.6, Lymph % (Auto) 12.9, [place] % (Auto) 6.9, Eos % (Auto) 0.1, Baso % (Auto) 0.1, Neut # (Auto) 10.9 H, Lymph # (Auto) 1.8, [place] # (Auto) 0.9, Eos # (Auto) 0.0, Baso # (Auto) 0.0, PT 15.9 H, INR 1.48 H, APTT 28.0, Hemoglobin A1c 8.7 H 09/29/24 17:44: Urine Color Yellow, Urine Appearance Clear, Urine pH 7.0, Ur Specific [place] 1.015, Urine Protein Negative, Urine Glucose (UA) Negative, Urine Ketones Negative, Urine Blood Negative, Urine Nitrate Negative, Urine Bilirubin Negative, Urine Urobilinogen 1.0, Ur Leukocyte Esterase Trace, Urine RBC 5-10, Urine WBC 10-20, Ur Squamous Epith Cells 3-5, Urine Bacteria 1+, Hyaline Casts 3-5, Urine Mucus 2+, Urine Opiates Screen Negative, Urine Methadone Screen Negative, Ur Barbituates Screen Negative, Ur Phencyclidine Scrn Negative, Ur Amphetamines Screen Negative, U Benzodiazepines Scrn Negative, Urine Cocaine Screen Negative, U Marijuana (THC) Screen Negative 09/29/24 19:35: Troponin I < 0.01 Orders (Tests/Meds): ED MEDICATIONS Generic Name Dose Route Start Last Admin Trade Name Freq PRN Reason Stop Dose Admin Acetaminophen 650 mg 09/29/24 18:48 Acetaminophen 325mg Tab PO 10/29/24 18:47 Q4HP PRN Fever or Mild Pain (1-3) Apixaban 5 mg 09/29/24 11:00 Apixaban 5mg Tablet PO 10/29/24 10:59 BID ELVIA Atorvastatin Calcium 40 mg 09/29/24 11:00 Atorvastatin 40mg Tablet PO 10/29/24 10:59 PM ELVIA Lactated Ringer's 1,000 mls @ 100 mls/hr 09/29/24 19:00 Lactated Ringer's 1000 Ml Bag IV 10/29/24 18:59 .Q10H ELVIA Amiodarone HCl 150 mg/ 103 mls @ 618 mls/hr 09/29/24 20:37 09/29/24 21:01 Dextrose IV 09/29/24 20:46 618 mls/hr ONCE ONE Administration Protocol Amiodarone HCl 900 mg/ 518 mls @ 34.533 mls/hr 09/29/24 20:37 09/29/24 21:03 Dextrose IV 09/30/24 11:37 1 mg/min .Q15H1M ELVIA 34.53 mls/hr Administration Protocol 1 MG/MIN Insulin Human Lispro 0 - 12 unit 09/29/24 21:00 09/29/24 23:46 Humalog 100 Units/Ml 10ml Vial ([facility]) SUBCUT 10/29/24 20:59 2 unit ACHS ELVIA Administration Protocol Levothyroxine Sodium 75 mcg 09/30/24 09:00 Levothyroxine 75mcg (0.075mg) Tab PO 10/30/24 08:59 DAILY [facility] Metoprolol Succinate 50 mg 09/30/24 18:00 Metoprolol Succinate Xl 50mg Tablet PO 10/30/24 17:59 PM [facility] Miscellaneous 1 each 09/29/24 18:00 Vancomycin Consult Request NOTAPPLIC 10/29/24 17:59 CONSULT PHARMACY [facility] Non-Formulary Medication 100 mg 09/30/24 09:00 Thiamine Hcl (Vitamin B1) PO 10/30/24 08:59 DAILY [facility] Non-Formulary Medication 1 cap 09/29/24 23:45 Dextromethorphan-Quinidine [Nuedexta] PO 10/29/24 23:44 Q12H [facility] Non-Formulary Medication 5 mg 09/30/24 09:00 Escitalopram Oxalate PO 10/30/24 08:59 DAILY [facility] Non-Formulary Medication 3,000 mmu cells 09/30/24 09:00 Lactobacillus Combination No.4 [Probiotic] PO 10/30/24 08:59 DAILY [facility] Ondansetron HCl 4 mg 09/29/24 18:48 Ondansetron 4mg/2ml Vial IV 10/29/24 18:47 Q8HP PRN Nausea Trazodone HCl 100 mg 09/30/24 18:00 Trazodone 50mg Tablet PO 10/29/24 23:00 PM [facility] Discontinued Medications Generic Name Dose Route Start Last Admin Trade Name Freq PRN Reason Stop Dose Admin Diltiazem HCl 20 mg 09/29/24 17:54 09/29/24 18:20 Diltiazem 25mg/5ml Vial IV 09/29/24 17:55 20 mg ONCE ONE Administration Diltiazem HCl 180 mg 09/29/24 17:55 09/29/24 18:21 Diltiazem Hcl 180mg Cap.Er.24h PO 09/29/24 17:56 180 mg ONCE ONE Administration Furosemide 60 mg 09/29/24 17:54 09/29/24 18:22 Furosemide 40mg/4ml Vial IV 09/29/24 17:55 60 mg ONCE ONE Administration Sodium Chloride 500 mls @ 999 mls/hr 09/29/24 16:15 09/29/24 17:30 Sod Chlor 0.9% 1000ml Bag IV 09/29/24 16:45 999 mls/hr .Q31M ELVIA Administration Piperacillin Sod/Tazobactam 100 mls @ 200 mls/hr 09/29/24 17:54 09/29/24 18:21 Sod 4.5 gm/ Sodium Chloride IV 09/29/24 18:23 200 mls/hr ONCE ONE Administration Vancomycin/PEG/NADA/Lysine/Water 1.5 gm in 300 mls @ 150 mls/hr 09/29/24 18:15 09/29/24 18:51 Vancomycin 1.5gm/300ml (Peg) Premix IV 09/29/24 20:14 150 mls/hr ONCE ONE Administration Lactated Ringer's 1,000 mls @ 999 mls/hr 09/29/24 18:26 09/29/24 18:53 Lactated Ringer's 1000 Ml Bag IV 09/29/24 19:26 999 mls/hr .Q1H1M ONE Administration ORDERS Category Date Time Status POCUS Point of Care (ER Only) Stat Exams 09/29/24 17:57 Completed XR chest portable Stat Exams 09/29/24 16:10 Completed Acetaminophen Stat Lab 09/29/24 16:30 Completed Basic Metabolic Panel AMLAB Lab 09/30/24 06:00 Ordered Basic Metabolic Panel AMLAB Lab 10/01/24 06:00 Ordered Basic Metabolic Panel AMLAB Lab 10/02/24 06:00 Ordered Basic Metabolic Panel AMLAB Lab 10/03/24 06:00 Ordered Basic Metabolic Panel AMLAB Lab 10/04/24 06:00 Ordered Complete Blood Count Auto Diff AMLAB Lab 09/30/24 06:00 Ordered Complete Blood Count Auto Diff AMLAB Lab 10/01/24 06:00 Ordered Complete Blood Count Auto Diff AMLAB Lab 10/02/24 06:00 Ordered Complete Blood Count Auto Diff AMLAB Lab 10/03/24 06:00 Ordered Complete Blood Count Auto Diff AMLAB Lab 10/04/24 06:00 Ordered Complete Blood Count Auto Diff Stat Lab 09/29/24 17:00 Completed Comprehensive Metabolic Panel Stat Lab 09/29/24 16:30 Completed Drug Screen,Urine Stat Lab 09/29/24 17:44 Completed Ethanol [Ethyl Alcohol] Stat Lab 09/29/24 16:30 Completed HIV Combo Stat Lab 09/29/24 16:30 Completed Hemoglobin A1C Stat Lab 09/29/24 17:00 Completed Hepatitis C Ab Qual. W/ RFX Stat Lab 09/29/24 16:30 Completed Lactic Acid AMLAB Lab 09/30/24 06:00 Ordered Magnesium Stat Lab 09/29/24 16:30 Completed NT Pro Brain Natriuretic Pep. Stat Lab 09/29/24 16:30 Completed PT INR [Prothrombin Time INR] Stat Lab 09/29/24 17:00 Completed PTT [Activated Partial Thrombo Time] Stat Lab 09/29/24 17:00 Completed Procalcitonin Routine Lab 09/30/24 06:00 Ordered Salicylate Stat Lab 09/29/24 16:30 Completed T4 (Thyroxine) Stat Lab 09/29/24 16:30 Completed TSH [Thyroid Stimulating Hormone] Stat Lab 09/29/24 16:30 Completed Troponin I Q3H Lab 09/29/24 19:35 Completed Troponin I Q3H Lab 09/29/24 22:27 Completed Troponin I Stat Lab 09/29/24 16:30 Completed Urinalysis and Microscopic Stat Lab 09/29/24 17:44 Completed Blood Culture Stat Micro 09/29/24 17:26 Received Urine Culture Stat Micro 09/29/24 17:44 Received Venous Blood Gas Stat RT 09/29/24 16:30 Completed ECG Data Tracing #1: I reviewed this ECG and interpreted as documented below: (1616: Atrial fibrillation with RVR 141 bpm with QRS 152 wide with right axis deviation right bundle branch block morphology. QTc 442. No obvious acute ischemic change. 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 Family at bedside states that patient has been getting worse over the past few weeks. Recently, to very close family members the patient at the same time and since that time, patient has had steady decline. Gotten worse over the last 3 to 4 days. Patient hardly eating or drinking anything, sleeping, not interacting much. Patient has been so weak she has not been able to do much for self at home, so family brought her in for further evaluation. Patient denies any acute complaints, but is acutely on chronically ill-appearing. She is borderline hypotensive, tachycardic. Lungs are clear, no murmurs gallops or rubs on cardiac exam. No lower extremity edema. Does not appear to be fluid volume overloaded. Differential includes microvascular coronary artery disease, CHF, ACS, [place], coronary artery dissection, pneumothorax, PE, dissection, pericarditis, myocarditis, pneumothorax, aortic aneurysm, pneumonia, bronchitis, among others. Patient was placed on cardiac monitoring and continuous pulse oximetry with initial blood pressure 111/91, pulse rate 136, O2 sat 97% on room air. EKG A-fib with RVR, see formal read above, and patient was given diltiazem IV and p.o. Significant improvement in patient's rate 100 to 110 bpm. Workup independently interpreted, patient has mild leukocytosis and INR is elevated at 1.5, though she is not on warfarin. VBG with metabolic acidosis with over exaggerated respiratory response with pH elevated 7.56/CO2 low at 23/bicarb low at 21. Patient's VBG lactate 5.0. MICAH with creatinine 1.3 and BUN 36 consistent with prerenal injury, patient's LFTs nonactionable. Troponin negative, BNP elevated nearly 9000. Chest x-ray independently interpreted, patient's chest x-ray is clear and no evidence of volume overload. Urinalysis without concern for UTI. Bedside bfluo-pd-[id number] ultrasound was performed and patient has estimated EF right around 35 to 40%, no effusion and no other acute abnormalities. Patient was initially given Lasix after bedside [id number] ultrasound, however as labs returned, patient appeared to be improving with MICAH, so fluids were given to replace losses. Hospital medicine was contacted and case was discussed for admission for dehydration in the setting of adult failure to thrive. Because patient high risk for clinical decompensation, deemed appropriate for inpatient admission. Results were relayed to patient who voiced understanding and patient was agreeable to inpatient admission and management. Patient was admitted to the hospital for further definitive management. [employer] disclaimer Much of this encounter note is an electronic pct spoken language to printed text. Electronic pct of the spoken language may permit errors. Although I have reviewed the note, some errors may still exist. Procedures <Vladimir Kasper MD - Last Filed: 09/30/24 00:19> Limited Ultrasound Indication:: Ultrasound-guided line placement Indication: -Difficult access, A-fib with RVR, critically ill Identified structures: -Left upper extremity veins Location/access site: -Left upper extremity basilic vein Vessel patency: -Patent Direct visualization? -Yes Impression: Successful placement of 20-gauge catheter in the left upper extremity basilic vein Images were not saved to permanent archive The study was technically adequate CPT Codes: Venipuncture: 37597-39 Age <3 yo: 94946-19 Age >3yo: 26368-94 Central line <5 yo: 33853-05 Central line >5 yo: 55230-37 This study was performed by me, and I personally interpreted all images/videos. Based on my clinical judgement, these images were adequate and did not necessitate further imaging Views:: Limited cardiac ultrasound Indication: Elevated BNP, shortness of breath, A-fib with RVR Identified cardiac views: -Cardiac parasternal long axis -Cardiac parasternal short axis -Cardiac apical four-chamber Findings: -Cardiac activity present -Gross wall motion normal -Pericardial effusion absent -Right heart strain absent Impression: -Globally decreased EF 35 to 40% with EPSS right around 14. Patient has no effusion, no obvious, gross valvular dysfunction. Images were saved to permanent archive The study was technically adequate CPT: 59651 This study was performed by me, and I personally interpreted all images/videos. Based on my clinical judgement, these images were adequate and did not necessitate further imaging Critical Care <Vladimir Kasper MD - Last Filed: 09/30/24 00:19> Critical Care Time Critical Care Time: Yes (cardiac) Attestation: On 09/29/24, the high probability of a clinically significant, sudden or life threatening deterioration of the following system(s) required my full and direct attention, intervention and personal management. The time I documented below is in addition to time spent performing reported procedures but includes the following listed in this critical care notation. Total Time Total Critical Care Time: 35
[2024-09-29 16:50] LABS: VBG Base Excess -1.3 mmol/L (-2.4-2.3); VBG HCO3 20.9 mmol/L (23-30); VBG Oxygen Saturation 99.1 % (50-70); VBG Total CO2 21.6 mmol/L (23-27)
[2024-09-29 16:55] LABS: VBG PCO2 23.7 mmol/L (35-51); VBG PH 7.56 mmol/L (7.31-7.41)
[2024-09-29 16:59] LABS: Alanine Aminotransferase 98 U/L (12-78); Albumin Level 3.7 g/dl (3.5-5.0); Albumin/Globulin Ratio 1.4 (1.1-1.8); Alkaline Phosphatase 225 U/L (38-126); Anion Gap 17.5 mEq/L (5-15); Aspartate Amino Transferase 50 U/L (14-36); Bilirubin,Total 2.5 mg/dl (0.2-1.3); Blood Urea Nitrogen 36 mg/dl (7-17); Calcium 9.3 mg/dl (8.4-10.2); Carbon Dioxide 26 mmol/L (22.0-30.0); Chloride 98 mmol/L (98-107); Creatinine Clearance Estimated 53 mL/min (50-200); Estimated Glomerular Filt Rate 41 ml/min (>60); GFR (African American) 50 ML/MIN (>60); Globulin 2.7 g/dL (1.3-3.2); Glucose 186 mg/dl (74-100); Magnesium 2.5 mg/dl (1.6-2.3); Potassium 4.5 mmoL/L (3.5-5.1); Sodium 137 mmol/L (136-145); Total Protein,Serum 6.4 g/dl (6.3-8.2)
[2024-09-29 17:03] LABS: Ethyl Alcohol < 10 mg/dl (0-10); Salicylate < 1.0 mg/dL (2.0-20.0)
[2024-09-29 17:04] LABS: Acetaminophen < 10 ug/ml (10-30)
[2024-09-29 17:11] LABS: Basophils % 0.1 % (0.1-2.0); Eosinophils % 0.1 % (0.1-12.0); Hematocrit 53.5 % (37.0-47.0); Hemoglobin 16.8 g/dL (12.2-16.2); Lymphocytes # 1.8 K/mm3 (0.7-4.5); Lymphocytes % 12.9 % (10-50); Mean Corpuscular HGB Conc 31.4 g/dL (31.8-35.4); Mean Corpuscular Volume 82.9 fl (81-99); Mean Platelet Volume 10.2 fl (7.4-10.4); Monocytes # 0.9 K/mm3 (0.1-1.0); Monocytes % 6.9 % (1.7-9.3); Neutrophils # 10.9 K/mm3 (1.8-7.8); Neutrophils % 79.6 % (37.0-80.0); Nucleated Red Blood Cells # 0 10^3/uL; Nucleated Red Blood Cells % 0 %; Platelet Count 203 K/mm3 (142-424); Red Blood Count 6.45 M/mm3 (4.20-5.40); Red Cell Distribution Width 19.2 % (11.5-17.5); Red Cell Distribution Width-SD 52.5 fL; White Blood Count 13.7 K/mm3 (4.8-10.8)
[2024-09-29 17:15] LABS: T4 (Thyroxine) 10.7 ug/dl (5.53-11.0)
[2024-09-29 17:22] LABS: INR 1.48 (0.9-1.1); Prothrombin Time 15.9 seconds (10.1-12.5)
[2024-09-29 17:29] LABS: Thyroid Stimulating Hormone 7.96 uIU/mL (0.465-4.68)
[2024-09-29] MEDS: 0.9 % SODIUM CHLORIDE 1000ML 500 ML 999 ML IV (17:30)
[2024-09-29 17:47] LABS: NT Pro Brain Natriuretic Pep. 8910 pg/mL (0-125)
[2024-09-29 17:55] LABS: Microscopic, Urine URINE MICROSCOPIC (MICROSCOPIC)
[2024-09-29 18:08] LABS: Appearance,Urine CLEAR (Clear); Bilirubin,Urine Negative (Negative); Blood, Urine Negative (Negative); Color,Urine YELLOW (Yellow); Glucose,Urine (UA) Negative (Negative); Ketones,Urine Negative (Negative); Leukocyte Esterase,Urine TRACE (Negative); Nitrate,Urine Negative (Negative); Protein,Urine Negative (Negative); Specific Gravity, Urine 1.015 (1.005-1.030)
[2024-09-29] MEDS: dilTIAZem 25MG/5ML VIAL 20 MG IV (18:20)
[2024-09-29] MEDS: PIPERACILLIN/TAZO 4.5 GM in 0.9 % SODIUM CHLORIDE 100 ML IV (18:21)
[2024-09-29] MEDS: dilTIAZem HCL 180MG CAP.ER.24H 180 MG PO (18:21)
[2024-09-29 18:22] LABS: Troponin I < 0.01 ng/ml (0.00-0.034)
[2024-09-29] MEDS: FUROSEMIDE 40MG/4ML VIAL 60 MG IV (18:22)
[2024-09-29 18:26] LABS: Hepatitis C Ab Qual. W/ RFX NEGATIVE (Negative)
[2024-09-29 18:40] LABS: Bacteria,Urine 1+ /lpf; Mucus,Urine 2+ /lpf
[2024-09-29] MEDS: VANCOMYCIN/WATER FOR INJ (PEG) 1.5 GM/300 ML PIGGYBACK IV (18:51)
[2024-09-29] MEDS: LACTATED RINGERS 1000ML 1,000 ML 999 ML IV (18:53)
--- NOTE | 2024-09-29 18:53 | P.HP_ITS ---
<Statement entered by Ronnie Moore MD - 10/02/24 14:07> I personally examined the patient and agree with the plan of care as outlined by the [employer] C[employer] SERVICE AGENT. History of Present Illness *Admission Date: 09/29/24 *Reason for visit:: weakness *History of present illness: This is a 64-year-old female who has a past medical history significant for nonischemic dilated cardiomyopathy, obstructive sleep apnea, cardiac arrest with an anoxic injury, brain aneurysm, pseudobulbar affect, depression, hypothyroidism, atrial fibrillation with rapid ventricular response, coronary artery disease, hyperlipidemia, hypertension, insomnia, and diabetes who presents with a chief complaint of weakness. Due to patient's anoxic brain injury, her review of systems is limited; as a result, the majority information obtained from ER provider, chart review, and daughter at the bedside. According to ER provider, patient presented due to not eating, not drinking, and generalized weakness. While in emergency room, patient was noted to be in atrial fibrillation with rapid ventricular response with heart rates as high as 130s. Patient was given diltiazem and her heart rate improved to the 90s and low 100s. Patient appeared to be hypovolemic, so she has been admitted for further management. During my evaluation of the patient, patient was pleasant. Daughter at the bedside states that patient has not been eating and drinking. Additional pertinent vitals obtained include a white blood cell count of 13.7, red blood cell count of 6.45, hemoglobin 16.8, hematocrit 53.5, INR 1.48, pH is 7.56, pCO2 of 23.7, bicarb of 20.9, BUN of 36, creatinine of 1.30, GFR of 41, blood glucose 186, magnesium 2.5, total bilirubin 2.5, AST of 50, ALT of 98, alkaline phosphate of 225, BNP of 8910, TSH of 7.96, and free T4 of 10.7. [facility] Disclaimer: The information contained in this section may have been updated after the patient was seen, as this information can be updated by other users. Medical History Restlessness Elevated bilirubin Lactic acidosis Chest pain MICAH (acute kidney injury) Severe sepsis Abnormal cardiovascular stress test Nocturnal hypoxemia Abnormal overnight oximetry. Order for O2 2 L/min at night was sent to [facility]. Hematoma, chest wall Hematoma Hematoma of implantable cardioverter-defibrillator (ICD) pocket Encephalopathy acute Cardiogenic shock Respiratory failure Cardiac arrest Depression Hyperglycemia Acute on chronic congestive heart failure Chronic systolic CHF (congestive heart failure) Abnormal echocardiogram Shortness of breath Acute systolic (congestive) heart failure Ventricular hypokinesis Hyperglycemia Electrocardiogram abnormal Dilated cardiomyopathy Obesity Congestive heart failure Atrial fibrillation with rapid ventricular response Neurogenic bladder Abnormal computed tomography angiography of heart Atypical angina Nonischemic dilated cardiomyopathy BETH (obstructive sleep apnea) Unable to tolerate AutoPap, CPAP. Abnormal overnight oximetry. On O2 at night. Brain aneurysm R-MCA aneurysm Chronic depression Overall stable Pseudobulbar affect Hypothyroidism Atrial fibrillation with RVR CAD (coronary atherosclerotic disease) CAD, CHF, AFIB Atrial fibrillation HLD (hyperlipidemia) Hypertensive disorder Diabetes mellitus Obstructive sleep apnea syndrome 07/08/2022: Compliance is still an issue, there are several days where there is no recording whatsoever and days where she is able to use her Auto- Pap for 4 hours or longer. Consider formal titration or trial with Auto- BIPAP. 05/02/2022: New AutoPap [employer] 2, [facility], [facility]. She will work on increasing compliance. 04/04/2022: Moderate, unable to tolerate CPAP ([facility] unit already registered due to recall) in the past. She does not qualify for a new unit until 05/2022. She was advised to consider resuming use of her old CPAP unit and was referred to [facility] to check and service her unit, obtain supplies. Surgical History History of cardiac catheterization Presence of biventricular AICD AICD (automatic cardioverter/defibrillator) present Family History Other Atrial fibrillation Cancer Diabetes Hypertension Social History Smoking Status: Never smoker alcohol intake: never substance use type: former substance user current occupational status: retired and disabled Travel in the last 8 weeks: None household members: none housing: apartment current occupational exposures/hazards: No Have you lived/traveled outside [place] in past 30 days?: No Contact w/someone who lives/traveled outside US past 30 days?: No Exposure to someone with infectious disease in past 14 days?: No Do you have a fever (greater than 100.4 F or 38 C)?: No Have you tested positive for COVID-19: No Exposed to someone with COVID-19 in past 14 days?: No Do you have a sore throat?: No Do you have a cough?: No Do you have any weakness?: No Do you have any diarrhea?: No Are you experiencing any unusual bleeding?: No Do you have any muscle aches/pain?: No Do you have any abdominal pain?: No Are you experiencing loss of taste or smell?: No Other Medical History Have you received the Flu Vaccine for this season: No Have you received the Pneumonia Vaccine: No Review of Systems Review of Systems Review of systems:: unable to obtain Meds Home Medications and Allergies Home Medications ?Medication ?Instructions ?Recorded ?Confirmed ?Type atorvastatin 40 mg tablet 40 mg PO HS 02/12/22 09/29/24 History lactobacillus combination no.4 3 3,000 mmu cells PO DAILY 02/12/22 09/29/24 History billion cell capsule (Probiotic) spironolactone 25 mg tablet 25 mg PO DAILY 02/12/22 09/29/24 History apixaban 5 mg tablet (Eliquis) 5 mg PO BID #60 tabs 11/14/23 09/29/24 Rx hydroxyzine pamoate 25 mg capsule 25 mg PO TIDP PRN anxiety 03/31/24 09/29/24 History dextromethorphan 20 mg-quinidine 1 cap PO Q12H Pseudobulbar #180 05/07/24 09/29/24 Rx 10 mg capsule (Nuedexta) caps metoprolol succinate 50 mg 50 mg PO DAILY #30 tabs 05/12/24 09/29/24 Rx tablet,extended release 24 hr (Toprol XL) bumetanide 2 mg tablet 2 mg PO DAILY 08/19/24 09/29/24 History escitalopram oxalate 5 mg tablet 5 mg PO DAILY 08/19/24 09/29/24 History levothyroxine 75 mcg tablet 75 mcg PO DAILY 08/20/24 09/29/24 History tcmsobrildhd-qvuhjgxj-kgssq acid 1 cap PO DAILY #30 caps 08/20/24 09/29/24 Rx 400 mcg-vitamin K 80 mcg capsule (Multi For Her 50 Plus) trazodone 50 mg tablet See Rx Instructions .Route 08/30/24 09/29/24 Rx .COMPLEX #90 tabs mirabegron 50 mg tablet,extended 50 mg PO ONCE 09/29/24 09/29/24 History release 24 hr (Myrbetriq) thiamine HCl (vitamin B1) 100 mg 100 mg PO DAILY 09/29/24 09/29/24 History tablet New Prescriptions to Start Prescriptions: Allergies Allergy/AdvReac Type Severity Reaction Status Date / Time No Known Allergies Allergy Verified 09/29/24 11:52 Exam Data for Last 24 hours Vital signs and Labs for Last 24 Hours: Temp Pulse Resp BP Pulse Ox O2 Del Method 97.6 F 80 24 95/72 L 93 L Room Air 09/29/24 16:32 09/29/24 18:01 09/29/24 18:01 09/29/24 18:01 09/29/24 18:01 09/29/24 16:32 Laboratory Results - last 24 hr 09/29/24 16:30: VBG pH 7.56 H, VBG pCO2 23.7 L, VBG pO2 135.0 H, VBG HCO3 20.9 L , VBG Total CO2 21.6 L, VBG O2 Saturation 99.1 H, VBG Base Excess -1.3, VBG Lactic Acid 5.0 H, Sodium 137, Potassium 4.5, Chloride 98, Carbon Dioxide 26, Anion Gap 17.5 H, BUN 36 H, Creatinine 1.30 H, Estimated Creat Clear 53, Estimated GFR 41 L, Est GFR ( Amer) 50 L, Glucose 186 H, Calcium 9.3, Magnesium 2.5 H, Total Bilirubin 2.5 H, AST 50 H, ALT 98 H, Alkaline Phosphatase 225 H, Troponin I < 0.01, NT-Pro-B Natriuret Pep 8910 H, Total Protein 6.4, Albumin 3.7, Globulin 2.7, Albumin/Globulin Ratio 1.4, TSH 7.96 H, Thyroxine (T4) 10.7, Salicylates < 1.0 L, Acetaminophen < 10 L, Plasma/Serum Alcohol < 10, HCV Ab HILARY w/Rflx PCR Qn Negative 09/29/24 17:00: WBC 13.7 H, RBC 6.45 H, Hgb 16.8 H, Hct 53.5 H, MCV 82.9, MCH 26.0 L, MCHC 31.4 L, RDW 19.2 H, Plt Count 203, MPV 10.2, Neut % (Auto) 79.6, Lymph % (Auto) 12.9, [place] % (Auto) 6.9, Eos % (Auto) 0.1, Baso % (Auto) 0.1, Neut # (Auto) 10.9 H, Lymph # (Auto) 1.8, [place] # (Auto) 0.9, Eos # (Auto) 0.0, Baso # (Auto) 0.0, PT 15.9 H, INR 1.48 H, APTT 28.0 09/29/24 17:44: Urine Color Yellow, Urine Appearance Clear, Urine pH 7.0, Ur Specific [place] 1.015, Urine Protein Negative, Urine Glucose (UA) Negative, Urine Ketones Negative, Urine Blood Negative, Urine Nitrate Negative, Urine Bilirubin Negative, Urine Urobilinogen 1.0, Ur Leukocyte Esterase Trace, Urine RBC 5-10, Urine WBC 10-20, Ur Squamous Epith Cells 3-5, Urine Bacteria 1+, Hyaline Casts 3-5, Urine Mucus 2+ I & O for Last 24 hours: Intake & Output 09/26/24 09/27/24 09/28/24 09/29/24 23:59 23:59 23:59 23:59 Weight 78.018 kg Constitutional Constitutional: no acute distress, obese and cooperative *Routine HEENT Exam Head: Present normocephalic and atraumatic Eye: Present EOMI and PERRL ENT: Present mucous membranes moist *Routine Neck Exam Neck: Present supple, full ROM and trachea midline *Routine Respiratory Exam Respiratory: Present CTA bilaterally, normal respiratory effort, able to speak in complete sentences and symmetric chest movement *Routine Cardiovascular Exam Cardiovascular: Present tachycardia and irregular rhythm *Routine Abdominal Exam Abdominal: Present soft, normoactive bowel sounds and obese *Routine Rectal Exam Rectal:: deferred *Routine Genitalia Exam Genitalia:: deferred *Routine Extremities Exam Extremities: Present full ROM and normal capillary refill Routine Back/Spine/Pelvis Exam Back/Spine: Present full ROM *Routine Skin Exam Skin: Present intact and dry *Routine Neurological Exam Neurological: Present CN II-XII intact and moving all extremities Routine Psychiatric Exam Psychiatric: Present normal affect and cooperative H&P: Result Impressions 64-year-old female who presents with a chief complaint of weakness fou nd to be severely dehydrated. Moreover, patient was A-fib with RVR Assessment and Plan *Assessment and plan (1) Afib: Status: Chronic Qualifiers: Atrial fibrillation type: paroxysmal Qualified Code(s): I48.0 - Paroxysmal atrial fibrillation Category: Medical Code(s): I48.91 - Unspecified atrial fibrillation (2) Leukocytosis: Status: Acute Qualifiers: Leukocytosis type: unspecified Qualified Code(s): D72.829 - Elevated white blood cell count, unspecified Category: Medical Code(s): D72.829 - Elevated white blood cell count, unspecified (3) Polycythemia: Status: Acute Category: Medical Code(s): D75.1 - Secondary polycythemia (4) Dehydration: Status: Suspected Category: Medical Code(s): E86.0 - Dehydration (5) Respiratory alkalosis: Status: Acute Category: Medical Code(s): E87.3 - Alkalosis (6) Acute kidney injury superimposed on chronic kidney disease: Status: Acute Category: Medical Code(s): N17.9 - Acute kidney failure, unspecified; N18.9 - Chronic kidney disease, unspecified (7) Hypermagnesemia: Status: Acute Category: Medical Code(s): E83.41 - Hypermagnesemia (8) Transaminitis: Status: Acute Category: Medical Code(s): R74.01 - Elevation of levels of liver transaminase levels (9) Elevated brain natriuretic peptide (BNP) level: Status: Acute Category: Medical Code(s): R79.89 - Other specified abnormal findings of blood chemistry Plan Assessment: Atrial fibrillation with rapid ventricular response -Patient has chronic A-fib and is prescribed Metroprolol and Eliquis for management -Patient's heart rate during my evaluation was in the 90s -If she continues to have persistent atrial fibrillation, will use amiodarone drip -Will restart patient's metoprolol once med rec is updated -Will restart patient Eliquis once med rec is updated Leukocytosis -No obvious source of infection -May be reactive due to dehydration/-will obtain blood cultures x 2 -Will obtain procalcitonin -Will trend white blood cell count -If patient has fever or there is an upward trend of white blood cell count, will consider antibiotics-will discuss with attending Polycythemia -Patient is hemoconcentrated most likely in setting of dehydration -Will give patient gentle IV hydration -LR at 100 mL an hour Dehydration -As above -Will hold spironolactone -Will hold Bumex -Most likely due to diuretics and poor p.o. intake Respiratory alkalosis -Most likely in setting of tachypnea -Will monitor patient's respiratory status Acute on chronic kidney disease: Baseline creatinine appears to be around 1.10 -Will monitor patient's creatinine -Most likely prerenal disposition -Will give gentle IV hydration -If patient's kidney numbers continue to worsen, will obtain ultrasound of the kidneys and urine studies Hypermagnesia -Most likely in the setting of dehydration Transaminitis -This is chronic will monitor Elevated BNP -In my viewpoint patient is hypovolemic not hypervolemic -Patient's BNP elevation is most likely is in the setting from chronic heart failure --Chronic heart failure can lead to elevation of BNP due to the stress on the chambers leading to more production of beta nitric peptide -- On assessment, patient does not have any crackles in lungs chest x-ray is clear and no lower extremity edema -- Given patient is hemoconcentrated with elevation in magnesium, more than likely she is hypovolemic -- Will continue to hold diuretics for now Plan: Admit patient to the stepdown unit Activity as tolerated SCDs to bilateral lower extreme Cardiac/1800 ADA diet CBC/BMP daily Repeat venous lactic acid 4 mg Zofran IV push to 8 hours pain nausea vomiting Full code I have discussed this case with attending physician Dr. Moore and I look forward to more input
[2024-09-29 20:21] LABS: Troponin I < 0.01 ng/ml (0.00-0.034)
[2024-09-29 20:27] LABS: Hemoglobin A1C 8.7 % (4.0-6.0)
[2024-09-29 20:38] LABS: Reflex Lactic Add Lactic Reflex
[2024-09-29 20:43] LABS: HIV Combo NEGATIVE (Negative)
[2024-09-29 20:47] LABS: Barbiturates Screen,Urine Negative ng/ml (<200); Benzodiazepines Screen,Urine Negative ng/ml (<200)
[2024-09-29 20:48] LABS: Amphetamine/Metha Screen,Urine Negative ng/ml (<1000)
[2024-09-29 20:52] LABS: Cannabinoid Screen,Urine Negative ng/ml (<50); Cocaine Screen,Urine Negative ng/ml (<300)
[2024-09-29 20:53] LABS: Methadone Screen,Urine Negative ng/ml (<300)
[2024-09-29 20:54] LABS: Opiate Screen,Urine Negative ng/ml (<300); Phencyclidine Screen,Urine Negative ng/ml (<25)
[2024-09-29] MEDS: AMIODARONE HCL 150 MG in DEXTROSE 5 % IN WATER 100 ML 618 MG IV (21:01)
[2024-09-29] MEDS: AMIODARONE HCL 900 MG in DEXTROSE 5 % IN WATER 500 ML 34.53 MG IV (21:03)
[2024-09-29 21:26] LABS: Lactic Acid Follow Up (RFLX 1) 2.5 mmol/L (0.7-2.1)
[2024-09-29 21:41] LABS: POC Glucose,Bedside 156 (70-110)
[2024-09-29 23:01] LABS: Reflex Lactic (2 hrs) Add Lactic Reflex
[2024-09-29 23:16] LABS: Troponin I < 0.01 ng/ml (0.00-0.034)
[2024-09-29 23:22] LABS: Lactic Acid Follow up (RFLX 2) 2.6 mmol/L (0.7-2.1)
[2024-09-29] MEDS: humaLOG 100 UNITS/ML 10ML VIAL (SSI) SUBCUT (23:46)
[2024-09-30] VITALS (11 sets, daily range): BP systolic 86–117; BP diastolic 59–82; PULSE 99–120; RESP 14–21; TEMP 36.1–36.9; O2SAT 89–95; BMI 30.8
[2024-09-30] MEDS: APIXABAN 5MG TABLET 5 MG PO ×3 (03:06→20:19)
[2024-09-30 06:18] LABS: POC Glucose,Bedside 143 (70-110)
--- NOTE | 2024-09-30 06:48 | PC.NURSE ---
pt is a 64f that was admitted with afib with rvr. pt was only on antibiotic when came up to the floor. once pt was settled in on the floor pts heart rate was staying in the 120-130s and was having runs of vtach. was notifed and pt was placed on amiodirone. Amiodirione drip is going at 0.5mg/min at this time. pt has rested all night. Pt has 2 ivs that were ultrasound guided. pt gcs is 12 that is her baseline due to an anoxic brain injury 3 years ago. pts caregiver is at bedside and states that pt is able to make any decisions for her self. If pt was unable to answer any questions or became unresponsive pts sister is her poa. Pt does have a home medication in the omni that she takes every 12 hours for her psuedobulbar effects.
[2024-09-30 06:53] LABS: Basophils % 0.1 % (0.1-2.0); Eosinophils % 0.2 % (0.1-12.0); Hematocrit 50.4 % (37.0-47.0); Lymphocytes # 1.4 K/mm3 (0.7-4.5); Mean Corpuscular HGB Conc 31.7 g/dL (31.8-35.4); Mean Corpuscular Hemoglobin 26.2 pg (27.0-31.2); Mean Corpuscular Volume 82.5 fl (81-99); Mean Platelet Volume 10.4 fl (7.4-10.4); Neutrophils # 9.9 K/mm3 (1.8-7.8); Neutrophils % 80.3 % (37.0-80.0); Nucleated Red Blood Cells # 0 10^3/uL; Nucleated Red Blood Cells % 0 %; Platelet Count 159 K/mm3 (142-424); Red Blood Count 6.11 M/mm3 (4.20-5.40); Red Cell Distribution Width-SD 52.3 fL; White Blood Count 12.3 K/mm3 (4.8-10.8)
[2024-09-30 06:58] LABS: Chloride 100 mmol/L (98-107); Potassium 3.4 mmoL/L (3.5-5.1); Sodium 135 mmol/L (136-145)
[2024-09-30 07:01] LABS: Anion Gap 11.4 mEq/L (5-15); Blood Urea Nitrogen 28 mg/dl (7-17); Calcium 8.6 mg/dl (8.4-10.2); Carbon Dioxide 27 mmol/L (22.0-30.0); Creatinine Clearance Estimated 64 mL/min (50-200); Estimated Glomerular Filt Rate 50 ml/min (>60); GFR (African American) 60 ML/MIN (>60); Glucose 154 mg/dl (74-100)
[2024-09-30 07:09] LABS: Lactic Acid 1.3 mmol/L (0.7-2.1)
[2024-09-30 07:53] LABS: Procalcitonin 0.207 ng/mL (0.0-2.0)
[2024-09-30] MEDS: ESCITALOPRAM 10MG TABLET 5 MG PO (09:03)
[2024-09-30] MEDS: THIAMINE 100MG TABLET 100 MG PO (09:03)
[2024-09-30] MEDS: LACTOBACILLUS PROBIOTIC COMB CAPSULE 1 CAP PO (09:03)
[2024-09-30] MEDS: LEVOTHYROXINE 75MCG (0.075MG) TAB 75 MCG PO (09:03)
[2024-09-30] MEDS: QUINIDINE PO ×2 (09:15→20:20)
[2024-09-30] MEDS: DEXTROMETHORPHAN PO ×2 (09:15→20:20)
--- NOTE | 2024-09-30 09:44 | HMH.PHAINT1 ---
Pharmacy Intervention Comments: MEDICATION RECONCILIATION COMPLETED ON PATIENT USING EXTERNAL FILL HISTORY FROM PHARMACY. -LARA JAUREGUI, LATOYAD
[2024-09-30] MEDS: LACTATED RINGERS 1000ML 1,000 ML 500 ML IV (09:48)
--- NOTE | 2024-09-30 09:58 | PC.NURSE ---
Patient only getting 500 mls bolus over 2 hours
--- NOTE | 2024-09-30 10:42 | PC.NURSE ---
US guided IV in right upper arm infiltrated, upper arm slightly swollen, blanchable. No pain per pt
[2024-09-30 11:07] LABS: POC Glucose,Bedside 148 (70-110)
[2024-09-30] MEDS: 0.9 % SODIUM CHLORIDE 500 ML 250 ML IV (11:36)
--- NOTE | 2024-09-30 12:06 | EXP.CARD.CON ---
History of Present Illness History of Present Illness Consult date: 09/30/24 Requesting physician: Ronnie Moore Consult reason: atrial fibrillation Chief complaint: weakness, decreased PO intake History of present illness: This is a 64-year-old female who has a past medical history significant for nonischemic dilated cardiomyopathy s/p BiV AICD, obstructive sleep apnea, cardiac arrest with an anoxic injury, brain aneurysm, pseudobulbar affect, depression, hypothyroidism, atrial fibrillation with rapid ventricular response, coronary artery disease, hyperlipidemia, hypertension, insomnia, and diabetes who presents with a chief complaint of weakness. Due to patient's anoxic brain injury, her review of systems is limited; as a result, the majority information obtained from ER provider, chart review, and daughter at the bedside. According to ER provider, patient presented due to not eating, not drinking, and generalized weakness. While in emergency room, patient was noted to be in atrial fibrillation with rapid ventricular response with heart rates as high as 130s. Patient was given diltiazem and her heart rate improved to the 90s and low 100s. Patient appeared to be hypovolemic, so she has been admitted for further management. Cardiology was asked to evaluate for management of A-fib RVR. Morning labs: WBC 12.3, hemoglobin 16, sodium 135, potassium 3.4, creatinine 1.1(1.3 on admission), lactate 1.3 down from 2.6 troponin negative procalcitonin 0.207 Chest x-ray negative for acute disease process. This morning patient is resting comfortably in bed and denies chest pain or shortness of breath. Eating breakfast. Remains afib rvr low 100s on amiodarone drip. [facility] Disclaimer: The information contained in this section may have been updated after the patient was seen, as this information can be updated by other users. Medical History Restlessness Elevated bilirubin Lactic acidosis Chest pain MICAH (acute kidney injury) Severe sepsis Abnormal cardiovascular stress test Nocturnal hypoxemia Abnormal overnight oximetry. Order for O2 2 L/min at night was sent to [facility]. Hematoma, chest wall Hematoma Hematoma of implantable cardioverter-defibrillator (ICD) pocket Encephalopathy acute Cardiogenic shock Respiratory failure Cardiac arrest Depression Hyperglycemia Acute on chronic congestive heart failure Chronic systolic CHF (congestive heart failure) Abnormal echocardiogram Shortness of breath Acute systolic (congestive) heart failure Ventricular hypokinesis Hyperglycemia Electrocardiogram abnormal Dilated cardiomyopathy Obesity Congestive heart failure Atrial fibrillation with rapid ventricular response Neurogenic bladder Abnormal computed tomography angiography of heart Atypical angina Nonischemic dilated cardiomyopathy BETH (obstructive sleep apnea) Unable to tolerate AutoPap, CPAP. Abnormal overnight oximetry. On O2 at night. Brain aneurysm R-MCA aneurysm Chronic depression Overall stable Pseudobulbar affect Hypothyroidism Atrial fibrillation with RVR CAD (coronary atherosclerotic disease) CAD, CHF, AFIB Atrial fibrillation HLD (hyperlipidemia) Hypertensive disorder Diabetes mellitus Obstructive sleep apnea syndrome 07/08/2022: Compliance is still an issue, there are several days where there is no recording whatsoever and days where she is able to use her Auto-Pap for 4 hours or longer. Consider formal titration or trial with Auto-BIPAP. 05/02/2022: New AutoPap [employer] 2, [facility], [facility]. She will work on increasing compliance. 04/04/2022: Moderate, unable to tolerate CPAP ([facility] unit already registered due to recall) in the past. She does not qualify for a new unit until 05/2022. She was advised to consider resuming use of her old CPAP unit and was referred to [facility] to check and service her unit, obtain supplies. Surgical History History of cardiac catheterization Presence of biventricular AICD AICD (automatic cardioverter/defibrillator) present Family History Other Atrial fibrillation Cancer Diabetes Hypertension Social History Smoking Status: Never smoker alcohol intake: never substance use type: former substance user current occupational status: retired and disabled Travel in the last 8 weeks: None household members: none housing: apartment current occupational exposures/hazards: No Have you lived/traveled outside [place] in past 30 days?: No Contact w/someone who lives/traveled outside US past 30 days?: No Exposure to someone with infectious disease in past 14 days?: No Do you have a fever (greater than 100.4 F or 38 C)?: No Have you tested positive for COVID-19: No Exposed to someone with COVID-19 in past 14 days?: No Do you have a sore throat?: No Do you have a cough?: No Do you have any weakness?: No Are you experiencing any nausea/vomitting?: Yes Do you have any diarrhea?: No Are you experiencing any unusual bleeding?: No Do you have any muscle aches/pain?: No Do you have any abdominal pain?: No Are you experiencing loss of taste or smell?: No Review of Systems Review of Systems Review of systems:: pertinent systems reviewed and negative unless documented below Constitutional Constitutional: Reports fatigue, Reports poor appetite and Reports weakness *Neurologic Neurologic: Reports weakness Endocrine Endocrine: Reports fatigue Exam Data for Last 24 hours Vital signs and Labs for Last 24 Hours: Temp Pulse Resp BP Pulse Ox O2 Del Method 97.0 F L 106 H 18 116/80 95 Room Air 09/30/24 12:00 09/30/24 12:00 09/30/24 12:00 09/30/24 12:00 09/30/24 12:00 09/30/24 12:00 Laboratory Results - last 24 hr 09/29/24 16:30: VBG pH 7.56 H, VBG pCO2 23.7 L, VBG pO2 135.0 H, VBG HCO3 20.9 L, VBG Total CO2 21.6 L, VBG O2 Saturation 99.1 H, VBG Base Excess -1.3, VBG Lactic Acid 5.0 H, Sodium 137, Potassium 4.5, Chloride 98, Carbon Dioxide 26, Anion Gap 17.5 H, BUN 36 H, Creatinine 1.30 H, Estimated Creat Clear 53, Estimated GFR 41 L, Est GFR ( Amer) 50 L, Glucose 186 H, Calcium 9.3, Magnesium 2.5 H, Total Bilirubin 2.5 H, AST 50 H, ALT 98 H, Alkaline Phosphatase 225 H, Troponin I < 0.01, NT-Pro-B Natriuret Pep 8910 H, Total Protein 6.4, Albumin 3.7, Globulin 2.7, Albumin/Globulin Ratio 1.4, TSH 7.96 H, Thyroxine (T4) 10.7, Salicylates < 1.0 L, Acetaminophen < 10 L, Plasma/Serum Alcohol < 10, HCV Ab HILARY w/Rflx PCR Qn Negative, HIV Ag/Ab Combo Qual Negative 09/29/24 17:00: WBC 13.7 H, RBC 6.45 H, Hgb 16.8 H, Hct 53.5 H, MCV 82.9, MCH 26.0 L, MCHC 31.4 L, RDW 19.2 H, Plt Count 203, MPV 10.2, Neut % (Auto) 79.6, Lymph % (Auto) 12.9, [place] % (Auto) 6.9, Eos % (Auto) 0.1, Baso % (Auto) 0.1, Neut # (Auto) 10.9 H, Lymph # (Auto) 1.8, [place] # (Auto) 0.9, Eos # (Auto) 0.0, Baso # (Auto) 0.0, PT 15.9 H, INR 1.48 H, APTT 28.0, Hemoglobin A1c 8.7 H 09/29/24 17:44: Urine Color Yellow, Urine Appearance Clear, Urine pH 7.0, Ur Specific [place] 1.015, Urine Protein Negative, Urine Glucose (UA) Negative, Urine Ketones Negative, Urine Blood Negative, Urine Nitrate Negative, Urine Bilirubin Negative, Urine Urobilinogen 1.0, Ur Leukocyte Esterase Trace, Urine RBC 5-10, Urine WBC 10-20, Ur Squamous Epith Cells 3-5, Urine Bacteria 1+, Hyaline Casts 3-5, Urine Mucus 2+, Urine Opiates Screen Negative, Urine Methadone Screen Negative, Ur Barbituates Screen Negative, Ur Phencyclidine Scrn Negative, Ur Amphetamines Screen Negative, U Benzodiazepines Scrn Negative, Urine Cocaine Screen Negative, U Marijuana (THC) Screen Negative 09/29/24 19:35: Troponin I < 0.01 09/29/24 20:56: Lactate 2.5 H 09/29/24 21:17: POC Glucose 156 H 09/29/24 22:27: Lactate 2.6 H, Troponin I < 0.01 09/30/24 06:07: POC Glucose 143 H 09/30/24 06:33: WBC 12.3 H, RBC 6.11 H, Hgb 16.0, Hct 50.4 H, MCV 82.5, MCH 26.2 L, MCHC 31.7 L, RDW 19.0 H, Plt Count 159, MPV 10.4, Neut % (Auto) 80.3 H, Lymph % (Auto) 11.0, [place] % (Auto) 8.0, Eos % (Auto) 0.2, Baso % (Auto) 0.1, Neut # (Auto) 9.9 H, Lymph # (Auto) 1.4, [place] # (Auto) 1.0, Eos # (Auto) 0.0, Baso # (Auto) 0.0, Sodium 135 L, Potassium 3.4 L D, Chloride 100, Carbon Dioxide 27, Anion Gap 11.4, BUN 28 H, Creatinine 1.10 H, Estimated Creat Clear 64, Estimated GFR 50 L, Est GFR ( Amer) 60, Glucose 154 H, Lactate 1.3, Calcium 8.6, Procalcitonin 0.207 09/30/24 10:59: POC Glucose 148 H I & O for Last 24 hours: Intake & Output 09/27/24 09/28/24 09/29/24 09/30/24 23:59 23:59 23:59 23:59 Intake Total 250 / 250 961.057 / 961.057 Output Total 600 / 600 1350 / 1350 Balance -350 / -350 -388.943 / -388.943 Weight 172 lb 174 lb 2.643 oz Microbiology Reports for the Last 24 Hours: Microbiology 09/29/24 17:44 Urine,Clean Catch Urine Culture - Preliminary Gram Negative Rods Constitutional Constitutional: no acute distress *Routine Respiratory Exam Respiratory: Present CTA bilaterally and symmetric chest movement *Routine Cardiovascular Exam Cardiovascular: Present Normal S1 and Normal S2 Comments: A-fib RVR noted *Routine Abdominal Exam Abdominal: Present soft and normoactive bowel sounds; Absent tenderness *Routine Extremities Exam Extremities: Present full ROM and normal capillary refill; Absent edema *Routine Skin Exam Skin: Present intact, dry and warm Detailed Neck Exam: Thyroids Thyroid: Absent bruit Meds Home Medications and Allergies Home Medications ?Medication ?Instructions ?Recorded ?Confirmed ?Type atorvastatin 40 mg tablet 40 mg PO HS 02/12/22 09/30/24 History lactobacillus combination no.4 3 3,000 mmu cells PO DAILY 02/12/22 09/29/24 History billion cell capsule (Probiotic) spironolactone 25 mg tablet 25 mg PO DAILY 02/12/22 09/29/24 History apixaban 5 mg tablet (Eliquis) 5 mg PO BID #60 tabs 11/14/23 09/29/24 Rx dextromethorphan 20 mg-quinidine 1 cap PO Q12H Pseudobulbar #180 05/07/24 09/29/24 Rx 10 mg capsule (Nuedexta) caps bumetanide 2 mg tablet 2 mg PO DAILY 08/19/24 09/29/24 History escitalopram oxalate 5 mg tablet 5 mg PO DAILY 08/19/24 09/29/24 History levothyroxine 75 mcg tablet 75 mcg PO DAILY 08/20/24 09/29/24 History metoprolol succinate 50 mg 50 mg PO HS 09/29/24 09/30/24 History tablet,extended release 24 hr (Toprol XL) thiamine HCl (vitamin B1) 100 mg 100 mg PO DAILY 09/29/24 09/29/24 History tablet trazodone 50 mg tablet 150 mg PO HS 09/29/24 09/30/24 History New Prescriptions to Start Prescriptions: Allergies Allergy/AdvReac Type Severity Reaction Status Date / Time No Known Allergies Allergy Verified 09/29/24 11:52 Assessment and Plan *Assessment and plan (1) Atrial fibrillation with RVR: Status: Acute Category: Medical Code(s): I48.91 - Unspecified atrial fibrillation (2) Chronic heart failure with reduced ejection fraction (HFrEF, <= 40%): Status: Acute Category: Medical Code(s): I50.22 - Chronic systolic (congestive) heart failure (3) Dehydration: Status: Suspected Category: Medical Code(s): E86.0 - Dehydration Plan Afib RVR in the setting of: Dehydration Poor PO intake Long history of poorly controlled A-fib Stop amiodarone Resume home metoprolol succinate 50 mg daily. Can increase to 100 mg p.o. daily if blood pressure will tolerate. Continue Eliquis 5 mg p.o. twice daily Gentle hydration Chronic HFrEF Echo 07/2024: EF 30 to 35%, mild RV dilation with mild reduction in RV function, moderate to severe TR BNP elevated on admission but no signs of volume overload noted- patient appears dehydrated Continue metoprolol. Resume aldactone prior to DC home.. Consider addition of jardiance and entresto later once micah resolves and patient is no longer dehydrated. Acute on chronic Kidney disease Creatinine on admission 1.3 down to 1.1 after fluids Continue to monitor CV summary 09/30/2024: Resume home dose of metoprolol succinate 50 mg p.o. daily. Can increase to 100 mg p.o. daily for rate control if blood pressure will tolerate. Recommend gentle hydration.
[2024-09-30] MEDS: CEFTRIAXONE 1 GM 1 GM in 0.9 % SODIUM CHLORIDE 50 ML IV (13:31)
[2024-09-30] MEDS: METOPROLOL SUCCINATE XL 50MG TABLET 50 MG PO (13:32)
--- NOTE | 2024-09-30 14:12 | PC.NURSE ---
pt is not really interested in food. she ate some trimble this morning and drank some water. pt was compliant to drink a chocolate boost. in the diet order it was noted to have Chocolate boost with every meal pt is resting at this time. call light is within reach and family is at BS
[2024-09-30] MEDS: LACTATED RINGERS 1000ML 1,000 ML 75 ML IV (14:42)
--- NOTE | 2024-09-30 15:28 | PC.NURSE ---
Hold metoprolol succinate at 2100 if systolic less than 110 per tunde max
[2024-09-30] MEDS: humaLOG 100 UNITS/ML 10ML VIAL (SSI) SUBCUT (16:38)
--- NOTE | 2024-09-30 17:26 | PC.NURSE ---
Patient alert to self and place. VS stable and patient remained on room air. Amio drip off per cardiology, patient remains in controlled afib. Lung sounds clear.
[2024-09-30] MEDS: ATORVASTATIN 40MG TABLET 40 MG PO (20:20)
[2024-09-30] MEDS: TRAZODONE 50MG TABLET 100 MG PO (20:20)
[2024-09-30 20:39] LABS: POC Glucose,Bedside 135 (70-110)
--- NOTE | 2024-09-30 21:36 | EXP.PN ---
Subjective *Date: 09/30/24 *Time: 21:36 Interval history: Patient states she is doing better, eating a little bit better. Very pleasant. Exam Data for Last 24 hours Vital signs and Labs for Last 24 Hours: Temp Pulse Resp BP Pulse Ox O2 Del Method 98.4 F 111 H 16 110/67 95 Room Air 09/30/24 20:00 09/30/24 20:00 09/30/24 20:00 09/30/24 20:00 09/30/24 20:00 09/30/24 21:00 Laboratory Results - last 24 hr 09/29/24 17:44: Urine Color Yellow, Urine Appearance Clear, Urine pH 7.0, Ur Specific [place] 1.015, Urine Protein Negative, Urine Glucose (UA) Negative, Urine Ketones Negative, Urine Blood Negative, Urine Nitrate Negative, Urine Bilirubin Negative, Urine Urobilinogen 1.0, Ur Leukocyte Esterase Trace, Urine RBC 5-10, Urine WBC 10-20, Ur Squamous Epith Cells 3-5, Urine Bacteria 1+, Hyaline Casts 3-5, Urine Mucus 2+ 09/29/24 21:17: POC Glucose 156 H 09/29/24 22:27: Lactate 2.6 H, Troponin I < 0.01 09/30/24 06:07: POC Glucose 143 H 09/30/24 06:33: WBC 12.3 H, RBC 6.11 H, Hgb 16.0, Hct 50.4 H, MCV 82.5, MCH 26.2 L, MCHC 31.7 L, RDW 19.0 H, Plt Count 159, MPV 10.4, Neut % (Auto) 80.3 H, Lymph % (Auto) 11.0, [place] % (Auto) 8.0, Eos % (Auto) 0.2, Baso % (Auto) 0.1, Neut # (Auto) 9.9 H, Lymph # (Auto) 1.4, [place] # (Auto) 1.0, Eos # (Auto) 0.0, Baso # (Auto) 0.0, Sodium 135 L, Potassium 3.4 L D, Chloride 100, Carbon Dioxide 27, Anion Gap 11.4, BUN 28 H, Creatinine 1.10 H, Estimated Creat Clear 64, Estimated GFR 50 L, Est GFR ( Amer) 60, Glucose 154 H, Lactate 1.3, Calcium 8.6, Procalcitonin 0.207 09/30/24 10:59: POC Glucose 148 H 09/30/24 19:57: POC Glucose 135 H I & O for Last 24 hours: Intake & Output 09/27/24 09/28/24 09/29/24 09/30/24 23:59 23:59 23:59 23:59 Intake Total 250 / 250 2243.241 / 2243.241 Output Total 600 / 600 1600 / 1600 Balance -350 / -350 643.241 / 643.241 Weight 78.018 kg 79 kg Microbiology Reports for the Last 24 Hours: Microbiology 09/29/24 17:26 Blood Blood Culture - Preliminary NO GROWTH AFTER 24 HOURS 09/29/24 17:00 Blood Blood Culture - Preliminary NO GROWTH AFTER 24 HOURS 09/29/24 17:44 Urine,Clean Catch Urine Culture - Preliminary Gram Negative Rods Constitutional Constitutional: no acute distress Comments: Pleasantly cognitively impaired. *Routine HEENT Exam Head: Present normocephalic Eye: Present EOMI and PERRL ENT: Present mucous membranes moist *Routine Neck Exam Neck: Present supple; Absent lymphadenopathy *Routine Respiratory Exam Respiratory: Present CTA bilaterally *Routine Cardiovascular Exam Cardiovascular: Present RRR *Routine Abdominal Exam Abdominal: Present soft and normoactive bowel sounds; Absent tenderness *Routine Extremities Exam Extremities: Absent cyanosis, clubbing or edema *Routine Skin Exam Skin: Present warm; Absent rash *Routine Neurological Exam Neurological: Present alert Assessment and Plan *Assessment and plan (1) Afib: Status: Chronic Qualifiers: Atrial fibrillation type: paroxysmal Qualified Code(s): I48.0 - Paroxysmal atrial fibrillation Category: Medical Code(s): I48.91 - Unspecified atrial fibrillation (2) Leukocytosis: Status: Acute Qualifiers: Leukocytosis type: unspecified Qualified Code(s): D72.829 - Elevated white blood cell count, unspecified Category: Medical Code(s): D72.829 - Elevated white blood cell count, unspecified (3) Polycythemia: Status: Acute Category: Medical Code(s): D75.1 - Secondary polycythemia (4) Dehydration: Status: Suspected Category: Medical Code(s): E86.0 - Dehydration (5) Respiratory alkalosis: Status: Acute Category: Medical Code(s): E87.3 - Alkalosis (6) Acute kidney injury superimposed on chronic kidney disease: Status: Acute Category: Medical Code(s): N17.9 - Acute kidney failure, unspecified; N18.9 - Chronic kidney disease, unspecified (7) Hypermagnesemia: Status: Acute Category: Medical Code(s): E83.41 - Hypermagnesemia (8) Transaminitis: Status: Acute Category: Medical Code(s): R74.01 - Elevation of levels of liver transaminase levels (9) Elevated brain natriuretic peptide (BNP) level: Status: Acute Category: Medical Code(s): R79.89 - Other specified abnormal findings of blood chemistry Abraham Pham is a 64-year-old female who presented with progressive weakness and was admitted for A-fib RVR and UTI. #Acute on chronic A-fib RVR, paroxysmal ? In the setting of volume depletion from poor oral intake due to UTI. Improving with IV fluid resuscitation. ? Current HR in the low 100s. ? Will increase metoprolol succinate to 100 mg daily, continue Eliquis 5 mg twice daily. ? Cardiology consulted, did not continue amiodarone as A-fib is in the setting of volume depletion. ? Continue LR at 75 mL/h. #UTI #Generalized weakness ? UA grossly abnormal, follow-up urine culture. ? Ceftriaxone day 1. ? PT/OT consulted, pending recommendations. ? Anticipate discharge once urine cultures results. #History of anoxic brain injury ? Unfortunately occurred during cardiac arrest. Patient is very pleasant, but cognitively impaired. ? Continue supportive management, daughter at bedside. #HFrEF ? Known LVEF 30 to 35%, follows closely with cardiology. No signs of volume overload, rather volume depleted. ? Continue GDMT with metoprolol succinate 100 mg, hold spironolactone due to long depletion. #Hypothyroidism ? TFTs normal. Continue home levothyroxine 75 mg. Full code DVT prophylaxis: Eliquis
[2024-10-01] VITALS: BP 102/59; PULSE 107; PULSE 90; PULSE 95; RESP 12; TEMP 37.1; O2SAT 92
--- NOTE | 2024-10-01 02:54 | PC.NURSE ---
Pt has been continually running a paced rhythm on the monitor. Pt is currently resting in bed with eyes closed. Respirations even and unlabored. Daughter at bedside. Pt is AOx2 when awake, which is her baseline. Bed is low, locked, and call light is within reach.
[2024-10-01] MEDS: LACTATED RINGERS 1000ML 1,000 ML 75 ML IV (03:23)
[2024-10-01 04:00] VITALS: BP 126/77; PULSE 110; PULSE 114; RESP 20; TEMP 36.8; O2SAT 94; BMI 32.5
[2024-10-01 05:42] LABS: POC Glucose,Bedside 101 (70-110)
[2024-10-01] MEDS: LEVOTHYROXINE 75MCG (0.075MG) TAB 75 MCG PO (06:02)
[2024-10-01 06:14] LABS: Basophils % 0.1 % (0.1-2.0); Eosinophils % 0.1 % (0.1-12.0); Hematocrit 47.3 % (37.0-47.0); Hemoglobin 15.2 g/dL (12.2-16.2); Lymphocytes # 1.2 K/mm3 (0.7-4.5); Lymphocytes % 12.6 % (10-50); Mean Corpuscular HGB Conc 32.1 g/dL (31.8-35.4); Mean Corpuscular Hemoglobin 26.5 pg (27.0-31.2); Mean Corpuscular Volume 82.5 fl (81-99); Mean Platelet Volume 10.4 fl (7.4-10.4); Monocytes # 0.7 K/mm3 (0.1-1.0); Monocytes % 7.5 % (1.7-9.3); Neutrophils # 7.8 K/mm3 (1.8-7.8); Neutrophils % 79.4 % (37.0-80.0); Nucleated Red Blood Cells # 0 10^3/uL; Nucleated Red Blood Cells % 0 %; Platelet Count 153 K/mm3 (142-424); Red Blood Count 5.73 M/mm3 (4.20-5.40); Red Cell Distribution Width 18.9 % (11.5-17.5); Red Cell Distribution Width-SD 52.8 fL; White Blood Count 9.8 K/mm3 (4.8-10.8)
[2024-10-01 06:20] LABS: Chloride 100 mmol/L (98-107)
[2024-10-01 06:21] LABS: Potassium 3.7 mmoL/L (3.5-5.1); Sodium 134 mmol/L (136-145)
[2024-10-01 06:23] LABS: Blood Urea Nitrogen 24 mg/dl (7-17); Creatinine Clearance Estimated 67 mL/min (50-200); Estimated Glomerular Filt Rate 50 ml/min (>60); GFR (African American) 60 ML/MIN (>60)
[2024-10-01 06:24] LABS: Anion Gap 7.7 mEq/L (5-15); Calcium 8.8 mg/dl (8.4-10.2); Carbon Dioxide 30 mmol/L (22.0-30.0); Glucose 103 mg/dl (74-100)
[2024-10-01 08:00] VITALS: BP 105/78; PULSE 110; PULSE 115; RESP 15; TEMP 37; O2SAT 94
[2024-10-01] MEDS: QUINIDINE PO (08:49)
[2024-10-01] MEDS: DEXTROMETHORPHAN PO (08:49)
[2024-10-01] MEDS: LACTOBACILLUS PROBIOTIC COMB CAPSULE 1 CAP PO (08:50)
[2024-10-01] MEDS: APIXABAN 5MG TABLET 5 MG PO (08:50)
[2024-10-01] MEDS: CEFTRIAXONE 1 GM 1 GM in 0.9 % SODIUM CHLORIDE 50 ML IV (08:51)
[2024-10-01] MEDS: ESCITALOPRAM 10MG TABLET 5 MG PO (08:51)
[2024-10-01] MEDS: THIAMINE 100MG TABLET 100 MG PO (08:51)
[2024-10-01 09:10] LABS: Free T4 (Free Thyroxine) 2.08 ng/dl (0.78-2.19)
[2024-10-01 09:58] VITALS: BP 100/90; BP 126/101; BP 128/95; PULSE 103; PULSE 133; PULSE 64
[2024-10-01] MEDS: METOPROLOL SUCCINATE XL 50MG TABLET 50 MG PO (11:00)
[2024-10-01] MEDS: 0.9 % SODIUM CHLORIDE 1000ML 500 ML 250 ML IV (11:03)
[2024-10-01 11:23] LABS: POC Glucose,Bedside 171 (70-110)
--- NOTE | 2024-10-01 11:39 | HMH.PTEV ---
Physical Therapy Evaluation Rehab PT IP Evaluation Start: 09/30/24 11:06 Freq: ONCE Status: Active Protocol: Document 10/01/24 09:01 GUNJAN (Rec: 10/01/24 11:39 GUNJAN [id number]) Subjective/History History History This is a 64-year-old female who has a past medical history significant for nonischemic dilated cardiomyopathy, obstructive sleep apnea, cardiac arrest with an anoxic injury, brain aneurysm, pseudobulbar affect, depression, hypothyroidism, atrial fibrillation with rapid ventricular response, coronary artery disease, hyperlipidemia, hypertension, insomnia, and diabetes who presents with a chief complaint of weakness. Pt was also A-fib with RVR and severely dehydrated. Subjective Subjective Pt is pleasant and alert this morning and presents supine in bed. She expressed she is willing to get up and ambulate . Pt was left resting in bedside chair with nsg button within reach. [facility] How much help from another person do you currently need... Turning from your back to your side None while in a flat bed without using bedrails? Moving from lying on back to sitting on A little the side of a flat bed without using bedrails? Moving to and from a bed to a chair ( A little including a wheelchair)? Standing up from a chair using your arms A little ? (e.g., wheelchair, bedside chair) Walking in hospital room? A little Climbing 3-5 steps with a railing? A lot Mobility Score 18 Mobility Level [facility] Mobility Calculator Mobility 6 Walk 10 steps or more Rehab PT IP Eval Objective Appearance Patient Behavior Appropriate,Cooperative Patient Orientation Person,Place,Time Difficulty following instructions none Speech Pattern Clear,Appropriate Ambulation Patient Able to Ambulate Yes Ambulation Observation IP General Gait Pattern Observation Antalgic Gait,Wide Based Gait Ambulation Distance (feet) 15 Ambulation Assistive Device Rolling Walker Ambulation Ability Contact Guard/Hand Hold Balance Ability to Arise Able, uses arms to help Sitting Balance Steady, safe Standing Balance Steady, wide stance Dynamic Sitting Balance Ability Normal Dynamic Standing Balance Ability Good Transfers Bed Transfer Ability Supervision/Stand by Chair Transfer Ability Contact Guard/Hand Hold Sit to Stand Bed Transfer Ability Contact Guard/Hand Hold Sit to Stand Chair Transfer Ability Contact Guard/Hand Hold Rehab PT IP prob,goals,plan Problems Date of Evaluation: 10/01/24 PT IP Problems Bed Mobility,Transfers,Gait, Balance Rehab Potential Rehab Potential Good Equipment Needs Assistive Devices Rolling / Wheeled Walker Plan PT Intervention Plan Bed Mobility,Transfers,Gait, Balance,Therapeutic Exercise PT Plan Frequency Daily Duration LOS Discharge Goals Bed Transfer Ability Independent Sit to Stand Chair Transfer Ability Contact Guard/Hand Hold Ambulation Assistive Device Rolling Walker Ambulation Distance (feet) 25 Discharge Plan PT Discharge Plan Pt is currently most appropriate to return home with assistance once medically stable for d/c. Skilled acute therapy continues to be indicated in order to improve LE strength, mobility, and transfer ability to return to PLOF with all ADLs, ambulate household distances, and decrease caregiver burden. Home health therapy is currently recommended to improve strength and ambulation ability to return to PLOF. Eval Complexity Eval Charge Codes 71764 - High Complexity PHYSICIAN CERTIFICATION: I certify the specified therapy services for Lisset Pham are required, authorized, and reviewed every 30 days.
[2024-10-01 12:00] VITALS: BP 100/77; PULSE 100; PULSE 103; RESP 16; TEMP 36.9; O2SAT 96
--- NOTE | 2024-10-01 12:02 | EXP.DC.SUM ---
General Admission date:: 09/30/24 HPI HPI HPI: This is a 64-year-old female who has a past medical history significant for nonischemic dilated cardiomyopathy, obstructive sleep apnea, cardiac arrest with an anoxic injury, brain aneurysm, pseudobulbar affect, depression, hypothyroidism, atrial fibrillation with rapid ventricular response, coronary artery disease, hyperlipidemia, hypertension, insomnia, and diabetes who presents with a chief complaint of weakness. Due to patient's anoxic brain injury, her review of systems is limited; as a result, the majority information obtained from ER provider, chart review, and daughter at the bedside. According to ER provider, patient presented due to not eating, not drinking, and generalized weakness. While in emergency room, patient was noted to be in atrial fibrillation with rapid ventricular response with heart rates as high as 130s. Patient was given diltiazem and her heart rate improved to the 90s and low 100s. Patient appeared to be hypovolemic, so she has been admitted for further management. During my evaluation of the patient, patient was pleasant. Daughter at the bedside states that patient has not been eating and drinking. Additional pertinent vitals obtained include a white blood cell count of 13.7, red blood cell count of 6.45, hemoglobin 16.8, hematocrit 53.5, INR 1.48, pH is 7.56, pCO2 of 23.7, bicarb of 20.9, BUN of 36, creatinine of 1.30, GFR of 41, blood glucose 186, magnesium 2.5, total bilirubin 2.5, AST of 50, ALT of 98, alkaline phosphate of 225, BNP of 8910, TSH of 7.96, and free T4 of 10.7. Hospital Course Hospital Course Hospital Course: Lisset Pham is a 64-year-old female who presented with progressive weakness and was admitted for A-fib RVR and UTI. #Acute on chronic A-fib RVR, paroxysmal ? In the setting of volume depletion from poor oral intake due to UTI. Improving with IV fluid resuscitation. ? Current HR in the low 100s. ? Continue home metoprolol 50 mg (did not increase dose as patient is rate controlled with soft pressures), continue Eliquis 5 mg twice daily. ? Cardiology consulted, did not continue amiodarone as A-fib is in the setting of volume depletion. ? Will follow-up with cardiology within 2 weeks #UTI #Generalized weakness ? UA grossly abnormal, follow-up urine culture. ? Treated with ceftriaxone. Discharged with levofloxacin for 4 more days. ? PT/OT consulted, recommended home health. Patient has been referred. #History of anoxic brain injury ? Unfortunately previously occurred during cardiac arrest. Patient is very pleasant and endearing, but cognitively impaired. ? Continue supportive management, daughter at bedside. #HFrEF ? Known LVEF 30 to 35%, follows closely with cardiology. No signs of volume overload, rather volume depleted. ? Continue GDMT with metoprolol succinate 100 mg, spironolactone. Reduce Bumex to 1 mg daily as patient's appetite has decreased over the past months and presented with MICAH, volume depletion. #Hypothyroidism ? TFTs normal. Continue home levothyroxine 75 mg. Total time spent on discharge: 33 minutes on chart review, counseling, documentation, and direct care with patient. Exam Data for Last 24 hours Vital signs and Labs for Last 24 Hours: Temp Pulse Resp BP Pulse Ox O2 Del Method 98.6 F 64 15 128/95 H 94 L Room Air 10/01/24 08:00 10/01/24 09:58 10/01/24 08:00 10/01/24 09:58 10/01/24 08:00 10/01/24 11:00 Laboratory Results - last 24 hr 09/30/24 19:57: POC Glucose 135 H 10/01/24 05:33: WBC 9.8, RBC 5.73 H, Hgb 15.2, Hct 47.3 H, MCV 82.5, MCH 26.5 L, MCHC 32.1, RDW 18.9 H, Plt Count 153, MPV 10.4, Neut % (Auto) 79.4, Lymph % (Auto) 12.6, [place] % (Auto) 7.5, Eos % (Auto) 0.1, Baso % (Auto) 0.1, Neut # (Auto) 7.8, Lymph # (Auto) 1.2, [place] # (Auto) 0.7, Eos # (Auto) 0.0, Baso # (Auto) 0.0, Sodium 134 L, Potassium 3.7, Chloride 100, Carbon Dioxide 30, Anion Gap 7.7, BUN 24 H, Creatinine 1.10 H, Estimated Creat Clear 67, Estimated GFR 50 L, Est GFR ( Amer) 60, Glucose 103 H D, Calcium 8.8, Free T4 2.08 10/01/24 05:34: POC Glucose 101 10/01/24 11:00: POC Glucose 171 H I & O for Last 24 hours: Intake & Output 09/28/24 09/29/24 09/30/24 10/01/24 23:59 23:59 23:59 23:59 Intake Total 250 / 250 2243.241 / 2243.241 Output Total 600 / 600 1600 / 1600 Balance -350 / -350 643.241 / 643.241 Weight 78.018 kg 79 kg 83.325 kg Microbiology Reports for the Last 24 Hours: Microbiology 09/29/24 17:44 Urine,Clean Catch Urine Culture - Final Escherichia coli 09/29/24 17:26 Blood Blood Culture - Preliminary NO GROWTH AFTER 24 HOURS 09/29/24 17:00 Blood Blood Culture - Preliminary NO GROWTH AFTER 24 HOURS Constitutional Constitutional: no acute distress Comments: Pleasantly cognitively impaired. *Routine HEENT Exam Head: Present normocephalic Eye: Present EOMI and PERRL ENT: Present mucous membranes moist *Routine Neck Exam Neck: Present supple; Absent lymphadenopathy *Routine Respiratory Exam Respiratory: Present CTA bilaterally *Routine Cardiovascular Exam Cardiovascular: Present RRR *Routine Abdominal Exam Abdominal: Present soft and normoactive bowel sounds; Absent tenderness *Routine Extremities Exam Extremities: Absent cyanosis, clubbing or edema *Routine Skin Exam Skin: Present warm; Absent rash *Routine Neurological Exam Neurological: Present alert Results Data Completed and Pending Labs on day of discharge: Labs from last 24 hours 10/01/24 10/01/24 10/01/24 11:00 05:34 05:33 WBC 9.8 RBC 5.73 H Hgb 15.2 Hct 47.3 H MCV 82.5 MCH 26.5 L MCHC 32.1 RDW 18.9 H Plt Count 153 MPV 10.4 Neut % (Auto) 79.4 Lymph % (Auto) 12.6 Mon[place] % (Auto) 7.5 Eos % (Auto) 0.1 Baso % (Auto) 0.1 Neut # (Auto) 7.8 Lymph # (Auto) 1.2 [place] # (Auto) 0.7 Eos # (Auto) 0.0 Baso # (Auto) 0.0 Sodium 134 L Potassium 3.7 Chloride 100 Carbon Dioxide 30 Anion Gap 7.7 BUN 24 H Creatinine 1.10 H Estimated Creat Clear 67 Estimated GFR 50 L Est GFR ( Amer) 60 Glucose 103 H D POC Glucose 171 H 101 Calcium 8.8 Free T4 2.08 09/30/24 19:57 WBC RBC Hgb Hct MCV MCH MCHC RDW Plt Count MPV Neut % (Auto) Lymph % (Auto) [place] % (Auto) Eos % (Auto) Baso % (Auto) Neut # (Auto) Lymph # (Auto) [place] # (Auto) Eos # (Auto) Baso # (Auto) Sodium Potassium Chloride Carbon Dioxide Anion Gap BUN Creatinine Estimated Creat Clear Estimated GFR Est GFR ( Amer) Glucose POC Glucose 135 H Calcium Free T4 Preliminary micro results at discharge 09/29/24 17:26 Blood Culture - Preliminary Blood NO GROWTH AFTER 24 HOURS 09/29/24 17:00 Blood Culture - Preliminary Blood NO GROWTH AFTER 24 HOURS DS: Diagnosis Discharge Diagnosis (1) Afib: Status: Chronic Code(s): I48.91 - Unspecified atrial fibrillation Qualifiers: Atrial fibrillation type: paroxysmal Qualified Code(s): I48.0 - Paroxysmal atrial fibrillation (2) Leukocytosis: Status: Acute Code(s): D72.829 - Elevated white blood cell count, unspecified Qualifiers: Leukocytosis type: unspecified Qualified Code(s): D72.829 - Elevated white blood cell count, unspecified (3) Polycythemia: Status: Acute Code(s): D75.1 - Secondary polycythemia (4) Dehydration: Status: Suspected Code(s): E86.0 - Dehydration (5) Respiratory alkalosis: Status: Acute Code(s): E87.3 - Alkalosis (6) Acute kidney injury superimposed on chronic kidney disease: Status: Acute Code(s): N17.9 - Acute kidney failure, unspecified; N18.9 - Chronic kidney disease, unspecified (7) Hypermagnesemia: Status: Acute Code(s): E83.41 - Hypermagnesemia (8) Transaminitis: Status: Acute Code(s): R74.01 - Elevation of levels of liver transaminase levels (9) Elevated brain natriuretic peptide (BNP) level: Status: Acute Code(s): R79.89 - Other specified abnormal findings of blood chemistry Meds Home Medications and Allergies Home Medications ?Medication ?Instructions ?Recorded ?Confirmed ?Type atorvastatin 40 mg tablet 40 mg PO HS 02/12/22 09/30/24 History lactobacillus combination no.4 3 3,000 mmu cells PO DAILY 02/12/22 09/29/24 History billion cell capsule (Probiotic) spironolactone 25 mg tablet 25 mg PO DAILY 02/12/22 09/29/24 History apixaban 5 mg tablet (Eliquis) 5 mg PO BID #60 tabs 11/14/23 09/29/24 Rx dextromethorphan 20 mg-quinidine 1 cap PO Q12H Pseudobulbar #180 05/07/24 09/29/24 Rx 10 mg capsule (Nuedexta) caps escitalopram oxalate 5 mg tablet 5 mg PO DAILY 08/19/24 09/29/24 History levothyroxine 75 mcg tablet 75 mcg PO DAILY 08/20/24 09/29/24 History thiamine HCl (vitamin B1) 100 mg 100 mg PO DAILY 09/29/24 09/29/24 History tablet trazodone 50 mg tablet 150 mg PO HS 09/29/24 09/30/24 History bumetanide 2 mg tablet 1 mg (1/2 x 2 mg) PO DAILY 30 days 10/01/24 09/29/24 Rx #0 tabs levofloxacin 500 mg tablet 500 mg PO DAILY 4 days #4 tabs 10/01/24 Rx metoprolol succinate 50 mg 50 mg PO DAILY 30 days #0 tabs 10/01/24 09/30/24 Rx tablet,extended release 24 hr (Toprol XL) New Prescriptions to Start Prescriptions: levoRonnie Leonard Allergies Allergy/AdvReac Type Severity Reaction Status Date / Time No Known Allergies Allergy Verified 09/29/24 11:52 Discharge Plan Disposition Patient Disposition: Home Health Service Condition: Fair Discharge Order Discharge Orders: Discharge Order (Routine); Ordered 10/01/24 Ordered By: Ronnie Moore Follow up Plan Follow up with: Km Hollis MD [Primary Care Provider] - 10/06/24 11:15 am Prescriptions/Medication Reconciliation: New levofloxacin 500 mg tablet 500 mg PO DAILY 4 Days Qty: 4 0RF Continued spironolactone 25 mg tablet 25 mg PO DAILY atorvastatin 40 mg tablet 40 mg PO HS Probiotic 3 billion cell capsule 3,000 mmu cells PO DAILY Rx Instructions: administer with a meal thiamine HCl (vitamin B1) 100 mg tablet 100 mg PO DAILY Eliquis 5 mg tablet 5 mg PO BID Qty: 60 11RF Nuedexta 20-10 mg capsule 1 cap PO Q12H Qty: 180 3RF Rx Instructions: 1 capsule twice daily trazodone 50 mg tablet 150 mg PO HS metoprolol succinate [Toprol XL] 50 mg tablet extended release 24 hr 50 mg PO DAILY 30 Days Qty: 0 0RF escitalopram oxalate 5 mg tablet 5 mg PO DAILY levothyroxine 75 mcg tablet 75 mcg PO DAILY Changed bumetanide 2 mg tablet 1 mg PO DAILY 30 Days Qty: 0 0RF Problem Reconciliation Problems Reviewed?: Yes Patient Discharge Instructions Patient Instructions: DI for Atrial Fibrillation, DI for Acute Kidney Injury, Tips for Adding Protein - Diet Print Language: Maori Providers Primary Care Provider: Km Hollis Admit Provider: Ronnie Moore Attending Provider: Ronnie Moore
--- NOTE | 2024-10-01 13:02 | SW/DCPLANNER ---
Addendum entered by Dian Morgan 10/01/24 14:55: Spoke with patients daughter to let her know that her mom has been accepted and that [facility] will be contacting her to schedule a time and day to come and see the patient. Lesley Rodarte Addendum entered by Dian Morgan 10/01/24 14:52: [facility] is able to accept patient. Lesley Rodarte Original Note: Spoke with patients daughter and patient regarding home health services once patient is medically stable and ready for discharge. Patient is interested in home health services and does not have a preference in the home health agency. I faxed patients info to [facility] and will update once i hear if patient has been accepted. Lesley Rodarte
--- NOTE | 2024-10-05 10:24 | SW/DCPLANNER ---
Spoke with patients daughter. Patients daughter stated that her mom is doing ok. Patients daughter stated that they are aware of her upcoming appointments. Patients daughter stated that she was able to get her moms medicine picked up from [facility] pharmacy. Patients daughter stated that they have no concerns or questions at this time. Lesley Rodarte
[2024-10-05 12:36] LABS: POC Glucose,Bedside 200 (70-110)
== END 2024-10-01 15:05 | disposition home health service (06) | DRG 309 ==
LOC: ER 16:11 → 2ND 19:59
PROVIDERS: Nurse Practitioner Family; Admitting Provider Student in an Organized Health Care Education/Training Program; Emergency Provider Emergency Medicine; PCP Internal Medicine Adolescent Medicine; Visit Provider Student in an Organized Health Care Education/Training Program
DX: I48.20 Chronic atrial fibrillation, unspecified (principal); E87.3 Alkalosis; I13.0 Hypertensive heart and chronic kidney disease with heart failure and stage 1 through stage 4 chronic kidney disease, or unspecified chronic kidney disease; G93.49 Other encephalopathy; N39.0 Urinary tract infection, site not specified; I50.22 Chronic systolic (congestive) heart failure; N17.9 Acute kidney failure, unspecified; G93.1 Anoxic brain damage, not elsewhere classified; D72.829 Elevated white blood cell count, unspecified; D75.1 Secondary polycythemia; I42.0 Dilated cardiomyopathy; G47.33 Obstructive sleep apnea (adult) (pediatric); F32.A Depression, unspecified; E03.9 Hypothyroidism, unspecified; E78.5 Hyperlipidemia, unspecified; G47.00 Insomnia, unspecified; R53.1 Weakness; R63.0 Anorexia; Z68.32 Body mass index [BMI] 32.0-32.9, adult; R62.7 Adult failure to thrive; R74.01 Elevation of levels of liver transaminase levels; R79.89 Other specified abnormal findings of blood chemistry; E83.41 Hypermagnesemia; Z99.89 Dependence on other enabling machines and devices; B96.20 Unspecified Escherichia coli [E. coli] as the cause of diseases classified elsewhere; Z99.81 Dependence on supplemental oxygen; Z95.810 Presence of automatic (implantable) cardiac defibrillator; Z82.49 Family history of ischemic heart disease and other diseases of the circulatory system; Z80.9 Family history of malignant neoplasm, unspecified; Z83.3 Family history of diabetes mellitus; R53.83 Other fatigue; N18.9 Chronic kidney disease, unspecified; E11.22 Type 2 diabetes mellitus with diabetic chronic kidney disease; I25.10 Atherosclerotic heart disease of native coronary artery without angina pectoris; I67.1 Cerebral aneurysm, nonruptured; F48.2 Pseudobulbar affect; R09.02 Hypoxemia; E11.65 Type 2 diabetes mellitus with hyperglycemia; N31.2 Flaccid neuropathic bladder, not elsewhere classified; Z79.01 Long term (current) use of anticoagulants; Z79.890 Hormone replacement therapy; Z79.899 Other long term (current) drug therapy; E66.9 Obesity, unspecified; F19.11 Other psychoactive substance abuse, in remission
CPT/HCPCS: 36415; 71045; 80048; 80053; 80307; 80320; 80329; 81001; 82803; 82962; 83036; 83605; 83735; 83880; 84145; 84436; 84439; 84443; 84484; 85025; 85610; 85730; 86803; 87040; 87086; 87088; 87186; 87389; 93005; 97163; 99291; G0378; J0282; J0696; J1938; J2543; J3372; J7030; J7060; J7120